=== PATIENT | male | born 1960 | race Two or more races ===

== ENCOUNTER 2018-07-07 15:47 | Inpatient (IN) | payer MEDICARE, MEDICAID ==
[2018-07-07] MEDS ORDERED: Midazolam 1mg/ml 2 ml vial IV ONE ×2 (15:57→20:23)
--- NOTE | 2018-07-07 16:37 | ED Physician Chart ---
ED Chief Complaint/HPI - Patient Information Date Seen:: 07/07/18 Time Seen:: 16:00 Chief Complaint:: resp distress History of Present Illness:: 57 yr old male with sob resp distress here via paramedics from [facility] pt with downs syndrome and mental disability pt bib paramedics withcpap mask no iv and pulse ox 60 to 70 cold mottled extremities ED Review of Systems - Review of Systems General/Constitutional: Fever (unable to give) ED Past Medical History - Past Medical History Past Medical History: Other (downs syndrome) ED Physical Exam - Physical Examination Head: Atraumatic Eyes: Lids, conjuctiva normal Other Skin comments:: mottled legs pale skin ENMT: External ears, nose nl Neck: Nontender Other Respiratory comments:: crackles and pitting edemae legs Cardio Vascular: RRR GI: No tenderness/rebounding/guarding : No CVA tenderness Other Extremities comments:: pitting edema and mottling ED Assessment - Assessment General Assessment: resp distress s/p naso trach intubation Critical Care Time: 2hrs ED Septic Shock - . Is Septic Shock (SBP<90, OR Lactate>4 mmol\L) present?: No
[2018-07-07 16:57] LABS: pH 7.35 (7.35-7.45)
[2018-07-07 16:58] LABS: ALLEN TEST Positive
[2018-07-07] MEDS ORDERED: cefTRIAXone 2 GM in Sodium Chloride 0.9% 100 ML IV ONE (17:10)
[2018-07-07] MEDS ORDERED: Midazolam 1mg/ml 2 ml vial IV STA (17:11)
[2018-07-07 17:18] LABS: EOSINOPHILE ABSOLUTE 0.1 Th/cmm (0.1-0.4); MONOCYTE ABSOLUTE 0.1 Th/cmm (0.3-1.0)
[2018-07-07 17:19] LABS: URINE SOURCE CLEAN C
[2018-07-07 17:21] LABS: % BASOPHILS 2.1 % (0.0-2.0); % EOSINOPHILS 0.5 % (0.0-5.0); % LYMPHOCYTES 1.8 % (20.0-50.0); % MONOCYTES 0.2 % (2.0-10.0); % NEUTROPHILS 95.4 % (40.0-80.0); BASOPHILE ABSOLUTE 0.6 Th/cumm (0-0.2); HEMATOCRIT 36.8 % (41.0-60); HEMOGLOBIN 11.9 gm/dL (12-16); LYMPHOCYTE ABSOLUTE 0.5 Th/cmm (1.5-3.0); MEAN CELL VOLUME 87.8 fl (80-99); MEAN CORPUSCULAR HEMOGLOBIN 28.5 pg (26.0-30.0); MEAN CORPUSCULAR HGB CONC 32.4 pg (28.0-36.0); MEAN PLATELET VOLUME 7.6 fl; NEUTROPHILE ABSOLUTE 25.3 Th/cmm (1.8-8.0); PLATELET COUNT 333 Th/cmm (150-400); RED CELL DISTRIBUTION WIDTH 17.9 % (11.5-20.0)
[2018-07-07 17:23] LABS: WHITE BLOOD COUNT 26.6 Th/cmm (4.8-10.8)
[2018-07-07 17:24] LABS: URINE BILIRUBIN NEGATIVE (NEGATIVE); URINE BLOOD NEGATIVE (NEGATIVE); URINE GLUCOSE (UA) NEGATIVE (NEGATIVE); URINE KETONE NEGATIVE (NEGATIVE); URINE LEUKOCYTE ESTERASE NEGATIVE (NEGATIVE); URINE NITRATE NEGATIVE (NEGATIVE); URINE PROTEIN 30 mg/dL (NEGATIVE); URINE UROBILINOGEN 0.2 E.U./dL (0.2 - 1.0)
[2018-07-07 17:27] LABS: URINE CLARITY CLEAR (CLEAR); URINE COLOR YELLOW; URINE MICROSCOPIC INDICATED? YES
[2018-07-07 17:32] LABS: ALB/GLOB RATIO 0.8 (1.0-1.8); ALKALINE PHOSPHATASE 222 U/L (34-104); ANION GAP 15.4 (7.0-16.0); BILIRUBIN,TOTAL 0.9 mg/dL (0.3-1.0); BUN - UREA NITROGEN 7 mg/dL (7-25); CALCIUM SERUM 8.7 mg/dL (8.6-10.3); CARBON DIOXIDE 19.8 mEq/L (21.0-31.0); CHLORIDE 102 mEq/L (98-107); CREATININE - SERUM 0.5 mg/dL (0.7-1.3); GFR AFRICAN-AMERICAN > 60.0 ml/min (>90); GFR NON AFRICAN-AMERICAN > 60.0 ml/min; POTASSIUM SERUM 4.2 mEq/L (3.5-5.1); SGOT 71 U/L (13-39); SGPT/ALT 21 U/L (7-52); SODIUM SERUM 133 mEq/L (136-145); TOTAL PROTEIN,SERUM 6.9 gm/dL (6.0-8.3)
[2018-07-07 17:38] LABS: GLUCOSE 41 mg/dL (70-105)
[2018-07-07] MEDS ORDERED: [UNRECOGNIZED DRUG - OTHER] IV ONE (17:38)
[2018-07-07 17:43] LABS: BAND NEUTROPHILE 13 % (0-10); EOSINOPHIL 1 % (0-5); LYMPHOCYTE 3 % (20-50); NEUTROPHILS 83 % (40-80)
[2018-07-07 17:45] LABS: URINE BACTERIA FEW /hpf (NONE SEEN); URINE EPITHELIAL CELLS FEW /lpf (FEW); URINE FINE GRANULAR CAST 0-2 /lpf (NONE SEEN); URINE RBC 0-2 /hpf (0-5)
[2018-07-07] MEDS ORDERED: Dextrose 50% 50 mL Abboject IVP ONE ×3 (17:47→23:41)
[2018-07-07] MEDS ORDERED: HYDROCORTISONE SODIUM SUCC IM ONE (17:59)
[2018-07-07] MEDS ORDERED: Dextrose 50% 50 mL Abboject IVP STA ×2 (18:05→19:48)
[2018-07-07] MEDS ORDERED: guaiFENesin 200 MG/10 ML UDC PO PRN (19:06)
[2018-07-07] MEDS ORDERED: D5-0.9%NS 1,000 ML IV SCH (19:15)
[2018-07-07] MEDS ORDERED: Sodium Chloride 0.9% 1,000 ML IV ONE ×2 (19:52→20:15)
[2018-07-07] MEDS ORDERED: Dextrose 10% 1,000 ML IV ONE (20:00)
[2018-07-07] MEDS ORDERED: Dextrose 10% 1,000 ML IV SCH (20:00)
[2018-07-07] MEDS ORDERED: INSULIN ASPART, RECOMBINANT 100 UNITS/ML SUBQ SCH (21:00)
[2018-07-07 21:04] LABS: INR 1.17 (0.5-1.4); PROTHROMBIN TIME (TEST) 12.1 SECONDS (9.5-11.5)
[2018-07-07 22:28] VITALS: BP 117/62
[2018-07-08] MEDS: methylPREDNISolone SS 40 mg Vial IVP SCH ×3 (00:20→12:09)
[2018-07-08] MEDS ORDERED: Dextrose 50% 50 mL Abboject IVP PRN (00:59)
[2018-07-08] MEDS: INSULIN ASPART, RECOMBINANT 100 UNITS/ML SUBQ SCH ×4 (04:23→17:43)
[2018-07-08] MEDS: Morphine Sulfate 2 mg/mL 1mL Syr IVP PRN ×2 (04:58→12:22)
[2018-07-08 05:12] LABS: MEAN CELL VOLUME 91.7 fl (80-99); MEAN CORPUSCULAR HEMOGLOBIN 28.3 pg (26.0-30.0); MEAN CORPUSCULAR HGB CONC 30.9 pg (28.0-36.0); MEAN PLATELET VOLUME 7.9 fl; RED BLOOD COUNT 2.86 Mil/cmm (4.30-5.70); RED CELL DISTRIBUTION WIDTH 18.7 % (11.5-20.0)
[2018-07-08] MEDS: Levothyroxine 0.025 Mg Tab PO SCH (06:36)
[2018-07-08 06:44] LABS: HEMATOCRIT 26.2 % (41.0-60); HEMOGLOBIN 8.1 gm/dL (12-16); WHITE BLOOD COUNT 17.3 Th/cmm (4.8-10.8)
[2018-07-08 06:45] LABS: PLATELET COUNT 156 Th/cmm (150-400)
[2018-07-08 06:46] LABS: BAND NEUTROPHILE 1 % (0-10); BASOPHIL 0 % (0-3); EOSINOPHIL 0 % (0-5); LYMPHOCYTE 2 % (20-50); METAMYELOCYTE 0 % (0-0); MONOCYTE 1 % (2-10); NEUTROPHILS 95 % (40-80)
[2018-07-08] MEDS: Ipratropium Neb 0.5 mg/2.5 mL UD HHN SCH ×3 (07:24→14:21)
[2018-07-08] MEDS: Albuterol Nebulizer 2.5mg/3mL HHN SCH ×3 (07:24→14:21)
[2018-07-08] MEDS: Chlorhexidine Gluconate 0.12% 15mL Mouthwash MM SCH ×2 (08:18→20:25)
--- NOTE | 2018-07-08 08:41 | Diagnostic Imaging Report ---
CHEST X-RAY: AP view INDICATION: Shortness of breath COMPARISON: None FINDINGS: ET tube is in place with tip along the origin of the right mainstem bronchus. Extensive left lung infiltrates are noted with small effusions. Cardiomegaly is noted. Osseous structures are intact. IMPRESSION: ET tube with tip along the origin of the right mainstem bronchus. Recommend pullback. Please refer to follow x-rays for further details. Extensive left lung infiltrates and small effusions.
--- NOTE | 2018-07-08 08:41 | Diagnostic Imaging Report ---
CHEST X-RAY: AP view INDICATION: Shortness of breath COMPARISON: 07/07/2018 FINDINGS: The ET tube is been pulled back with tip now 2.5 cm above the Natalie. Extensive left lung infiltrates are noted. Cardiomegaly is noted. Small bilateral effusions are noted. IMPRESSION: ET tube with tip 2.5 cm above the Natalie. Extensive left lung infiltrates.
--- NOTE | 2018-07-08 08:45 | Diagnostic Imaging Report ---
CHEST X-RAY: AP view INDICATION: PICC line placement COMPARISON: Chest x-ray earlier the same day at 1804 FINDINGS: Right PICC line has been placed with tip in the SVC. ET tube is in place with tip 4 cm above the Jaun. Diffuse infiltrates are seen primarily of the left lung. Small bilateral effusions are noted. Cardiomegaly is noted. IMPRESSION: Interval right PICC line placement with tip in the SVC. ET tube with tip 4 cm above the jaun. Diffuse infiltrates primarily involving the left lung.
--- NOTE | 2018-07-08 08:48 | Diagnostic Imaging Report ---
CHEST X-RAY: AP view INDICATION: Pneumonia COMPARISON: 07/07/2018 FINDINGS: Support devices are stable. Diffuse infiltrates are again noted primarily involving the left lung with small effusions. Cardiomegaly is noted. IMPRESSION: No significant change in pulmonary status.
[2018-07-08] MEDS ORDERED: FLUTICASONE PROPIONATE 110 MCG INH SCH (09:00)
[2018-07-08 09:11] LABS: pH 7.38 (7.35-7.45)
[2018-07-08 09:13] LABS: ALLEN TEST Positive
[2018-07-08 09:42] LABS: ALB/GLOB RATIO 0.7 (1.0-1.8); ALBUMIN 2.3 gm/dL (4.2-5.5); ALKALINE PHOSPHATASE 135 U/L (34-104); BILIRUBIN,TOTAL 0.7 mg/dL (0.3-1.0); BUN - UREA NITROGEN 6 mg/dL (7-25); CALCIUM SERUM 7.5 mg/dL (8.6-10.3); CARBON DIOXIDE 17.4 mEq/L (21.0-31.0); CHLORIDE 104 mEq/L (98-107); CREATININE - SERUM 0.5 mg/dL (0.7-1.3); GFR AFRICAN-AMERICAN > 60.0 ml/min (>90); GFR NON AFRICAN-AMERICAN > 60.0 ml/min; MAGNESIUM 1.6 mg/dL (1.9-2.7); POTASSIUM SERUM 3.4 mEq/L (3.5-5.1); SGOT 73 U/L (13-39); SGPT/ALT 16 U/L (7-52); SODIUM SERUM 133 mEq/L (136-145); TOTAL PROTEIN,SERUM 5.4 gm/dL (6.0-8.3)
[2018-07-08 09:55] LABS: GLUCOSE 343 mg/dL (70-105)
[2018-07-08] MEDS ORDERED: Mag Sulfate 2gm/50mL Premix 2 GM/50 ML BAG IV ONE (12:26)
[2018-07-08] MEDS ORDERED: Magnesium Sulfate 2 GM in Sodium Chloride 0.9% 100 ML IV ONE (13:00)
[2018-07-08] MEDS: D5-0.9%NS 1,000 ML IV SCH (13:00)
--- NOTE | 2018-07-08 13:18 | Internal Medicine Prog Note ---
Internal Medicine Subjective - Subjective Service Date: 07/08/18 ([facility] [id number]) Internal Medicine Objective - Results Result Diagrams: 07/08/18 04:10 07/08/18 09:00 Recent Labs: Laboratory Last Values WBC 17.3 Th/cmm (4.8-10.8) H D 07/08/18 04:10 RBC 2.86 Mil/cmm (4.30-5.70) L 07/08/18 04:10 Hgb 8.1 gm/dL (12-16) L D 07/08/18 04:10 Hct 26.2 % (41.0-60) L D 07/08/18 04:10 MCV 91.7 fl (80-99) 07/08/18 04:10 MCH 28.3 pg (26.0-30.0) 07/08/18 04:10 MCHC Differential 30.9 pg (28.0-36.0) 07/08/18 04:10 RDW 18.7 % (11.5-20.0) 07/08/18 04:10 Plt Count 156 Th/cmm (150-400) D 07/08/18 04:10 MPV 7.9 fl 07/08/18 04:10 Add Manual Diff YES 07/08/18 04:10 Neutrophils % 95.4 % (40.0-80.0) H 07/07/18 17:00 Band Neutrophils % 1 % (0-10) 07/08/18 04:10 Lymphocytes % 1.8 % (20.0-50.0) L 07/07/18 17:00 Monocytes % 0.2 % (2.0-10.0) L 07/07/18 17:00 Eosinophils % 0.5 % (0.0-5.0) 07/07/18 17:00 Basophils % 2.1 % (0.0-2.0) H 07/07/18 17:00 Neutrophils (Manual) 95 % (40-80) H 07/08/18 04:10 Lymphocytes 2 % (20-50) L 07/08/18 04:10 Monocytes 1 % (2-10) L 07/08/18 04:10 Eosinophils 0 % (0-5) 07/08/18 04:10 Basophils 0 % (0-3) 07/08/18 04:10 Metamyelocytes 0 % (0-0) 07/08/18 04:10 PT 12.1 SECONDS (9.5-11.5) H 07/07/18 17:00 INR 1.17 (0.5-1.4) 07/07/18 17:00 Specimen Source Arterial 07/08/18 09:00 Sample Site Right Radial 07/08/18 09:00 pH 7.38 (7.35-7.45) 07/08/18 09:00 pCO2 40.0 mmHg (35.0-45.0) 07/08/18 09:00 pO2 89.0 mmHg (80.0-100.0) 07/08/18 09:00 HCO3 23.9 mEq/L (20.0-26.0) 07/08/18 09:00 Base Excess -1.3 mEq/L (-3.0-3.0) 07/08/18 09:00 O2 Saturation 97.0 % (92.0-100.0) 07/08/18 09:00 Kam Test Positive 07/08/18 09:00 Vent Rate 16 07/08/18 09:00 Inspired O2 30 07/08/18 09:00 Tidal Volume 450 07/08/18 09:00 PEEP 5 07/08/18 09:00 Pressure (ins/psv/peep) N/A 07/08/18 09:00 Critical Value DM 07/08/18 09:00 Sodium 133 mEq/L (136-145) L 07/08/18 09:00 Potassium 3.4 mEq/L (3.5-5.1) L 07/08/18 09:00 Chloride 104 mEq/L (98-107) 07/08/18 09:00 Carbon Dioxide 17.4 mEq/L (21.0-31.0) L 07/08/18 09:00 Anion Gap 15.0 (7.0-16.0) 07/08/18 09:00 BUN 6 mg/dL (7-25) L 07/08/18 09:00 Creatinine 0.5 mg/dL (0.7-1.3) L 07/08/18 09:00 Est GFR ( Amer) > 60.0 ml/min (>90) 07/08/18 09:00 Est GFR (Non-Af Amer) > 60.0 ml/min 07/08/18 09:00 BUN/Creatinine Ratio 12.0 07/08/18 09:00 Glucose 343 mg/dL (70-105) H D 07/08/18 09:00 POC Glucose 293 MG/DL (70 - 105) H 07/08/18 11:30 Whole Bld Lactic Acid 1.96 mmol/L (0.60-1.99) 07/07/18 19:15 Calcium 7.5 mg/dL (8.6-10.3) L 07/08/18 09:00 Magnesium 1.6 mg/dL (1.9-2.7) L 07/08/18 09:00 Total Bilirubin 0.7 mg/dL (0.3-1.0) 07/08/18 09:00 AST 73 U/L (13-39) H 07/08/18 09:00 ALT 16 U/L (7-52) 07/08/18 09:00 Alkaline Phosphatase 135 U/L (34-104) H 07/08/18 09:00 Ammonia 50 umol/L (16-53) 07/08/18 04:10 Troponin I 0.02 ng/mL (0.01-0.05) 07/07/18 17:00 B-Natriuretic Peptide 255.0 pg/mL (5.0-100.0) H 07/08/18 04:10 Total Protein 5.4 gm/dL (6.0-8.3) L 07/08/18 09:00 Albumin 2.3 gm/dL (4.2-5.5) L 07/08/18 09:00 Globulin 3.1 gm/dL 07/08/18 09:00 Albumin/Globulin Ratio 0.7 (1.0-1.8) L 07/08/18 09:00 TSH 4.06 uIU/ml (0.34-5.60) 07/08/18 04:10 Urine Source CLEAN C 07/07/18 17:15 Urine Color YELLOW 07/07/18 17:15 Urine Clarity CLEAR (CLEAR) 07/07/18 17:15 Urine pH 6.0 (4.6 - 8.0) 07/07/18 17:15 Ur Specific [place] 1.015 (1.005-1.030) 07/07/18 17:15 Urine Protein 30 mg/dL (NEGATIVE) H 07/07/18 17:15 Urine Glucose (UA) NEGATIVE mg/dL (NEGATIVE) 07/07/18 17:15 Urine Ketones NEGATIVE mg/dL (NEGATIVE) 07/07/18 17:15 Urine Blood NEGATIVE (NEGATIVE) 07/07/18 17:15 Urine Nitrate NEGATIVE (NEGATIVE) 07/07/18 17:15 Urine Bilirubin NEGATIVE (NEGATIVE) 07/07/18 17:15 Urine Urobilinogen 0.2 E.U./dL (0.2 - 1.0) 07/07/18 17:15 Ur Leukocyte Esterase NEGATIVE (NEGATIVE) 07/07/18 17:15 Urine RBC 0-2 /hpf (0-5) H 07/07/18 17:15 Urine WBC 2-5 /hpf (0-5) 07/07/18 17:15 Ur Epithelial Cells FEW /lpf (FEW) 07/07/18 17:15 Urine Bacteria FEW /hpf (NONE SEEN) 07/07/18 17:15 Fine Granular Casts 0-2 /lpf (NONE SEEN) H 07/07/18 17:15 Urine Mucus FEW /lpf (FEW) 07/07/18 17:15 - Physical Exam Vitals and I&O: Vital Signs Temp 97.1 F 07/08/18 13:00 Pulse 89 07/08/18 13:00 Resp 16 07/08/18 13:00 BP 104/61 07/08/18 13:00 Pulse Ox 99 07/08/18 13:00 Intake & Output 07/07/18 07/08/18 07/08/18 18:59 06:59 18:59 Intake Total 1450 250 Output Total 1700 Balance -250 250 Weight (lbs) 145 lb 160 lb Intake: Intake, IV Amount 1450 250 Piperacillin Sodium/ 200 Tazobact 4.5 gm In Sodium Chloride 0.9% 100 ml @ 100 mls/hr IV Q8HR [facility] Rx #:[id number] Vancomycin HCl 1 gm In 250 Sodium Chloride 0.9% 250 ml @ 165 mls/hr IV Q24H [facility] Rx#:[id number] Output: Urine 1700 Other: Weight Source Estimated Bedscale Active Medications: Current Medications Acetaminophen (Tylenol) 650 mg PO Q4H PRN PRN Reason: Pain Or Fever above 101 Stop: 09/05/18 19:05 Albuterol Sulfate (Albuterol 2.5mg/3ml Neb Ud) 2.5 mg HHN QIDRT [facility] Stop: 09/06/18 06:59 Last Admin: 07/08/18 11:13 Dose: 2.5 mg Aspirin (Ecotrin) 81 mg PO DAILY [facility] Stop: 09/06/18 08:59 Last Admin: 07/08/18 08:34 Dose: Not Given Chlorhexidine Gluconate (Peridex) 15 ml MM 08,1999 [facility] Stop: 09/06/18 07:59 Last Admin: 07/08/18 08:18 Dose: 15 ml Dextrose (D50w) 50 ml IVP Q4HR PRN PRN Reason: Hypersensitivity Stop: 09/06/18 00:58 Guaifenesin (Robitussin) 200 mg PO Q4HR PRN PRN Reason: Cough or Congestion Stop: 09/05/18 19:05 Heparin Sodium (Porcine) (Heparin) 5,000 units SUBQ Q12HR [facility] Stop: 09/05/18 20:59 Last Admin: 07/08/18 08:26 Dose: 5,000 units Piperacillin Sod/Tazobactam (Sod 4.5 gm/ Sodium Chloride) 100 mls @ 100 mls/hr IV Q8HR [facility] Stop: 09/05/18 20:59 Last Admin: 07/08/18 12:08 Dose: 100 mls/hr Norepinephrine Bitartrate 4 mg (/ Dextrose) 254 mls @ 7.62 mls/hr IV TITR PRN; Protocol PRN Reason: To Keep SBP Above 90 Stop: 09/06/18 00:56 Vancomycin HCl 1 gm/ Sodium (Chloride) 250 mls @ 165 mls/hr IV Q24H [facility] Stop: 09/06/18 08:59 Last Infusion: 07/08/18 10:05 Dose: Infused Potassium Chloride 20 meq/ (Sodium Chloride) 260 mls @ 130 mls/hr IV X1 ONE Stop: 07/08/18 14:59 Last Admin: 07/08/18 13:11 Dose: 130 mls/hr Dextrose/Sodium Chloride (D5-0.9%Ns) 1,000 mls @ 80 mls/hr IV .[id number] [facility] Stop: 09/06/18 12:29 Last Admin: 07/08/18 13:00 Dose: 80 mls/hr Magnesium Sulfate 2 gm/ Sodium (Chloride) 104 mls @ 50 mls/hr IV ONCE ONE Stop: 07/08/18 15:04 Last Admin: 07/08/18 13:09 Dose: 50 mls/hr Insulin Aspart (Novolog) 0 units SUBQ Q6HR [facility]; Protocol Stop: 09/06/18 17:59 Ipratropium [place] (Atrovent Neb 0.5mg/2.5ml) 0.5 mg HHN QIDRT [facility] Stop: 09/06/18 06:59 Last Admin: 07/08/18 11:13 Dose: 0.5 mg Levothyroxine Sodium (Synthroid) 0.025 mg PO QDAC [facility] Stop: 09/06/18 07:29 Last Admin: 07/08/18 06:36 Dose: Not Given Lorazepam (Ativan) 0.5 mg IV Q6H PRN; Protocol PRN Reason: Agitation Stop: 09/06/18 00:54 Last Admin: 07/08/18 08:47 Dose: 0.5 mg Methylprednisolone Sodium Succinate (Solu-Medrol) 60 mg IVP Q8HR [facility] Stop: 09/06/18 12:59 Last Admin: 07/08/18 13:09 Dose: 60 mg Miscellaneous (Fluticasone Propionate [Flovent Hfa]) 110 mcg INH BID [facility] Stop: 09/06/18 08:59 Miscellaneous (Vancomycin Iv Per Pharmacy) 1 ea [facility] PRN [facility] Stop: 09/05/18 19:14 Morphine Sulfate (Morphine) 2 mg IVP Q4H PRN PRN Reason: Pain (Severe) Stop: 09/05/18 19:05 Last Admin: 07/08/18 12:22 Dose: 2 mg Ondansetron HCl (Zofran) 4 mg IV Q8H PRN PRN Reason: Nausea / Vomiting Stop: 09/05/18 19:05 Pantoprazole Sodium (Protonix) 40 mg IVP BID [facility] Stop: 09/06/18 08:59 Last Admin: 07/08/18 08:27 Dose: 40 mg
--- NOTE | 2018-07-08 13:50 | Diagnostic Imaging Report ---
CHEST X-RAY: AP view INDICATION: NG tube placement COMPARISON: 07/08/2018 FINDINGS: NG tube is in place with tip in the stomach. Remaining support devices are stable. Bilateral diffuse bony infiltrates are again noted left greater than right. IMPRESSION: Interval NG tube placement with tip in the stomach. Diffuse bilateral pulmonary infiltrates left greater than right.
--- NOTE | 2018-07-08 14:54 | Consultation ---
DATE OF CONSULTATION: 07/08/2018 PULMONARY/CRITICAL CARE CONSULTATION NOTE REASON FOR CONSULTATION: Acute respiratory failure. HISTORY OF PRESENT ILLNESS: This is a 57-year-old gentleman well known to me, who comes to the office regularly, has a significant physically and mentally development issue, has a severe obstructive sleep apnea syndrome, chronic bronchial asthma, diabetic mellitus, hypertension and is fairly compliant. [place] and [place] and ____ the office regularly. Apparently, the patient was found to have significant shortness of breath with severe hypoxemia. Subsequently, the patient was brought to the hospital with CPAP mask. The patient was intubated as the patient with significant respiratory distress, etc. Subsequently, I was asked to see this patient for further evaluation and necessary treatment. Unfortunately, meaningful detailed history from the patient is not available to me though I have known him for a long time as to current sequence of ____. PHYSICAL EXAMINATION: GENERAL: The patient is currently intubated. No respiratory distress. Currently using 30% of oxygen on assist control of 16. HEENT: Examination of the head is essentially unremarkable. Pupils appear to be equal and react to light. Conjunctivae are slightly pallor. There is a nasotracheal tube as well as a nasogastric tube on the right side. Mouth shows small oropharyngeal opening. NECK: Very short large circumference. No palpable node. CHEST: Shows scattered rhonchi with generalized diminished air entry and with scattered wheezing. HEART: Distant. ABDOMEN: Soft, nontender. EXTREMITIES: Show slight trace of peripheral edema. IMAGING: The patient's chest x-ray currently shows ET tube in good position, mid trachea with bilateral fluffy infiltrate. LABORATORY DATA: Other laboratory studies: White count is 26,000, hemoglobin 11.9 and the patient's ABG initially on 100%, pO2 was 61 and initial admission, repeat one shows pO2 of 89 and this is on 30% of oxygen. The patient's white count is trending down to 17.3 with hemoglobin 8.1 and the patient's electrolytes shows a sugar on a higher side and the patient's potassium is 3.4, BUN is 6, creatinine is 0.5, magnesium is 1.6 and albumin is 2.3. IMPRESSION: 1. The patient has acute respiratory failure with bilateral infiltrates, exact etiology is not clear, question is viral versus possibly community acquired. 2. Underlying chronic bronchial asthma. 3. Severe obstructive sleep apnea syndrome. 4. Hypertension, diabetic mellitus and history of sleep apnea syndrome with CPAP compliant. PLANS AND SUGGESTIONS: We will go ahead and continue ventilator care, aggressive respiratory tracheobronchial toileting and we will go ahead and get a CT of the chest, 2D echo and also aggressive inhalation treatment with steroid and broad spectrum antibiotic and we will see how she does in the next 24 to 48 hours and go from there. JOB# [id number]
[2018-07-08] MEDS: methylPREDNISolone SS 40 mg Vial IV SCH ×2 (15:01→17:38)
[2018-07-08] MEDS: Pantoprazole 40 mg/Packet PO SCH (15:04)
--- NOTE | 2018-07-08 15:12 | History & Physical ---
ADMIT DATE: 07/08/2018 CHIEF COMPLAINT: Respiratory distress. HISTORY OF PRESENT ILLNESS: This is a 57-year-old male who is a resident of [facility] who has a 1-day history of respiratory distress. The patient was noted to have a pulse oximetry and oxygen saturation in the low 60-70% and the patient was noted to have a cold, mottled extremities. The patient was found to be in severe respiratory distress in the ER. The patient was intubated by ER physician and placed on a ventilator. The patient was also noted with abdominal distention. The patient was kept on NG tube to intermittent suction as well. In the ER, last night patient had an episode of hypoglycemia and D50 was given. For further management, patient is admitted here to the ICU unit. PAST MEDICAL HISTORY: Down syndrome, hypertension, asthma and COPD, liver CA. PAST SURGICAL HISTORY: Unknown. ALLERGIES: No drug allergies. SOCIAL HISTORY: The patient is a resident of [facility]. FAMILY HISTORY: Noncontributory. REVIEW OF SYSTEMS: Unable to obtain due to patient's mental status. PHYSICAL EXAMINATION: GENERAL: Elderly male, appears chronically ill, on ventilator. VITAL SIGNS: Temperature 97.1, heart rate 78, blood pressure 120/70, respiration 18, O2 100%. HEENT: Normocephalic, atraumatic. NECK: Supple. No mass. LUNGS: Scattered rhonchi bilaterally. CARDIOVASCULAR: No murmurs, no gallops. ENT, PERRLA. No nasal deviation. ABDOMEN: Noted with distention. EXTREMITIES: No edema noted at this time. SKIN: Positive for excoriations. LABORATORY DATA: WBC 17.3, H and H 8.1/26.2, platelet of 156. Sodium 132, potassium 3.4, chloride 104, BUN 6, creatinine 0.5. BNP is 255, albumin 2.3. The patient had a chest x-ray done. Impression is extensive left lung infiltrate and small effusions. ASSESSMENT: Acute respiratory failure, sepsis, VDRF, left lung pneumonia, anemia, hyponatremia, hypokalemia, mild protein-calorie malnutrition, episode of hypoglycemia, Down syndrome, hypertension, asthma, history of liver cancer. PLAN: The patient will be admitted to the ICU unit. We will keep the patient on IV antibiotics of vancomycin per pharmacy to dose and Zosyn. Also add Solu-Medrol 60 mg IV q.8 hours. We will get medical genetics director on the case. IV fluids for hydration. We will get followup labs for tomorrow morning. Monitor signs and symptoms of any hypo or hyperglycemia. Accu-Chek a.c. and at bedtime, continue ventilator support. We will continue to follow this patient. JOB# [id number]
[2018-07-08] MEDS: Albuterol/Ipratropium Neb 3 ML AERS HHN SCH ×3 (15:53→23:07)
[2018-07-08] MEDS: Budesonide 0.5 Mg/2 mL Ud HHN SCH (19:01)
[2018-07-09] MEDS: INSULIN ASPART, RECOMBINANT 100 UNITS/ML SUBQ SCH ×5 (00:26→23:53)
[2018-07-09] MEDS: methylPREDNISolone SS 40 mg Vial IV SCH ×5 (00:30→23:53)
[2018-07-09] MEDS: Albuterol/Ipratropium Neb 3 ML AERS HHN SCH ×6 (03:08→23:14)
[2018-07-09] MEDS: D5-0.9%NS 1,000 ML IV SCH (05:06)
[2018-07-09] MEDS: Levothyroxine 0.025 Mg Tab PO SCH (06:54)
[2018-07-09] MEDS: Budesonide 0.5 Mg/2 mL Ud HHN SCH (06:54)
--- NOTE | 2018-07-09 07:49 | Diagnostic Imaging Report ---
CT Chest without IV contrast HISTORY: Respiratory failure COMPARISON: Chest x-ray the same day. Technique: Axial images were obtained from the base of the neck to the upper abdomen without IV contrast. Reconstructions were made. Total DLP 3:30, CTD I 9.2 Findings: Tracheostomy tube is seen with tip 2.8 cm above the jaun. NG tube is within the stomach. Right sided PICC line is seen with tip in SVC. Assessment of the mediastinum is limited due to lack of IV contrast. Mildly prominent mediastinal lymph nodes are noted. Cardiomegaly is noted. No evidence of pericardial effusion. No evidence of an aneurysm. Evaluation of the lungs demonstrates extensive bilateral infiltrates left greater than right. No significant pleural effusion identified. Left basal consolidative changes are noted. The upper abdomen demonstrates enlarged liver with multiple hypodense mass lesions. Small amount of free fluid is also seen adjacent to the liver. Anasarca is noted. Degenerative changes of the spine are noted. Gynecomastia is incidentally noted. IMPRESSION: Extensive multifocal infiltrates, left greater than right, concerning for multifocal pneumonia.. ARDS may be considered in the appropriate clinical setting. Enlarged liver with multiple low density lesions most concerning for metastatic disease. Please correlate with clinical history and old exams. Cardiomegaly. Mildly prominent mediastinal lymph nodes. Small amount of free fluid adjacent to the liver. Support devices as above Anasarca. Gynecomastia.
--- NOTE | 2018-07-09 07:55 | Diagnostic Imaging Report ---
Portable chest x-ray HISTORY: Shortness of breath Compared with the prior exam of July 08, 2018, the heart remains enlarged. Persistent bilateral infiltrates (left greater than right). Pulmonary vascular redistribution is seen consistent with cardiac decompensation. Endotracheal tube tip is approximately 2.5 cm above the jaun. IMPRESSION: 1. No significant change in the cardiopulmonary status. Persistent cardiomegaly and bilateral infiltrates. Findings suggest changes of congestive heart failure with pulmonary edema. Underlying pneumonia cannot be excluded. Clinical correlation is needed.
[2018-07-09 07:58] LABS: HEMATOCRIT 26.1 % (41.0-60); HEMOGLOBIN 8.5 gm/dL (12-16); MEAN CELL VOLUME 87.9 fl (80-99); MEAN CORPUSCULAR HEMOGLOBIN 28.5 pg (26.0-30.0); MEAN CORPUSCULAR HGB CONC 32.4 pg (28.0-36.0); PLATELET COUNT 143 Th/cmm (150-400); RED BLOOD COUNT 2.97 Mil/cmm (4.30-5.70); RED CELL DISTRIBUTION WIDTH 17.8 % (11.5-20.0); WHITE BLOOD COUNT 12.7 Th/cmm (4.8-10.8)
[2018-07-09 08:16] LABS: ALB/GLOB RATIO 0.8 (1.0-1.8); ALBUMIN 2.5 gm/dL (4.2-5.5); ALKALINE PHOSPHATASE 120 U/L (34-104); ANION GAP 14.4 (7.0-16.0); BILIRUBIN,TOTAL 0.6 mg/dL (0.3-1.0); BUN - UREA NITROGEN 9 mg/dL (7-25); CALCIUM SERUM 7.6 mg/dL (8.6-10.3); CARBON DIOXIDE 19.2 mEq/L (21.0-31.0); CHLORIDE 106 mEq/L (98-107); CREATININE - SERUM 0.6 mg/dL (0.7-1.3); GFR AFRICAN-AMERICAN > 60.0 ml/min (>90); GFR NON AFRICAN-AMERICAN > 60.0 ml/min; MAGNESIUM 2.3 mg/dL (1.9-2.7); POTASSIUM SERUM 3.6 mEq/L (3.5-5.1); SGOT 97 U/L (13-39); SGPT/ALT 19 U/L (7-52); SODIUM SERUM 136 mEq/L (136-145); TOTAL PROTEIN,SERUM 5.6 gm/dL (6.0-8.3)
[2018-07-09 08:20] LABS: GLUCOSE 215 mg/dL (70-105)
[2018-07-09] MEDS: Pantoprazole 40 mg/Packet PO SCH (08:48)
[2018-07-09] MEDS: Chlorhexidine Gluconate 0.12% 15mL Mouthwash MM SCH ×2 (08:55→19:37)
[2018-07-09] MEDS: Potassium Chloride Elixir 20 mEq /15 mL UDC GT SCH (09:27)
[2018-07-09] MEDS: Lactulose 10 Gm/15 mL 30mL UDC PO SCH (09:28)
[2018-07-09] MEDS: D5-0.45NS 1,000 ML IV SCH (09:29)
[2018-07-09 10:01] LABS: BAND NEUTROPHILE 0 % (0-10); BASOPHIL 0 % (0-3); EOSINOPHIL 0 % (0-5); LYMPHOCYTE 2 % (20-50); MONOCYTE 2 % (2-10); NEUTROPHILS 96 % (40-80)
[2018-07-09 10:04] LABS: ALLEN TEST YES
[2018-07-09 11:11] LABS: FOLIC ACID 8.6 ng/mL (>3.0)
--- NOTE | 2018-07-09 15:06 | Internal Medicine Prog Note ---
Internal Medicine Subjective - Subjective Service Date: 07/09/18 Patient seen and examined:: with staff Patient is:: asleep, non-verbal Patient Complaints of:: congestion Per staff patient has:: tolerating meds Internal Medicine Objective - Results Result Diagrams: 07/09/18 07:30 07/09/18 07:30 Recent Labs: Laboratory Last Values WBC 12.7 Th/cmm (4.8-10.8) H 07/09/18 07:30 RBC 2.97 Mil/cmm (4.30-5.70) L 07/09/18 07:30 Hgb 8.5 gm/dL (12-16) L 07/09/18 07:30 Hct 26.1 % (41.0-60) L 07/09/18 07:30 MCV 87.9 fl (80-99) 07/09/18 07:30 MCH 28.5 pg (26.0-30.0) 07/09/18 07:30 MCHC Differential 32.4 pg (28.0-36.0) 07/09/18 07:30 RDW 17.8 % (11.5-20.0) 07/09/18 07:30 Plt Count 143 Th/cmm (150-400) L 07/09/18 07:30 MPV 8.0 fl 07/09/18 07:30 Add Manual Diff YES 07/09/18 07:30 Neutrophils % [employer] 07/09/18 07:30 Band Neutrophils % 0 % (0-10) 07/09/18 07:30 Lymphocytes % [employer] 07/09/18 07:30 Monocytes % [employer] 07/09/18 07:30 Eosinophils % [employer] 07/09/18 07:30 Basophils % [employer] 07/09/18 07:30 Neutrophils (Manual) 96 % (40-80) H 07/09/18 07:30 Lymphocytes 2 % (20-50) L 07/09/18 07:30 Monocytes 2 % (2-10) 07/09/18 07:30 Eosinophils 0 % (0-5) 07/09/18 07:30 Basophils 0 % (0-3) 07/09/18 07:30 Metamyelocytes 0 % (0-0) 07/08/18 04:10 PT 12.1 SECONDS (9.5-11.5) H 07/07/18 17:00 INR 1.17 (0.5-1.4) 07/07/18 17:00 Specimen Source Arterial 07/09/18 09:55 Sample Site Right Radial 07/09/18 09:55 pH 7.40 (7.35-7.45) 07/09/18 09:55 pCO2 38.0 mmHg (35.0-45.0) 07/09/18 09:55 pO2 111.0 mmHg (80.0-100.0) H 07/09/18 09:55 HCO3 24.1 mEq/L (20.0-26.0) 07/09/18 09:55 Base Excess -1.1 mEq/L (-3.0-3.0) 07/09/18 09:55 O2 Saturation 98.0 % (92.0-100.0) 07/09/18 09:55 Kam Test YES 07/09/18 09:55 Vent Rate 16 07/09/18 09:55 Inspired O2 30 07/09/18 09:55 Tidal Volume 450 07/09/18 09:55 PEEP 5 07/09/18 09:55 Pressure (ins/psv/peep) NA 07/09/18 09:55 Critical Value E.CURRAN 07/09/18 09:55 Sodium 136 mEq/L (136-145) 07/09/18 07:30 Potassium 3.6 mEq/L (3.5-5.1) 07/09/18 07:30 Chloride 106 mEq/L (98-107) 07/09/18 07:30 Carbon Dioxide 19.2 mEq/L (21.0-31.0) L 07/09/18 07:30 Anion Gap 14.4 (7.0-16.0) 07/09/18 07:30 BUN 9 mg/dL (7-25) 07/09/18 07:30 Creatinine 0.6 mg/dL (0.7-1.3) L 07/09/18 07:30 Est GFR ( Amer) > 60.0 ml/min (>90) 07/09/18 07:30 Est GFR (Non-Af Amer) > 60.0 ml/min 07/09/18 07:30 BUN/Creatinine Ratio 15.0 07/09/18 07:30 Glucose 215 mg/dL (70-105) H D 07/09/18 07:30 POC Glucose 200 MG/DL (70 - 105) H 07/09/18 11:47 Whole Bld Lactic Acid 1.96 mmol/L (0.60-1.99) 07/07/18 19:15 Calcium 7.6 mg/dL (8.6-10.3) L 07/09/18 07:30 Magnesium 2.3 mg/dL (1.9-2.7) 07/09/18 07:30 Total Bilirubin 0.6 mg/dL (0.3-1.0) 07/09/18 07:30 AST 97 U/L (13-39) H 07/09/18 07:30 ALT 19 U/L (7-52) 07/09/18 07:30 Alkaline Phosphatase 120 U/L (34-104) H 07/09/18 07:30 Ammonia 62 umol/L (16-53) H 07/09/18 07:30 Troponin I 0.01 ng/mL (0.01-0.05) 07/09/18 07:30 B-Natriuretic Peptide 196.0 pg/mL (5.0-100.0) H 07/09/18 07:30 Total Protein 5.6 gm/dL (6.0-8.3) L 07/09/18 07:30 Albumin 2.5 gm/dL (4.2-5.5) L 07/09/18 07:30 Globulin 3.1 gm/dL 07/09/18 07:30 Albumin/Globulin Ratio 0.8 (1.0-1.8) L 07/09/18 07:30 Vitamin B12 1241 pg/mL (232-1245) 07/08/18 04:10 Folic Acid 8.6 ng/mL (>3.0) 07/08/18 04:10 TSH 4.06 uIU/ml (0.34-5.60) 07/08/18 04:10 Urine Source CLEAN C 07/07/18 17:15 Urine Color YELLOW 07/07/18 17:15 Urine Clarity CLEAR (CLEAR) 07/07/18 17:15 Urine pH 6.0 (4.6 - 8.0) 07/07/18 17:15 Ur Specific [place] 1.015 (1.005-1.030) 07/07/18 17:15 Urine Protein 30 mg/dL (NEGATIVE) H 07/07/18 17:15 Urine Glucose (UA) NEGATIVE mg/dL (NEGATIVE) 07/07/18 17:15 Urine Ketones NEGATIVE mg/dL (NEGATIVE) 07/07/18 17:15 Urine Blood NEGATIVE (NEGATIVE) 07/07/18 17:15 Urine Nitrate NEGATIVE (NEGATIVE) 07/07/18 17:15 Urine Bilirubin NEGATIVE (NEGATIVE) 07/07/18 17:15 Urine Urobilinogen 0.2 E.U./dL (0.2 - 1.0) 07/07/18 17:15 Ur Leukocyte Esterase NEGATIVE (NEGATIVE) 07/07/18 17:15 Urine RBC 0-2 /hpf (0-5) H 07/07/18 17:15 Urine WBC 2-5 /hpf (0-5) 07/07/18 17:15 Ur Epithelial Cells FEW /lpf (FEW) 07/07/18 17:15 Urine Bacteria FEW /hpf (NONE SEEN) 07/07/18 17:15 Fine Granular Casts 0-2 /lpf (NONE SEEN) H 07/07/18 17:15 Urine Mucus FEW /lpf (FEW) 07/07/18 17:15 Vancomycin Trough 11.1 ug/mL (5-10) H 07/09/18 07:30 - Physical Exam Vitals and I&O: Vital Signs Temp 97.1 F 07/09/18 13:00 Pulse 95 07/09/18 14:00 Resp 13 07/09/18 14:00 BP 113/66 07/09/18 14:00 Pulse Ox 99 07/09/18 14:00 Intake & Output 07/08/18 07/09/18 07/09/18 18:59 06:59 18:59 Intake Total 894 1250 100 Output Total 650 280 Balance 244 970 100 Weight (lbs) 173 lb 9 oz 176 lb Intake: Intake, IV Amount 714 950 100 D5-0.9%Ns 1,000 ml @ 80 750 mls/hr IV .[id number] [facility] Rx #:[id number] Piperacillin Sodium/ 100 200 100 Tazobact 4.5 gm In Sodium Chloride 0.9% 100 ml @ 100 mls/hr IV Q8HR [facility] Rx #:[id number] Vancomycin HCl 1 gm In 250 Sodium Chloride 0.9% 250 ml @ 165 mls/hr IV Q24H [facility] Rx#:[id number] Tube Feeding 80 300 Other 100 Output: Urine 650 280 Other: # Bowel Movements 0 Weight Source Bedscale Bedscale Active Medications: Current Medications Acetaminophen (Tylenol) 650 mg PO Q4H PRN PRN Reason: Pain Or Fever above 101 Stop: 09/05/18 19:05 Albuterol/Ipratropium (Duoneb Neb) 3 ml HHN Q4HRT [facility] Stop: 09/06/18 14:59 Last Admin: 07/09/18 11:33 Dose: 3 ml Aspirin (Ecotrin) 81 mg PO DAILY [facility] Stop: 09/06/18 08:59 Last Admin: 07/09/18 08:48 Dose: 81 mg Budesonide (Pulmicort) 0.5 mg HHN BIDRT [facility] Stop: 09/06/18 18:59 Last Admin: 07/09/18 06:54 Dose: 0.5 mg Chlorhexidine Gluconate (Peridex) 15 ml MM 08,1999 [facility] Stop: 09/06/18 07:59 Last Admin: 07/09/18 08:55 Dose: 15 ml Dextrose (D50w) 50 ml IVP Q4HR PRN PRN Reason: Hypersensitivity Stop: 09/06/18 00:58 Furosemide (Lasix) 20 mg IVP BID [facility] Stop: 09/07/18 08:59 Last Admin: 07/09/18 09:28 Dose: 20 mg Guaifenesin (Robitussin) 200 mg PO Q4HR PRN PRN Reason: Cough or Congestion Stop: 09/05/18 19:05 Piperacillin Sod/Tazobactam (Sod 4.5 gm/ Sodium Chloride) 100 mls @ 100 mls/hr IV Q8HR [facility] Stop: 09/05/18 20:59 Last Infusion: 07/09/18 13:10 Dose: Infused Norepinephrine Bitartrate 4 mg (/ Dextrose) 254 mls @ 7.62 mls/hr IV TITR PRN; Protocol PRN Reason: To Keep SBP Above 90 Stop: 09/06/18 00:56 Dextrose/Sodium Chloride (D5-0.45ns) 1,000 mls @ 50 mls/hr IV .Q20H [facility] Stop: 09/07/18 08:59 Last Admin: 07/09/18 09:29 Dose: 50 mls/hr Vancomycin HCl 1 gm/ Sodium (Chloride) 250 mls @ 165 mls/hr IV Q18H [facility] Stop: 09/07/18 21:59 Insulin Aspart (Novolog) 0 units SUBQ Q6HR [facility]; Protocol Stop: 09/06/18 17:59 Last Admin: 07/09/18 12:08 Dose: Not Given Lactulose (Cephulac) 30 gm PO DAILY [facility] Stop: 09/07/18 08:59 Last Admin: 07/09/18 09:28 Dose: 30 gm Levothyroxine Sodium (Synthroid) 0.025 mg PO QDAC [facility] Stop: 09/06/18 07:29 Last Admin: 07/09/18 06:54 Dose: 0.025 mg Lorazepam (Ativan) 0.5 mg IV Q6H PRN; Protocol PRN Reason: Agitation Stop: 09/06/18 00:54 Last Admin: 07/09/18 10:52 Dose: 0.5 mg Methylprednisolone Sodium Succinate (Solu-Medrol) 40 mg IV Q6HR [facility] Stop: 07/11/18 06:01 Last Admin: 07/09/18 12:07 Dose: 40 mg Miscellaneous (Vancomycin Iv Per Pharmacy) 1 ea MC PRN [facility] Stop: 09/05/18 19:14 Morphine Sulfate (Morphine) 2 mg IVP Q4H PRN PRN Reason: Pain (Severe) Stop: 09/05/18 19:05 Last Admin: 07/08/18 12:22 Dose: 2 mg Ondansetron HCl (Zofran) 4 mg IV Q8H PRN PRN Reason: Nausea / Vomiting Stop: 09/05/18 19:05 Pantoprazole Sodium (Protonix) 40 mg PO DAILY [facility] Stop: 09/06/18 14:44 Last Admin: 07/09/18 08:48 Dose: 40 mg Potassium Chloride (Potassium Chloride Elixir) 20 meq GT DAILY [facility] Stop: 09/07/18 08:59 Last Admin: 07/09/18 09:27 Dose: 20 meq General: weak, obtunded HEENT: NC/AT, PERRLA Neck: Supple Lungs: ronchi Cardiovascular: RRR, Normal S1, Normal S2, without murmur Abdomen: distended Extremities: excoriation Neurological: unable to follow command - Procedures Procedures: Procedures Procedure Code Date RESPIRATORY VENTILATION, 24-96 CONSECUTIVE HOURS [id number] 07/07/18 Internal Medicine Assmt/Plan - Assessment Assessment: acute respiratory failure vdrf sepsis left lung pna anemia hyponatremia hypokalemia mild protein meg malnutrition episode of hypoglycemia down syndrome htn asthma hx liver ca - Plan Plan: continue vent support continue ivabx lasix iv in-line respiratory treatments to continue continue current plan of care Nutritional Asmnt/Malnutr-PDOC - Dietary Evaluation Malnutrition Findings (Please click <Entered> for more info): Nutritional Asmnt/Malnutrition Start: 07/08/18 16: 06 Text: Status: Complete Freq: Protocol: Document 07/08/18 16:06 LCLESLIE (Rec: 07/08/18 16:30 MANUEL[facility] [id number]) Nutritional Asmnt/Malnutrition Patient General Information Nutritional Screening High Risk Diagnosis acute resp failure, spesis Pertinent Medical Hx/Surgical Hx HTN, asthma/COPD, downs, asthma, liver CA Subjective Information Pt seen intubated on vent. RN inserted NGtube and TF stated at lunch time as ordered. Current Diet Order/ Nutrition Support glucerna 1.2 at 20ml/hr continuous Pertinent Medications D50w, D5-0.9%ns, novolog, synthroid, protonix, piperacillin, vancomycin Pertinent Labs 07/08 Na 133, K 3.4, BUN 6, Cr 0.5, glucose 343, POC 101-293 07/07 Na 133, Cr 0.5, glucose 41, POC 17-135 Nutritional Hx/Data Height 4 ft 11 in Height (Calculated Centimeters) 149.9 Current Weight (lbs) 160 lb Weight (Calculated Kilograms) 72.6 Weight (Calculated Grams) [address].8 [place] Body Weight 104 Body Mass Index (BMI) 32.3 Weight Status Overweight GI Symptoms GI Symptoms None Last BM not indicated Difficult in: None Usual diet at home regular high fiber at care facility per chart Skin Integrity/Comment: rash to sacrum Estimated Nutritional Goals BEE in Kcals: Adj wt of IBW Calories/Kcals/Kg 27-32 adj 54kg Kcals Calculated 1360-6399 Protein: Adj wt of IBW Protein g/k.2-1.5 Protein Calculated 62-81 Fluid: ml 1458-1728ml (1ml/kcal) Nutritional Problem 1. Problem Problem increased nutrition needs Etiology increased metabolic demand Signs/Symptoms: dx of sepsis Malnutrition Alert Is there a minimum of two criteria No selected? Query Text:Check all the applicable criteria. A minimum of two criteria are recommended for diagnosis of either severe or non-severe malnutrition. Intervention/Recommendation Comments 1. Start with Glucerna 1.2 at 20ml/hr continuous as ordered. It provides 576kcal, 29g protein, 386ml free water. 2. Recommend increase to goal rate of 55ml/hr continuous as tolerated, which providing 1584kcal and 79g protein to meet 100% of nutritioanl needs . 3. Monitor TF rate, tolerance, wt, skin integrity and labs 4. F/U as high risk in 2-3 days, 07/10-07/11 Expected Outcomes/Goals Expected Outcomes/Goals 1. Pt to meet at least 75% of nutritional needs via nutrition support with tolerance 2. Wt stability, skin to remain intact, labs to approach WNL.
[2018-07-09] MEDS: Morphine Sulfate 2 mg/mL 1mL Syr IVP PRN (16:23)
--- NOTE | 2018-07-09 18:36 | Consultation ---
DATE OF CONSULTATION: 07/09/[address] Mazariegos. HISTORY OF PRESENT ILLNESS: This is a 57-year-old female patient with Down syndrome, known history of asthma, had been having difficulty breathing. Following this, the patient came to the Emergency Room with respiratory failure. The patient is intubated at the present time, the patient has elevated BNP level consistent with congestive heart failure and hence, Cardiology consult is requested. PAST MEDICAL HISTORY: Acute respiratory failure, on ventilator; bilateral pneumonia; iron deficiency anemia; hyponatremia; hypokalemia; protein-calorie malnutrition; hypertension; Down syndrome; history of metastatic liver disease; diabetes mellitus type 2; obstructive sleep apnea; and asthma. FAMILY HISTORY: Unremarkable. SOCIAL HISTORY: No history of smoking, alcohol abuse. ALLERGIES: No known allergies. PHYSICAL EXAMINATION: VITAL SIGNS: Blood pressure 122/80, pulse 90, respiration on ventilator. HEAD: Normocephalic. No lumps or bumps. EYES: Pupils equal, reactive to light. Fundi show AV nicking, sclerae white, conjunctivae pink. NECK: Carotid 2+. Normal upstroke. JVD 10 cm above the sternal angle. Thyroid not palpable. Lymph nodes not palpable. CHEST: Shows increased AP diameter. No kyphosis, scoliosis. LUNGS: Bilateral rales. Decreased breath sounds at both bases. HEART: PMI sixth intercostal space with lateral to midclavicular line. S1, S2, S3, S4, soft systolic murmur. ABDOMEN: Soft. Liver, spleen not palpable. No organomegaly. Bowel sounds active. NEUROLOGIC: No focal neurological deficit. EXTREMITIES: Peripheral pulses 2+. No pedal edema. CLINICAL IMPRESSION: Acute respiratory failure, on ventilator; congestive heart failure; diastolic dysfunction; bilateral pneumonia; acute exacerbation of asthma; iron deficiency anemia; hyponatremia; hypokalemia; protein-calorie malnutrition; hypertension; Down syndrome; metastatic liver disease; diabetes mellitus type 2; and obstructive sleep apnea. PLAN: The patient to continue present care. We will get echocardiogram and monitor the patient for any arrhythmias. JOB# [id number]
--- NOTE | 2018-07-09 19:43 | Progress Notes ---
DATE: 07/09/2018 PULMONARY AND CRITICAL CARE PROGRESS NOTE PROBLEM LIST: 1. Acute respiratory failure. 2. Bilateral pneumonia. 3. Chronic bronchial asthma. 4. Severe obstructive sleep apnea syndrome. 5. Physically and mentally development issues. 6. History of diabetes mellitus as well as hypertension. SYMPTOMS: The patient is sleepy, hard of hearing though from past experience no respiratory distress on AC of 60 with 30% of oxygen. PHYSICAL EXAMINATION: VITAL SIGNS: Temperature is 98, heart rate is in 90s, blood pressure 112/55, saturation is 98% on the vent. NECK: Veins not visualized. CHEST: Shows diminished air entry without much of adventitious breath sounds. HEART: Regular. ABDOMEN: Soft, nontender. EXTREMITIES: Shows slight trace of peripheral edema. LABORATORY DATA: White count is 12.7, hemoglobin 8.5. ABG, pO2 is 111. Electrolytes are okay. IMPRESSION: The patient clinically appears to be stable, slightly better. PLANS AND SUGGESTIONS: We will go ahead and attempt to cut down on SIMV and follow through other studies as well as a CAT scan and go from there. JOB# [id number]
[2018-07-10] MEDS: Albuterol/Ipratropium Neb 3 ML AERS HHN SCH ×6 (03:50→22:45)
[2018-07-10 04:45] LABS: HEMOGLOBIN 8.1 gm/dL (12-16); LYMPHOCYTE ABSOLUTE 0.3 Th/cmm (1.5-3.0); MEAN CELL VOLUME 88.7 fl (80-99); MONOCYTE ABSOLUTE 0.2 Th/cmm (0.3-1.0)
[2018-07-10 04:48] LABS: % LYMPHOCYTES 2.4 % (20.0-50.0); % MONOCYTES 1.9 % (2.0-10.0); % NEUTROPHILS 95.4 % (40.0-80.0); HEMATOCRIT 25.6 % (41.0-60); MEAN CORPUSCULAR HEMOGLOBIN 28.2 pg (26.0-30.0); MEAN CORPUSCULAR HGB CONC 31.7 pg (28.0-36.0); MEAN PLATELET VOLUME 8.1 fl; NEUTROPHILE ABSOLUTE 10.1 Th/cmm (1.8-8.0); PLATELET COUNT 128 Th/cmm (150-400); RED BLOOD COUNT 2.88 Mil/cmm (4.30-5.70); RED CELL DISTRIBUTION WIDTH 18.7 % (11.5-20.0); WHITE BLOOD COUNT 10.6 Th/cmm (4.8-10.8)
[2018-07-10 05:06] LABS: % EOSINOPHILS 0.3 % (0.0-5.0)
[2018-07-10 05:09] LABS: LYMPHOCYTE 0 % (20-50)
[2018-07-10 05:18] LABS: ANION GAP 10.6 (7.0-16.0); BUN - UREA NITROGEN 9 mg/dL (7-25); CALCIUM SERUM 7.8 mg/dL (8.6-10.3); CARBON DIOXIDE 22.8 mEq/L (21.0-31.0); CHLORIDE 108 mEq/L (98-107); CREATININE - SERUM 0.7 mg/dL (0.7-1.3); GFR AFRICAN-AMERICAN > 60.0 ml/min (>90); GFR NON AFRICAN-AMERICAN > 60.0 ml/min; GLUCOSE 200 mg/dL (70-105); MAGNESIUM 2.1 mg/dL (1.9-2.7); POTASSIUM SERUM 3.4 mEq/L (3.5-5.1); SODIUM SERUM 138 mEq/L (136-145)
[2018-07-10] MEDS: methylPREDNISolone SS 40 mg Vial IV SCH ×4 (05:40→20:22)
[2018-07-10] MEDS: Levothyroxine 0.025 Mg Tab PO SCH (06:43)
[2018-07-10] MEDS: INSULIN ASPART, RECOMBINANT 100 UNITS/ML SUBQ SCH ×3 (06:46→17:08)
[2018-07-10] MEDS: Budesonide 0.5 Mg/2 mL Ud HHN SCH ×2 (07:05→19:00)
[2018-07-10 08:13] LABS: T3 FREE 1.1 pg/mL (2.0-4.4); T4 FREE 1.04 ng/dL (0.82-1.77)
[2018-07-10] MEDS: Lactulose 10 Gm/15 mL 30mL UDC PO SCH (08:22)
[2018-07-10] MEDS: Chlorhexidine Gluconate 0.12% 15mL Mouthwash MM SCH ×2 (08:22→20:40)
[2018-07-10] MEDS: Pantoprazole 40 mg/Packet PO SCH (08:22)
[2018-07-10] MEDS: Potassium Chloride Elixir 20 mEq /15 mL UDC GT SCH ×2 (08:23→20:48)
[2018-07-10] MEDS: Aspirin 81mg Chewable Tab PO SCH (08:30)
[2018-07-10] MEDS: D5-0.45NS 1,000 ML IV SCH (08:34)
[2018-07-10 09:20] LABS: ALLEN TEST YES; pH 7.36 (7.35-7.45)
--- NOTE | 2018-07-10 09:20 | Diagnostic Imaging Report ---
Exam: Chest x-ray HISTORY: Pneumonia. Prior studies: 07/09/2018 I needs: Frontal examination the chest was reviewed and compared to prior study day earlier demonstrates cardiomegaly. The endotracheal tube is well above the jaun. The right-sided PICC line terminates in superior vena cava. The NG tube is in stomach. There is evidence for mild congestion. Mild peribronchial left basilar infiltrate is noted. The left costophrenic angle blunted small effusion. IMPRESSION: Cardiomegaly mild congestion Of basilar infiltrate question small effusion. Follow-up examination is recommended.
--- NOTE | 2018-07-10 10:32 | Internal Medicine Prog Note ---
Internal Medicine Subjective - Subjective Service Date: 07/10/18 (patient is not tolerating gtf ) Patient is:: asleep, non-verbal Patient Complaints of:: congestion Per staff patient has:: tolerating meds Internal Medicine Objective - Results Result Diagrams: 07/10/18 04:35 07/10/18 04:35 Recent Labs: Laboratory Last Values WBC 10.6 Th/cmm (4.8-10.8) 07/10/18 04:35 Corrected WBC (auto) Th/cmm 07/10/18 04:35 RBC 2.88 Mil/cmm (4.30-5.70) L 07/10/18 04:35 Hgb 8.1 gm/dL (12-16) L 07/10/18 04:35 Hct 25.6 % (41.0-60) L 07/10/18 04:35 MCV 88.7 fl (80-99) 07/10/18 04:35 MCH 28.2 pg (26.0-30.0) 07/10/18 04:35 MCHC Differential 31.7 pg (28.0-36.0) 07/10/18 04:35 RDW 18.7 % (11.5-20.0) 07/10/18 04:35 Plt Count 128 Th/cmm (150-400) L 07/10/18 04:35 MPV 8.1 fl 07/10/18 04:35 Add Manual Diff YES 07/09/18 07:30 Neutrophils % 95.4 % (40.0-80.0) H 07/10/18 04:35 Band Neutrophils % 0 % (0-10) 07/09/18 07:30 Lymphocytes % 2.4 % (20.0-50.0) L 07/10/18 04:35 Monocytes % 1.9 % (2.0-10.0) L 07/10/18 04:35 Eosinophils % 0.3 % (0.0-5.0) 07/10/18 04:35 Basophils % 0.0 % (0.0-2.0) 07/10/18 04:35 Neutrophils (Manual) Not Reportable 07/10/18 04:35 Lymphocytes 0 % (20-50) L 07/10/18 04:35 Monocytes 2 % (2-10) 07/09/18 07:30 Eosinophils 0 % (0-5) 07/09/18 07:30 Basophils 0 % (0-3) 07/09/18 07:30 Metamyelocytes 0 % (0-0) 07/08/18 04:10 PT 12.1 SECONDS (9.5-11.5) H 07/07/18 17:00 INR 1.17 (0.5-1.4) 07/07/18 17:00 Specimen Source Arterial 07/10/18 09:10 Sample Site Right Radial 07/10/18 09:10 pH 7.36 (7.35-7.45) 07/10/18 09:10 pCO2 48.0 mmHg (35.0-45.0) H 07/10/18 09:10 pO2 66.0 mmHg (80.0-100.0) L 07/10/18 09:10 HCO3 25.7 mEq/L (20.0-26.0) 07/10/18 09:10 Base Excess 1.1 mEq/L (-3.0-3.0) 07/10/18 09:10 O2 Saturation 92.0 % (92.0-100.0) 07/10/18 09:10 Kam Test YES 07/10/18 09:10 Vent Rate 8 07/10/18 09:10 Inspired O2 30 07/10/18 09:10 Tidal Volume 450 07/10/18 09:10 PEEP 3 07/10/18 09:10 Pressure (ins/psv/peep) 15 07/10/18 09:10 Critical Value E.CURRAN 07/10/18 09:10 Sodium 138 mEq/L (136-145) 07/10/18 04:35 Potassium 3.4 mEq/L (3.5-5.1) L 07/10/18 04:35 Chloride 108 mEq/L (98-107) H 07/10/18 04:35 Carbon Dioxide 22.8 mEq/L (21.0-31.0) 07/10/18 04:35 Anion Gap 10.6 (7.0-16.0) 07/10/18 04:35 BUN 9 mg/dL (7-25) 07/10/18 04:35 Creatinine 0.7 mg/dL (0.7-1.3) 07/10/18 04:35 Est GFR ( Amer) > 60.0 ml/min (>90) 07/10/18 04:35 Est GFR (Non-Af Amer) > 60.0 ml/min 07/10/18 04:35 BUN/Creatinine Ratio 12.9 07/10/18 04:35 Glucose 200 mg/dL (70-105) H 07/10/18 04:35 POC Glucose 180 MG/DL (70 - 105) H 07/10/18 05:41 Whole Bld Lactic Acid 1.96 mmol/L (0.60-1.99) 07/07/18 19:15 Calcium 7.8 mg/dL (8.6-10.3) L 07/10/18 04:35 Magnesium 2.1 mg/dL (1.9-2.7) 07/10/18 04:35 Total Bilirubin 0.6 mg/dL (0.3-1.0) 07/09/18 07:30 AST 97 U/L (13-39) H 07/09/18 07:30 ALT 19 U/L (7-52) 07/09/18 07:30 Alkaline Phosphatase 120 U/L (34-104) H 07/09/18 07:30 Ammonia 62 umol/L (16-53) H 07/09/18 07:30 Troponin I 0.01 ng/mL (0.01-0.05) 07/09/18 07:30 B-Natriuretic Peptide 196.0 pg/mL (5.0-100.0) H 07/09/18 07:30 Total Protein 5.6 gm/dL (6.0-8.3) L 07/09/18 07:30 Albumin 2.5 gm/dL (4.2-5.5) L 07/09/18 07:30 Globulin 3.1 gm/dL 07/09/18 07:30 Albumin/Globulin Ratio 0.8 (1.0-1.8) L 07/09/18 07:30 Vitamin B12 1241 pg/mL (232-1245) 07/08/18 04:10 Folic Acid 8.6 ng/mL (>3.0) 07/08/18 04:10 Free T4 1.04 ng/dL (0.82-1.77) 07/09/18 07:30 Free T3 1.1 pg/mL (2.0-4.4) L 07/09/18 07:30 TSH 4.06 uIU/ml (0.34-5.60) 07/08/18 04:10 Urine Source CLEAN C 07/07/18 17:15 Urine Color YELLOW 07/07/18 17:15 Urine Clarity CLEAR (CLEAR) 07/07/18 17:15 Urine pH 6.0 (4.6 - 8.0) 07/07/18 17:15 Ur Specific Posey 1.015 (1.005-1.030) 07/07/18 17:15 Urine Protein 30 mg/dL (NEGATIVE) H 07/07/18 17:15 Urine Glucose (UA) NEGATIVE mg/dL (NEGATIVE) 07/07/18 17:15 Urine Ketones NEGATIVE mg/dL (NEGATIVE) 07/07/18 17:15 Urine Blood NEGATIVE (NEGATIVE) 07/07/18 17:15 Urine Nitrate NEGATIVE (NEGATIVE) 07/07/18 17:15 Urine Bilirubin NEGATIVE (NEGATIVE) 07/07/18 17:15 Urine Urobilinogen 0.2 E.U./dL (0.2 - 1.0) 07/07/18 17:15 Ur Leukocyte Esterase NEGATIVE (NEGATIVE) 07/07/18 17:15 Urine RBC 0-2 /hpf (0-5) H 07/07/18 17:15 Urine WBC 2-5 /hpf (0-5) 07/07/18 17:15 Ur Epithelial Cells FEW /lpf (FEW) 07/07/18 17:15 Urine Bacteria FEW /hpf (NONE SEEN) 07/07/18 17:15 Fine Granular Casts 0-2 /lpf (NONE SEEN) H 07/07/18 17:15 Urine Mucus FEW /lpf (FEW) 07/07/18 17:15 Vancomycin Trough 11.1 ug/mL (5-10) H 07/09/18 07:30 - Physical Exam Vitals and I&O: Vital Signs Temp 97.0 F 07/10/18 08:00 Pulse 101 07/10/18 10:00 Resp 23 07/10/18 10:00 BP 119/85 07/10/18 10:00 Pulse Ox 96 07/10/18 10:00 Intake & Output 07/09/18 07/10/18 07/10/18 18:59 06:59 18:59 Intake Total 100 1730 Output Total 851 Balance 100 879 Weight (lbs) 176 lb Intake: Intake, IV Amount 100 1450 D5-0.45NS 1,000 ml @ 50 1000 mls/hr IV .Q20H [facility] Rx#: [id number] Piperacillin Sodium/ 100 200 Tazobact 4.5 gm In Sodium Chloride 0.9% 100 ml @ 100 mls/hr IV Q8HR [facility] Rx #:[id number] Vancomycin HCl 1 gm In 250 Sodium Chloride 0.9% 250 ml @ 165 mls/hr IV Q18H [facility] Rx#:[id number] Tube Feeding 180 Other 100 Output: Urine 850 Stool 1 Other: Stool Characteristics Soft Weight Source Bedscale Active Medications: Current Medications Acetaminophen (Tylenol) 650 mg PO Q4H PRN PRN Reason: Pain Or Fever above 101 Stop: 09/05/18 19:05 Last Admin: 07/09/18 19:47 Dose: 650 mg Albuterol/Ipratropium (Duoneb Neb) 3 ml HHN Q4HRT [facility] Stop: 09/06/18 14:59 Last Admin: 07/10/18 07:05 Dose: 3 ml Aspirin (Aspirin Chewable) 81 mg PO DAILY [facility] Stop: 09/08/18 08:59 Last Admin: 07/10/18 08:30 Dose: 81 mg Budesonide (Pulmicort) 0.5 mg HHN BIDRT [facility] Stop: 09/06/18 18:59 Last Admin: 07/10/18 07:05 Dose: 0.5 mg Chlorhexidine Gluconate (Peridex) 15 ml MM 0800,1999 [facility] Stop: 09/06/18 07:59 Last Admin: 07/10/18 08:22 Dose: 15 ml Dextrose (D50w) 50 ml IVP Q4HR PRN PRN Reason: Hypersensitivity Stop: 09/06/18 00:58 Furosemide (Lasix) 20 mg IVP BID [facility] Stop: 09/07/18 08:59 Last Admin: 07/10/18 08:23 Dose: 20 mg Guaifenesin (Robitussin) 200 mg PO Q4HR PRN PRN Reason: Cough or Congestion Stop: 09/05/18 19:05 Last Admin: 07/10/18 10:00 Dose: 200 mg Piperacillin Sod/Tazobactam (Sod 4.5 gm/ Sodium Chloride) 100 mls @ 100 mls/hr IV Q8HR [facility] Stop: 09/05/18 20:59 Last Infusion: 07/10/18 06:36 Dose: Infused Norepinephrine Bitartrate 4 mg (/ Dextrose) 254 mls @ 7.62 mls/hr IV TITR PRN; Protocol PRN Reason: To Keep SBP Above 90 Stop: 09/06/18 00:56 Dextrose/Sodium Chloride (D5-0.45ns) 1,000 mls @ 50 mls/hr IV .Q20H [facility] Stop: 09/07/18 08:59 Last Admin: 07/10/18 08:34 Dose: 50 mls/hr Vancomycin HCl 1 gm/ Sodium (Chloride) 250 mls @ 165 mls/hr IV Q18H [facility] Stop: 09/07/18 21:59 Last Infusion: 07/09/18 23:21 Dose: Infused Insulin Aspart (Novolog) 0 units SUBQ Q6HR [facility]; Protocol Stop: 09/06/18 17:59 Last Admin: 07/10/18 06:46 Dose: Not Given Lactulose (Cephulac) 30 gm PO DAILY [facility] Stop: 09/07/18 08:59 Last Admin: 07/10/18 08:22 Dose: 30 gm Levothyroxine Sodium (Synthroid) 0.025 mg PO QDAC [facility] Stop: 09/06/18 07:29 Last Admin: 07/10/18 06:43 Dose: 0.025 mg Lorazepam (Ativan) 0.5 mg IV Q6H PRN; Protocol PRN Reason: Agitation Stop: 09/06/18 00:54 Last Admin: 07/09/18 20:54 Dose: 0.5 mg Methylprednisolone Sodium Succinate (Solu-Medrol) 40 mg IV Q6HR [facility] Stop: 07/11/18 06:01 Last Admin: 07/10/18 05:40 Dose: 40 mg Miscellaneous (Vancomycin Iv Per Pharmacy) 1 ea MC PRN [facility] Stop: 09/05/18 19:14 Morphine Sulfate (Morphine) 2 mg IVP Q4H PRN PRN Reason: Pain (Severe) Stop: 09/05/18 19:05 Last Admin: 07/09/18 16:23 Dose: 2 mg Ondansetron HCl (Zofran) 4 mg IV Q8H PRN PRN Reason: Nausea / Vomiting Stop: 09/05/18 19:05 Pantoprazole Sodium (Protonix) 40 mg PO DAILY [facility] Stop: 09/06/18 14:44 Last Admin: 07/10/18 08:22 Dose: 40 mg Potassium Chloride (Potassium Chloride Elixir) 20 meq GT DAILY [facility] Stop: 09/07/18 08:59 Last Admin: 07/10/18 08:23 Dose: 20 meq General: weak, obtunded HEENT: NC/AT, PERRLA Neck: Supple Lungs: ronchi Cardiovascular: RRR, Normal S1, Normal S2, without murmur Abdomen: distended Extremities: excoriation Neurological: unable to follow command - Procedures Procedures: Procedures Procedure Code Date RESPIRATORY VENTILATION, 24-96 CONSECUTIVE HOURS [id number] 07/07/18 Internal Medicine Assmt/Plan - Assessment Assessment: acute respiratory failure vdrf sepsis left lung pna anemia hyponatremia hypokalemia mild protein meg malnutrition episode of hypoglycemia down syndrome htn asthma hx liver ca - Plan Plan: continue vent support continue ivabx lasix iv to continue in-line respiratory treatments to continue continue current plan of care Nutritional Asmnt/Malnutr-PDOC - Dietary Evaluation Malnutrition Findings (Please click <Entered> for more info): Nutritional Asmnt/Malnutrition Start: 07/08/18 16: 06 Text: Status: Complete Freq: Protocol: Document 07/08/18 16:06 LCHENG (Rec: 07/08/18 16:30 LCHENG [id number]) Nutritional Asmnt/Malnutrition Patient General Information Nutritional Screening High Risk Diagnosis acute resp failure, spesis Pertinent Medical Hx/Surgical Hx HTN, asthma/COPD, downs, asthma, liver CA Subjective Information Pt seen intubated on vent. RN inserted NGtube and TF stated at lunch time as ordered. Current Diet Order/ Nutrition Support glucerna 1.2 at 20ml/hr continuous Pertinent Medications D50w, D5-0.9%ns, novolog, synthroid, protonix, piperacillin, vancomycin Pertinent Labs 07/08 Na 133, K 3.4, BUN 6, Cr 0.5, glucose 343, POC 101-293 07/07 Na 133, Cr 0.5, glucose 41, POC 17-135 Nutritional Hx/Data Height 4 ft 11 in Height (Calculated Centimeters) 149.9 Current Weight (lbs) 160 lb Weight (Calculated Kilograms) 72.6 Weight (Calculated Grams) 01864.8 [place] Body Weight 104 Body Mass Index (BMI) 32.3 Weight Status Overweight GI Symptoms GI Symptoms None Last BM not indicated Difficult in: None Usual diet at home regular high fiber at care facility per chart Skin Integrity/Comment: rash to sacrum Estimated Nutritional Goals BEE in Kcals: Adj wt of IBW Calories/Kcals/Kg 27-32 adj 54kg Kcals Calculated 0731-8367 Protein: Adj wt of IBW Protein g/k.2-1.5 Protein Calculated 62-81 Fluid: ml 1458-1728ml (1ml/kcal) Nutritional Problem 1. Problem Problem increased nutrition needs Etiology increased metabolic demand Signs/Symptoms: dx of sepsis Malnutrition Alert Is there a minimum of two criteria No selected? Query Text:Check all the applicable criteria. A minimum of two criteria are recommended for diagnosis of either severe or non-severe malnutrition. Intervention/Recommendation Comments 1. Start with Glucerna 1.2 at 20ml/hr continuous as ordered. It provides 576kcal, 29g protein, 386ml free water. 2. Recommend increase to goal rate of 55ml/hr continuous as tolerated, which providing 1584kcal and 79g protein to meet 100% of nutritioanl needs . 3. Monitor TF rate, tolerance, wt, skin integrity and labs 4. F/U as high risk in 2-3 days, 07/10-07/11 Expected Outcomes/Goals Expected Outcomes/Goals 1. Pt to meet at least 75% of nutritional needs via nutrition support with tolerance 2. Wt stability, skin to remain intact, labs to approach WNL.
--- NOTE | 2018-07-10 10:55 | Diagnostic Imaging Report ---
KUB abdominal film (portable) HISTORY: Abdominal distention The exam demonstrates several loops of mildly dilated small bowel along with nondilated colon. Early small bowel obstruction cannot be definitely excluded. Clinical correlation and follow-up recommended. Nasogastric tube projects over the gastric area. No free intraperitoneal air. IMPRESSION: 1. Several mildly dilated small bowel loops. Early obstruction cannot be excluded. Clinical correlation and follow-up radiograph may be helpful.
--- NOTE | 2018-07-10 13:48 | Cardiology ---
07/10/[address] Nghia Mazariegos. M-Mode echocardiogram, technically poor. 2D ECHO: Only structure visualized in apical 4 chamber view, which showed normal sized left ventricle, left atrium, right ventricle, right atrium, tricuspid and mitral valve. Ejection fraction 60% with trace mitral regurgitation, trace tricuspid regurgitation. Technically poor echo. JOB# [id number]
[2018-07-10] MEDS ORDERED: Fleet Enema 135 mL RC ONE (19:28)
[2018-07-10] MEDS: Metoclopramide 5 mg/mL 2mL Vial IVP SCH (20:21)
[2018-07-10] MEDS: Morphine Sulfate 2 mg/mL 1mL Syr IVP PRN (20:36)
--- NOTE | 2018-07-10 21:19 | Progress Notes ---
DATE: 07/10/2018 PULMONARY/CRITICAL CARE PROGRESS NOTE PROBLEM LIST: 1. Acute respiratory failure. 2. Bilateral pneumonia, improving. History of chronic bronchial asthma. 3. Severe obstructive sleep apnea syndrome. 4. Possibly constipation. SUBJECTIVE: The patient is sedated, was given Ativan around 2 o'clock. OBJECTIVE: VITAL SIGNS: The patient's vitals otherwise is reasonably stable on SMV 8. On exam, the patient is afebrile. Heart rate is somewhat low 100s, BP is 123/68 and saturation is 90s on 30% of oxygen. GENERAL: The patient is quite sleepy, but does not follow simple command, no respiratory distress, etc. NECK: Veins not visualized. CHEST: Shows occasional rhonchi with diminished air entry. HEART: Regular. ABDOMEN: Soft, nontender. Slightly distended. EXTREMITIES: Shows slight trace of peripheral edema. ____ lot of gas with possibly a stool at the lower end of the colon. LABORATORY DATA: White count is 10.6, hemoglobin 8.1. ABG this morning, pCO2 of 48, pO2 is 66 on SMV 8 with a pressure support of 15. Potassium is 3.4, sugar is about 200. The patient's chest x-ray shows significant improvement. IMPRESSION: The patient is clinically doing better. PLAN: Respiratory sneed, pneumonia is improving, quite altered, probably from sedation and morphine. PLANS AND SUGGESTIONS: We will discontinue sedation for now. Decrease the dose of morphine. We will give the patient Fleet's enema and we will try SMV of 4 with pressure support and see how he does. If he is more awake, alert, may be in the next 24-48 hours a consideration for extubation and go from there. JOB# [id number]
[2018-07-11] MEDS: INSULIN ASPART, RECOMBINANT 100 UNITS/ML SUBQ SCH ×5 (00:08→23:16)
[2018-07-11] MEDS: Morphine Sulfate 2 mg/mL 1mL Syr IVP PRN ×2 (00:11→04:22)
[2018-07-11] MEDS: Albuterol/Ipratropium Neb 3 ML AERS HHN SCH ×5 (03:19→22:24)
[2018-07-11] MEDS: Metoclopramide 5 mg/mL 2mL Vial IVP SCH ×3 (04:30→21:11)
[2018-07-11] MEDS: D5-0.45NS 1,000 ML IV SCH (04:33)
[2018-07-11 04:46] LABS: HEMATOCRIT 25.5 % (41.0-60); HEMOGLOBIN 8.1 gm/dL (12-16); LYMPHOCYTE ABSOLUTE 0.4 Th/cmm (1.5-3.0); MEAN CELL VOLUME 88.6 fl (80-99); MEAN CORPUSCULAR HGB CONC 31.6 pg (28.0-36.0); MEAN PLATELET VOLUME 8.4 fl; MONOCYTE ABSOLUTE 0.2 Th/cmm (0.3-1.0); PLATELET COUNT 162 Th/cmm (150-400); RED BLOOD COUNT 2.88 Mil/cmm (4.30-5.70); RED CELL DISTRIBUTION WIDTH 18.3 % (11.5-20.0)
[2018-07-11 04:52] LABS: % EOSINOPHILS 0.1 % (0.0-5.0); % LYMPHOCYTES 2.2 % (20.0-50.0); % MONOCYTES 1.1 % (2.0-10.0); % NEUTROPHILS 96.6 % (40.0-80.0); WHITE BLOOD COUNT 17.6 Th/cmm (4.8-10.8)
[2018-07-11 04:54] LABS: LYMPHOCYTE 0 % (20-50)
[2018-07-11 05:17] LABS: ANION GAP 20.6 (7.0-16.0); BUN - UREA NITROGEN 9 mg/dL (7-25); CALCIUM SERUM 7.3 mg/dL (8.6-10.3); CARBON DIOXIDE 23.1 mEq/L (21.0-31.0); CHLORIDE 98 mEq/L (98-107); CREATININE - SERUM 0.7 mg/dL (0.7-1.3); GFR AFRICAN-AMERICAN > 60.0 ml/min (>90); GFR NON AFRICAN-AMERICAN > 60.0 ml/min; GLUCOSE 374 mg/dL (70-105); SODIUM SERUM 139 mEq/L (136-145)
[2018-07-11 05:49] LABS: POTASSIUM SERUM 2.7 mEq/L (3.5-5.1)
[2018-07-11] MEDS: Levothyroxine 0.025 Mg Tab PO SCH (06:31)
[2018-07-11] MEDS: Chlorhexidine Gluconate 0.12% 15mL Mouthwash MM SCH ×2 (08:00→21:12)
--- NOTE | 2018-07-11 08:37 | Diagnostic Imaging Report ---
CHEST X-RAY: AP view INDICATION: Pneumonia COMPARISON: 07/10/2018 FINDINGS: Support devices are stable. Diffuse bilateral pulmonary infiltrates are again noted with small effusions. Cardiomegaly is noted. IMPRESSION: Persistent diffuse bilateral infiltrates and small pleural effusions. Cardiomegaly.
[2018-07-11] MEDS: Pantoprazole 40 mg/Packet PO SCH (08:49)
[2018-07-11] MEDS: Aspirin 81mg Chewable Tab PO SCH (08:50)
[2018-07-11] MEDS: Lactulose 10 Gm/15 mL 30mL UDC PO SCH (08:50)
[2018-07-11] MEDS: KCL 20mEq/100mL Premix 20 MEQ/100 ML PIGGYBACK IV SCH ×2 (08:51→10:50)
--- NOTE | 2018-07-11 09:08 | Diagnostic Imaging Report ---
KUB single view HISTORY: Worsening ileus COMPARISON: KUB on 07/10/2018 FINDINGS: An NG tube is visualized with tip along the proximal stomach. Persistent diffuse distended loops of bowel are noted. IMPRESSION: Persistent diffuse distended loops of bowel which may be uterine severe ileus or possibly obstructive process. Clinical correlation is recommended.
[2018-07-11 09:24] LABS: pH 7.36 (7.35-7.45)
[2018-07-11 09:25] LABS: ALLEN TEST YES
[2018-07-11] MEDS ORDERED: Menthol/Zinc Oxide Oint 113gm Tube TP PRN (11:34)
--- NOTE | 2018-07-11 12:11 | Internal Medicine Prog Note ---
Internal Medicine Subjective - Subjective Service Date: 07/11/18 Patient is:: asleep, non-verbal Patient Complaints of:: congestion Per staff patient has:: tolerating meds Internal Medicine Objective - Results Result Diagrams: 07/11/18 04:40 07/11/18 04:40 Recent Labs: Laboratory Last Values WBC 17.6 Th/cmm (4.8-10.8) H 07/11/18 04:40 Corrected WBC (auto) Th/cmm 07/10/18 04:35 RBC 2.88 Mil/cmm (4.30-5.70) L 07/11/18 04:40 Hgb 8.1 gm/dL (12-16) L 07/11/18 04:40 Hct 25.5 % (41.0-60) L 07/11/18 04:40 MCV 88.6 fl (80-99) 07/11/18 04:40 MCH 28.0 pg (26.0-30.0) 07/11/18 04:40 MCHC Differential 31.6 pg (28.0-36.0) 07/11/18 04:40 RDW 18.3 % (11.5-20.0) 07/11/18 04:40 Plt Count 162 Th/cmm (150-400) 07/11/18 04:40 MPV 8.4 fl 07/11/18 04:40 Add Manual Diff YES 07/09/18 07:30 Neutrophils % 96.6 % (40.0-80.0) H 07/11/18 04:40 Band Neutrophils % 0 % (0-10) 07/09/18 07:30 Lymphocytes % 2.2 % (20.0-50.0) L 07/11/18 04:40 Monocytes % 1.1 % (2.0-10.0) L 07/11/18 04:40 Eosinophils % 0.1 % (0.0-5.0) 07/11/18 04:40 Basophils % 0.0 % (0.0-2.0) 07/11/18 04:40 Neutrophils (Manual) Not Reportable 07/10/18 04:35 Lymphocytes 0 % (20-50) L 07/11/18 04:40 Monocytes 2 % (2-10) 07/09/18 07:30 Eosinophils 0 % (0-5) 07/09/18 07:30 Basophils 0 % (0-3) 07/09/18 07:30 Metamyelocytes 0 % (0-0) 07/08/18 04:10 PT 12.1 SECONDS (9.5-11.5) H 07/07/18 17:00 INR 1.17 (0.5-1.4) 07/07/18 17:00 Specimen Source Arterial 07/11/18 09:15 Sample Site Right Radial 07/11/18 09:15 pH 7.36 (7.35-7.45) 07/11/18 09:15 pCO2 53.0 mmHg (35.0-45.0) H 07/11/18 09:15 pO2 75.0 mmHg (80.0-100.0) L 07/11/18 09:15 HCO3 27.5 mEq/L (20.0-26.0) H 07/11/18 09:15 Base Excess 3.4 mEq/L (-3.0-3.0) H 07/11/18 09:15 O2 Saturation 94.0 % (92.0-100.0) 07/11/18 09:15 Kam Test YES 07/11/18 09:15 Vent Rate 4 07/11/18 09:15 Inspired O2 40 07/11/18 09:15 Tidal Volume 450 07/11/18 09:15 PEEP 0 07/11/18 09:15 Pressure (ins/psv/peep) 15 07/11/18 09:15 Critical Value E.CURRAN 07/11/18 09:15 Sodium 139 mEq/L (136-145) 07/11/18 04:40 Potassium 2.7 mEq/L (3.5-5.1) L* 07/11/18 04:40 Chloride 98 mEq/L (98-107) 07/11/18 04:40 Carbon Dioxide 23.1 mEq/L (21.0-31.0) 07/11/18 04:40 Anion Gap 20.6 (7.0-16.0) H 07/11/18 04:40 BUN 9 mg/dL (7-25) 07/11/18 04:40 Creatinine 0.7 mg/dL (0.7-1.3) 07/11/18 04:40 Est GFR ( Amer) > 60.0 ml/min (>90) 07/11/18 04:40 Est GFR (Non-Af Amer) > 60.0 ml/min 07/11/18 04:40 BUN/Creatinine Ratio 12.9 07/11/18 04:40 Glucose 374 mg/dL (70-105) H 07/11/18 04:40 POC Glucose 201 MG/DL (70 - 105) H 07/11/18 06:11 Whole Bld Lactic Acid 1.96 mmol/L (0.60-1.99) 07/07/18 19:15 Calcium 7.3 mg/dL (8.6-10.3) L 07/11/18 04:40 Magnesium 2.1 mg/dL (1.9-2.7) 07/10/18 04:35 Total Bilirubin 0.6 mg/dL (0.3-1.0) 07/09/18 07:30 AST 97 U/L (13-39) H 07/09/18 07:30 ALT 19 U/L (7-52) 07/09/18 07:30 Alkaline Phosphatase 120 U/L (34-104) H 07/09/18 07:30 Ammonia 102 umol/L (16-53) H 07/11/18 04:40 Troponin I 0.01 ng/mL (0.01-0.05) 07/09/18 07:30 B-Natriuretic Peptide 196.0 pg/mL (5.0-100.0) H 07/09/18 07:30 Total Protein 5.6 gm/dL (6.0-8.3) L 07/09/18 07:30 Albumin 2.5 gm/dL (4.2-5.5) L 07/09/18 07:30 Globulin 3.1 gm/dL 07/09/18 07:30 Albumin/Globulin Ratio 0.8 (1.0-1.8) L 07/09/18 07:30 Vitamin B12 1241 pg/mL (232-1245) 07/08/18 04:10 Folic Acid 8.6 ng/mL (>3.0) 07/08/18 04:10 Free T4 1.04 ng/dL (0.82-1.77) 07/09/18 07:30 Free T3 1.1 pg/mL (2.0-4.4) L 07/09/18 07:30 TSH 4.06 uIU/ml (0.34-5.60) 07/08/18 04:10 Urine Source CLEAN C 07/07/18 17:15 Urine Color YELLOW 07/07/18 17:15 Urine Clarity CLEAR (CLEAR) 07/07/18 17:15 Urine pH 6.0 (4.6 - 8.0) 07/07/18 17:15 Ur Specific [place] 1.015 (1.005-1.030) 07/07/18 17:15 Urine Protein 30 mg/dL (NEGATIVE) H 07/07/18 17:15 Urine Glucose (UA) NEGATIVE mg/dL (NEGATIVE) 07/07/18 17:15 Urine Ketones NEGATIVE mg/dL (NEGATIVE) 07/07/18 17:15 Urine Blood NEGATIVE (NEGATIVE) 07/07/18 17:15 Urine Nitrate NEGATIVE (NEGATIVE) 07/07/18 17:15 Urine Bilirubin NEGATIVE (NEGATIVE) 07/07/18 17:15 Urine Urobilinogen 0.2 E.U./dL (0.2 - 1.0) 07/07/18 17:15 Ur Leukocyte Esterase NEGATIVE (NEGATIVE) 07/07/18 17:15 Urine RBC 0-2 /hpf (0-5) H 07/07/18 17:15 Urine WBC 2-5 /hpf (0-5) 07/07/18 17:15 Ur Epithelial Cells FEW /lpf (FEW) 07/07/18 17:15 Urine Bacteria FEW /hpf (NONE SEEN) 07/07/18 17:15 Fine Granular Casts 0-2 /lpf (NONE SEEN) H 07/07/18 17:15 Urine Mucus FEW /lpf (FEW) 07/07/18 17:15 Vancomycin Trough 17.0 ug/mL (5-10) H 07/11/18 09:30 - Physical Exam Vitals and I&O: Vital Signs Temp 98.0 F 07/11/18 03:00 Pulse 99 07/11/18 10:23 Resp 28 07/11/18 09:00 BP 120/82 07/11/18 09:00 Pulse Ox 98 07/11/18 10:23 Intake & Output 07/10/18 07/11/18 07/11/18 18:59 06:59 18:59 Intake Total 260 1299.167 99.167 Output Total 1350 700 Balance -1090 599.167 99.167 Weight (lbs) 176 lb 180 lb Intake: Intake, IV Amount 100 1199.167 99.167 D5-0.45NS 1,000 ml @ 50 999.167 mls/hr IV .Q20H [facility] Rx#: [id number] KCL 20mEq/100mL Premix 20 99.167 meq In 100 ml @ 50 mls/ hr IV Q2H [facility] Rx#: [id number] Piperacillin Sodium/ 100 200 Tazobact 4.5 gm In Sodium Chloride 0.9% 100 ml @ 100 mls/hr IV Q8HR [facility] Rx #:[id number] Tube Feeding 60 100 Other 100 Output: Urine 1350 700 Other: # Bowel Movements 0 Weight Source Bedscale Bedscale Active Medications: Current Medications Acetaminophen (Tylenol) 650 mg PO Q4H PRN PRN Reason: Pain Or Fever above 101 Stop: 09/05/18 19:05 Last Admin: 07/09/18 19:47 Dose: 650 mg Albuterol/Ipratropium (Duoneb Neb) 3 ml HHN Q4HRT [facility] Stop: 09/06/18 14:59 Last Admin: 07/11/18 10:22 Dose: 3 ml Aspirin (Aspirin Chewable) 81 mg PO DAILY [facility] Stop: 09/08/18 08:59 Last Admin: 07/11/18 08:50 Dose: 81 mg Budesonide (Pulmicort) 0.5 mg HHN BIDRT [facility] Stop: 09/06/18 18:59 Last Admin: 07/10/18 19:00 Dose: 0.5 mg Calamine/Phenol (Calmoseptine) 1 appl TP QID PRN PRN Reason: Skin Irritation Stop: 09/09/18 11:33 Chlorhexidine Gluconate (Peridex) 15 ml MM 08,1999 [facility] Stop: 09/06/18 07:59 Last Admin: 07/11/18 08:00 Dose: 15 ml Dextrose (D50w) 50 ml IVP Q4HR PRN PRN Reason: Hypersensitivity Stop: 09/06/18 00:58 Furosemide (Lasix) 20 mg IVP BID [facility] Stop: 09/07/18 08:59 Last Admin: 07/11/18 08:49 Dose: 20 mg Piperacillin Sod/Tazobactam (Sod 4.5 gm/ Sodium Chloride) 100 mls @ 100 mls/hr IV Q8HR [facility] Stop: 09/05/18 20:59 Last Infusion: 07/11/18 05:55 Dose: Infused Norepinephrine Bitartrate 4 mg (/ Dextrose) 254 mls @ 7.62 mls/hr IV TITR PRN; Protocol PRN Reason: To Keep SBP Above 90 Stop: 09/06/18 00:56 Dextrose/Sodium Chloride (D5-0.45ns) 1,000 mls @ 50 mls/hr IV .Q20H [facility] Stop: 09/07/18 08:59 Last Admin: 07/11/18 04:33 Dose: 50 mls/hr Vancomycin HCl 1 gm/ Sodium (Chloride) 250 mls @ 165 mls/hr IV Q18H [facility] Stop: 09/07/18 21:59 Last Admin: 07/10/18 16:03 Dose: 165 mls/hr Insulin Aspart (Novolog) 0 units SUBQ Q6HR [facility]; Protocol Stop: 09/06/18 17:59 Last Admin: 07/11/18 06:51 Dose: Not Given Lactulose (Cephulac) 30 gm PO DAILY [facility] Stop: 09/07/18 08:59 Last Admin: 07/11/18 08:50 Dose: 30 gm Levothyroxine Sodium (Synthroid) 0.025 mg PO QDAC [facility] Stop: 09/06/18 07:29 Last Admin: 07/11/18 06:31 Dose: 0.025 mg Methylprednisolone Sodium Succinate (Solu-Medrol) 40 mg IV Q12HR [facility] Stop: 09/08/18 20:59 Last Admin: 07/10/18 20:22 Dose: 40 mg Metoclopramide HCl (Reglan) 5 mg IVP Q8HR [facility] Stop: 09/08/18 20:59 Last Admin: 07/11/18 04:30 Dose: 5 mg Mineral Oil (Mineral Oil 30 Ml) 30 ml PO DAILY PRN PRN Reason: Constipation Stop: 09/09/18 08:44 Miscellaneous (Vancomycin Iv Per Pharmacy) 1 ea MC PRN [facility] Stop: 09/05/18 19:14 Morphine Sulfate (Morphine) 1 mg IVP Q4H PRN PRN Reason: Pain (Severe) Stop: 09/05/18 19:05 Last Admin: 07/11/18 04:22 Dose: 1 mg Ondansetron HCl (Zofran) 4 mg IV Q8H PRN PRN Reason: Nausea / Vomiting Stop: 09/05/18 19:05 Pantoprazole Sodium (Protonix) 40 mg PO DAILY [facility] Stop: 07/11/18 14:44 Last Admin: 07/11/18 08:49 Dose: 40 mg Pantoprazole Sodium (Protonix) 40 mg IVP DAILY [facility] Stop: 09/10/18 08:59 Potassium Chloride (Potassium Chloride Elixir) 20 meq GT BID [facility] Stop: 09/08/18 19:44 Last Admin: 07/10/18 20:48 Dose: 20 meq General: weak, obtunded HEENT: NC/AT, PERRLA Neck: Supple Lungs: ronchi Cardiovascular: RRR, Normal S1, Normal S2, without murmur Abdomen: distended Extremities: excoriation Neurological: unable to follow command - Procedures Procedures: Procedures Procedure Code Date RESPIRATORY VENTILATION, 24-96 CONSECUTIVE HOURS [id number] 07/07/18 Internal Medicine Assmt/Plan - Assessment Assessment: acute respiratory failure vdrf sepsis left lung pna anemia abdominal distention hyponatremia hypokalemia mild protein meg malnutrition episode of hypoglycemia down syndrome htn asthma hx liver ca - Plan Plan: switch protonix to ivp continue vent support continue ivabx in-line respiratory treatments to continue continue current plan of care Nutritional Asmnt/Malnutr-PDOC - Dietary Evaluation Malnutrition Findings (Please click <Entered> for more info): Nutritional Asmnt/Malnutrition Start: 07/08/18 16: 06 Text: Status: Complete Freq: Protocol: Document 07/08/18 16:06 LCHENG (Rec: 07/08/18 16:30 LCHENG [id number]) Nutritional Asmnt/Malnutrition Patient General Information Nutritional Screening High Risk Diagnosis acute resp failure, spesis Pertinent Medical Hx/Surgical Hx HTN, asthma/COPD, downs, asthma, liver CA Subjective Information Pt seen intubated on vent. RN inserted NGtube and TF stated at lunch time as ordered. Current Diet Order/ Nutrition Support glucerna 1.2 at 20ml/hr continuous Pertinent Medications D50w, D5-0.9%ns, novolog, synthroid, protonix, piperacillin, vancomycin Pertinent Labs 9/25 Na 133, K 3.4, BUN 6, Cr 0.5, glucose 343, POC 101-293 07/07 Na 133, Cr 0.5, glucose 41, POC 17-135 Nutritional Hx/Data Height 4 ft 11 in Height (Calculated Centimeters) 149.9 Current Weight (lbs) 160 lb Weight (Calculated Kilograms) 72.6 Weight (Calculated Grams) 85300.8 [place] Body Weight 104 Body Mass Index (BMI) 32.3 Weight Status Overweight GI Symptoms GI Symptoms None Last BM not indicated Difficult in: None Usual diet at home regular high fiber at care facility per chart Skin Integrity/Comment: rash to sacrum Estimated Nutritional Goals BEE in Kcals: Adj wt of IBW Calories/Kcals/Kg 27-32 adj 54kg Kcals Calculated 9049-5870 Protein: Adj wt of IBW Protein g/k.2-1.5 Protein Calculated 62-81 Fluid: ml 1458-1728ml (1ml/kcal) Nutritional Problem 1. Problem Problem increased nutrition needs Etiology increased metabolic demand Signs/Symptoms: dx of sepsis Malnutrition Alert Is there a minimum of two criteria No selected? Query Text:Check all the applicable criteria. A minimum of two criteria are recommended for diagnosis of either severe or non-severe malnutrition. Intervention/Recommendation Comments 1. Start with Glucerna 1.2 at 20ml/hr continuous as ordered. It provides 576kcal, 29g protein, 386ml free water. 2. Recommend increase to goal rate of 55ml/hr continuous as tolerated, which providing 1584kcal and 79g protein to meet 100% of nutritioanl needs . 3. Monitor TF rate, tolerance, wt, skin integrity and labs 4. F/U as high risk in 2-3 days, 07/10-07/11 Expected Outcomes/Goals Expected Outcomes/Goals 1. Pt to meet at least 75% of nutritional needs via nutrition support with tolerance 2. Wt stability, skin to remain intact, labs to approach WNL.
[2018-07-11] MEDS: Potassium Chloride Elixir 20 mEq /15 mL UDC GT SCH ×2 (12:14→18:04)
[2018-07-11] MEDS: methylPREDNISolone SS 40 mg Vial IV SCH ×2 (12:16→21:11)
--- NOTE | 2018-07-11 13:14 | Consultation ---
DATE OF CONSULTATION: 07/11/2018 INPATIENT GASTROINTESTINAL CONSULTATION CONSULTING PHYSICIAN: Dr. Mazariegos. REASON FOR CONSULTATION: Ileus, abdominal distention. HISTORY OF PRESENT ILLNESS: The patient is a 57-year-old male with past medical history significant for Down syndrome and asthma, who has been admitted to the hospital for several days since 07/07/2018 with pneumonia and asthma exacerbation. The patient was noted to have significant respiratory issues on admission and eventually did require intubation and is now in the ICU still intubated. He is receiving broad-spectrum antibiotics and had an NG tube for feeding. However, it was noted yesterday that his abdomen was becoming increasingly distended and thus he had a KUB performed that showed possible ileus, dilated bowel loops. Since that time, the feeding has been on hold. He was given an enema and lactulose, but has not had a bowel movement. PAST MEDICAL HISTORY: Down syndrome, asthma, history of pneumonia, anemia, hyponatremia, type 2 diabetes and obstructive sleep apnea. PAST SURGICAL HISTORY: No documented history of abdominal surgery. FAMILY HISTORY: Noncontributory. SOCIAL HISTORY: The patient does not smoke, drink or use illicit drugs. He is a permanent resident of a nursing facility. ALLERGIES: No known drug allergies. REVIEW OF SYSTEMS: Not possible given the patient is intubated and sedated. CURRENT MEDICATIONS: Include Tylenol, albuterol, aspirin, budesonide, IV fluids, Lasix, insulin, lactulose, Synthroid, Solu-Medrol, Reglan, vancomycin, morphine, Zofran, Protonix and Zosyn. PHYSICAL EXAMINATION: VITAL SIGNS: Blood pressure is 113/86, pulse 112 beats per minute, respiratory rate of 31, oxygenation 96% on full ventilator support. HEAD, EARS, EYES, NOSE AND THROAT: Normocephalic and atraumatic appearing head. Pupils are equal and reactive. He has classic Down facies. There is an endotracheal tube secured in place in his mouth. NECK: There is no obvious JVD. Supple. CHEST: Mechanical breath sounds are heard bilaterally. CARDIOVASCULAR: S1 and S2 are present, tachycardic. ABDOMEN: Soft. There is distention. There is tympanic percussion. No guarding or rebound. No fluid distention. EXTREMITIES: 1+ pitting edema bilaterally. Pulses are not present. SKIN: There is no obvious jaundice. LABORATORY DATA: White blood cell count 17.6, hemoglobin is 8.1, platelet count 162. Sodium 139, BUN is 9 and creatinine is 0.7. IMAGING STUDIES: KUB was performed yesterday and this shows several mildly dilated small bowel loops, early obstruction cannot be excluded. IMPRESSION: This is a 57-year-old male with Down syndrome and asthma, admitted to the hospital with respiratory failure requiring intubation and ICU admission, now on antibiotics. 1. Ileus versus obstruction. 2. Pneumonia. 3. Respiratory failure requiring intubation. 4. Down syndrome. 5. Type 2 diabetes. DISCUSSION: It does appear clinically that this patient likely has an ileus causing abdominal distention. I do not suspect that he has full bowel obstruction at this point, but that this is likely more of an ICU related ileus. We can try to manage this conservatively with enemas and mineral oil as well as NG tube to suction. If he has further distention, we will need to get a CT scan to look for any evidence of developing obstruction and in that case, a surgical consult would also be necessary. RECOMMENDATIONS: 1. We will write for 500 mL tap water enema every 8 hours. 2. We will add on mineral oil to help with ileus. 3. NG tube to intermittent suction. 4. Hold feeding for now. 5. Daily KUB to track progress. 6. If this patient develops worsening distention, recommend CT scan with oral contrast and surgical consult. We will continue to follow. Thank you for allowing us to participate in his care. Please call with any further questions. JOB# [id number]
[2018-07-11] MEDS ORDERED: Diatrizoate Meglumine/Diatri 30 mL Sol PO ONE (16:21)
[2018-07-11 18:33] LABS: pH 7.37 (7.35-7.45)
[2018-07-11 18:34] LABS: ALLEN TEST Positive
[2018-07-11] MEDS: Budesonide 0.5 Mg/2 mL Ud HHN SCH (18:49)
[2018-07-11] MEDS ORDERED: Magnesium Hydroxide (MOM) 30 mL UDC PO PRN (20:16)
[2018-07-11] MEDS ORDERED: Lactulose 10 Gm/15 mL 30mL UDC NG ONE (20:30)
--- NOTE | 2018-07-11 20:38 | Progress Notes ---
DATE: 07/11/2018 PULMONARY/CRITICAL CARE PROGRESS NOTE PROBLEM LIST: 1. Acute respiratory failure, improving. 2. Bilateral pneumonia, improving. 3. Underlying chronic bronchial asthma. 4. Severe sleep apnea syndrome. 5. Underlying mentally and physically challenged issue. 6. Constipation. SYMPTOMS: Nil. The patient just come from the CAT scan, is sleepy, no respiratory distress. Currently on a CPAP with pressure support. PHYSICAL EXAMINATION: VITAL SIGNS: The patient's recorded vitals: Temperature is 99 earlier and blood pressure is 140/84, pulse is 100, and saturation is 100% on 50% of oxygen. ASSESSMENT: The patient is clinically stable, improving. PLANS AND SUGGESTIONS: We will go ahead and get some lactulose, milk of magnesia, together. We will repeat chest x-ray, some laboratory studies tomorrow and if that is reasonably well, we will go ahead and consideration for extubation provided he is mentally awake and alert and go from there. JOB# [id number]
[2018-07-12] MEDS: Albuterol/Ipratropium Neb 3 ML AERS HHN SCH ×6 (03:07→22:51)
[2018-07-12] MEDS: Metoclopramide 5 mg/mL 2mL Vial IVP SCH ×3 (04:35→20:20)
[2018-07-12 04:50] LABS: HEMOGLOBIN 10.1 gm/dL (12-16); MEAN CELL VOLUME 90.1 fl (80-99); MEAN CORPUSCULAR HEMOGLOBIN 28.9 pg (26.0-30.0); MEAN CORPUSCULAR HGB CONC 32.1 pg (28.0-36.0); MEAN PLATELET VOLUME 8.1 fl; RED BLOOD COUNT 3.48 Mil/cmm (4.30-5.70); RED CELL DISTRIBUTION WIDTH 17.7 % (11.5-20.0)
[2018-07-12 04:54] LABS: HEMATOCRIT 31.3 % (41.0-60); PLATELET COUNT 236 Th/cmm (150-400); WHITE BLOOD COUNT 27.2 Th/cmm (4.8-10.8)
[2018-07-12 05:28] LABS: BUN - UREA NITROGEN 13 mg/dL (7-25); CALCIUM SERUM 8.1 mg/dL (8.6-10.3); CARBON DIOXIDE 24.7 mEq/L (21.0-31.0); CHLORIDE 103 mEq/L (98-107); CREATININE - SERUM 0.9 mg/dL (0.7-1.3); GFR AFRICAN-AMERICAN > 60.0 ml/min (>90); GFR NON AFRICAN-AMERICAN > 60.0 ml/min; POTASSIUM SERUM 3.7 mEq/L (3.5-5.1); SODIUM SERUM 140 mEq/L (136-145)
[2018-07-12 05:29] LABS: GLUCOSE 176 mg/dL (70-105)
[2018-07-12 05:49] LABS: BAND NEUTROPHILE 1 % (0-10); LYMPHOCYTE 2 % (20-50); NEUTROPHILS 97 % (40-80); PLATELET ESTIMATE ADEQUATE (NORMAL)
[2018-07-12] MEDS: INSULIN ASPART, RECOMBINANT 100 UNITS/ML SUBQ SCH ×4 (06:05→23:09)
[2018-07-12] MEDS: Levothyroxine 0.025 Mg Tab PO SCH (06:42)
[2018-07-12] MEDS: Budesonide 0.5 Mg/2 mL Ud HHN SCH ×2 (07:19→18:58)
[2018-07-12] MEDS: methylPREDNISolone SS 40 mg Vial IV SCH ×2 (08:08→20:19)
--- NOTE | 2018-07-12 08:08 | Diagnostic Imaging Report ---
CHEST X-RAY: AP view INDICATION: Pneumonia COMPARISON: 07/11/2018 FINDINGS: ET tube is seen with tip 3 cm above the jaun. Remaining support devices are stable. Persistent extensive infiltrates are seen increased since previous exam. Small bilateral effusions are noted. Cardiomegaly is noted. IMPRESSION: Persistent extensive infiltrates, increased since prior exam. Small bilateral effusions Cardiomegaly.
[2018-07-12] MEDS ORDERED: Diltiazem 5 mg/mL 5mL Vial IVP STA (08:28)
--- NOTE | 2018-07-12 08:56 | Diagnostic Imaging Report ---
CT abdomen and pelvis without intravenous contrast Indication: Abdominal pain, rule out obstruction Comparison: KUB on 07/11/2018, and CT chest on 07/08/2018 Technique: Axial images were obtained from the lung bases to the bilateral proximal femurs without IV contrast. Coronal reconstructions were made. total DLP: 628, CTDI15.5 FINDINGS: Extensive infiltrates of the left lung base is noted. Exam is limited due to motion and lack of IV contrast. Hypoventilatory changes of the lung bases are also noted. NG tube is within the stomach. There is marked enlargement of the liver with multiple low density lesions. There are no focal splenic lesions. Limited assessment of the pancreas demonstrate no discrete focal lesions. No focal adrenal lesions lesions. There is a right renal lesion measuring 6.0 x 4 cm with peripheral calcification. Punctate nonobstructive right renal stones are noted. No hydronephrosis. Yeh catheter is seen within underdistended urinary bladder. Oral contrast is seen within multiple gas fluid-filled loops of bowel. Diffuse gaseous distended loops of bowel are noted. The appendix is not visualized. Trace free fluid and inflammatory changes are seen within the mesentery and pelvis. There is severe anasarca. Degenerative changes of the spine and pelvis are noted. IMPRESSION: Gas and fluid-filled loops of bowel. Findings may be due to a diffuse ileus. A distal obstructive process cannot be completely excluded. Clinical correlation and follow-up is needed. Enlarged liver with multiple low density lesions probably due to metastatic disease origin uncertain. Please correlate clinically. Note exam is limited due to lack of IV contrast Severe anasarca. Trace free fluid inflammatory changes within the mesenteric fat planes and pelvis. 6.0 x 4 cm right renal lesion with peripheral calcification. Findings may represent a cyst, however, further characterization with ultrasound is recommended. Nonobstructive punctate right renal stone Left basal infiltrate/pneumonia.
[2018-07-12] MEDS: Magnesium Hydroxide (MOM) 30 mL UDC NG SCH ×2 (09:00→17:34)
[2018-07-12] MEDS: Lactulose 10 Gm/15 mL 30mL UDC PO SCH (09:04)
[2018-07-12] MEDS: Potassium Chloride Elixir 20 mEq /15 mL UDC GT SCH ×2 (09:04→17:34)
[2018-07-12] MEDS: Aspirin 81mg Chewable Tab PO SCH (09:05)
[2018-07-12] MEDS: Chlorhexidine Gluconate 0.12% 15mL Mouthwash MM SCH ×2 (09:09→20:20)
--- NOTE | 2018-07-12 09:12 | GI Progress Note ---
Subjective - Review of Systems Service Date: 07/12/18 Subjective: EVENTS NOTED. Objective - Results Result Diagrams: 07/12/18 04:34 07/12/18 04:34 Recent Labs: Laboratory Last Values WBC 27.2 Th/cmm (4.8-10.8) H* 07/12/18 04:34 Corrected WBC (auto) Th/cmm 07/10/18 04:35 RBC 3.48 Mil/cmm (4.30-5.70) L 07/12/18 04:34 Hgb 10.1 gm/dL (12-16) L 07/12/18 04:34 Hct 31.3 % (41.0-60) L D 07/12/18 04:34 MCV 90.1 fl (80-99) 07/12/18 04:34 MCH 28.9 pg (26.0-30.0) 07/12/18 04:34 MCHC Differential 32.1 pg (28.0-36.0) 07/12/18 04:34 RDW 17.7 % (11.5-20.0) 07/12/18 04:34 Plt Count 236 Th/cmm (150-400) D 07/12/18 04:34 MPV 8.1 fl 07/12/18 04:34 Add Manual Diff YES 07/12/18 04:34 Neutrophils % 96.6 % (40.0-80.0) H 07/11/18 04:40 Band Neutrophils % 1 % (0-10) 07/12/18 04:34 Lymphocytes % 2.2 % (20.0-50.0) L 07/11/18 04:40 Monocytes % 1.1 % (2.0-10.0) L 07/11/18 04:40 Eosinophils % 0.1 % (0.0-5.0) 07/11/18 04:40 Basophils % 0.0 % (0.0-2.0) 07/11/18 04:40 Neutrophils (Manual) 97 % (40-80) H 07/12/18 04:34 Lymphocytes 2 % (20-50) L 07/12/18 04:34 Monocytes 2 % (2-10) 07/09/18 07:30 Eosinophils 0 % (0-5) 07/09/18 07:30 Basophils 0 % (0-3) 07/09/18 07:30 Metamyelocytes 0 % (0-0) 07/08/18 04:10 Platelet Estimate ADEQUATE (NORMAL) 07/12/18 04:34 PT 12.1 SECONDS (9.5-11.5) H 07/07/18 17:00 INR 1.17 (0.5-1.4) 07/07/18 17:00 Specimen Source Arterial 07/11/18 18:00 Sample Site Right Radial 07/11/18 18:00 pH 7.37 (7.35-7.45) 07/11/18 18:00 pCO2 55.0 mmHg (35.0-45.0) H 07/11/18 18:00 pO2 118.0 mmHg (80.0-100.0) H 07/11/18 18:00 HCO3 29.0 mEq/L (20.0-26.0) H 07/11/18 18:00 Base Excess 5.2 mEq/L (-3.0-3.0) H 07/11/18 18:00 O2 Saturation 99.0 % (92.0-100.0) 07/11/18 18:00 Kam Test Positive 07/11/18 18:00 Vent Rate NA 07/11/18 18:00 Inspired O2 50 07/11/18 18:00 Tidal Volume NA 07/11/18 18:00 PEEP NA 07/11/18 18:00 Pressure (ins/psv/peep) 20 07/11/18 18:00 Critical Value SC 07/11/18 18:00 Sodium 140 mEq/L (136-145) 07/12/18 04:34 Potassium 3.7 mEq/L (3.5-5.1) 07/12/18 04:34 Chloride 103 mEq/L (98-107) 07/12/18 04:34 Carbon Dioxide 24.7 mEq/L (21.0-31.0) 07/12/18 04:34 Anion Gap 16.0 (7.0-16.0) 07/12/18 04:34 BUN 13 mg/dL (7-25) 07/12/18 04:34 Creatinine 0.9 mg/dL (0.7-1.3) 07/12/18 04:34 Est GFR ( Amer) > 60.0 ml/min (>90) 07/12/18 04:34 Est GFR (Non-Af Amer) > 60.0 ml/min 07/12/18 04:34 BUN/Creatinine Ratio 14.4 07/12/18 04:34 Glucose 176 mg/dL (70-105) H D 07/12/18 04:34 POC Glucose 183 MG/DL (70 - 105) H 07/12/18 05:13 Whole Bld Lactic Acid 1.96 mmol/L (0.60-1.99) 07/07/18 19:15 Calcium 8.1 mg/dL (8.6-10.3) L 07/12/18 04:34 Magnesium 2.1 mg/dL (1.9-2.7) 07/10/18 04:35 Total Bilirubin 0.6 mg/dL (0.3-1.0) 07/09/18 07:30 AST 97 U/L (13-39) H 07/09/18 07:30 ALT 19 U/L (7-52) 07/09/18 07:30 Alkaline Phosphatase 120 U/L (34-104) H 07/09/18 07:30 Ammonia 102 umol/L (16-53) H 07/11/18 04:40 Troponin I 0.01 ng/mL (0.01-0.05) 07/09/18 07:30 B-Natriuretic Peptide 196.0 pg/mL (5.0-100.0) H 07/09/18 07:30 Total Protein 5.6 gm/dL (6.0-8.3) L 07/09/18 07:30 Albumin 2.5 gm/dL (4.2-5.5) L 07/09/18 07:30 Globulin 3.1 gm/dL 07/09/18 07:30 Albumin/Globulin Ratio 0.8 (1.0-1.8) L 07/09/18 07:30 Vitamin B12 1241 pg/mL (232-1245) 07/08/18 04:10 Folic Acid 8.6 ng/mL (>3.0) 07/08/18 04:10 Free T4 1.04 ng/dL (0.82-1.77) 07/09/18 07:30 Free T3 1.1 pg/mL (2.0-4.4) L 07/09/18 07:30 TSH 4.06 uIU/ml (0.34-5.60) 07/08/18 04:10 Urine Source CLEAN C 07/07/18 17:15 Urine Color YELLOW 07/07/18 17:15 Urine Clarity CLEAR (CLEAR) 07/07/18 17:15 Urine pH 6.0 (4.6 - 8.0) 07/07/18 17:15 Ur Specific [place] 1.015 (1.005-1.030) 07/07/18 17:15 Urine Protein 30 mg/dL (NEGATIVE) H 07/07/18 17:15 Urine Glucose (UA) NEGATIVE mg/dL (NEGATIVE) 07/07/18 17:15 Urine Ketones NEGATIVE mg/dL (NEGATIVE) 07/07/18 17:15 Urine Blood NEGATIVE (NEGATIVE) 07/07/18 17:15 Urine Nitrate NEGATIVE (NEGATIVE) 07/07/18 17:15 Urine Bilirubin NEGATIVE (NEGATIVE) 07/07/18 17:15 Urine Urobilinogen 0.2 E.U./dL (0.2 - 1.0) 07/07/18 17:15 Ur Leukocyte Esterase NEGATIVE (NEGATIVE) 07/07/18 17:15 Urine RBC 0-2 /hpf (0-5) H 07/07/18 17:15 Urine WBC 2-5 /hpf (0-5) 07/07/18 17:15 Ur Epithelial Cells FEW /lpf (FEW) 07/07/18 17:15 Urine Bacteria FEW /hpf (NONE SEEN) 07/07/18 17:15 Fine Granular Casts 0-2 /lpf (NONE SEEN) H 07/07/18 17:15 Urine Mucus FEW /lpf (FEW) 07/07/18 17:15 Vancomycin Trough 17.0 ug/mL (5-10) H 07/11/18 09:30 - Physical Exam Vitals and I&O: Vital Signs Temp 97.4 F 07/12/18 05:00 Pulse 140 07/12/18 08:30 Resp 30 07/12/18 06:00 BP 130/52 07/12/18 08:08 Pulse Ox 99 07/12/18 07:19 Intake & Output 07/11/18 07/12/18 07/12/18 18:59 06:59 18:59 Intake Total 1049.167 100 Output Total 1200 650 Balance -150.833 -550 Weight (lbs) 81.647 kg 81.647 kg Intake: Intake, IV Amount 449.167 100 KCL 20mEq/100mL Premix 20 99.167 meq In 100 ml @ 50 mls/ hr IV Q2H [facility] Rx#: [id number] Piperacillin Sodium/ 100 100 Tazobact 4.5 gm In Sodium Chloride 0.9% 100 ml @ 100 mls/hr IV Q8HR [facility] Rx #:[id number] Vancomycin HCl 1 gm In 250 Sodium Chloride 0.9% 250 ml @ 165 mls/hr IV Q18H [facility] Rx#:[id number] Other 600 Output: Gastric Drainage 400 50 Urine 800 600 Other: # Bowel Movements 0 0 Weight Source Bedscale Bedscale Active Medications: Current Medications Acetaminophen (Tylenol) 650 mg PO Q4H PRN PRN Reason: Pain Or Fever above 101 Stop: 09/05/18 19:05 Last Admin: 07/12/18 00:15 Dose: 650 mg Albuterol/Ipratropium (Duoneb Neb) 3 ml HHN Q4HRT [facility] Stop: 09/06/18 14:59 Last Admin: 07/12/18 07:09 Dose: 3 ml Aspirin (Aspirin Chewable) 81 mg PO DAILY [facility] Stop: 09/08/18 08:59 Last Admin: 07/12/18 09:05 Dose: Not Given Budesonide (Pulmicort) 0.5 mg HHN BIDRT [facility] Stop: 09/06/18 18:59 Last Admin: 07/12/18 07:19 Dose: 0.5 mg Calamine/Phenol (Calmoseptine) 1 appl TP QID PRN PRN Reason: Skin Irritation Stop: 09/09/18 11:33 Chlorhexidine Gluconate (Peridex) 15 ml MM 0800,2000 [facility] Stop: 09/06/18 07:59 Last Admin: 07/12/18 09:09 Dose: 15 ml Dextrose (D50w) 50 ml IVP Q4HR PRN PRN Reason: Hypersensitivity Stop: 09/06/18 00:58 Furosemide (Lasix) 20 mg IVP BID [facility] Stop: 09/07/18 08:59 Last Admin: 07/12/18 08:08 Dose: 20 mg Piperacillin Sod/Tazobactam (Sod 4.5 gm/ Sodium Chloride) 100 mls @ 100 mls/hr IV Q8HR [facility] Stop: 09/05/18 20:59 Last Admin: 07/12/18 04:35 Dose: 100 mls/hr Norepinephrine Bitartrate 4 mg (/ Dextrose) 254 mls @ 7.62 mls/hr IV TITR PRN; Protocol PRN Reason: To Keep SBP Above 90 Stop: 09/06/18 00:56 Dextrose/Sodium Chloride (D5-0.45ns) 1,000 mls @ 50 mls/hr IV .Q20H [facility] Stop: 09/07/18 08:59 Last Admin: 07/11/18 04:33 Dose: 50 mls/hr Vancomycin HCl 1 gm/ Sodium (Chloride) 250 mls @ 165 mls/hr IV Q18H [facility] Stop: 09/09/18 13:59 Last Admin: 07/12/18 08:07 Dose: 165 mls/hr Insulin Aspart (Novolog) 0 units SUBQ Q6HR [facility]; Protocol Stop: 09/06/18 17:59 Last Admin: 07/12/18 06:05 Dose: Not Given Lactulose (Cephulac) 30 gm PO DAILY [facility] Stop: 09/07/18 08:59 Last Admin: 07/12/18 09:04 Dose: Not Given Levothyroxine Sodium (Synthroid) 0.025 mg PO QDAC [facility] Stop: 09/06/18 07:29 Last Admin: 07/12/18 06:42 Dose: 0.025 mg Magnesium Hydroxide (Milk Of Magnesia) 30 ml PO HS PRN PRN Reason: Constipation Stop: 09/09/18 20:15 Methylprednisolone Sodium Succinate (Solu-Medrol) 40 mg IV Q12HR [facility] Stop: 09/08/18 20:59 Last Admin: 07/12/18 08:08 Dose: 40 mg Metoclopramide HCl (Reglan) 5 mg IVP Q8HR [facility] Stop: 09/08/18 20:59 Last Admin: 07/12/18 04:35 Dose: 5 mg Miscellaneous (Vancomycin Iv Per Pharmacy) 1 ea MC PRN [facility] Stop: 09/05/18 19:14 Ondansetron HCl (Zofran) 4 mg IV Q8H PRN PRN Reason: Nausea / Vomiting Stop: 09/05/18 19:05 Pantoprazole Sodium (Protonix) 40 mg IVP QDAC [facility] Stop: 09/10/18 07:29 Last Admin: 07/12/18 06:42 Dose: 40 mg Potassium Chloride (Potassium Chloride Elixir) 20 meq GT BID [facility] Stop: 09/08/18 19:44 Last Admin: 07/12/18 09:04 Dose: Not Given General: Mild distress (RESP) HEENT: Other (ETT/VENT/NGT) Lungs: Other (OCC RHONCHI) Abdomen: Bowel sounds (HYPOACTIVE), Distended (MODERATE TO SEVERE) - Procedures Procedures: Procedures Procedure Code Date RESPIRATORY VENTILATION, 24-96 CONSECUTIVE HOURS [id number] 07/07/18 Assessment/Plan - Assessment Assessment: IMPRESSION: 1. MARKED ABD DISTENSION - PRELIM CT SHOWS ILEUS ONLY WITHOUT OBVIOUS OBSTRUCTION. 2. LIVER LESIONS ?METS. 3. RESP FAILURE. 4. DOWN'S/MR. RECS: 1. NG DECOMPRESSION. 2. ABX. 3. MINERAL OIL/MOM. 4. ENEMAS. 5. SURGICAL EVALUATION. 6. START TPN.
[2018-07-12 09:27] LABS: pH 7.14 (7.35-7.45)
[2018-07-12 09:31] LABS: ALLEN TEST Positive
[2018-07-12 10:21] LABS: MAGNESIUM 2.1 mg/dL (1.9-2.7); PHOSPHOROUS 2.8 mg/dL (2.5-5.0)
--- NOTE | 2018-07-12 13:48 | Internal Medicine Prog Note ---
Internal Medicine Subjective - Subjective Patient seen and examined:: with staff, chart reviewed Patient is:: asleep, non-verbal, non-interactive, confused Patient Complaints of:: congestion, weight gain Per staff patient has:: tolerating meds Internal Medicine Objective - Results Result Diagrams: 07/12/18 04:34 07/12/18 04:34 Recent Labs: Laboratory Last Values WBC 27.2 Th/cmm (4.8-10.8) H* 07/12/18 04:34 Corrected WBC (auto) Th/cmm 07/10/18 04:35 RBC 3.48 Mil/cmm (4.30-5.70) L 07/12/18 04:34 Hgb 10.1 gm/dL (12-16) L 07/12/18 04:34 Hct 31.3 % (41.0-60) L D 07/12/18 04:34 MCV 90.1 fl (80-99) 07/12/18 04:34 MCH 28.9 pg (26.0-30.0) 07/12/18 04:34 MCHC Differential 32.1 pg (28.0-36.0) 07/12/18 04:34 RDW 17.7 % (11.5-20.0) 07/12/18 04:34 Plt Count 236 Th/cmm (150-400) D 07/12/18 04:34 MPV 8.1 fl 07/12/18 04:34 Add Manual Diff YES 07/12/18 04:34 Neutrophils % 96.6 % (40.0-80.0) H 07/11/18 04:40 Band Neutrophils % 1 % (0-10) 07/12/18 04:34 Lymphocytes % 2.2 % (20.0-50.0) L 07/11/18 04:40 Monocytes % 1.1 % (2.0-10.0) L 07/11/18 04:40 Eosinophils % 0.1 % (0.0-5.0) 07/11/18 04:40 Basophils % 0.0 % (0.0-2.0) 07/11/18 04:40 Neutrophils (Manual) 97 % (40-80) H 07/12/18 04:34 Lymphocytes 2 % (20-50) L 07/12/18 04:34 Monocytes 2 % (2-10) 07/09/18 07:30 Eosinophils 0 % (0-5) 07/09/18 07:30 Basophils 0 % (0-3) 07/09/18 07:30 Metamyelocytes 0 % (0-0) 07/08/18 04:10 Platelet Estimate ADEQUATE (NORMAL) 07/12/18 04:34 PT 12.1 SECONDS (9.5-11.5) H 07/07/18 17:00 INR 1.17 (0.5-1.4) 07/07/18 17:00 Specimen Source Arterial 07/12/18 08:50 Sample Site Right Radial 07/12/18 08:50 pH 7.14 (7.35-7.45) L* 07/12/18 08:50 pCO2 74.0 mmHg (35.0-45.0) H* 07/12/18 08:50 pO2 51.0 mmHg (80.0-100.0) L 07/12/18 08:50 HCO3 20.4 mEq/L (20.0-26.0) 07/12/18 08:50 Base Excess -5.1 mEq/L (-3.0-3.0) L 07/12/18 08:50 O2 Saturation 73.0 % (92.0-100.0) L 07/12/18 08:50 Kam Test Positive 07/12/18 08:50 Vent Rate N/A 07/12/18 08:50 Inspired O2 50 07/12/18 08:50 Tidal Volume N/A 07/12/18 08:50 PEEP 0 07/12/18 08:50 Pressure (ins/psv/peep) 20 07/12/18 08:50 Critical Value DM 07/12/18 08:50 Sodium 140 mEq/L (136-145) 07/12/18 04:34 Potassium 3.7 mEq/L (3.5-5.1) 07/12/18 04:34 Chloride 103 mEq/L (98-107) 07/12/18 04:34 Carbon Dioxide 24.7 mEq/L (21.0-31.0) 07/12/18 04:34 Anion Gap 16.0 (7.0-16.0) 07/12/18 04:34 BUN 13 mg/dL (7-25) 07/12/18 04:34 Creatinine 0.9 mg/dL (0.7-1.3) 07/12/18 04:34 Est GFR ( Amer) > 60.0 ml/min (>90) 07/12/18 04:34 Est GFR (Non-Af Amer) > 60.0 ml/min 07/12/18 04:34 BUN/Creatinine Ratio 14.4 07/12/18 04:34 Glucose 176 mg/dL (70-105) H D 07/12/18 04:34 POC Glucose 108 MG/DL (70 - 105) H 07/12/18 11:53 Whole Bld Lactic Acid 1.96 mmol/L (0.60-1.99) 07/07/18 19:15 Calcium 8.1 mg/dL (8.6-10.3) L 07/12/18 04:34 Phosphorus 2.8 mg/dL (2.5-5.0) 07/12/18 09:33 Magnesium 2.1 mg/dL (1.9-2.7) 07/12/18 09:33 Total Bilirubin 0.6 mg/dL (0.3-1.0) 07/09/18 07:30 AST 97 U/L (13-39) H 07/09/18 07:30 ALT 19 U/L (7-52) 07/09/18 07:30 Alkaline Phosphatase 120 U/L (34-104) H 07/09/18 07:30 Ammonia 102 umol/L (16-53) H 07/11/18 04:40 Troponin I 0.01 ng/mL (0.01-0.05) 07/09/18 07:30 B-Natriuretic Peptide 196.0 pg/mL (5.0-100.0) H 07/09/18 07:30 Total Protein 5.6 gm/dL (6.0-8.3) L 07/09/18 07:30 Albumin 2.5 gm/dL (4.2-5.5) L 07/09/18 07:30 Globulin 3.1 gm/dL 07/09/18 07:30 Albumin/Globulin Ratio 0.8 (1.0-1.8) L 07/09/18 07:30 Vitamin B12 1241 pg/mL (232-1245) 07/08/18 04:10 Folic Acid 8.6 ng/mL (>3.0) 07/08/18 04:10 Free T4 1.04 ng/dL (0.82-1.77) 07/09/18 07:30 Free T3 1.1 pg/mL (2.0-4.4) L 07/09/18 07:30 TSH 4.06 uIU/ml (0.34-5.60) 07/08/18 04:10 Urine Source CLEAN C 07/07/18 17:15 Urine Color YELLOW 07/07/18 17:15 Urine Clarity CLEAR (CLEAR) 07/07/18 17:15 Urine pH 6.0 (4.6 - 8.0) 07/07/18 17:15 Ur Specific [place] 1.015 (1.005-1.030) 07/07/18 17:15 Urine Protein 30 mg/dL (NEGATIVE) H 07/07/18 17:15 Urine Glucose (UA) NEGATIVE mg/dL (NEGATIVE) 07/07/18 17:15 Urine Ketones NEGATIVE mg/dL (NEGATIVE) 07/07/18 17:15 Urine Blood NEGATIVE (NEGATIVE) 07/07/18 17:15 Urine Nitrate NEGATIVE (NEGATIVE) 07/07/18 17:15 Urine Bilirubin NEGATIVE (NEGATIVE) 07/07/18 17:15 Urine Urobilinogen 0.2 E.U./dL (0.2 - 1.0) 07/07/18 17:15 Ur Leukocyte Esterase NEGATIVE (NEGATIVE) 07/07/18 17:15 Urine RBC 0-2 /hpf (0-5) H 07/07/18 17:15 Urine WBC 2-5 /hpf (0-5) 07/07/18 17:15 Ur Epithelial Cells FEW /lpf (FEW) 07/07/18 17:15 Urine Bacteria FEW /hpf (NONE SEEN) 07/07/18 17:15 Fine Granular Casts 0-2 /lpf (NONE SEEN) H 07/07/18 17:15 Urine Mucus FEW /lpf (FEW) 07/07/18 17:15 Vancomycin Trough 17.0 ug/mL (5-10) H 07/11/18 09:30 - Physical Exam Vitals and I&O: Vital Signs Temp 97.6 F 07/12/18 12:00 Pulse 108 07/12/18 13:38 Resp 15 07/12/18 12:00 BP 112/62 07/12/18 12:00 Pulse Ox 96 07/12/18 13:38 Intake & Output 07/11/18 07/12/18 07/12/18 18:59 06:59 18:59 Intake Total 1049.167 100 Output Total 1200 650 Balance -150.833 -550 Weight (lbs) 81.647 kg 81.647 kg Intake: Intake, IV Amount 449.167 100 KCL 20mEq/100mL Premix 20 99.167 meq In 100 ml @ 50 mls/ hr IV Q2H [facility] Rx#: [id number] Piperacillin Sodium/ 100 100 Tazobact 4.5 gm In Sodium Chloride 0.9% 100 ml @ 100 mls/hr IV Q8HR [facility] Rx #:[id number] Vancomycin HCl 1 gm In 250 Sodium Chloride 0.9% 250 ml @ 165 mls/hr IV Q18H [facility] Rx#:[id number] Other 600 Output: Gastric Drainage 400 50 Urine 800 600 Other: # Bowel Movements 0 0 Stool Characteristics Formed Weight Source Bedscale Bedscale Active Medications: Current Medications Acetaminophen (Tylenol) 650 mg PO Q4H PRN PRN Reason: Pain Or Fever above 101 Stop: 09/05/18 19:05 Last Admin: 07/12/18 00:15 Dose: 650 mg Albuterol/Ipratropium (Duoneb Neb) 3 ml HHN Q4HRT [facility] Stop: 09/06/18 14:59 Last Admin: 07/12/18 10:59 Dose: 3 ml Budesonide (Pulmicort) 0.5 mg HHN BIDRT [facility] Stop: 09/06/18 18:59 Last Admin: 07/12/18 07:19 Dose: 0.5 mg Calamine/Phenol (Calmoseptine) 1 appl TP QID PRN PRN Reason: Skin Irritation Stop: 09/09/18 11:33 Chlorhexidine Gluconate (Peridex) 15 ml MM 0800,1999 [facility] Stop: 09/06/18 07:59 Last Admin: 07/12/18 09:09 Dose: 15 ml Dextrose (D50w) 50 ml IVP Q4HR PRN PRN Reason: Hypersensitivity Stop: 09/06/18 00:58 Furosemide (Lasix) 20 mg IVP BID [facility] Stop: 09/07/18 08:59 Last Admin: 07/12/18 08:08 Dose: 20 mg Norepinephrine Bitartrate 4 mg (/ Dextrose) 254 mls @ 7.62 mls/hr IV TITR PRN; Protocol PRN Reason: To Keep SBP Above 90 Stop: 09/06/18 00:56 Dextrose/Sodium Chloride (D5-0.45ns) 1,000 mls @ 50 mls/hr IV .Q20H [facility] Stop: 07/12/18 14:00 Last Admin: 07/11/18 04:33 Dose: 50 mls/hr Vancomycin HCl 1 gm/ Sodium (Chloride) 250 mls @ 165 mls/hr IV Q18H [facility] Stop: 09/09/18 13:59 Last Admin: 07/12/18 08:07 Dose: 165 mls/hr Multivitamins/Minerals 10 ml/Dextrose/ Amino Acids/Electrolytes/ Fat Emulsion Intravenous/ Sterile Water 1,680 mls @ 70 mls/hr IV .Q24H [facility] Stop: 09/10/18 15:59 Meropenem 1 gm/ Sodium (Chloride) 100 mls @ 100 mls/hr IV Q12H [facility] Stop: 09/10/18 13:44 Metronidazole (Flagyl) 500 mg in 100 mls @ 100 mls/hr IV Q8HR [facility] Stop: 09/10/18 20:59 Insulin Aspart (Novolog) 0 units SUBQ Q6HR [facility]; Protocol Stop: 09/06/18 17:59 Last Admin: 07/12/18 06:05 Dose: Not Given Levothyroxine Sodium (Synthroid) 0.025 mg PO QDAC [facility] Stop: 09/06/18 07:29 Last Admin: 07/12/18 06:42 Dose: 0.025 mg Magnesium Hydroxide (Milk Of Magnesia) 30 ml PO HS PRN PRN Reason: Constipation Stop: 09/09/18 20:15 Magnesium Hydroxide (Milk Of Magnesia) 30 ml NG BID [facility] Stop: 09/10/18 09:59 Last Admin: 07/12/18 09:00 Dose: Not Given Methylprednisolone Sodium Succinate (Solu-Medrol) 40 mg IV Q12HR [facility] Stop: 09/08/18 20:59 Last Admin: 07/12/18 08:08 Dose: 40 mg Metoclopramide HCl (Reglan) 5 mg IVP Q8HR [facility] Stop: 09/08/18 20:59 Last Admin: 07/12/18 04:35 Dose: 5 mg Mineral Oil (Mineral Oil 30 Ml) 30 ml NG BID [facility] Stop: 09/10/18 09:14 Last Admin: 07/12/18 09:00 Dose: Not Given Miscellaneous (Vancomycin Iv Per Pharmacy) 1 ea MC PRN [facility] Stop: 09/05/18 19:14 Miscellaneous (Tpn Per Pharmacy) 1 ea PRN PRN PRN Reason: PROTOCOL Stop: 09/10/18 09:13 Ondansetron HCl (Zofran) 4 mg IV Q8H PRN PRN Reason: Nausea / Vomiting Stop: 09/05/18 19:05 Pantoprazole Sodium (Protonix) 40 mg IVP QDAC [facility] Stop: 09/10/18 07:29 Last Admin: 07/12/18 06:42 Dose: 40 mg Potassium Chloride (Potassium Chloride Elixir) 20 meq GT BID [facility] Stop: 09/08/18 19:44 Last Admin: 07/12/18 09:04 Dose: Not Given General: weak, congested, obtunded HEENT: NC/AT, PERRLA Neck: Supple Lungs: rales, ronchi Cardiovascular: RRR, Normal S1, Normal S2, without murmur Abdomen: distended Extremities: excoriation Neurological: unable to follow command - Procedures Procedures: Procedures Procedure Code Date RESPIRATORY VENTILATION, 24-96 CONSECUTIVE HOURS [id number] 07/07/18 Internal Medicine Assmt/Plan - Assessment Assessment: Assessment: acute respiratory failure vdrf sepsis left lung pna anemia abdominal distention hyponatremia hypokalemia mild protein meg malnutrition episode of hypoglycemia down syndrome htn asthma hx liver ca - Plan Plan: switch protonix to ivp continue vent support continue ivabx in-line respiratory treatments to continue continue current plan of care - Plan Plan: labs noted see orders Nutritional Asmnt/Malnutr-PDOC - Dietary Evaluation Malnutrition Findings (Please click <Entered> for more info): Nutritional Asmnt/Malnutrition Start: 07/08/18 16: 06 Text: Status: Complete Freq: Protocol: Document 07/08/18 16:06 MANUELITO (Rec: 07/08/18 16:30 LCLESLIE [id number]) Nutritional Asmnt/Malnutrition Patient General Information Nutritional Screening High Risk Diagnosis acute resp failure, spesis Pertinent Medical Hx/Surgical Hx HTN, asthma/COPD, downs, asthma, liver CA Subjective Information Pt seen intubated on vent. RN inserted NGtube and TF stated at lunch time as ordered. Current Diet Order/ Nutrition Support glucerna 1.2 at 20ml/hr continuous Pertinent Medications D50w, D5-0.9%ns, novolog, synthroid, protonix, piperacillin, vancomycin Pertinent Labs 07/08 Na 133, K 3.4, BUN 6, Cr 0.5, glucose 343, POC 101-293 07/07 Na 133, Cr 0.5, glucose 41, POC 17-135 Nutritional Hx/Data Height 1.5 m Height (Calculated Centimeters) 149.9 Current Weight (lbs) 72.575 kg Weight (Calculated Kilograms) 72.6 Weight (Calculated Grams) 32839.8 [place] Body Weight 104 Body Mass Index (BMI) 32.3 Weight Status Overweight GI Symptoms GI Symptoms None Last BM not indicated Difficult in: None Usual diet at home regular high fiber at care facility per chart Skin Integrity/Comment: rash to sacrum Estimated Nutritional Goals BEE in Kcals: Adj wt of IBW Calories/Kcals/Kg 27-32 adj 54kg Kcals Calculated 9875-3663 Protein: Adj wt of IBW Protein g/k.2-1.5 Protein Calculated 62-81 Fluid: ml 1458-1728ml (1ml/kcal) Nutritional Problem 1. Problem Problem increased nutrition needs Etiology increased metabolic demand Signs/Symptoms: dx of sepsis Malnutrition Alert Is there a minimum of two criteria No selected? Query Text:Check all the applicable criteria. A minimum of two criteria are recommended for diagnosis of either severe or non-severe malnutrition. Intervention/Recommendation Comments 1. Start with Glucerna 1.2 at 20ml/hr continuous as ordered. It provides 576kcal, 29g protein, 386ml free water. 2. Recommend increase to goal rate of 55ml/hr continuous as tolerated, which providing 1584kcal and 79g protein to meet 100% of nutritioanl needs . 3. Monitor TF rate, tolerance, wt, skin integrity and labs 4. F/U as high risk in 2-3 days, 07/10-07/11 Expected Outcomes/Goals Expected Outcomes/Goals 1. Pt to meet at least 75% of nutritional needs via nutrition support with tolerance 2. Wt stability, skin to remain intact, labs to approach WNL.
[2018-07-12] MEDS: metroNIDAZOLE 500mg/NS 100mL 500 MG/100 ML BAG IV SCH ×2 (13:59→20:19)
[2018-07-12] MEDS: Meropenem 1 GM in Sodium Chloride 0.9% 100 ML IV SCH (15:02)
[2018-07-12] MEDS: MULTIVITAMIN IV SCH (16:25)
[2018-07-12] MEDS: [UNRECOGNIZED DRUG - OTHER] IV SCH (16:25)
[2018-07-12] MEDS: AMINO ACIDS IV SCH (16:25)
[2018-07-12] MEDS: DEXTROSE IV SCH (16:25)
--- NOTE | 2018-07-12 19:21 | History & Physical ---
ADMIT DATE: 07/12/2018 PULMONARY AND CRITICAL CARE PROGRESS NOTE PROBLEM LIST: 1. Respiratory failure. 2. Recurrent fleeting infiltrate, question recurrent congestive heart failure. 3. Chronic bronchial asthma. 4. Obstipation with GI distention. 5. Underlying severe obstructive sleep apnea syndrome and also history of mentally and physically developmental issues. SYMPTOMS: The patient is awake, moves side to side, could not tolerate a CPAP pressure support, this morning was tachycardic, tachypneic. Subsequently, vent was changed to the SMV mode. OBJECTIVE: GENERAL: Currently, not in acute distress, irregular heart beating. CHEST: Shows diminished air entry with scattered rales and rhonchi. HEART: Regular. ABDOMEN: Soft, nontender. VITAL SIGNS: Saturations currently on 50% is a 95%. IMAGING: Chest x-ray shows more fluffy infiltrate bilaterally with cardiomegaly. ASSESSMENT: The patient with recurrent infiltrate, most likely this is cardiac. Pneumonia seems to be resolved, very unlikely in current setting, getting worse. PLANS AND SUGGESTIONS: We will go ahead and continue TPN. Agree with Demetrio. Discussed with the nursing staff. We will follow up repeat chest x-ray, blood gases tomorrow and go from there. JOB# [id number]
[2018-07-12] MEDS: Morphine Sulfate 2 mg/mL 1mL Syr IVP PRN (22:37)
[2018-07-13] MEDS: Albuterol/Ipratropium Neb 3 ML AERS HHN SCH ×5 (02:37→19:17)
[2018-07-13] MEDS: Meropenem 1 GM in Sodium Chloride 0.9% 100 ML IV SCH ×2 (03:02→15:53)
[2018-07-13] MEDS: Metoclopramide 5 mg/mL 2mL Vial IVP SCH ×3 (04:35→20:10)
[2018-07-13] MEDS: metroNIDAZOLE 500mg/NS 100mL 500 MG/100 ML BAG IV SCH ×3 (04:35→21:46)
[2018-07-13 04:59] LABS: HEMATOCRIT 26.5 % (41.0-60); HEMOGLOBIN 8.5 gm/dL (12-16); MEAN CELL VOLUME 89.8 fl (80-99); MEAN CORPUSCULAR HEMOGLOBIN 28.9 pg (26.0-30.0); MEAN CORPUSCULAR HGB CONC 32.2 pg (28.0-36.0); MEAN PLATELET VOLUME 8.9 fl; PLATELET COUNT 106 Th/cmm (150-400); RED BLOOD COUNT 2.95 Mil/cmm (4.30-5.70); RED CELL DISTRIBUTION WIDTH 17.9 % (11.5-20.0); WHITE BLOOD COUNT 10.7 Th/cmm (4.8-10.8)
[2018-07-13] MEDS: INSULIN ASPART, RECOMBINANT 100 UNITS/ML SUBQ SCH ×3 (05:31→17:43)
[2018-07-13 05:42] LABS: BAND NEUTROPHILE 4 % (0-10); CORRECTED WBC 10.3 Th/cmm; NEUTROPHILS 96 % (40-80); PLATELET ESTIMATE SLIGHT DECREASED (NORMAL)
[2018-07-13 05:43] LABS: ALB/GLOB RATIO 0.9 (1.0-1.8); ALBUMIN 2.5 gm/dL (4.2-5.5); ALKALINE PHOSPHATASE 107 U/L (34-104); ANION GAP 19.7 (7.0-16.0); BILIRUBIN,TOTAL 1.6 mg/dL (0.3-1.0); BUN - UREA NITROGEN 26 mg/dL (7-25); CALCIUM SERUM 7.9 mg/dL (8.6-10.3); CARBON DIOXIDE 19.9 mEq/L (21.0-31.0); CHLORIDE 104 mEq/L (98-107); CREATININE - SERUM 1.4 mg/dL (0.7-1.3); GFR AFRICAN-AMERICAN > 60.0 ml/min (>90); GFR NON AFRICAN-AMERICAN 55.3 ml/min; GLUCOSE 265 mg/dL (70-105); MAGNESIUM 2.1 mg/dL (1.9-2.7); OVALOCYTES 1+; PHOSPHOROUS 3.2 mg/dL (2.5-5.0); POTASSIUM SERUM 3.6 mEq/L (3.5-5.1); SCHISTOCYTES 1+; SGOT 301 U/L (13-39); SGPT/ALT 70 U/L (7-52); SODIUM SERUM 140 mEq/L (136-145); TEAR DROP CELLS 1+; TOTAL PROTEIN,SERUM 5.2 gm/dL (6.0-8.3); TRIGLYCERIDES 143 mg/dL (<150)
[2018-07-13] MEDS: Morphine Sulfate 2 mg/mL 1mL Syr IVP PRN (06:05)
[2018-07-13] MEDS: Levothyroxine 0.025 Mg Tab PO SCH (06:55)
[2018-07-13] MEDS: Budesonide 0.5 Mg/2 mL Ud HHN SCH ×2 (07:21→19:17)
[2018-07-13] MEDS: Chlorhexidine Gluconate 0.12% 15mL Mouthwash MM SCH ×2 (08:00→20:11)
[2018-07-13 08:52] LABS: ALLEN TEST Positive
[2018-07-13] MEDS: methylPREDNISolone SS 40 mg Vial IV SCH ×2 (09:10→20:10)
[2018-07-13] MEDS: Magnesium Hydroxide (MOM) 30 mL UDC NG SCH ×2 (09:10→17:15)
[2018-07-13] MEDS: Potassium Chloride Elixir 20 mEq /15 mL UDC GT SCH ×2 (09:11→17:16)
--- NOTE | 2018-07-13 09:24 | GI Progress Note ---
Subjective - Review of Systems Service Date: 07/13/18 Subjective: EVENTS NOTED. BETTER. Objective - Results Result Diagrams: 07/13/18 04:38 07/13/18 04:38 Recent Labs: Laboratory Last Values WBC 10.7 Th/cmm (4.8-10.8) 07/13/18 04:38 Corrected WBC (auto) 10.3 Th/cmm 07/13/18 04:38 RBC 2.95 Mil/cmm (4.30-5.70) L 07/13/18 04:38 Hgb 8.5 gm/dL (12-16) L 07/13/18 04:38 Hct 26.5 % (41.0-60) L 07/13/18 04:38 MCV 89.8 fl (80-99) 07/13/18 04:38 MCH 28.9 pg (26.0-30.0) 07/13/18 04:38 MCHC Differential 32.2 pg (28.0-36.0) 07/13/18 04:38 RDW 17.9 % (11.5-20.0) 07/13/18 04:38 Plt Count 106 Th/cmm (150-400) L 07/13/18 04:38 MPV 8.9 fl 07/13/18 04:38 Add Manual Diff YES 07/13/18 04:38 Neutrophils % 96.6 % (40.0-80.0) H 07/11/18 04:40 Band Neutrophils % 4 % (0-10) 07/13/18 04:38 Lymphocytes % 2.2 % (20.0-50.0) L 07/11/18 04:40 Monocytes % 1.1 % (2.0-10.0) L 07/11/18 04:40 Eosinophils % 0.1 % (0.0-5.0) 07/11/18 04:40 Basophils % 0.0 % (0.0-2.0) 07/11/18 04:40 Neutrophils (Manual) 96 % (40-80) H 07/13/18 04:38 Lymphocytes 2 % (20-50) L 07/12/18 04:34 Monocytes 2 % (2-10) 07/09/18 07:30 Eosinophils 0 % (0-5) 07/09/18 07:30 Basophils 0 % (0-3) 07/09/18 07:30 Metamyelocytes 0 % (0-0) 07/08/18 04:10 Nucleated RBCs 4.0 % (0-0) H 07/13/18 04:38 Platelet Estimate SLIGHT DECREASED (NORMAL) 07/13/18 04:38 Tear Drop Cells 1+ 07/13/18 04:38 Ovalocytes 1+ 07/13/18 04:38 Schistocytes 1+ 07/13/18 04:38 PT 12.1 SECONDS (9.5-11.5) H 07/07/18 17:00 INR 1.17 (0.5-1.4) 07/07/18 17:00 Specimen Source Arterial 07/13/18 08:32 Sample Site Right Radial 07/13/18 08:32 pH 7.40 (7.35-7.45) 07/13/18 08:32 pCO2 42.0 mmHg (35.0-45.0) 07/13/18 08:32 pO2 86.0 mmHg (80.0-100.0) 07/13/18 08:32 HCO3 25.7 mEq/L (20.0-26.0) 07/13/18 08:32 Base Excess 1.0 mEq/L (-3.0-3.0) 07/13/18 08:32 O2 Saturation 97.0 % (92.0-100.0) 07/13/18 08:32 Kam Test Positive 07/13/18 08:32 Vent Rate 10 07/13/18 08:32 Inspired O2 35 07/13/18 08:32 Tidal Volume 450 07/13/18 08:32 PEEP 0 07/13/18 08:32 Pressure (ins/psv/peep) 22 07/13/18 08:32 Critical Value DM 07/13/18 08:32 Sodium 140 mEq/L (136-145) 07/13/18 04:38 Potassium 3.6 mEq/L (3.5-5.1) 07/13/18 04:38 Chloride 104 mEq/L (98-107) 07/13/18 04:38 Carbon Dioxide 19.9 mEq/L (21.0-31.0) L 07/13/18 04:38 Anion Gap 19.7 (7.0-16.0) H 07/13/18 04:38 BUN 26 mg/dL (7-25) H 07/13/18 04:38 Creatinine 1.4 mg/dL (0.7-1.3) H 07/13/18 04:38 Est GFR ( Amer) > 60.0 ml/min (>90) 07/13/18 04:38 Est GFR (Non-Af Amer) 55.3 ml/min 07/13/18 04:38 BUN/Creatinine Ratio 18.6 07/13/18 04:38 Glucose 265 mg/dL (70-105) H 07/13/18 04:38 POC Glucose 281 MG/DL (70 - 105) H 07/13/18 05:27 Whole Bld Lactic Acid 1.96 mmol/L (0.60-1.99) 07/07/18 19:15 Calcium 7.9 mg/dL (8.6-10.3) L 07/13/18 04:38 Phosphorus 3.2 mg/dL (2.5-5.0) 07/13/18 04:38 Magnesium 2.1 mg/dL (1.9-2.7) 07/13/18 04:38 Total Bilirubin 1.6 mg/dL (0.3-1.0) H 07/13/18 04:38 AST 301 U/L (13-39) H 07/13/18 04:38 ALT 70 U/L (7-52) H 07/13/18 04:38 Alkaline Phosphatase 107 U/L (34-104) H 07/13/18 04:38 Ammonia 102 umol/L (16-53) H 07/11/18 04:40 Troponin I 0.01 ng/mL (0.01-0.05) 07/09/18 07:30 B-Natriuretic Peptide 196.0 pg/mL (5.0-100.0) H 07/09/18 07:30 Total Protein 5.2 gm/dL (6.0-8.3) L 07/13/18 04:38 Albumin 2.5 gm/dL (4.2-5.5) L 07/13/18 04:38 Globulin 2.7 gm/dL 07/13/18 04:38 Albumin/Globulin Ratio 0.9 (1.0-1.8) L 07/13/18 04:38 Triglycerides 143 mg/dL (<150) 07/13/18 04:38 Vitamin B12 1241 pg/mL (232-1245) 07/08/18 04:10 Folic Acid 8.6 ng/mL (>3.0) 07/08/18 04:10 Free T4 1.04 ng/dL (0.82-1.77) 07/09/18 07:30 Free T3 1.1 pg/mL (2.0-4.4) L 07/09/18 07:30 TSH 4.06 uIU/ml (0.34-5.60) 07/08/18 04:10 Urine Source CLEAN C 07/07/18 17:15 Urine Color YELLOW 07/07/18 17:15 Urine Clarity CLEAR (CLEAR) 07/07/18 17:15 Urine pH 6.0 (4.6 - 8.0) 07/07/18 17:15 Ur Specific [place] 1.015 (1.005-1.030) 07/07/18 17:15 Urine Protein 30 mg/dL (NEGATIVE) H 07/07/18 17:15 Urine Glucose (UA) NEGATIVE mg/dL (NEGATIVE) 07/07/18 17:15 Urine Ketones NEGATIVE mg/dL (NEGATIVE) 07/07/18 17:15 Urine Blood NEGATIVE (NEGATIVE) 07/07/18 17:15 Urine Nitrate NEGATIVE (NEGATIVE) 07/07/18 17:15 Urine Bilirubin NEGATIVE (NEGATIVE) 07/07/18 17:15 Urine Urobilinogen 0.2 E.U./dL (0.2 - 1.0) 07/07/18 17:15 Ur Leukocyte Esterase NEGATIVE (NEGATIVE) 07/07/18 17:15 Urine RBC 0-2 /hpf (0-5) H 07/07/18 17:15 Urine WBC 2-5 /hpf (0-5) 07/07/18 17:15 Ur Epithelial Cells FEW /lpf (FEW) 07/07/18 17:15 Urine Bacteria FEW /hpf (NONE SEEN) 07/07/18 17:15 Fine Granular Casts 0-2 /lpf (NONE SEEN) H 07/07/18 17:15 Urine Mucus FEW /lpf (FEW) 07/07/18 17:15 Vancomycin Trough 17.0 ug/mL (5-10) H 07/11/18 09:30 - Physical Exam Vitals and I&O: Vital Signs Temp 97.8 F 07/13/18 08:00 Pulse 104 07/13/18 08:00 Resp 11 07/13/18 08:00 BP 122/80 07/13/18 09:10 Pulse Ox 96 07/13/18 08:00 Intake & Output 07/12/18 07/13/18 07/13/18 18:59 06:59 18:59 Intake Total 450 240 840 Output Total 550 230 Balance 450 -310 610 Weight (lbs) 81.647 kg 78.925 kg Intake: Intake, IV Amount 450 100 Meropenem 1 gm In Sodium 100 Chloride 0.9% 100 ml @ 100 mls/hr IV Q12H [facility] Rx #:[id number] Vancomycin HCl 1 gm In 250 Sodium Chloride 0.9% 250 ml @ 165 mls/hr IV Q18H [facility] Rx#:[id number] metroNIDAZOLE 500mg/NS 100 100 100mL 500 mg In 100 ml @ 100 mls/hr IV Q8HR [facility] Rx #:[id number] TPN/PPN 140 840 Output: Gastric Drainage 200 30 Urine 350 200 Other: # Bowel Movements 1 Stool Characteristics Formed Liquid Brown Weight Source Bedscale Bedscale Active Medications: Current Medications Acetaminophen (Tylenol) 650 mg PO Q4H PRN PRN Reason: Pain Or Fever above 101 Stop: 09/05/18 19:05 Last Admin: 07/12/18 00:15 Dose: 650 mg Albuterol/Ipratropium (Duoneb Neb) 3 ml HHN Q4HRT [facility] Stop: 09/06/18 14:59 Last Admin: 07/13/18 07:10 Dose: 3 ml Budesonide (Pulmicort) 0.5 mg HHN BIDRT [facility] Stop: 09/06/18 18:59 Last Admin: 07/13/18 07:21 Dose: 0.5 mg Calamine/Phenol (Calmoseptine) 1 appl TP QID PRN PRN Reason: Skin Irritation Stop: 09/09/18 11:33 Chlorhexidine Gluconate (Peridex) 15 ml MM 08,1999 [facility] Stop: 09/06/18 07:59 Last Admin: 07/12/18 20:20 Dose: 15 ml Dextrose (D50w) 50 ml IVP Q4HR PRN PRN Reason: Hypersensitivity Stop: 09/06/18 00:58 Furosemide (Lasix) 20 mg IVP BID [facility] Stop: 09/07/18 08:59 Last Admin: 07/13/18 09:10 Dose: 20 mg Norepinephrine Bitartrate 4 mg (/ Dextrose) 254 mls @ 7.62 mls/hr IV TITR PRN; Protocol PRN Reason: To Keep SBP Above 90 Stop: 09/06/18 00:56 Vancomycin HCl 1 gm/ Sodium (Chloride) 250 mls @ 165 mls/hr IV Q18H [facility] Stop: 09/09/18 13:59 Last Admin: 07/13/18 01:32 Dose: 165 mls/hr Multivitamins/Minerals 10 ml/Dextrose/ Amino Acids/Electrolytes/ Fat Emulsion Intravenous/ Sterile Water 1,680 mls @ 70 mls/hr IV .Q24H [facility] Stop: 09/10/18 15:59 Last Admin: 07/12/18 16:25 Dose: 70 mls/hr Meropenem 1 gm/ Sodium (Chloride) 100 mls @ 100 mls/hr IV Q12H [facility] Stop: 09/10/18 14:59 Last Admin: 07/13/18 03:02 Dose: 100 mls/hr Metronidazole (Flagyl) 500 mg in 100 mls @ 100 mls/hr IV Q8HR [facility] Stop: 09/10/18 13:59 Last Admin: 07/13/18 04:35 Dose: 100 mls/hr Insulin Aspart (Novolog) 0 units SUBQ Q6HR [facility]; Protocol Stop: 09/06/18 17:59 Last Admin: 07/13/18 05:31 Dose: 4 units Levothyroxine Sodium (Synthroid) 0.025 mg PO QDAC [facility] Stop: 09/06/18 07:29 Last Admin: 07/13/18 06:55 Dose: Not Given Magnesium Hydroxide (Milk Of Magnesia) 30 ml PO HS PRN PRN Reason: Constipation Stop: 09/09/18 20:15 Magnesium Hydroxide (Milk Of Magnesia) 30 ml NG BID [facility] Stop: 09/10/18 09:59 Last Admin: 07/13/18 09:10 Dose: 30 ml Methylprednisolone Sodium Succinate (Solu-Medrol) 40 mg IV Q12HR [facility] Stop: 09/08/18 20:59 Last Admin: 07/13/18 09:10 Dose: 40 mg Metoclopramide HCl (Reglan) 5 mg IVP Q8HR [facility] Stop: 09/08/18 20:59 Last Admin: 07/13/18 04:35 Dose: 5 mg Mineral Oil (Mineral Oil 30 Ml) 30 ml NG BID [facility] Stop: 09/10/18 09:14 Last Admin: 07/13/18 09:11 Dose: 30 ml Miscellaneous (Vancomycin Iv Per Pharmacy) 1 ea PRN [facility] Stop: 09/05/18 19:14 Miscellaneous (Tpn Per Pharmacy) 1 [facility] PRN PRN PRN Reason: PROTOCOL Stop: 09/10/18 09:13 Morphine Sulfate (Morphine) 1 mg IVP Q4HR PRN PRN Reason: Severe Pain Stop: 09/10/18 22:24 Last Admin: 07/13/18 06:05 Dose: 1 mg Ondansetron HCl (Zofran) 4 mg IV Q8H PRN PRN Reason: Nausea / Vomiting Stop: 09/05/18 19:05 Pantoprazole Sodium (Protonix) 40 mg IVP QDAC [facility] Stop: 09/10/18 07:29 Last Admin: 07/13/18 06:56 Dose: 40 mg Potassium Chloride (Potassium Chloride Elixir) 20 meq GT BID [facility] Stop: 09/08/18 19:44 Last Admin: 07/13/18 09:11 Dose: 20 meq General: Mild distress (RESP) HEENT: Other (ETT/VENT/NGT) Lungs: Other (OCC RHONCHI) Abdomen: Bowel sounds (HYPOACTIVE), Distended (MODERATE TO SEVERE), Other (NGT TO LIWS) - Procedures Procedures: Procedures Procedure Code Date RESPIRATORY VENTILATION, 24-96 CONSECUTIVE HOURS [id number] 07/07/18 Assessment/Plan - Assessment Assessment: IMPRESSION: 1. MARKED ABD DISTENSION - PRELIM CT SHOWS ILEUS ONLY WITHOUT OBVIOUS OBSTRUCTION, ALSO RENAL LESION. 2. LIVER LESIONS ?METS. 3. RESP FAILURE. 4. DOWN'S/MR. RECS: 1. NG DECOMPRESSION. 2. ABX. 3. MINERAL OIL/MOM. 4. TPN FOR NOW. MAY RESTART NGT FEEDS ONCE ILEUS IMPROVES. 5. SURGICAL EVALUATION. 6. CHECK ABD US.
--- NOTE | 2018-07-13 09:30 | Diagnostic Imaging Report ---
CHEST X-RAY: AP view INDICATION: Shortness of breath COMPARISON: 07/12/2018 FINDINGS: ET tube is seen with tip 4.5 cm above the jaun. Remaining support devices are stable. Diffuse bony infiltrates are again noted right greater than left. Cardiomegaly is noted. Trace effusions are noted. IMPRESSION: Persistent diffuse pulmonary infiltrates, right greater than left. Cardiomegaly.
--- NOTE | 2018-07-13 12:38 | Internal Medicine Prog Note ---
Internal Medicine Subjective - Subjective Patient seen and examined:: with staff, chart reviewed Patient is:: asleep, non-verbal, non-interactive, confused Patient Complaints of:: congestion, weight gain Per staff patient has:: tolerating meds Internal Medicine Objective - Results Result Diagrams: 07/13/18 04:38 07/13/18 04:38 Recent Labs: Laboratory Last Values WBC 10.7 Th/cmm (4.8-10.8) 07/13/18 04:38 Corrected WBC (auto) 10.3 Th/cmm 07/13/18 04:38 RBC 2.95 Mil/cmm (4.30-5.70) L 07/13/18 04:38 Hgb 8.5 gm/dL (12-16) L 07/13/18 04:38 Hct 26.5 % (41.0-60) L 07/13/18 04:38 MCV 89.8 fl (80-99) 07/13/18 04:38 MCH 28.9 pg (26.0-30.0) 07/13/18 04:38 MCHC Differential 32.2 pg (28.0-36.0) 07/13/18 04:38 RDW 17.9 % (11.5-20.0) 07/13/18 04:38 Plt Count 106 Th/cmm (150-400) L 07/13/18 04:38 MPV 8.9 fl 07/13/18 04:38 Add Manual Diff YES 07/13/18 04:38 Neutrophils % 96.6 % (40.0-80.0) H 07/11/18 04:40 Band Neutrophils % 4 % (0-10) 07/13/18 04:38 Lymphocytes % 2.2 % (20.0-50.0) L 07/11/18 04:40 Monocytes % 1.1 % (2.0-10.0) L 07/11/18 04:40 Eosinophils % 0.1 % (0.0-5.0) 07/11/18 04:40 Basophils % 0.0 % (0.0-2.0) 07/11/18 04:40 Neutrophils (Manual) 96 % (40-80) H 07/13/18 04:38 Lymphocytes 2 % (20-50) L 07/12/18 04:34 Monocytes 2 % (2-10) 07/09/18 07:30 Eosinophils 0 % (0-5) 07/09/18 07:30 Basophils 0 % (0-3) 07/09/18 07:30 Metamyelocytes 0 % (0-0) 07/08/18 04:10 Nucleated RBCs 4.0 % (0-0) H 07/13/18 04:38 Platelet Estimate SLIGHT DECREASED (NORMAL) 07/13/18 04:38 Tear Drop Cells 1+ 07/13/18 04:38 Ovalocytes 1+ 07/13/18 04:38 Schistocytes 1+ 07/13/18 04:38 PT 12.1 SECONDS (9.5-11.5) H 07/07/18 17:00 INR 1.17 (0.5-1.4) 07/07/18 17:00 Specimen Source Arterial 07/13/18 08:32 Sample Site Right Radial 07/13/18 08:32 pH 7.40 (7.35-7.45) 07/13/18 08:32 pCO2 42.0 mmHg (35.0-45.0) 07/13/18 08:32 pO2 86.0 mmHg (80.0-100.0) 07/13/18 08:32 HCO3 25.7 mEq/L (20.0-26.0) 07/13/18 08:32 Base Excess 1.0 mEq/L (-3.0-3.0) 07/13/18 08:32 O2 Saturation 97.0 % (92.0-100.0) 07/13/18 08:32 Kam Test Positive 07/13/18 08:32 Vent Rate 10 07/13/18 08:32 Inspired O2 35 07/13/18 08:32 Tidal Volume 450 07/13/18 08:32 PEEP 0 07/13/18 08:32 Pressure (ins/psv/peep) 22 07/13/18 08:32 Critical Value DM 07/13/18 08:32 Sodium 140 mEq/L (136-145) 07/13/18 04:38 Potassium 3.6 mEq/L (3.5-5.1) 07/13/18 04:38 Chloride 104 mEq/L (98-107) 07/13/18 04:38 Carbon Dioxide 19.9 mEq/L (21.0-31.0) L 07/13/18 04:38 Anion Gap 19.7 (7.0-16.0) H 07/13/18 04:38 BUN 26 mg/dL (7-25) H 07/13/18 04:38 Creatinine 1.4 mg/dL (0.7-1.3) H 07/13/18 04:38 Est GFR ( Amer) > 60.0 ml/min (>90) 07/13/18 04:38 Est GFR (Non-Af Amer) 55.3 ml/min 07/13/18 04:38 BUN/Creatinine Ratio 18.6 07/13/18 04:38 Glucose 265 mg/dL (70-105) H 07/13/18 04:38 POC Glucose 367 MG/DL (70 - 105) H 07/13/18 12:26 Whole Bld Lactic Acid 1.96 mmol/L (0.60-1.99) 07/07/18 19:15 Calcium 7.9 mg/dL (8.6-10.3) L 07/13/18 04:38 Phosphorus 3.2 mg/dL (2.5-5.0) 07/13/18 04:38 Magnesium 2.1 mg/dL (1.9-2.7) 07/13/18 04:38 Total Bilirubin 1.6 mg/dL (0.3-1.0) H 07/13/18 04:38 AST 301 U/L (13-39) H 07/13/18 04:38 ALT 70 U/L (7-52) H 07/13/18 04:38 Alkaline Phosphatase 107 U/L (34-104) H 07/13/18 04:38 Ammonia 102 umol/L (16-53) H 07/11/18 04:40 Troponin I 0.01 ng/mL (0.01-0.05) 07/09/18 07:30 B-Natriuretic Peptide 196.0 pg/mL (5.0-100.0) H 07/09/18 07:30 Total Protein 5.2 gm/dL (6.0-8.3) L 07/13/18 04:38 Albumin 2.5 gm/dL (4.2-5.5) L 07/13/18 04:38 Globulin 2.7 gm/dL 07/13/18 04:38 Albumin/Globulin Ratio 0.9 (1.0-1.8) L 07/13/18 04:38 Triglycerides 143 mg/dL (<150) 07/13/18 04:38 Vitamin B12 1241 pg/mL (232-1245) 07/08/18 04:10 Folic Acid 8.6 ng/mL (>3.0) 07/08/18 04:10 Free T4 1.04 ng/dL (0.82-1.77) 07/09/18 07:30 Free T3 1.1 pg/mL (2.0-4.4) L 07/09/18 07:30 TSH 4.06 uIU/ml (0.34-5.60) 07/08/18 04:10 Urine Source CLEAN C 07/07/18 17:15 Urine Color YELLOW 07/07/18 17:15 Urine Clarity CLEAR (CLEAR) 07/07/18 17:15 Urine pH 6.0 (4.6 - 8.0) 07/07/18 17:15 Ur Specific [place] 1.015 (1.005-1.030) 07/07/18 17:15 Urine Protein 30 mg/dL (NEGATIVE) H 07/07/18 17:15 Urine Glucose (UA) NEGATIVE mg/dL (NEGATIVE) 07/07/18 17:15 Urine Ketones NEGATIVE mg/dL (NEGATIVE) 07/07/18 17:15 Urine Blood NEGATIVE (NEGATIVE) 07/07/18 17:15 Urine Nitrate NEGATIVE (NEGATIVE) 07/07/18 17:15 Urine Bilirubin NEGATIVE (NEGATIVE) 07/07/18 17:15 Urine Urobilinogen 0.2 E.U./dL (0.2 - 1.0) 07/07/18 17:15 Ur Leukocyte Esterase NEGATIVE (NEGATIVE) 07/07/18 17:15 Urine RBC 0-2 /hpf (0-5) H 07/07/18 17:15 Urine WBC 2-5 /hpf (0-5) 07/07/18 17:15 Ur Epithelial Cells FEW /lpf (FEW) 07/07/18 17:15 Urine Bacteria FEW /hpf (NONE SEEN) 07/07/18 17:15 Fine Granular Casts 0-2 /lpf (NONE SEEN) H 07/07/18 17:15 Urine Mucus FEW /lpf (FEW) 07/07/18 17:15 Vancomycin Trough 17.0 ug/mL (5-10) H 07/11/18 09:30 - Physical Exam Vitals and I&O: Vital Signs Temp 97.8 F 07/13/18 10:07 Pulse 110 07/13/18 11:06 Resp 11 07/13/18 10:07 BP 132/75 07/13/18 10:07 Pulse Ox 94 07/13/18 11:06 Intake & Output 07/12/18 07/13/18 07/13/18 18:59 06:59 18:59 Intake Total 450 340 840 Output Total 550 230 Balance 450 -210 610 Weight (lbs) 81.647 kg 78.925 kg Intake: Intake, IV Amount 450 200 Meropenem 1 gm In Sodium 100 Chloride 0.9% 100 ml @ 100 mls/hr IV Q12H [facility] Rx #:[id number] Vancomycin HCl 1 gm In 250 Sodium Chloride 0.9% 250 ml @ 165 mls/hr IV Q18H [facility] Rx#:[id number] metroNIDAZOLE 500mg/NS 100 200 100mL 500 mg In 100 ml @ 100 mls/hr IV Q8HR [facility] Rx #:[id number] TPN/PPN 140 840 Output: Gastric Drainage 200 30 Urine 350 200 Other: # Bowel Movements 1 Stool Characteristics Formed Liquid Brown Weight Source Bedscale Bedscale Active Medications: Current Medications Acetaminophen (Tylenol) 650 mg PO Q4H PRN PRN Reason: Pain Or Fever above 101 Stop: 09/05/18 19:05 Last Admin: 07/12/18 00:15 Dose: 650 mg Albuterol/Ipratropium (Duoneb Neb) 3 ml HHN Q4HRT [facility] Stop: 09/06/18 14:59 Last Admin: 07/13/18 11:06 Dose: 3 ml Budesonide (Pulmicort) 0.5 mg HHN BIDRT [facility] Stop: 09/06/18 18:59 Last Admin: 07/13/18 07:21 Dose: 0.5 mg Calamine/Phenol (Calmoseptine) 1 appl TP QID PRN PRN Reason: Skin Irritation Stop: 09/09/18 11:33 Chlorhexidine Gluconate (Peridex) 15 ml MM 0800,1999 [facility] Stop: 09/06/18 07:59 Last Admin: 07/12/18 20:20 Dose: 15 ml Dextrose (D50w) 50 ml IVP Q4HR PRN PRN Reason: Hypersensitivity Stop: 09/06/18 00:58 Furosemide (Lasix) 20 mg IVP BID [facility] Stop: 09/07/18 08:59 Last Admin: 07/13/18 09:10 Dose: 20 mg Norepinephrine Bitartrate 4 mg (/ Dextrose) 254 mls @ 7.62 mls/hr IV TITR PRN; Protocol PRN Reason: To Keep SBP Above 90 Stop: 09/06/18 00:56 Vancomycin HCl 1 gm/ Sodium (Chloride) 250 mls @ 165 mls/hr IV Q18H [facility] Stop: 09/09/18 13:59 Last Admin: 07/13/18 01:32 Dose: 165 mls/hr Multivitamins/Minerals 10 ml/Dextrose/ Amino Acids/Electrolytes/ Fat Emulsion Intravenous/ Sterile Water 1,680 mls @ 70 mls/hr IV .Q24H [facility] Stop: 09/10/18 15:59 Last Admin: 07/12/18 16:25 Dose: 70 mls/hr Meropenem 1 gm/ Sodium (Chloride) 100 mls @ 100 mls/hr IV Q12H [facility] Stop: 09/10/18 14:59 Last Admin: 07/13/18 03:02 Dose: 100 mls/hr Metronidazole (Flagyl) 500 mg in 100 mls @ 100 mls/hr IV Q8HR [facility] Stop: 09/10/18 13:59 Last Admin: 07/13/18 12:33 Dose: 100 mls/hr Insulin Aspart (Novolog) 0 units SUBQ Q6HR [facility]; Protocol Stop: 09/06/18 17:59 Last Admin: 07/13/18 05:31 Dose: 4 units Levothyroxine Sodium (Synthroid) 0.025 mg PO QDAC [facility] Stop: 09/06/18 07:29 Last Admin: 07/13/18 06:55 Dose: Not Given Magnesium Hydroxide (Milk Of Magnesia) 30 ml PO HS PRN PRN Reason: Constipation Stop: 09/09/18 20:15 Magnesium Hydroxide (Milk Of Magnesia) 30 ml NG BID [facility] Stop: 09/10/18 09:59 Last Admin: 07/13/18 09:10 Dose: 30 ml Methylprednisolone Sodium Succinate (Solu-Medrol) 40 mg IV Q12HR [facility] Stop: 09/08/18 20:59 Last Admin: 07/13/18 09:10 Dose: 40 mg Metoclopramide HCl (Reglan) 5 mg IVP Q8HR [facility] Stop: 09/08/18 20:59 Last Admin: 07/13/18 12:32 Dose: 5 mg Mineral Oil (Mineral Oil 30 Ml) 30 ml NG BID [facility] Stop: 09/10/18 09:14 Last Admin: 07/13/18 09:11 Dose: 30 ml Miscellaneous (Vancomycin Iv Per Pharmacy) 1 ea PRN [facility] Stop: 09/05/18 19:14 Miscellaneous (Tpn Per Pharmacy) 1 [facility] PRN PRN PRN Reason: PROTOCOL Stop: 09/10/18 09:13 Morphine Sulfate (Morphine) 1 mg IVP Q4HR PRN PRN Reason: Severe Pain Stop: 09/10/18 22:24 Last Admin: 07/13/18 06:05 Dose: 1 mg Ondansetron HCl (Zofran) 4 mg IV Q8H PRN PRN Reason: Nausea / Vomiting Stop: 09/05/18 19:05 Pantoprazole Sodium (Protonix) 40 mg IVP QDAC [facility] Stop: 09/10/18 07:29 Last Admin: 07/13/18 06:56 Dose: 40 mg Potassium Chloride (Potassium Chloride Elixir) 20 meq GT BID [facility] Stop: 09/08/18 19:44 Last Admin: 07/13/18 09:11 Dose: 20 meq General: weak, congested, obtunded HEENT: NC/AT, PERRLA Neck: Supple Lungs: rales, ronchi Cardiovascular: RRR, Normal S1, Normal S2, without murmur Abdomen: distended Extremities: excoriation Neurological: unable to follow command - Procedures Procedures: Procedures Procedure Code Date RESPIRATORY VENTILATION, 24-96 [facility]SEC[facility] HOURS [id number] 07/07/18 Internal Medicine Assmt/Plan - Assessment Assessment: Assessment: acute respiratory failure vdrf sepsis left lung pna anemia abdominal distention hyponatremia hypokalemia mild protein meg malnutrition episode of hypoglycemia down syndrome htn asthma hx liver ca - Plan Plan: switch protonix to ivp continue vent support continue ivabx in-line respiratory treatments to continue continue current plan of care - Plan Plan: labs noted see orders wbc better Nutritional Asmnt/Malnutr-PDOC - Dietary Evaluation Malnutrition Findings (Please click <Entered> for more info): Nutritional Asmnt/Malnutrition Start: 07/08/18 16: 06 Text: Status: Complete Freq: Protocol: Document 07/08/18 16:06 MANUELITO (Rec: 07/08/18 16:30 LCLESLIE [id number]) Nutritional Asmnt/Malnutrition Patient General Information Nutritional Screening High Risk Diagnosis acute resp failure, spesis Pertinent Medical Hx/Surgical Hx HTN, asthma/COPD, downs, asthma, liver CA Subjective Information Pt seen intubated on vent. RN inserted NGtube and TF stated at lunch time as ordered. Current Diet Order/ Nutrition Support glucerna 1.2 at 20ml/hr continuous Pertinent Medications D50w, D5-0.9%ns, novolog, synthroid, protonix, piperacillin, vancomycin Pertinent Labs 07/08 Na 133, K 3.4, BUN 6, Cr 0.5, glucose 343, POC 101-293 07/07 Na 133, Cr 0.5, glucose 41, POC 17-135 Nutritional Hx/Data Height 1.5 m Height (Calculated Centimeters) 149.9 Current Weight (lbs) 72.575 kg Weight (Calculated Kilograms) 72.6 Weight (Calculated Grams) 75104.8 [place] Body Weight 104 Body Mass Index (BMI) 32.3 Weight Status Overweight GI Symptoms GI Symptoms None Last BM not indicated Difficult in: None Usual diet at home regular high fiber at care facility per chart Skin Integrity/Comment: rash to sacrum Estimated Nutritional Goals BEE in Kcals: Adj wt of IBW Calories/Kcals/Kg 27-32 adj 54kg Kcals Calculated 9623-6385 Protein: Adj wt of IBW Protein g/k.2-1.5 Protein Calculated 62-81 Fluid: ml 1458-1728ml (1ml/kcal) Nutritional Problem 1. Problem Problem increased nutrition needs Etiology increased metabolic demand Signs/Symptoms: dx of sepsis Malnutrition Alert Is there a minimum of two criteria No selected? Query Text:Check all the applicable criteria. A minimum of two criteria are recommended for diagnosis of either severe or non-severe malnutrition. Intervention/Recommendation Comments 1. Start with Glucerna 1.2 at 20ml/hr continuous as ordered. It provides 576kcal, 29g protein, 386ml free water. 2. Recommend increase to goal rate of 55ml/hr continuous as tolerated, which providing 1584kcal and 79g protein to meet 100% of nutritioanl needs . 3. Monitor TF rate, tolerance, wt, skin integrity and labs 4. F/U as high risk in 2-3 days, 07/10-07/11 Expected Outcomes/Goals Expected Outcomes/Goals 1. Pt to meet at least 75% of nutritional needs via nutrition support with tolerance 2. Wt stability, skin to remain intact, labs to approach WNL.
[2018-07-13] MEDS: MULTIVITAMIN IV SCH (17:17)
[2018-07-13] MEDS: AMINO ACIDS IV SCH (17:17)
[2018-07-13] MEDS: DEXTROSE IV SCH (17:17)
[2018-07-13] MEDS: [UNRECOGNIZED DRUG - OTHER] IV SCH (17:17)
[2018-07-14] MEDS: INSULIN ASPART, RECOMBINANT 100 UNITS/ML SUBQ SCH ×4 (00:20→17:08)
[2018-07-14] MEDS: Albuterol/Ipratropium Neb 3 ML AERS HHN SCH ×7 (00:26→22:53)
[2018-07-14] MEDS: Meropenem 1 GM in Sodium Chloride 0.9% 100 ML IV SCH ×2 (02:04→15:00)
--- NOTE | 2018-07-14 03:07 | Progress Notes ---
DATE: 07/13/2018 PULMONARY/CRITICAL CARE PROGRESS NOTE PROBLEM LIST: 1. Persistent respiratory failure. 2. Recurrent fleeting infiltrates. 3. Constipation. Bowel obstruction. 4. Underlying history of chronic bronchial asthma, also history of obstructive sleep apnea syndrome and also history of mentally and physically challenge issue. The patient barely opens eyes on phonation. No respiratory distress, etc. Currently on SIMV mode. PHYSICAL EXAMINATION: VITAL SIGNS: The patient's recorded vitals: Temperature is 97.6, heart rate 110-120, BP is 136/80, saturation is 90-100% on 35%. NECK: Veins not visualized. CHEST: Shows diminished air entry with occasional coarse rhonchi. HEART: Regular. ABDOMEN: Soft, nontender. Slightly distended, slightly hypoactive bowel sounds. EXTREMITIES: Shows slight trace of peripheral edema. LABORATORY DATA: The patient's white count is 10,700, hemoglobin 8.5. The patient's platelet is slightly decreased. ABG on 35% of oxygen is normal acid-base balance with pO2 of 86. Chest x-ray shows some better infiltrate on the left side still persist on the right side and the patient has borderline elevation of ____. ASSESSMENT: The patient clinically slightly better. Infiltrate slightly better on the left side. Oxygenation okay, still paroxysmal atrial tachycardia with possibly atrial fibrillation, bowel obstruction seems to be improving. PLANS AND SUGGESTIONS: We will go ahead and continue current treatment. Follow up lab and x-ray again tomorrow pending. We will further see if we can do able to wean him down or cut him down on a backup rate and go from there. JOB# [id number]
[2018-07-14] MEDS: metroNIDAZOLE 500mg/NS 100mL 500 MG/100 ML BAG IV SCH ×3 (04:14→20:37)
[2018-07-14] MEDS: Morphine Sulfate 2 mg/mL 1mL Syr IVP PRN (04:14)
[2018-07-14] MEDS: Metoclopramide 5 mg/mL 2mL Vial IVP SCH ×3 (04:14→20:37)
[2018-07-14 04:57] LABS: HEMOGLOBIN 8.7 gm/dL (12-16); MEAN CELL VOLUME 89.6 fl (80-99); MEAN CORPUSCULAR HEMOGLOBIN 28.9 pg (26.0-30.0); MEAN CORPUSCULAR HGB CONC 32.3 pg (28.0-36.0); MEAN PLATELET VOLUME 8.9 fl; PLATELET COUNT 95 Th/cmm (150-400); RED BLOOD COUNT 3.02 Mil/cmm (4.30-5.70); RED CELL DISTRIBUTION WIDTH 18.5 % (11.5-20.0); WHITE BLOOD COUNT 12.9 Th/cmm (4.8-10.8)
[2018-07-14 05:37] LABS: INR 1.88 (0.5-1.4); PROTHROMBIN TIME (TEST) 18.9 SECONDS (9.5-11.5)
[2018-07-14 05:47] LABS: ALB/GLOB RATIO 0.9 (1.0-1.8); ALBUMIN 2.5 gm/dL (4.2-5.5); ALKALINE PHOSPHATASE 122 U/L (34-104); ANION GAP 13.6 (7.0-16.0); BILIRUBIN,TOTAL 1.1 mg/dL (0.3-1.0); BUN - UREA NITROGEN 44 mg/dL (7-25); CALCIUM SERUM 7.7 mg/dL (8.6-10.3); CARBON DIOXIDE 24.8 mEq/L (21.0-31.0); CHLORIDE 105 mEq/L (98-107); CREATININE - SERUM 1.5 mg/dL (0.7-1.3); GFR AFRICAN-AMERICAN > 60.0 ml/min (>90); GFR NON AFRICAN-AMERICAN 51.1 ml/min; GLUCOSE 343 mg/dL (70-105); LIPASE 25 U/L (11-82); PHOSPHOROUS 2.3 mg/dL (2.5-5.0); POTASSIUM SERUM 3.4 mEq/L (3.5-5.1); SGOT 797 U/L (13-39); SGPT/ALT 198 U/L (7-52); SODIUM SERUM 140 mEq/L (136-145); TOTAL PROTEIN,SERUM 5.3 gm/dL (6.0-8.3)
[2018-07-14] MEDS: Levothyroxine 0.025 Mg Tab PO SCH (06:33)
[2018-07-14 06:53] LABS: MAGNESIUM 2.2 mg/dL (1.9-2.7)
[2018-07-14] MEDS: Budesonide 0.5 Mg/2 mL Ud HHN SCH ×2 (07:05→18:57)
[2018-07-14 07:29] LABS: pH 7.41 (7.35-7.45)
[2018-07-14 07:29] LABS: NEUTROPHILS 94 % (40-80)
[2018-07-14 07:30] LABS: ALLEN TEST Positive
[2018-07-14 07:30] LABS: BAND NEUTROPHILE 0 % (0-10); LYMPHOCYTE 4 % (20-50); MONOCYTE 2 % (2-10); PLATELET ESTIMATE DECREASED PLATELETS (NORMAL)
--- NOTE | 2018-07-14 08:01 | Diagnostic Imaging Report ---
CHEST X-RAY: AP view INDICATION: Pneumonia COMPARISON: 07/13/2018 FINDINGS: ET tube is seen with tip 5 cm above the jaun. Remaining support devices are stable. Diffuse bilateral infiltrates are noted with mild improvement in right lung infiltrates. Trace effusions are noted. Cardiomegaly is noted. IMPRESSION: Persistent diffuse infiltrates with overall mild improvement in right lung infiltrates since previous exam. Cardiomegaly.
[2018-07-14] MEDS: Chlorhexidine Gluconate 0.12% 15mL Mouthwash MM SCH ×2 (08:29→20:38)
[2018-07-14] MEDS: Magnesium Hydroxide (MOM) 30 mL UDC NG SCH ×2 (08:42→17:03)
[2018-07-14] MEDS: methylPREDNISolone SS 40 mg Vial IV SCH ×2 (08:42→20:36)
[2018-07-14] MEDS ORDERED: Potassium Phosphate 15 MMOLE in Sodium Chloride 0.9% 250 ML IV ONE (09:00)
--- NOTE | 2018-07-14 12:29 | Diagnostic Imaging Report ---
Ultrasound abdomen HISTORY: Elevated liver function tests COMPARISON: CT abdomen and pelvis on 07/11/2018 Technique: Sonography of the abdomen was performed in multiple planes. FINDINGS: Exam is severely limited due to patient's medical condition of bowel gas and body habitus. Markedly heterogeneous liver is noted with probable mass lesions seen within the left lobe. The liver measures 18.6 cm. Distended gallbladder is noted no discrete gallstones identified. The common bile duct measures 2 mm. There is poor visualization of the right kidney. A right renal cyst is noted measuring 5.1 x 4.6 cm corresponds cystic lesion seen on CT examination. The left kidney measures 9.8 x 5.2 cm. The left renal margin is not well-defined however, no evidence of focal lesions or hydronephrosis. The spleen measures 9.3 cm. The abdominal aorta is not well-visualized. IMPRESSION: Limited exam due to patient's medical condition and body habitus and bowel gas. Mild hepatomegaly is noted with heterogeneous echogenicity and possible mass along the left lobe. Note that there appears to be mass lesions within the liver on recent noncontrast CT examination. CT with IV contrast would further clarified. Distended gallbladder. No evidence of gallstones. The right kidney was not well visualized. A right renal cyst is noted measuring 5.1 x 4.4 cm
--- NOTE | 2018-07-14 12:44 | Internal Medicine Prog Note ---
Internal Medicine Subjective - Subjective Service Date: 07/14/18 Patient is:: non-verbal, non-interactive, other (obtunded) Patient Complaints of:: congestion, weight gain Per staff patient has:: tolerating meds Internal Medicine Objective - Results Result Diagrams: 07/14/18 04:30 07/14/18 04:30 Recent Labs: Laboratory Last Values WBC 12.9 Th/cmm (4.8-10.8) H 07/14/18 04:30 Corrected WBC (auto) 10.3 Th/cmm 07/13/18 04:38 RBC 3.02 Mil/cmm (4.30-5.70) L 07/14/18 04:30 Hgb 8.7 gm/dL (12-16) L 07/14/18 04:30 Hct 27.0 % (41.0-60) L 07/14/18 04:30 MCV 89.6 fl (80-99) 07/14/18 04:30 MCH 28.9 pg (26.0-30.0) 07/14/18 04:30 MCHC Differential 32.3 pg (28.0-36.0) 07/14/18 04:30 RDW 18.5 % (11.5-20.0) 07/14/18 04:30 Plt Count 95 Th/cmm (150-400) L 07/14/18 04:30 MPV 8.9 fl 07/14/18 04:30 Add Manual Diff YES 07/14/18 04:30 Neutrophils % 96.6 % (40.0-80.0) H 07/11/18 04:40 Band Neutrophils % 0 % (0-10) 07/14/18 04:30 Lymphocytes % 2.2 % (20.0-50.0) L 07/11/18 04:40 Monocytes % 1.1 % (2.0-10.0) L 07/11/18 04:40 Eosinophils % 0.1 % (0.0-5.0) 07/11/18 04:40 Basophils % 0.0 % (0.0-2.0) 07/11/18 04:40 Neutrophils (Manual) 94 % (40-80) H 07/14/18 04:30 Lymphocytes 4 % (20-50) L 07/14/18 04:30 Monocytes 2 % (2-10) 07/14/18 04:30 Eosinophils 0 % (0-5) 07/09/18 07:30 Basophils 0 % (0-3) 07/09/18 07:30 Metamyelocytes 0 % (0-0) 07/08/18 04:10 Nucleated RBCs 4.0 % (0-0) H 07/13/18 04:38 Platelet Estimate DECREASED PLATELETS (NORMAL) 07/14/18 04:30 Tear Drop Cells 1+ 07/13/18 04:38 Ovalocytes 1+ 07/13/18 04:38 Schistocytes 1+ 07/13/18 04:38 PT 18.9 SECONDS (9.5-11.5) H 07/14/18 04:30 INR 1.88 (0.5-1.4) H 07/14/18 04:30 Specimen Source Arterial 07/14/18 07:15 Sample Site Right Radial 07/14/18 07:15 pH 7.41 (7.35-7.45) 07/14/18 07:15 pCO2 45.0 mmHg (35.0-45.0) 07/14/18 07:15 pO2 118.0 mmHg (80.0-100.0) H 07/14/18 07:15 HCO3 27.5 mEq/L (20.0-26.0) H 07/14/18 07:15 Base Excess 3.3 mEq/L (-3.0-3.0) H 07/14/18 07:15 O2 Saturation 99.0 % (92.0-100.0) 07/14/18 07:15 Kam Test Positive 07/14/18 07:15 Vent Rate 10 07/14/18 07:15 Inspired O2 35 07/14/18 07:15 Tidal Volume 450 07/14/18 07:15 PEEP 0 07/14/18 07:15 Pressure (ins/psv/peep) 22 07/14/18 07:15 Critical Value DM 07/14/18 07:15 Sodium 140 mEq/L (136-145) 07/14/18 04:30 Potassium 3.4 mEq/L (3.5-5.1) L 07/14/18 04:30 Chloride 105 mEq/L (98-107) 07/14/18 04:30 Carbon Dioxide 24.8 mEq/L (21.0-31.0) 07/14/18 04:30 Anion Gap 13.6 (7.0-16.0) 07/14/18 04:30 BUN 44 mg/dL (7-25) H 07/14/18 04:30 Creatinine 1.5 mg/dL (0.7-1.3) H 07/14/18 04:30 Est GFR ( Amer) > 60.0 ml/min (>90) 07/14/18 04:30 Est GFR (Non-Af Amer) 51.1 ml/min 07/14/18 04:30 BUN/Creatinine Ratio 29.3 07/14/18 04:30 Glucose 343 mg/dL (70-105) H 07/14/18 04:30 POC Glucose 330 MG/DL (70 - 105) H 07/14/18 11:01 Whole Bld Lactic Acid 1.96 mmol/L (0.60-1.99) 07/07/18 19:15 Calcium 7.7 mg/dL (8.6-10.3) L 07/14/18 04:30 Phosphorus 2.3 mg/dL (2.5-5.0) L 07/14/18 04:30 Magnesium 2.2 mg/dL (1.9-2.7) 07/14/18 04:30 Total Bilirubin 1.1 mg/dL (0.3-1.0) H 07/14/18 04:30 AST 797 U/L (13-39) H 07/14/18 04:30 ALT 198 U/L (7-52) H 07/14/18 04:30 Alkaline Phosphatase 122 U/L (34-104) H 07/14/18 04:30 Ammonia 133 umol/L (16-53) H 07/14/18 04:30 Troponin I 0.01 ng/mL (0.01-0.05) 07/09/18 07:30 B-Natriuretic Peptide 196.0 pg/mL (5.0-100.0) H 07/09/18 07:30 Total Protein 5.3 gm/dL (6.0-8.3) L 07/14/18 04:30 Albumin 2.5 gm/dL (4.2-5.5) L 07/14/18 04:30 Globulin 2.8 gm/dL 07/14/18 04:30 Albumin/Globulin Ratio 0.9 (1.0-1.8) L 07/14/18 04:30 Triglycerides 143 mg/dL (<150) 07/13/18 04:38 Cholesterol 117 mg/dL (<200) 07/14/18 04:30 Lipase 25 U/L (11-82) 07/14/18 04:30 Vitamin B12 1241 pg/mL (232-1245) 07/08/18 04:10 Folic Acid 8.6 ng/mL (>3.0) 07/08/18 04:10 Free T4 1.04 ng/dL (0.82-1.77) 07/09/18 07:30 Free T3 1.1 pg/mL (2.0-4.4) L 07/09/18 07:30 TSH 4.06 uIU/ml (0.34-5.60) 07/08/18 04:10 Urine Source CLEAN C 07/07/18 17:15 Urine Color YELLOW 07/07/18 17:15 Urine Clarity CLEAR (CLEAR) 07/07/18 17:15 Urine pH 6.0 (4.6 - 8.0) 07/07/18 17:15 Ur Specific [place] 1.015 (1.005-1.030) 07/07/18 17:15 Urine Protein 30 mg/dL (NEGATIVE) H 07/07/18 17:15 Urine Glucose (UA) NEGATIVE mg/dL (NEGATIVE) 07/07/18 17:15 Urine Ketones NEGATIVE mg/dL (NEGATIVE) 07/07/18 17:15 Urine Blood NEGATIVE (NEGATIVE) 07/07/18 17:15 Urine Nitrate NEGATIVE (NEGATIVE) 07/07/18 17:15 Urine Bilirubin NEGATIVE (NEGATIVE) 07/07/18 17:15 Urine Urobilinogen 0.2 E.U./dL (0.2 - 1.0) 07/07/18 17:15 Ur Leukocyte Esterase NEGATIVE (NEGATIVE) 07/07/18 17:15 Urine RBC 0-2 /hpf (0-5) H 07/07/18 17:15 Urine WBC 2-5 /hpf (0-5) 07/07/18 17:15 Ur Epithelial Cells FEW /lpf (FEW) 07/07/18 17:15 Urine Bacteria FEW /hpf (NONE SEEN) 07/07/18 17:15 Fine Granular Casts 0-2 /lpf (NONE SEEN) H 07/07/18 17:15 Urine Mucus FEW /lpf (FEW) 07/07/18 17:15 Vancomycin Trough 17.0 ug/mL (5-10) H 07/11/18 09:30 - Physical Exam Vitals and I&O: Vital Signs Temp 97.2 F 07/14/18 11:00 Pulse 104 07/14/18 11:00 Resp 25 07/14/18 11:00 BP 125/87 07/14/18 11:00 Pulse Ox 98 07/14/18 11:00 Intake & Output 07/13/18 07/14/18 07/14/18 18:59 06:59 18:59 Intake Total 3660 1390 Output Total 680 1050 Balance 2980 340 Weight (lbs) 195 lb 175 lb Intake: Intake, IV Amount 1880 550 Meropenem 1 gm In Sodium 100 100 Chloride 0.9% 100 ml @ 100 mls/hr IV Q12H [facility] Rx #:[id number] Multivitamin Inj 10 ml In 1680 Dextrose 70% 240 ml In Amino Acids 10% 714 ml In Intralipids 20% 150 ml In Water, Sterile 566 ml @ 70 mls/hr IV .Q24H [facility] Rx#:[id number] Vancomycin HCl 1 gm In 250 Sodium Chloride 0.9% 250 ml @ 165 mls/hr IV Q18H [facility] Rx#:[id number] metroNIDAZOLE 500mg/NS 100 200 100mL 500 mg In 100 ml @ 100 mls/hr IV Q8HR [facility] Rx #:[id number] TPN/PPN 1680 840 Other 100 Output: Gastric Drainage 30 500 Urine 650 550 Other: # Bowel Movements 1 1 Stool Characteristics Liquid Brown Weight Source Bedscale Bedscale Active Medications: Current Medications Acetaminophen (Tylenol) 650 mg PO Q4H PRN PRN Reason: Pain Or Fever above 101 Stop: 09/05/18 19:05 Last Admin: 07/12/18 00:15 Dose: 650 mg Albuterol/Ipratropium (Duoneb Neb) 3 ml HHN Q4HRT [facility] Stop: 09/06/18 14:59 Last Admin: 07/14/18 10:49 Dose: 3 ml Budesonide (Pulmicort) 0.5 mg HHN BIDRT [facility] Stop: 09/06/18 18:59 Last Admin: 07/14/18 07:05 Dose: 0.5 mg Calamine/Phenol (Calmoseptine) 1 appl TP QID PRN PRN Reason: Skin Irritation Stop: 09/09/18 11:33 Chlorhexidine Gluconate (Peridex) 15 ml MM 0800,2000 [facility] Stop: 09/06/18 07:59 Last Admin: 07/14/18 08:29 Dose: 15 ml Dextrose (D50w) 50 ml IVP Q4HR PRN PRN Reason: Hypersensitivity Stop: 09/06/18 00:58 Furosemide (Lasix) 20 mg IVP BID [facility] Stop: 09/07/18 08:59 Last Admin: 07/14/18 08:42 Dose: 20 mg Norepinephrine Bitartrate 4 mg (/ Dextrose) 254 mls @ 7.62 mls/hr IV TITR PRN; Protocol PRN Reason: To Keep SBP Above 90 Stop: 09/06/18 00:56 Vancomycin HCl 1 gm/ Sodium (Chloride) 250 mls @ 165 mls/hr IV Q18H [facility] Stop: 09/09/18 13:59 Last Infusion: 07/13/18 21:45 Dose: Infused Multivitamins/Minerals 10 ml/Dextrose/ Amino Acids/Electrolytes/ Fat Emulsion Intravenous/ Sterile Water 1,680 mls @ 70 mls/hr IV .Q24H [facility] Stop: 09/10/18 15:59 Last Admin: 07/13/18 17:17 Dose: 70 mls/hr Meropenem 1 gm/ Sodium (Chloride) 100 mls @ 100 mls/hr IV Q12H [facility] Stop: 09/10/18 14:59 Last Infusion: 07/14/18 03:05 Dose: Infused Metronidazole (Flagyl) 500 mg in 100 mls @ 100 mls/hr IV Q8HR [facility] Stop: 09/10/18 13:59 Last Admin: 07/14/18 12:00 Dose: 100 mls/hr Potassium Phosphate 15 mmole/ (Sodium Chloride) 255 mls @ 42 mls/hr IV ONCE ONE Stop: 07/14/18 15:04 Last Admin: 07/14/18 08:29 Dose: 42 mls/hr Insulin Aspart (Novolog) 0 units SUBQ Q6HR [facility]; Protocol Stop: 09/06/18 17:59 Last Admin: 07/14/18 11:58 Dose: 6 units Levothyroxine Sodium (Synthroid) 0.025 mg PO QDAC [facility] Stop: 09/06/18 07:29 Last Admin: 07/14/18 06:33 Dose: Not Given Magnesium Hydroxide (Milk Of Magnesia) 30 ml PO HS PRN PRN Reason: Constipation Stop: 09/09/18 20:15 Magnesium Hydroxide (Milk Of Magnesia) 30 ml NG BID [facility] Stop: 09/10/18 09:59 Last Admin: 07/14/18 08:42 Dose: Not Given Methylprednisolone Sodium Succinate (Solu-Medrol) 40 mg IV Q12HR [facility] Stop: 09/08/18 20:59 Last Admin: 07/14/18 08:42 Dose: 40 mg Metoclopramide HCl (Reglan) 5 mg IVP Q8HR [facility] Stop: 09/08/18 20:59 Last Admin: 07/14/18 12:00 Dose: 5 mg Mineral Oil (Mineral Oil 30 Ml) 30 ml NG BID [facility] Stop: 09/10/18 09:14 Last Admin: 07/14/18 08:42 Dose: Not Given Miscellaneous (Vancomycin Iv Per Pharmacy) 1 ea PRN [facility] Stop: 09/05/18 19:14 Miscellaneous (Tpn Per Pharmacy) 1 [facility] PRN PRN PRN Reason: PROTOCOL Stop: 09/10/18 09:13 Morphine Sulfate (Morphine) 1 mg IVP Q4HR PRN PRN Reason: Severe Pain Stop: 09/10/18 22:24 Last Admin: 07/14/18 04:14 Dose: 1 mg Ondansetron HCl (Zofran) 4 mg IV Q8H PRN PRN Reason: Nausea / Vomiting Stop: 09/05/18 19:05 Pantoprazole Sodium (Protonix) 40 mg IVP QDAC [facility] Stop: 09/10/18 07:29 Last Admin: 07/14/18 06:33 Dose: 40 mg General: weak, congested, obtunded HEENT: NC/AT, PERRLA Neck: Supple Lungs: rales, ronchi Cardiovascular: RRR, Normal S1, Normal S2, without murmur Abdomen: distended Extremities: excoriation Neurological: unable to follow command - Procedures Procedures: Procedures Procedure Code Date RESPIRATORY VENTILATION, GREATER THAN 96 CONSECUTIVE HOURS [id number] 07/07/18 Internal Medicine Assmt/Plan - Assessment Assessment: acute respiratory failure vdrf sepsis left lung pna anemia abdominal distention hyponatremia hypokalemia mild protein meg malnutrition episode of hypoglycemia down syndrome htn asthma hx liver ca - Plan Plan: continue vent support continue ivabx in-line respiratory treatments to continue continue current plan of care Nutritional Asmnt/Malnutr-PDOC - Dietary Evaluation Malnutrition Findings (Please click <Entered> for more info): Nutritional Asmnt/Malnutrition Start: 07/08/18 16: 06 Text: Status: Complete Freq: Protocol: Document 07/08/18 16:06 LCHENG (Rec: 07/08/18 16:30 HENG [id number]) Nutritional Asmnt/Malnutrition Patient General Information Nutritional Screening High Risk Diagnosis acute resp failure, spesis Pertinent Medical Hx/Surgical Hx HTN, asthma/COPD, downs, asthma, liver CA Subjective Information Pt seen intubated on vent. RN inserted NGtube and TF stated at lunch time as ordered. Current Diet Order/ Nutrition Support glucerna 1.2 at 20ml/hr continuous Pertinent Medications D50w, D5-0.9%ns, novolog, synthroid, protonix, piperacillin, vancomycin Pertinent Labs 07/08 Na 133, K 3.4, BUN 6, Cr 0.5, glucose 343, POC 101-293 07/07 Na 133, Cr 0.5, glucose 41, POC 17-135 Nutritional Hx/Data Height 4 ft 11 in Height (Calculated Centimeters) 149.9 Current Weight (lbs) 160 lb Weight (Calculated Kilograms) 72.6 Weight (Calculated Grams) [address]00.8 [place] Body Weight 104 Body Mass Index (BMI) 32.3 Weight Status Overweight GI Symptoms GI Symptoms None Last BM not indicated Difficult in: None Usual diet at home regular high fiber at care facility per chart Skin Integrity/Comment: rash to sacrum Estimated Nutritional Goals BEE in Kcals: Adj wt of IBW Calories/Kcals/Kg 27-32 adj 54kg Kcals Calculated 7148-8516 Protein: Adj wt of IBW Protein g/k.2-1.5 Protein Calculated 62-81 Fluid: ml 1458-1728ml (1ml/kcal) Nutritional Problem 1. Problem Problem increased nutrition needs Etiology increased metabolic demand Signs/Symptoms: dx of sepsis Malnutrition Alert Is there a minimum of two criteria No selected? Query Text:Check all the applicable criteria. A minimum of two criteria are recommended for diagnosis of either severe or non-severe malnutrition. Intervention/Recommendation Comments 1. Start with Glucerna 1.2 at 20ml/hr continuous as ordered. It provides 576kcal, 29g protein, 386ml free water. 2. Recommend increase to goal rate of 55ml/hr continuous as tolerated, which providing 1584kcal and 79g protein to meet 100% of nutritioanl needs . 3. Monitor TF rate, tolerance, wt, skin integrity and labs 4. F/U as high risk in 2-3 days, 07/10-07/11 Expected Outcomes/Goals Expected Outcomes/Goals 1. Pt to meet at least 75% of nutritional needs via nutrition support with tolerance 2. Wt stability, skin to remain intact, labs to approach WNL.
[2018-07-14] MEDS: Albumin 25% 12.5gm/50mL 12.5 GM/50 ML BTL IV SCH ×2 (13:29→22:02)
--- NOTE | 2018-07-14 14:00 | GI Progress Note ---
Subjective - Review of Systems Service Date: 07/14/18 Events since last encounter: No events Intubated Lethargic Subjective: Intubated, Lethargic Objective - Results Result Diagrams: 07/14/18 04:30 07/14/18 04:30 Recent Labs: Laboratory Last Values WBC 12.9 Th/cmm (4.8-10.8) H 07/14/18 04:30 Corrected WBC (auto) 10.3 Th/cmm 07/13/18 04:38 RBC 3.02 Mil/cmm (4.30-5.70) L 07/14/18 04:30 Hgb 8.7 gm/dL (12-16) L 07/14/18 04:30 Hct 27.0 % (41.0-60) L 07/14/18 04:30 MCV 89.6 fl (80-99) 07/14/18 04:30 MCH 28.9 pg (26.0-30.0) 07/14/18 04:30 MCHC Differential 32.3 pg (28.0-36.0) 07/14/18 04:30 RDW 18.5 % (11.5-20.0) 07/14/18 04:30 Plt Count 95 Th/cmm (150-400) L 07/14/18 04:30 MPV 8.9 fl 07/14/18 04:30 Add Manual Diff YES 07/14/18 04:30 Neutrophils % 96.6 % (40.0-80.0) H 07/11/18 04:40 Band Neutrophils % 0 % (0-10) 07/14/18 04:30 Lymphocytes % 2.2 % (20.0-50.0) L 07/11/18 04:40 Monocytes % 1.1 % (2.0-10.0) L 07/11/18 04:40 Eosinophils % 0.1 % (0.0-5.0) 07/11/18 04:40 Basophils % 0.0 % (0.0-2.0) 07/11/18 04:40 Neutrophils (Manual) 94 % (40-80) H 07/14/18 04:30 Lymphocytes 4 % (20-50) L 07/14/18 04:30 Monocytes 2 % (2-10) 07/14/18 04:30 Eosinophils 0 % (0-5) 07/09/18 07:30 Basophils 0 % (0-3) 07/09/18 07:30 Metamyelocytes 0 % (0-0) 07/08/18 04:10 Nucleated RBCs 4.0 % (0-0) H 07/13/18 04:38 Platelet Estimate DECREASED PLATELETS (NORMAL) 07/14/18 04:30 Tear Drop Cells 1+ 07/13/18 04:38 Ovalocytes 1+ 07/13/18 04:38 Schistocytes 1+ 07/13/18 04:38 PT 18.9 SECONDS (9.5-11.5) H 07/14/18 04:30 INR 1.88 (0.5-1.4) H 07/14/18 04:30 Specimen Source Arterial 07/14/18 07:15 Sample Site Right Radial 07/14/18 07:15 pH 7.41 (7.35-7.45) 07/14/18 07:15 pCO2 45.0 mmHg (35.0-45.0) 07/14/18 07:15 pO2 118.0 mmHg (80.0-100.0) H 07/14/18 07:15 HCO3 27.5 mEq/L (20.0-26.0) H 07/14/18 07:15 Base Excess 3.3 mEq/L (-3.0-3.0) H 07/14/18 07:15 O2 Saturation 99.0 % (92.0-100.0) 07/14/18 07:15 Kam Test Positive 07/14/18 07:15 Vent Rate 10 07/14/18 07:15 Inspired O2 35 07/14/18 07:15 Tidal Volume 450 07/14/18 07:15 PEEP 0 07/14/18 07:15 Pressure (ins/psv/peep) 22 07/14/18 07:15 Critical Value DM 07/14/18 07:15 Sodium 140 mEq/L (136-145) 07/14/18 04:30 Potassium 3.4 mEq/L (3.5-5.1) L 07/14/18 04:30 Chloride 105 mEq/L (98-107) 07/14/18 04:30 Carbon Dioxide 24.8 mEq/L (21.0-31.0) 07/14/18 04:30 Anion Gap 13.6 (7.0-16.0) 07/14/18 04:30 BUN 44 mg/dL (7-25) H 07/14/18 04:30 Creatinine 1.5 mg/dL (0.7-1.3) H 07/14/18 04:30 Est GFR ( Amer) > 60.0 ml/min (>90) 07/14/18 04:30 Est GFR (Non-Af Amer) 51.1 ml/min 07/14/18 04:30 BUN/Creatinine Ratio 29.3 07/14/18 04:30 Glucose 343 mg/dL (70-105) H 07/14/18 04:30 POC Glucose 330 MG/DL (70 - 105) H 07/14/18 11:01 Whole Bld Lactic Acid 1.96 mmol/L (0.60-1.99) 07/07/18 19:15 Calcium 7.7 mg/dL (8.6-10.3) L 07/14/18 04:30 Phosphorus 2.3 mg/dL (2.5-5.0) L 07/14/18 04:30 Magnesium 2.2 mg/dL (1.9-2.7) 07/14/18 04:30 Total Bilirubin 1.1 mg/dL (0.3-1.0) H 07/14/18 04:30 AST 797 U/L (13-39) H 07/14/18 04:30 ALT 198 U/L (7-52) H 07/14/18 04:30 Alkaline Phosphatase 122 U/L (34-104) H 07/14/18 04:30 Ammonia 133 umol/L (16-53) H 07/14/18 04:30 Troponin I 0.01 ng/mL (0.01-0.05) 07/09/18 07:30 B-Natriuretic Peptide 196.0 pg/mL (5.0-100.0) H 07/09/18 07:30 Total Protein 5.3 gm/dL (6.0-8.3) L 07/14/18 04:30 Albumin 2.5 gm/dL (4.2-5.5) L 07/14/18 04:30 Globulin 2.8 gm/dL 07/14/18 04:30 Albumin/Globulin Ratio 0.9 (1.0-1.8) L 07/14/18 04:30 Triglycerides 143 mg/dL (<150) 07/13/18 04:38 Cholesterol 117 mg/dL (<200) 07/14/18 04:30 Lipase 25 U/L (11-82) 07/14/18 04:30 Vitamin B12 1241 pg/mL (232-1245) 07/08/18 04:10 Folic Acid 8.6 ng/mL (>3.0) 07/08/18 04:10 Free T4 1.04 ng/dL (0.82-1.77) 07/09/18 07:30 Free T3 1.1 pg/mL (2.0-4.4) L 07/09/18 07:30 TSH 4.06 uIU/ml (0.34-5.60) 07/08/18 04:10 Urine Source CLEAN C 07/07/18 17:15 Urine Color YELLOW 07/07/18 17:15 Urine Clarity CLEAR (CLEAR) 07/07/18 17:15 Urine pH 6.0 (4.6 - 8.0) 07/07/18 17:15 Ur Specific [place] 1.015 (1.005-1.030) 07/07/18 17:15 Urine Protein 30 mg/dL (NEGATIVE) H 07/07/18 17:15 Urine Glucose (UA) NEGATIVE mg/dL (NEGATIVE) 07/07/18 17:15 Urine Ketones NEGATIVE mg/dL (NEGATIVE) 07/07/18 17:15 Urine Blood NEGATIVE (NEGATIVE) 07/07/18 17:15 Urine Nitrate NEGATIVE (NEGATIVE) 07/07/18 17:15 Urine Bilirubin NEGATIVE (NEGATIVE) 07/07/18 17:15 Urine Urobilinogen 0.2 E.U./dL (0.2 - 1.0) 07/07/18 17:15 Ur Leukocyte Esterase NEGATIVE (NEGATIVE) 07/07/18 17:15 Urine RBC 0-2 /hpf (0-5) H 07/07/18 17:15 Urine WBC 2-5 /hpf (0-5) 07/07/18 17:15 Ur Epithelial Cells FEW /lpf (FEW) 07/07/18 17:15 Urine Bacteria FEW /hpf (NONE SEEN) 07/07/18 17:15 Fine Granular Casts 0-2 /lpf (NONE SEEN) H 07/07/18 17:15 Urine Mucus FEW /lpf (FEW) 07/07/18 17:15 Vancomycin Trough 34.9 ug/mL (5-10) H 07/14/18 13:13 - Physical Exam Vitals and I&O: Vital Signs Temp 97.2 F 07/14/18 12:00 Pulse 95 07/14/18 13:38 Resp 14 07/14/18 12:00 BP 114/84 07/14/18 12:00 Pulse Ox 99 07/14/18 13:38 Intake & Output 07/13/18 07/14/18 07/14/18 18:59 06:59 18:59 Intake Total 3660 1390 Output Total 680 1050 Balance 2980 340 Weight (lbs) 88.451 kg 79.379 kg Intake: Intake, IV Amount 1880 550 Meropenem 1 gm In Sodium 100 100 Chloride 0.9% 100 ml @ 100 mls/hr IV Q12H [facility] Rx #:[id number] Multivitamin Inj 10 ml In 1680 Dextrose 70% 240 ml In Amino Acids 10% 714 ml In Intralipids 20% 150 ml In Water, Sterile 566 ml @ 70 mls/hr IV .Q24H [facility] Rx#:[id number] Vancomycin HCl 1 gm In 250 Sodium Chloride 0.9% 250 ml @ 165 mls/hr IV Q18H [facility] Rx#:[id number] metroNIDAZOLE 500mg/NS 100 200 100mL 500 mg In 100 ml @ 100 mls/hr IV Q8HR [facility] Rx #:[id number] TPN/PPN 1680 840 Other 100 Output: Gastric Drainage 30 500 Urine 650 550 Other: # Bowel Movements 1 1 Stool Characteristics Liquid Brown Weight Source Bedscale Bedscale Active Medications: Current Medications Acetaminophen (Tylenol) 650 mg PO Q4H PRN PRN Reason: Pain Or Fever above 101 Stop: 09/05/18 19:05 Last Admin: 07/12/18 00:15 Dose: 650 mg Albuterol/Ipratropium (Duoneb Neb) 3 ml HHN Q4HRT [facility] Stop: 09/06/18 14:59 Last Admin: 07/14/18 10:49 Dose: 3 ml Budesonide (Pulmicort) 0.5 mg HHN BIDRT [facility] Stop: 09/06/18 18:59 Last Admin: 07/14/18 07:05 Dose: 0.5 mg Calamine/Phenol (Calmoseptine) 1 appl TP QID PRN PRN Reason: Skin Irritation Stop: 09/09/18 11:33 Chlorhexidine Gluconate (Peridex) 15 ml MM 0800,1999 [facility] Stop: 09/06/18 07:59 Last Admin: 07/14/18 08:29 Dose: 15 ml Dextrose (D50w) 50 ml IVP Q4HR PRN PRN Reason: Hypersensitivity Stop: 09/06/18 00:58 Furosemide (Lasix) 40 mg IVP BID [facility] Stop: 09/12/18 16:59 Norepinephrine Bitartrate 4 mg (/ Dextrose) 254 mls @ 7.62 mls/hr IV TITR PRN; Protocol PRN Reason: To Keep SBP Above 90 Stop: 09/06/18 00:56 Multivitamins/Minerals 10 ml/Dextrose/ Amino Acids/Electrolytes/ Fat Emulsion Intravenous/ Sterile Water 1,680 mls @ 70 mls/hr IV .Q24H [facility] Stop: 09/10/18 15:59 Last Admin: 07/13/18 17:17 Dose: 70 mls/hr Meropenem 1 gm/ Sodium (Chloride) 100 mls @ 100 mls/hr IV Q12H [facility] Stop: 09/10/18 14:59 Last Infusion: 07/14/18 03:05 Dose: Infused Metronidazole (Flagyl) 500 mg in 100 mls @ 100 mls/hr IV Q8HR [facility] Stop: 09/10/18 13:59 Last Admin: 07/14/18 12:00 Dose: 100 mls/hr Potassium Phosphate 15 mmole/ (Sodium Chloride) 255 mls @ 42 mls/hr IV ONCE ONE Stop: 07/14/18 15:04 Last Admin: 07/14/18 08:29 Dose: 42 mls/hr Albumin Human (Albutein 25%) 12.5 gm in 50 mls @ 50 mls/hr IV Q8HR [facility] Stop: 07/15/18 13:59 Last Admin: 07/14/18 13:29 Dose: 50 mls/hr Insulin Aspart (Novolog) 0 units SUBQ Q6HR [facility]; Protocol Stop: 09/06/18 17:59 Last Admin: 07/14/18 11:58 Dose: 6 units Insulin Human NPH (Novolin N) 10 units SUBQ BIDAC [facility]; Protocol Stop: 09/12/18 16:29 Levothyroxine Sodium (Synthroid) 0.025 mg PO QDAC [facility] Stop: 09/06/18 07:29 Last Admin: 07/14/18 06:33 Dose: Not Given Magnesium Hydroxide (Milk Of Magnesia) 30 ml PO HS PRN PRN Reason: Constipation Stop: 09/09/18 20:15 Magnesium Hydroxide (Milk Of Magnesia) 30 ml NG BID [facility] Stop: 09/10/18 09:59 Last Admin: 07/14/18 08:42 Dose: Not Given Methylprednisolone Sodium Succinate (Solu-Medrol) 40 mg IV Q12HR [facility] Stop: 09/08/18 20:59 Last Admin: 07/14/18 08:42 Dose: 40 mg Metoclopramide HCl (Reglan) 5 mg IVP Q8HR [facility] Stop: 09/08/18 20:59 Last Admin: 07/14/18 12:00 Dose: 5 mg Mineral Oil (Mineral Oil 30 Ml) 30 ml NG BID [facility] Stop: 09/10/18 09:14 Last Admin: 07/14/18 08:42 Dose: Not Given Miscellaneous (Vancomycin Iv Per Pharmacy) 1 ea PRN [facility] Stop: 09/05/18 19:14 Miscellaneous (Tpn Per Pharmacy) [address] [facility] PRN PRN PRN Reason: PROTOCOL Stop: 09/10/18 09:13 Morphine Sulfate (Morphine) 1 mg IVP Q4HR PRN PRN Reason: Severe Pain Stop: 09/10/18 22:24 Last Admin: 07/14/18 04:14 Dose: 1 mg Ondansetron HCl (Zofran) 4 mg IV Q8H PRN PRN Reason: Nausea / Vomiting Stop: 09/05/18 19:05 Pantoprazole Sodium (Protonix) 40 mg IVP QDAC [facility] Stop: 09/10/18 07:29 Last Admin: 07/14/18 06:33 Dose: 40 mg General: Mild distress (RESP) HEENT: Other (ETT/VENT/NGT) Cardiovascular: Regular rate, Normal S1, Normal S2 Lungs: Other (OCC RHONCHI) Abdomen: Bowel sounds (HYPOACTIVE), Distended (MODERATE TO SEVERE), Other (NGT TO LIWS) - Procedures Procedures: Procedures Procedure Code Date RESPIRATORY VENTILATION, GREATER THAN 96 CONSECUTIVE HOURS [id number] 07/07/18 Assessment/Plan - Assessment Assessment: Abdominal distension Ileus Possible H/O colon cancer Anemia abnormal LFTs - Plan Plan: 1. Abdominal distension possibly ileus NG DECOMPRESSION MINERAL OIL/MOM. TPN FOR NOW. MAY RESTART NGT FEEDS ONCE ILEUS IMPROVES 2. Possible H/O colon cancer May need Colonoscopy if he improves possible mets 3. Anemia Stable Cont to monitor 4.abnormal LFTs R/O mets
[2018-07-14] MEDS: [UNRECOGNIZED DRUG - OTHER] IV SCH (16:10)
[2018-07-14] MEDS: AMINO ACIDS IV SCH (16:10)
[2018-07-14] MEDS: DEXTROSE IV SCH (16:10)
[2018-07-14] MEDS: MULTIVITAMIN IV SCH (16:10)
[2018-07-14] MEDS: INSULIN HUMAN ISOPHANE (NPH) 100 UNITS/ML SUBQ SCH (17:08)
[2018-07-15] MEDS: INSULIN ASPART, RECOMBINANT 100 UNITS/ML SUBQ SCH ×4 (00:26→17:01)
--- NOTE | 2018-07-15 01:12 | Progress Notes ---
DATE: 07/14/2018 PROBLEM LIST: 1. Acute respiratory failure. 2. Bilateral pneumonia. 3. Chronic bronchial asthma. 4. Underlying mentally, physically challenge issue. SUBJECTIVE: The patient is awake, but not appropriately responding no respiratory distress, etc. PHYSICAL EXAMINATION: VITAL SIGNS: Temperature is 97, blood pressure 114/84, saturation is 99 on 30% of oxygen. NECK: Veins not visualized. CHEST: Shows occasional rhonchi with diminished air entry. HEART: Regular. ABDOMEN: Soft, nontender. Slightly distended. EXTREMITIES: Shows slight trace of peripheral edema. LABORATORY DATA: White count is 12.9 and hemoglobin 8.7. ABG, pO2 is 118. Electrolytes are okay with BUN 44 and chest x-ray shows slight improvement, still bilateral interstitial infiltrate bilaterally, otherwise unremarkable. ASSESSMENT: The patient clinically status quo, not too much change or improved. PLANS AND SUGGESTIONS: Continue current regimen. Await for another day or two before attempt to further wean and go from there. JOB# [id number]
[2018-07-15] MEDS: Meropenem 1 GM in Sodium Chloride 0.9% 100 ML IV SCH ×2 (03:14→14:20)
[2018-07-15] MEDS: Albuterol/Ipratropium Neb 3 ML AERS HHN SCH ×6 (03:23→22:47)
[2018-07-15] MEDS: metroNIDAZOLE 500mg/NS 100mL 500 MG/100 ML BAG IV SCH ×3 (04:24→20:17)
[2018-07-15] MEDS: Metoclopramide 5 mg/mL 2mL Vial IVP SCH ×3 (04:24→20:18)
[2018-07-15 04:46] LABS: MEAN CELL VOLUME 88.4 fl (80-99); MEAN CORPUSCULAR HEMOGLOBIN 29.5 pg (26.0-30.0); MEAN CORPUSCULAR HGB CONC 33.4 pg (28.0-36.0); MEAN PLATELET VOLUME 9.5 fl; PLATELET COUNT 90 Th/cmm (150-400); RED BLOOD COUNT 2.72 Mil/cmm (4.30-5.70); RED CELL DISTRIBUTION WIDTH 18.7 % (11.5-20.0); WHITE BLOOD COUNT 11.7 Th/cmm (4.8-10.8)
[2018-07-15 05:23] LABS: ALB/GLOB RATIO 1.3 (1.0-1.8); ALBUMIN 2.9 gm/dL (4.2-5.5); ALKALINE PHOSPHATASE 100 U/L (34-104); ANION GAP 12.4 (7.0-16.0); BILIRUBIN,DIRECT 0.62 mg/dL (0.0-0.2); BILIRUBIN,TOTAL 0.9 mg/dL (0.3-1.0); BUN - UREA NITROGEN 57 mg/dL (7-25); CALCIUM SERUM 7.9 mg/dL (8.6-10.3); CARBON DIOXIDE 27.3 mEq/L (21.0-31.0); CHLORIDE 105 mEq/L (98-107); CREATININE - SERUM 1.5 mg/dL (0.7-1.3); GFR AFRICAN-AMERICAN > 60.0 ml/min (>90); GFR NON AFRICAN-AMERICAN 51.1 ml/min; GLUCOSE 275 mg/dL (70-105); MAGNESIUM 2.3 mg/dL (1.9-2.7); PHOSPHOROUS 3.2 mg/dL (2.5-5.0); POTASSIUM SERUM 3.7 mEq/L (3.5-5.1); SGOT 559 U/L (13-39); SGPT/ALT 165 U/L (7-52); SODIUM SERUM 141 mEq/L (136-145); TOTAL PROTEIN,SERUM 5.1 gm/dL (6.0-8.3)
[2018-07-15 05:45] LABS: BAND NEUTROPHILE 10 % (0-10); LYMPHOCYTE 1 % (20-50); MYELOCYTE 2 %; NEUTROPHILS 87 % (40-80)
[2018-07-15] MEDS: Albumin 25% 12.5gm/50mL 12.5 GM/50 ML BTL IV SCH ×2 (05:51→12:21)
[2018-07-15] MEDS: Budesonide 0.5 Mg/2 mL Ud HHN SCH ×2 (07:09→19:13)
[2018-07-15] MEDS: INSULIN HUMAN ISOPHANE (NPH) 100 UNITS/ML SUBQ SCH ×2 (07:15→17:01)
[2018-07-15] MEDS: Levothyroxine 0.025 Mg Tab PO SCH (07:23)
[2018-07-15 08:20] LABS: pH 7.47 (7.35-7.45)
[2018-07-15 08:21] LABS: ALLEN TEST pos
[2018-07-15] MEDS: Magnesium Hydroxide (MOM) 30 mL UDC NG SCH ×2 (08:25→16:08)
[2018-07-15] MEDS: methylPREDNISolone SS 40 mg Vial IV SCH ×2 (08:26→20:17)
[2018-07-15] MEDS: Chlorhexidine Gluconate 0.12% 15mL Mouthwash MM SCH ×2 (08:27→20:18)
[2018-07-15] MEDS: Morphine Sulfate 2 mg/mL 1mL Syr IVP PRN ×2 (08:30→21:21)
--- NOTE | 2018-07-15 08:34 | Diagnostic Imaging Report ---
CHEST X-RAY: AP view INDICATION: Shortness of breath COMPARISON: 07/14/2018 FINDINGS: ET tube is seen with tip 4.5 cm above the jaun. Remaining support devices are stable. Persistent interstitial infiltrates are noted. Trace effusions are noted. Cardiomegaly is noted. IMPRESSION: Persistent interstitial infiltrates. Cardiomegaly.
[2018-07-15] MEDS ORDERED: Diltiazem 5 mg/mL 5mL Vial IVP ONE ×2 (09:31→09:32)
[2018-07-15] MEDS ORDERED: Diltiazem 5 mg/mL 5mL Vial IVP STA (09:32)
[2018-07-15 10:18] LABS: HEP A AB IGM Negative (Negative); HEP B CORE IGM Negative (Negative); HEP B SURFACE AG QL Negative (Negative); HEP C ANTIBODY <0.1 s/co ratio (0.0-0.9)
--- NOTE | 2018-07-15 13:04 | Internal Medicine Prog Note ---
Internal Medicine Subjective - Subjective Service Date: 07/15/18 Patient is:: non-verbal, non-interactive, other (obtunded) Patient Complaints of:: congestion, weight gain Per staff patient has:: tolerating meds Internal Medicine Objective - Results Result Diagrams: 07/15/18 04:15 07/15/18 04:15 Recent Labs: Laboratory Last Values WBC 11.7 Th/cmm (4.8-10.8) H 07/15/18 04:15 Corrected WBC (auto) 10.3 Th/cmm 07/13/18 04:38 RBC 2.72 Mil/cmm (4.30-5.70) L 07/15/18 04:15 Hgb 8.0 gm/dL (12-16) L 07/15/18 04:15 Hct 24.0 % (41.0-60) L 07/15/18 04:15 MCV 88.4 fl (80-99) 07/15/18 04:15 MCH 29.5 pg (26.0-30.0) 07/15/18 04:15 MCHC Differential 33.4 pg (28.0-36.0) 07/15/18 04:15 RDW 18.7 % (11.5-20.0) 07/15/18 04:15 Plt Count 90 Th/cmm (150-400) L 07/15/18 04:15 MPV 9.5 fl 07/15/18 04:15 Add Manual Diff YES 07/15/18 04:15 Neutrophils % 96.6 % (40.0-80.0) H 07/11/18 04:40 Band Neutrophils % 10 % (0-10) 07/15/18 04:15 Lymphocytes % 2.2 % (20.0-50.0) L 07/11/18 04:40 Monocytes % 1.1 % (2.0-10.0) L 07/11/18 04:40 Eosinophils % 0.1 % (0.0-5.0) 07/11/18 04:40 Basophils % 0.0 % (0.0-2.0) 07/11/18 04:40 Neutrophils (Manual) 87 % (40-80) H 07/15/18 04:15 Lymphocytes 1 % (20-50) L 07/15/18 04:15 Monocytes 2 % (2-10) 07/14/18 04:30 Eosinophils 0 % (0-5) 07/09/18 07:30 Basophils 0 % (0-3) 07/09/18 07:30 Metamyelocytes 0 % (0-0) 07/08/18 04:10 Myelocytes 2 % 07/15/18 04:15 Nucleated RBCs 2.0 % (0-0) H 07/15/18 04:15 Platelet Estimate DECREASED PLATELETS (NORMAL) 07/14/18 04:30 Tear Drop Cells 1+ 07/13/18 04:38 Ovalocytes 1+ 07/13/18 04:38 Schistocytes 1+ 07/13/18 04:38 PT 18.9 SECONDS (9.5-11.5) H 07/14/18 04:30 INR 1.88 (0.5-1.4) H 07/14/18 04:30 Specimen Source arterial 07/15/18 08:06 Sample Site right radial 07/15/18 08:06 pH 7.47 (7.35-7.45) H 07/15/18 08:06 pCO2 40.0 mmHg (35.0-45.0) 07/15/18 08:06 pO2 62.0 mmHg (80.0-100.0) L 07/15/18 08:06 HCO3 28.7 mEq/L (20.0-26.0) H 07/15/18 08:06 Base Excess 5.0 mEq/L (-3.0-3.0) H 07/15/18 08:06 O2 Saturation 93.0 % (92.0-100.0) 07/15/18 08:06 Kam Test pos 07/15/18 08:06 Vent Rate 10 07/15/18 08:06 Inspired O2 30 07/15/18 08:06 Tidal Volume 450 07/15/18 08:06 PEEP 0 07/15/18 08:06 Pressure (ins/psv/peep) 22 07/15/18 08:06 Critical Value rn 07/15/18 08:06 Sodium 141 mEq/L (136-145) 07/15/18 04:15 Potassium 3.7 mEq/L (3.5-5.1) 07/15/18 04:15 Chloride 105 mEq/L (98-107) 07/15/18 04:15 Carbon Dioxide 27.3 mEq/L (21.0-31.0) 07/15/18 04:15 Anion Gap 12.4 (7.0-16.0) 07/15/18 04:15 BUN 57 mg/dL (7-25) H 07/15/18 04:15 Creatinine 1.5 mg/dL (0.7-1.3) H 07/15/18 04:15 Est GFR ( Amer) > 60.0 ml/min (>90) 07/15/18 04:15 Est GFR (Non-Af Amer) 51.1 ml/min 07/15/18 04:15 BUN/Creatinine Ratio 38.0 07/15/18 04:15 Glucose 275 mg/dL (70-105) H 07/15/18 04:15 POC Glucose 295 MG/DL (70 - 105) H 07/15/18 11:07 Whole Bld Lactic Acid 1.96 mmol/L (0.60-1.99) 07/07/18 19:15 Calcium 7.9 mg/dL (8.6-10.3) L 07/15/18 04:15 Phosphorus 3.2 mg/dL (2.5-5.0) 07/15/18 04:15 Magnesium 2.3 mg/dL (1.9-2.7) 07/15/18 04:15 Total Bilirubin 0.9 mg/dL (0.3-1.0) 07/15/18 04:15 Direct Bilirubin 0.62 mg/dL (0.0-0.2) H 07/15/18 04:15 AST 559 U/L (13-39) H 07/15/18 04:15 ALT 165 U/L (7-52) H 07/15/18 04:15 Alkaline Phosphatase 100 U/L (34-104) 07/15/18 04:15 Ammonia 133 umol/L (16-53) H 07/14/18 04:30 Troponin I 0.01 ng/mL (0.01-0.05) 07/09/18 07:30 B-Natriuretic Peptide 196.0 pg/mL (5.0-100.0) H 07/09/18 07:30 Total Protein 5.1 gm/dL (6.0-8.3) L 07/15/18 04:15 Albumin 2.9 gm/dL (4.2-5.5) L 07/15/18 04:15 Globulin 2.2 gm/dL 07/15/18 04:15 Albumin/Globulin Ratio 1.3 (1.0-1.8) 07/15/18 04:15 Prealbumin 5 mg/dL (10-36) L 07/14/18 13:13 Triglycerides 143 mg/dL (<150) 07/13/18 04:38 Cholesterol 117 mg/dL (<200) 07/14/18 04:30 Lipase 25 U/L (11-82) 07/14/18 04:30 Vitamin B12 1241 pg/mL (232-1245) 07/08/18 04:10 Folic Acid 8.6 ng/mL (>3.0) 07/08/18 04:10 Free T4 1.04 ng/dL (0.82-1.77) 07/09/18 07:30 Free T3 1.1 pg/mL (2.0-4.4) L 07/09/18 07:30 TSH 4.06 uIU/ml (0.34-5.60) 07/08/18 04:10 Urine Source CLEAN C 07/07/18 17:15 Urine Color YELLOW 07/07/18 17:15 Urine Clarity CLEAR (CLEAR) 07/07/18 17:15 Urine pH 6.0 (4.6 - 8.0) 07/07/18 17:15 Ur Specific [place] 1.015 (1.005-1.030) 07/07/18 17:15 Urine Protein 30 mg/dL (NEGATIVE) H 07/07/18 17:15 Urine Glucose (UA) NEGATIVE mg/dL (NEGATIVE) 07/07/18 17:15 Urine Ketones NEGATIVE mg/dL (NEGATIVE) 07/07/18 17:15 Urine Blood NEGATIVE (NEGATIVE) 07/07/18 17:15 Urine Nitrate NEGATIVE (NEGATIVE) 07/07/18 17:15 Urine Bilirubin NEGATIVE (NEGATIVE) 07/07/18 17:15 Urine Urobilinogen 0.2 E.U./dL (0.2 - 1.0) 07/07/18 17:15 Ur Leukocyte Esterase NEGATIVE (NEGATIVE) 07/07/18 17:15 Urine RBC 0-2 /hpf (0-5) H 07/07/18 17:15 Urine WBC 2-5 /hpf (0-5) 07/07/18 17:15 Ur Epithelial Cells FEW /lpf (FEW) 07/07/18 17:15 Urine Bacteria FEW /hpf (NONE SEEN) 07/07/18 17:15 Fine Granular Casts 0-2 /lpf (NONE SEEN) H 07/07/18 17:15 Urine Mucus FEW /lpf (FEW) 07/07/18 17:15 Vancomycin Trough 34.9 ug/mL (5-10) H 07/14/18 13:13 Random Vancomycin 26.7 ug/mL (5.0-40.0) 07/15/18 04:15 Hepatitis A IgM Ab Negative (Negative) 07/14/18 04:30 Hep Bs Antigen Negative (Negative) 07/14/18 04:30 Hep B Core IgM Ab Negative (Negative) 07/14/18 04:30 Hepatitis C Antibody <0.1 s/co ratio (0.0-0.9) 07/14/18 04:30 - Physical Exam Vitals and I&O: Vital Signs Temp 99.2 F 07/15/18 12:00 Pulse 115 07/15/18 12:00 Resp 14 07/15/18 12:00 BP 112/77 07/15/18 12:00 Pulse Ox 96 07/15/18 12:00 Intake & Output 07/14/18 07/15/18 07/15/18 18:59 06:59 18:59 Intake Total 2946.833 1512 Output Total 880 1200 Balance 2066.833 312 Weight (lbs) 175 lb 7 oz 175 lb 9.6 oz Intake: Intake, IV Amount 2106.833 400 Albumin 25% 12.5gm/50mL 50 100 12.5 gm In 50 ml @ 50 mls /hr IV Q8HR [facility] Rx#: [id number] Meropenem 1 gm In Sodium 100 100 Chloride 0.9% 100 ml @ 100 mls/hr IV Q12H [facility] Rx #:[id number] Multivitamin Inj 10 ml In 1601.833 Dextrose 70% 240 ml In Amino Acids 10% 714 ml In Intralipids 20% 150 ml In Water, Sterile 566 ml @ 70 mls/hr IV .Q24H [facility] Rx#:[id number] metroNIDAZOLE 500mg/NS 100 200 100mL 500 mg In 100 ml @ 100 mls/hr IV Q8HR [facility] Rx #:[id number] Oral 0 TPN/PPN 840 1012 Albumin 100 Output: Gastric Drainage 300 50 Urine 580 1150 Other: # Bowel Movements 0 1 Stool Characteristics Liquid Green Weight Source Bedscale Bedscale Active Medications: Current Medications Acetaminophen (Tylenol) 650 mg PO Q4H PRN PRN Reason: Pain Or Fever above 101 Stop: 09/05/18 19:05 Last Admin: 07/12/18 00:15 Dose: 650 mg Albuterol/Ipratropium (Duoneb Neb) 3 ml HHN Q4HRT [facility] Stop: 09/06/18 14:59 Last Admin: 07/15/18 10:56 Dose: 3 ml Budesonide (Pulmicort) 0.5 mg HHN BIDRT [facility] Stop: 09/06/18 18:59 Last Admin: 07/15/18 07:09 Dose: 0.5 mg Calamine/Phenol (Calmoseptine) 1 appl TP QID PRN PRN Reason: Skin Irritation Stop: 09/09/18 11:33 Chlorhexidine Gluconate (Peridex) 15 ml MM 0800,2000 [facility] Stop: 09/06/18 07:59 Last Admin: 07/15/18 08:27 Dose: 15 ml Dextrose (D50w) 50 ml IVP Q4HR PRN PRN Reason: Hypersensitivity Stop: 09/06/18 00:58 Diltiazem HCl (Cardizem) 20 mg IVP Q4H PRN PRN Reason: Tachycardia Stop: 09/13/18 09:31 Furosemide (Lasix) 40 mg IVP BID [facility] Stop: 09/12/18 16:59 Last Admin: 07/15/18 08:26 Dose: 40 mg Norepinephrine Bitartrate 4 mg (/ Dextrose) 254 mls @ 7.62 mls/hr IV TITR PRN; Protocol PRN Reason: To Keep SBP Above 90 Stop: 09/06/18 00:56 Multivitamins/Minerals 10 ml/Dextrose/ Amino Acids/Electrolytes/ Fat Emulsion Intravenous/ Sterile Water 1,680 mls @ 70 mls/hr IV .Q24H [facility] Stop: 09/10/18 15:59 Last Admin: 07/14/18 16:10 Dose: 70 mls/hr Metronidazole (Flagyl) 500 mg in 100 mls @ 100 mls/hr IV Q8HR [facility] Stop: 09/10/18 13:59 Last Admin: 07/15/18 12:05 Dose: 100 mls/hr Albumin Human (Albutein 25%) 12.5 gm in 50 mls @ 50 mls/hr IV Q8HR [facility] Stop: 07/15/18 13:59 Last Admin: 07/15/18 12:21 Dose: 50 mls/hr Diltiazem HCl 125 mg/ Dextrose 125 mls @ 0 mls/hr IV TITR [facility]; Protocol Stop: 09/13/18 09:44 Last Admin: 07/15/18 09:49 Dose: 10 mg/hr, 10 mls/hr Meropenem 500 mg/ Sodium (Chloride) 100 mls @ 100 mls/hr IV Q12H [facility] Stop: 09/13/18 14:59 Insulin Aspart (Novolog) 0 units SUBQ Q6HR [facility]; Protocol Stop: 09/06/18 17:59 Last Admin: 07/15/18 11:09 Dose: 4 units Insulin Human NPH (Novolin N) 10 units SUBQ BIDAC [facility]; Protocol Stop: 09/12/18 16:29 Last Admin: 07/15/18 07:15 Dose: 10 units Levothyroxine Sodium (Synthroid) 0.025 mg PO QDAC [facility] Stop: 09/06/18 07:29 Last Admin: 07/15/18 07:23 Dose: Not Given Magnesium Hydroxide (Milk Of Magnesia) 30 ml PO HS PRN PRN Reason: Constipation Stop: 09/09/18 20:15 Magnesium Hydroxide (Milk Of Magnesia) 30 ml NG BID [facility] Stop: 09/10/18 09:59 Last Admin: 07/15/18 08:25 Dose: 30 ml Methylprednisolone Sodium Succinate (Solu-Medrol) 40 mg IV Q12HR [facility] Stop: 09/08/18 20:59 Last Admin: 07/15/18 08:26 Dose: 40 mg Metoclopramide HCl (Reglan) 5 mg IVP Q8HR [facility] Stop: 09/08/18 20:59 Last Admin: 07/15/18 12:21 Dose: 5 mg Mineral Oil (Mineral Oil 30 Ml) 30 ml NG BID [facility] Stop: 09/10/18 09:14 Last Admin: 07/15/18 08:25 Dose: 30 ml Miscellaneous (Vancomycin Iv Per Pharmacy) 1 ea MC PRN [facility] Stop: 09/05/18 19:14 Miscellaneous (Tpn Per Pharmacy) 1 ea MC PRN PRN PRN Reason: PROTOCOL Stop: 09/10/18 09:13 Morphine Sulfate (Morphine) 1 mg IVP Q4HR PRN PRN Reason: Severe Pain Stop: 09/10/18 22:24 Last Admin: 07/15/18 08:30 Dose: 1 mg Ondansetron HCl (Zofran) 4 mg IV Q8H PRN PRN Reason: Nausea / Vomiting Stop: 09/05/18 19:05 Pantoprazole Sodium (Protonix) 40 mg IVP QDAC [facility] Stop: 09/10/18 07:29 Last Admin: 07/15/18 07:15 Dose: 40 mg General: weak, congested, obtunded HEENT: NC/AT, PERRLA Neck: Supple Lungs: rales, ronchi Cardiovascular: RRR, Normal S1, Normal S2, without murmur Abdomen: distended Extremities: excoriation Neurological: unable to follow command - Procedures Procedures: Procedures Procedure Code Date RESPIRATORY VENTILATION, GREATER THAN 96 CONSECUTIVE HOURS [id number] 07/07/18 Internal Medicine Assmt/Plan - Assessment Assessment: acute respiratory failure vdrf sepsis left lung pna anemia abdominal distention hyponatremia hypokalemia mild protein meg malnutrition episode of hypoglycemia down syndrome htn asthma hx liver ca - Plan Plan: LTAC EVAL continue vent support continue ivabx in-line respiratory treatments to continue continue current plan of care Nutritional Asmnt/Malnutr-PDOC - Dietary Evaluation Malnutrition Findings (Please click <Entered> for more info): Nutritional Asmnt/Malnutrition Start: 07/08/18 16: 06 Text: Status: Complete Freq: Protocol: Document 07/08/18 16:06 [email or web address] (Rec: 07/08/18 16:30 [email or web address] [id number]) Nutritional Asmnt/Malnutrition Patient General Information Nutritional Screening High Risk Diagnosis acute resp failure, spesis Pertinent Medical Hx/Surgical Hx HTN, asthma/COPD, downs, asthma, liver CA Subjective Information Pt seen intubated on vent. RN inserted NGtube and TF stated at lunch time as ordered. Current Diet Order/ Nutrition Support glucerna 1.2 at 20ml/hr continuous Pertinent Medications D50w, D5-0.9%ns, novolog, synthroid, protonix, piperacillin, vancomycin Pertinent Labs 07/08 Na 133, K 3.4, BUN 6, Cr 0.5, glucose 343, POC 101-293 07/07 Na 133, Cr 0.5, glucose 41, POC 17-135 Nutritional Hx/Data Height 4 ft 11 in Height (Calculated Centimeters) 149.9 Current Weight (lbs) 160 lb Weight (Calculated Kilograms) 72.6 Weight (Calculated Grams) 0[address].8 [place] Body Weight 104 Body Mass Index (BMI) 32.3 Weight Status Overweight GI Symptoms GI Symptoms None Last BM not indicated Difficult in: None Usual diet at home regular high fiber at care facility per chart Skin Integrity/Comment: rash to sacrum Estimated Nutritional Goals BEE in Kcals: Adj wt of IBW Calories/Kcals/Kg 27-32 adj 54kg Kcals Calculated 8369-7488 Protein: Adj wt of IBW Protein g/k.2-1.5 Protein Calculated 62-81 Fluid: ml 1458-1728ml (1ml/kcal) Nutritional Problem 1. Problem Problem increased nutrition needs Etiology increased metabolic demand Signs/Symptoms: dx of sepsis Malnutrition Alert Is there a minimum of two criteria No selected? Query Text:Check all the applicable criteria. A minimum of two criteria are recommended for diagnosis of either severe or non-severe malnutrition. Intervention/Recommendation Comments 1. Start with Glucerna 1.2 at 20ml/hr continuous as ordered. It provides 576kcal, 29g protein, 386ml free water. 2. Recommend increase to goal rate of 55ml/hr continuous as tolerated, which providing 1584kcal and 79g protein to meet 100% of nutritioanl needs . 3. Monitor TF rate, tolerance, wt, skin integrity and labs 4. F/U as high risk in 2-3 days, 07/10-07/11 Expected Outcomes/Goals Expected Outcomes/Goals 1. Pt to meet at least 75% of nutritional needs via nutrition support with tolerance 2. Wt stability, skin to remain intact, labs to approach WNL.
[2018-07-15 14:16] LABS: CARCINOEMBRYONIC ANTIGEN 9.9 ng/mL (0.0-4.7)
[2018-07-15] MEDS: Meropenem 500 MG in Sodium Chloride 0.9% 100 ML IV SCH (15:00)
[2018-07-15] MEDS: [UNRECOGNIZED DRUG - OTHER] IV SCH (15:40)
[2018-07-15] MEDS: AMINO ACIDS IV SCH (15:40)
[2018-07-15] MEDS: DEXTROSE IV SCH (15:40)
[2018-07-15] MEDS: MULTIVITAMIN IV SCH (15:40)
--- NOTE | 2018-07-15 16:58 | GI Progress Note ---
Subjective - Review of Systems Service Date: 07/15/18 Events since last encounter: no events Subjective: Intubated, Lethargic Objective - Results Result Diagrams: 07/15/18 04:15 07/15/18 04:15 Recent Labs: Laboratory Last Values WBC 11.7 Th/cmm (4.8-10.8) H 07/15/18 04:15 Corrected WBC (auto) 10.3 Th/cmm 07/13/18 04:38 RBC 2.72 Mil/cmm (4.30-5.70) L 07/15/18 04:15 Hgb 8.0 gm/dL (12-16) L 07/15/18 04:15 Hct 24.0 % (41.0-60) L 07/15/18 04:15 MCV 88.4 fl (80-99) 07/15/18 04:15 MCH 29.5 pg (26.0-30.0) 07/15/18 04:15 MCHC Differential 33.4 pg (28.0-36.0) 07/15/18 04:15 RDW 18.7 % (11.5-20.0) 07/15/18 04:15 Plt Count 90 Th/cmm (150-400) L 07/15/18 04:15 MPV 9.5 fl 07/15/18 04:15 Add Manual Diff YES 07/15/18 04:15 Neutrophils % 96.6 % (40.0-80.0) H 07/11/18 04:40 Band Neutrophils % 10 % (0-10) 07/15/18 04:15 Lymphocytes % 2.2 % (20.0-50.0) L 07/11/18 04:40 Monocytes % 1.1 % (2.0-10.0) L 07/11/18 04:40 Eosinophils % 0.1 % (0.0-5.0) 07/11/18 04:40 Basophils % 0.0 % (0.0-2.0) 07/11/18 04:40 Neutrophils (Manual) 87 % (40-80) H 07/15/18 04:15 Lymphocytes 1 % (20-50) L 07/15/18 04:15 Monocytes 2 % (2-10) 07/14/18 04:30 Eosinophils 0 % (0-5) 07/09/18 07:30 Basophils 0 % (0-3) 07/09/18 07:30 Metamyelocytes 0 % (0-0) 07/08/18 04:10 Myelocytes 2 % 07/15/18 04:15 Nucleated RBCs 2.0 % (0-0) H 07/15/18 04:15 Platelet Estimate DECREASED PLATELETS (NORMAL) 07/14/18 04:30 Tear Drop Cells 1+ 07/13/18 04:38 Ovalocytes 1+ 07/13/18 04:38 Schistocytes 1+ 07/13/18 04:38 PT 18.9 SECONDS (9.5-11.5) H 07/14/18 04:30 INR 1.88 (0.5-1.4) H 07/14/18 04:30 Specimen Source arterial 07/15/18 08:06 Sample Site right radial 07/15/18 08:06 pH 7.47 (7.35-7.45) H 07/15/18 08:06 pCO2 40.0 mmHg (35.0-45.0) 07/15/18 08:06 pO2 62.0 mmHg (80.0-100.0) L 07/15/18 08:06 HCO3 28.7 mEq/L (20.0-26.0) H 07/15/18 08:06 Base Excess 5.0 mEq/L (-3.0-3.0) H 07/15/18 08:06 O2 Saturation 93.0 % (92.0-100.0) 07/15/18 08:06 Kam Test pos 07/15/18 08:06 Vent Rate 10 07/15/18 08:06 Inspired O2 30 07/15/18 08:06 Tidal Volume 450 07/15/18 08:06 PEEP 0 07/15/18 08:06 Pressure (ins/psv/peep) 22 07/15/18 08:06 Critical Value rn 07/15/18 08:06 Sodium 141 mEq/L (136-145) 07/15/18 04:15 Potassium 3.7 mEq/L (3.5-5.1) 07/15/18 04:15 Chloride 105 mEq/L (98-107) 07/15/18 04:15 Carbon Dioxide 27.3 mEq/L (21.0-31.0) 07/15/18 04:15 Anion Gap 12.4 (7.0-16.0) 07/15/18 04:15 BUN 57 mg/dL (7-25) H 07/15/18 04:15 Creatinine 1.5 mg/dL (0.7-1.3) H 07/15/18 04:15 Est GFR ( Amer) > 60.0 ml/min (>90) 07/15/18 04:15 Est GFR (Non-Af Amer) 51.1 ml/min 07/15/18 04:15 BUN/Creatinine Ratio 38.0 07/15/18 04:15 Glucose 275 mg/dL (70-105) H 07/15/18 04:15 POC Glucose 295 MG/DL (70 - 105) H 07/15/18 11:07 Whole Bld Lactic Acid 1.96 mmol/L (0.60-1.99) 07/07/18 19:15 Calcium 7.9 mg/dL (8.6-10.3) L 07/15/18 04:15 Phosphorus 3.2 mg/dL (2.5-5.0) 07/15/18 04:15 Magnesium 2.3 mg/dL (1.9-2.7) 07/15/18 04:15 Total Bilirubin 0.9 mg/dL (0.3-1.0) 07/15/18 04:15 Direct Bilirubin 0.62 mg/dL (0.0-0.2) H 07/15/18 04:15 AST 559 U/L (13-39) H 07/15/18 04:15 ALT 165 U/L (7-52) H 07/15/18 04:15 Alkaline Phosphatase 100 U/L (34-104) 07/15/18 04:15 Ammonia 133 umol/L (16-53) H 07/14/18 04:30 Troponin I 0.01 ng/mL (0.01-0.05) 07/09/18 07:30 B-Natriuretic Peptide 196.0 pg/mL (5.0-100.0) H 07/09/18 07:30 Total Protein 5.1 gm/dL (6.0-8.3) L 07/15/18 04:15 Albumin 2.9 gm/dL (4.2-5.5) L 07/15/18 04:15 Globulin 2.2 gm/dL 07/15/18 04:15 Albumin/Globulin Ratio 1.3 (1.0-1.8) 07/15/18 04:15 Prealbumin 5 mg/dL (10-36) L 07/14/18 13:13 Triglycerides 143 mg/dL (<150) 07/13/18 04:38 Cholesterol 117 mg/dL (<200) 07/14/18 04:30 Lipase 25 U/L (11-82) 07/14/18 04:30 Tumor Marker AFP Diluted result ng/mL (0.0-8.3) H 07/14/18 13:13 Carcinoembryonic Ag 9.9 ng/mL (0.0-4.7) H 07/14/18 13:13 Vitamin B12 1241 pg/mL (232-1245) 07/08/18 04:10 Folic Acid 8.6 ng/mL (>3.0) 07/08/18 04:10 Free T4 1.04 ng/dL (0.82-1.77) 07/09/18 07:30 Free T3 1.1 pg/mL (2.0-4.4) L 07/09/18 07:30 TSH 4.06 uIU/ml (0.34-5.60) 07/08/18 04:10 Urine Source CLEAN C 07/07/18 17:15 Urine Color YELLOW 07/07/18 17:15 Urine Clarity CLEAR (CLEAR) 07/07/18 17:15 Urine pH 6.0 (4.6 - 8.0) 07/07/18 17:15 Ur Specific Nicolaus 1.015 (1.005-1.030) 07/07/18 17:15 Urine Protein 30 mg/dL (NEGATIVE) H 07/07/18 17:15 Urine Glucose (UA) NEGATIVE mg/dL (NEGATIVE) 07/07/18 17:15 Urine Ketones NEGATIVE mg/dL (NEGATIVE) 07/07/18 17:15 Urine Blood NEGATIVE (NEGATIVE) 07/07/18 17:15 Urine Nitrate NEGATIVE (NEGATIVE) 07/07/18 17:15 Urine Bilirubin NEGATIVE (NEGATIVE) 07/07/18 17:15 Urine Urobilinogen 0.2 E.U./dL (0.2 - 1.0) 07/07/18 17:15 Ur Leukocyte Esterase NEGATIVE (NEGATIVE) 07/07/18 17:15 Urine RBC 0-2 /hpf (0-5) H 07/07/18 17:15 Urine WBC 2-5 /hpf (0-5) 07/07/18 17:15 Ur Epithelial Cells FEW /lpf (FEW) 07/07/18 17:15 Urine Bacteria FEW /hpf (NONE SEEN) 07/07/18 17:15 Fine Granular Casts 0-2 /lpf (NONE SEEN) H 07/07/18 17:15 Urine Mucus FEW /lpf (FEW) 07/07/18 17:15 Vancomycin Trough 34.9 ug/mL (5-10) H 07/14/18 13:13 Random Vancomycin 26.7 ug/mL (5.0-40.0) 07/15/18 04:15 Hepatitis A IgM Ab Negative (Negative) 07/14/18 04:30 Hep Bs Antigen Negative (Negative) 07/14/18 04:30 Hep B Core IgM Ab Negative (Negative) 07/14/18 04:30 Hepatitis C Antibody <0.1 s/co ratio (0.0-0.9) 07/14/18 04:30 - Physical Exam Vitals and I&O: Vital Signs Temp 98.6 F 07/15/18 16:00 Pulse 96 07/15/18 16:21 Resp 22 07/15/18 16:00 BP 117/72 07/15/18 16:08 Pulse Ox 99 07/15/18 16:21 Intake & Output 07/14/18 07/15/18 07/15/18 18:59 06:59 18:59 Intake Total 2946.833 1512 1895 Output Total 880 1200 Balance 2066.924 192 5687 Weight (lbs) 79.577 kg 79.651 kg Intake: Intake, IV Amount 2106.538 843 6440 Albumin 25% 12.5gm/50mL 50 100 50 12.5 gm In 50 ml @ 50 mls /hr IV Q8HR [facility] Rx#: [id number] Meropenem 1 gm In Sodium 100 100 Chloride 0.9% 100 ml @ 100 mls/hr IV Q12H [facility] Rx #:[id number] Multivitamin Inj 10 ml In 6627.290 5839 Dextrose 70% 240 ml In Amino Acids 10% 714 ml In Intralipids 20% 150 ml In Water, Sterile 566 ml @ 70 mls/hr IV .Q24H [facility] Rx#:[id number] metroNIDAZOLE 500mg/NS 100 200 100 100mL 500 mg In 100 ml @ 100 mls/hr IV Q8HR [facility] Rx #:[id number] Oral 0 TPN/PPN 840 1012 Albumin 100 Output: Gastric Drainage 300 50 Urine 580 1150 Other: # Bowel Movements 0 1 Stool Characteristics Liquid Liquid Green Green Weight Source Bedscale Bedscale Active Medications: Current Medications Acetaminophen (Tylenol) 650 mg PO Q4H PRN PRN Reason: Pain Or Fever above 101 Stop: 09/05/18 19:05 Last Admin: 07/12/18 00:15 Dose: 650 mg Albuterol/Ipratropium (Duoneb Neb) 3 ml HHN Q4HRT [facility] Stop: 09/06/18 14:59 Last Admin: 07/15/18 14:00 Dose: 3 ml Budesonide (Pulmicort) 0.5 mg HHN BIDRT [facility] Stop: 09/06/18 18:59 Last Admin: 07/15/18 07:09 Dose: 0.5 mg Calamine/Phenol (Calmoseptine) 1 appl TP QID PRN PRN Reason: Skin Irritation Stop: 09/09/18 11:33 Chlorhexidine Gluconate (Peridex) 15 ml MM 0800,2000 [facility] Stop: 09/06/18 07:59 Last Admin: 07/15/18 08:27 Dose: 15 ml Dextrose (D50w) 50 ml IVP Q4HR PRN PRN Reason: Hypersensitivity Stop: 09/06/18 00:58 Diltiazem HCl (Cardizem) 20 mg IVP Q4H PRN PRN Reason: Tachycardia Stop: 09/13/18 09:31 Furosemide (Lasix) 40 mg IVP BID [facility] Stop: 09/12/18 16:59 Last Admin: 07/15/18 16:08 Dose: 40 mg Norepinephrine Bitartrate 4 mg (/ Dextrose) 254 mls @ 7.62 mls/hr IV TITR PRN; Protocol PRN Reason: To Keep SBP Above 90 Stop: 09/06/18 00:56 Multivitamins/Minerals 10 ml/Dextrose/ Amino Acids/Electrolytes/ Fat Emulsion Intravenous/ Sterile Water 1,680 mls @ 70 mls/hr IV .Q24H [facility] Stop: 09/10/18 15:59 Last Admin: 07/15/18 15:40 Dose: 70 mls/hr Metronidazole (Flagyl) 500 mg in 100 mls @ 100 mls/hr IV Q8HR [facility] Stop: 09/10/18 13:59 Last Infusion: 07/15/18 13:05 Dose: Infused Diltiazem HCl 125 mg/ Dextrose 125 mls @ 0 mls/hr IV TITR [facility]; Protocol Stop: 09/13/18 09:44 Last Admin: 07/15/18 09:49 Dose: 10 mg/hr, 10 mls/hr Meropenem 500 mg/ Sodium (Chloride) 100 mls @ 100 mls/hr IV Q12H [facility] Stop: 09/13/18 14:59 Insulin Aspart (Novolog) 0 units SUBQ Q6HR [facility]; Protocol Stop: 09/06/18 17:59 Last Admin: 07/15/18 11:09 Dose: 4 units Insulin Human NPH (Novolin N) 10 units SUBQ BIDAC [facility]; Protocol Stop: 09/12/18 16:29 Last Admin: 07/15/18 07:15 Dose: 10 units Levothyroxine Sodium (Synthroid) 0.025 mg PO QDAC [facility] Stop: 09/06/18 07:29 Last Admin: 07/15/18 07:23 Dose: Not Given Magnesium Hydroxide (Milk Of Magnesia) 30 ml PO HS PRN PRN Reason: Constipation Stop: 09/09/18 20:15 Magnesium Hydroxide (Milk Of Magnesia) 30 ml NG BID [facility] Stop: 09/10/18 09:59 Last Admin: 07/15/18 16:08 Dose: 30 ml Methylprednisolone Sodium Succinate (Solu-Medrol) 40 mg IV Q12HR [facility] Stop: 09/08/18 20:59 Last Admin: 07/15/18 08:26 Dose: 40 mg Metoclopramide HCl (Reglan) 5 mg IVP Q8HR [facility] Stop: 09/08/18 20:59 Last Admin: 07/15/18 12:21 Dose: 5 mg Mineral Oil (Mineral Oil 30 Ml) 30 ml NG BID [facility] Stop: 09/10/18 09:14 Last Admin: 07/15/18 16:08 Dose: 30 ml Miscellaneous (Vancomycin Iv Per Pharmacy) 1 ea MC PRN [facility] Stop: 09/05/18 19:14 Miscellaneous (Tpn Per Pharmacy) 1 ea MC PRN PRN PRN Reason: PROTOCOL Stop: 09/10/18 09:13 Morphine Sulfate (Morphine) 1 mg IVP Q4HR PRN PRN Reason: Severe Pain Stop: 09/10/18 22:24 Last Admin: 07/15/18 08:30 Dose: 1 mg Ondansetron HCl (Zofran) 4 mg IV Q8H PRN PRN Reason: Nausea / Vomiting Stop: 09/05/18 19:05 Pantoprazole Sodium (Protonix) 40 mg IVP QDAC [facility] Stop: 09/10/18 07:29 Last Admin: 07/15/18 07:15 Dose: 40 mg General: Mild distress (RESP) HEENT: Other (ETT/VENT/NGT) Cardiovascular: Regular rate, Normal S1, Normal S2 Lungs: Other (OCC RHONCHI) Abdomen: Bowel sounds (HYPOACTIVE), Distended (MODERATE TO SEVERE), Other (NGT TO LIWS) - Procedures Procedures: Procedures Procedure Code Date RESPIRATORY VENTILATION, GREATER THAN 96 CONSECUTIVE HOURS [id number] 07/07/18 Assessment/Plan - Assessment Assessment: Abdominal distension Ileus Possible H/O colon cancer Anemia abnormal LFTs - Plan Plan: 1. Abdominal distension possibly ileus NG DECOMPRESSION MINERAL OIL/MOM. TPN FOR NOW. MAY RESTART NGT FEEDS ONCE ILEUS IMPROVES 2. Possible H/O colon cancer May need Colonoscopy if he improves possible mets 3. Anemia Stable Cont to monitor 4.abnormal LFTs R/O mets
--- NOTE | 2018-07-15 20:05 | Progress Notes ---
DATE: 07/15/2018 PULMONARY AND CRITICAL CARE PROGRESS NOTE PROBLEM LIST: 1. Persistent respiratory failure. 2. Bilateral pneumonia/question recurrent fleeting edematous changes. 3. Constipation, probably with his underlying chronic bronchial asthma, history of severe obstructive sleep apnea syndrome and also history of mentally and physically developmental delay and abnormality. SYMPTOMS: Nil. The patient is sleepy, arousable, no respiratory distress, etc. PHYSICAL EXAMINATION: VITAL SIGNS: The patient's recorded vitals - temperature is around 99, heart rate 110-120, blood pressure is 113/70, saturation 100% on 30% on SIMV of 10. NECK: Veins not visualized. CHEST: Shows occasional rhonchi with diminished air entry. HEART: Regular. ABDOMEN: Soft, nontender. LABORATORY DATA: White count is 11.7, hemoglobin 8 grams. ABG - pO2 62 on 30% of oxygen. Electrolytes are okay with creatinine 1.5, BUN is 57. Sugar is higher side. ASSESSMENT: Chest x-ray shows some mild interstitial bilateral changes very minimally compared to better than before. PLANS AND SUGGESTIONS: We will try to drop down backup rate, I do not know how long he is unable to handle it cutting down all the way further as the patient is still quite ____ and agreeable for transfer to [place] [facility] and go from there. JOB# [id number]
[2018-07-16] MEDS: INSULIN ASPART, RECOMBINANT 100 UNITS/ML SUBQ SCH ×4 (00:21→17:03)
[2018-07-16] MEDS: Meropenem 500 MG in Sodium Chloride 0.9% 100 ML IV SCH ×2 (02:30→14:10)
[2018-07-16] MEDS: Albuterol/Ipratropium Neb 3 ML AERS HHN SCH ×6 (02:42→23:46)
[2018-07-16] MEDS: Morphine Sulfate 2 mg/mL 1mL Syr IVP PRN ×2 (03:51→13:47)
[2018-07-16 05:10] LABS: HEMATOCRIT 25.5 % (41.0-60); HEMOGLOBIN 8.7 gm/dL (12-16); MEAN CELL VOLUME 87.7 fl (80-99); MEAN CORPUSCULAR HEMOGLOBIN 29.9 pg (26.0-30.0); MEAN CORPUSCULAR HGB CONC 34.1 pg (28.0-36.0); MEAN PLATELET VOLUME 9.7 fl; PLATELET COUNT 107 Th/cmm (150-400); RED BLOOD COUNT 2.91 Mil/cmm (4.30-5.70); RED CELL DISTRIBUTION WIDTH 18.6 % (11.5-20.0)
[2018-07-16] MEDS: metroNIDAZOLE 500mg/NS 100mL 500 MG/100 ML BAG IV SCH ×3 (05:14→21:29)
[2018-07-16] MEDS: Metoclopramide 5 mg/mL 2mL Vial IVP SCH ×3 (05:14→21:30)
[2018-07-16 05:29] LABS: ALB/GLOB RATIO 1.7 (1.0-1.8); ALBUMIN 3.5 gm/dL (4.2-5.5); ALKALINE PHOSPHATASE 97 U/L (34-104); ANION GAP 16.9 (7.0-16.0); BILIRUBIN,TOTAL 1.4 mg/dL (0.3-1.0); BUN - UREA NITROGEN 65 mg/dL (7-25); CALCIUM SERUM 8.3 mg/dL (8.6-10.3); CARBON DIOXIDE 25.1 mEq/L (21.0-31.0); CHLORIDE 105 mEq/L (98-107); CREATININE - SERUM 1.5 mg/dL (0.7-1.3); GFR AFRICAN-AMERICAN > 60.0 ml/min (>90); GFR NON AFRICAN-AMERICAN 51.1 ml/min; GLUCOSE 216 mg/dL (70-105); LIPASE 29 U/L (11-82); MAGNESIUM 2.6 mg/dL (1.9-2.7); PHOSPHOROUS 3.4 mg/dL (2.5-5.0); SGOT 441 U/L (13-39); SGPT/ALT 141 U/L (7-52); SODIUM SERUM 143 mEq/L (136-145); TOTAL PROTEIN,SERUM 5.6 gm/dL (6.0-8.3)
[2018-07-16 05:31] LABS: WHITE BLOOD COUNT 17.8 Th/cmm (4.8-10.8)
[2018-07-16 06:18] LABS: BAND NEUTROPHILE 2 % (0-10); LYMPHOCYTE 4 % (20-50); MONOCYTE 4 % (2-10); NEUTROPHILS 90 % (40-80)
[2018-07-16 06:20] LABS: PLATELET ESTIMATE DECREASED PLATELETS (NORMAL)
[2018-07-16] MEDS: Levothyroxine 0.025 Mg Tab PO SCH (06:35)
[2018-07-16] MEDS: INSULIN HUMAN ISOPHANE (NPH) 100 UNITS/ML SUBQ SCH ×2 (06:39→17:02)
[2018-07-16] MEDS: Budesonide 0.5 Mg/2 mL Ud HHN SCH ×2 (06:53→19:24)
[2018-07-16] MEDS: Magnesium Hydroxide (MOM) 30 mL UDC NG SCH ×2 (08:14→16:33)
[2018-07-16] MEDS: Chlorhexidine Gluconate 0.12% 15mL Mouthwash MM SCH ×2 (08:15→21:30)
[2018-07-16] MEDS: methylPREDNISolone SS 40 mg Vial IV SCH ×2 (08:16→21:29)
--- NOTE | 2018-07-16 08:23 | Diagnostic Imaging Report ---
Exam: Chest x-ray HISTORY: Shortness of breath. Prior exam: 07/15/2018 Findings: Frontal examination of the chest was reviewed compared to prior study day earlier demonstrates increased congestive heart failure changes bilaterally. There is evidence of cardiomegaly. Tubes and lines unchanged position. The costophrenic angles are clear. Bony thorax is intact. Again noted old fracture right clavicle. IMPRESSION: Increasing congestive heart failure. Cardiomegaly. Follow-up examination is recommended.
[2018-07-16 10:04] LABS: pH 7.46 (7.35-7.45)
[2018-07-16 10:05] LABS: ALLEN TEST YES
--- NOTE | 2018-07-16 12:54 | Internal Medicine Prog Note ---
Internal Medicine Subjective - Subjective Service Date: 07/16/18 Patient seen and examined:: with staff Patient is:: non-verbal, non-interactive, other (obtunded) Patient Complaints of:: congestion, weight gain Per staff patient has:: tolerating meds Internal Medicine Objective - Results Result Diagrams: 07/16/18 04:40 07/16/18 04:40 Recent Labs: Laboratory Last Values WBC 17.8 Th/cmm (4.8-10.8) H 07/16/18 04:40 Corrected WBC (auto) 10.3 Th/cmm 07/13/18 04:38 RBC 2.91 Mil/cmm (4.30-5.70) L 07/16/18 04:40 Hgb 8.7 gm/dL (12-16) L 07/16/18 04:40 Hct 25.5 % (41.0-60) L 07/16/18 04:40 MCV 87.7 fl (80-99) 07/16/18 04:40 MCH 29.9 pg (26.0-30.0) 07/16/18 04:40 MCHC Differential 34.1 pg (28.0-36.0) 07/16/18 04:40 RDW 18.6 % (11.5-20.0) 07/16/18 04:40 Plt Count 107 Th/cmm (150-400) L 07/16/18 04:40 MPV 9.7 fl 07/16/18 04:40 Add Manual Diff YES 07/16/18 04:40 Neutrophils % 96.6 % (40.0-80.0) H 07/11/18 04:40 Band Neutrophils % 2 % (0-10) 07/16/18 04:40 Lymphocytes % 2.2 % (20.0-50.0) L 07/11/18 04:40 Monocytes % 1.1 % (2.0-10.0) L 07/11/18 04:40 Eosinophils % 0.1 % (0.0-5.0) 07/11/18 04:40 Basophils % 0.0 % (0.0-2.0) 07/11/18 04:40 Neutrophils (Manual) 90 % (40-80) H 07/16/18 04:40 Lymphocytes 4 % (20-50) L 07/16/18 04:40 Monocytes 4 % (2-10) 07/16/18 04:40 Eosinophils 0 % (0-5) 07/09/18 07:30 Basophils 0 % (0-3) 07/09/18 07:30 Metamyelocytes 0 % (0-0) 07/08/18 04:10 Myelocytes 2 % 07/15/18 04:15 Nucleated RBCs 3.0 % (0-0) H 07/16/18 04:40 Platelet Estimate DECREASED PLATELETS (NORMAL) 07/16/18 04:40 Tear Drop Cells 1+ 07/13/18 04:38 Ovalocytes 1+ 07/13/18 04:38 Schistocytes 1+ 07/13/18 04:38 PT 18.9 SECONDS (9.5-11.5) H 07/14/18 04:30 INR 1.88 (0.5-1.4) H 07/14/18 04:30 Specimen Source Arterial 07/16/18 09:55 Sample Site Right Radial 07/16/18 09:55 pH 7.46 (7.35-7.45) H 07/16/18 09:55 pCO2 43.0 mmHg (35.0-45.0) 07/16/18 09:55 pO2 92.0 mmHg (80.0-100.0) 07/16/18 09:55 HCO3 29.7 mEq/L (20.0-26.0) H 07/16/18 09:55 Base Excess 6.1 mEq/L (-3.0-3.0) H 07/16/18 09:55 O2 Saturation 98.0 % (92.0-100.0) 07/16/18 09:55 Kam Test YES 07/16/18 09:55 Vent Rate 7 07/16/18 09:55 Inspired O2 30 07/16/18 09:55 Tidal Volume 450 07/16/18 09:55 PEEP 0 07/16/18 09:55 Pressure (ins/psv/peep) 18 07/16/18 09:55 Critical Value E.CURRAN 07/16/18 09:55 Sodium 143 mEq/L (136-145) 07/16/18 04:40 Potassium 4.0 mEq/L (3.5-5.1) 07/16/18 04:40 Chloride 105 mEq/L (98-107) 07/16/18 04:40 Carbon Dioxide 25.1 mEq/L (21.0-31.0) 07/16/18 04:40 Anion Gap 16.9 (7.0-16.0) H 07/16/18 04:40 BUN 65 mg/dL (7-25) H 07/16/18 04:40 Creatinine 1.5 mg/dL (0.7-1.3) H 07/16/18 04:40 Est GFR ( Amer) > 60.0 ml/min (>90) 07/16/18 04:40 Est GFR (Non-Af Amer) 51.1 ml/min 07/16/18 04:40 BUN/Creatinine Ratio 43.3 07/16/18 04:40 Glucose 216 mg/dL (70-105) H 07/16/18 04:40 POC Glucose 191 MG/DL (70 - 105) H 07/16/18 11:25 Whole Bld Lactic Acid 1.96 mmol/L (0.60-1.99) 07/07/18 19:15 Calcium 8.3 mg/dL (8.6-10.3) L 07/16/18 04:40 Phosphorus 3.4 mg/dL (2.5-5.0) 07/16/18 04:40 Magnesium 2.6 mg/dL (1.9-2.7) 07/16/18 04:40 Total Bilirubin 1.4 mg/dL (0.3-1.0) H 07/16/18 04:40 Direct Bilirubin 0.62 mg/dL (0.0-0.2) H 07/15/18 04:15 AST 441 U/L (13-39) H 07/16/18 04:40 ALT 141 U/L (7-52) H 07/16/18 04:40 Alkaline Phosphatase 97 U/L (34-104) 07/16/18 04:40 Ammonia 133 umol/L (16-53) H 07/14/18 04:30 Troponin I 0.01 ng/mL (0.01-0.05) 07/09/18 07:30 B-Natriuretic Peptide 196.0 pg/mL (5.0-100.0) H 07/09/18 07:30 Total Protein 5.6 gm/dL (6.0-8.3) L 07/16/18 04:40 Albumin 3.5 gm/dL (4.2-5.5) L 07/16/18 04:40 Globulin 2.1 gm/dL 07/16/18 04:40 Albumin/Globulin Ratio 1.7 (1.0-1.8) 07/16/18 04:40 Prealbumin 5 mg/dL (10-36) L 07/14/18 13:13 Triglycerides 143 mg/dL (<150) 07/13/18 04:38 Cholesterol 117 mg/dL (<200) 07/14/18 04:30 Lipase 29 U/L (11-82) 07/16/18 04:40 Tumor Marker AFP Diluted result ng/mL (0.0-8.3) H 07/14/18 13:13 Carcinoembryonic Ag 9.9 ng/mL (0.0-4.7) H 07/14/18 13:13 Vitamin B12 1241 pg/mL (232-1245) 07/08/18 04:10 Folic Acid 8.6 ng/mL (>3.0) 07/08/18 04:10 Free T4 1.04 ng/dL (0.82-1.77) 07/09/18 07:30 Free T3 1.1 pg/mL (2.0-4.4) L 07/09/18 07:30 TSH 4.06 uIU/ml (0.34-5.60) 07/08/18 04:10 Urine Source CLEAN C 07/07/18 17:15 Urine Color YELLOW 07/07/18 17:15 Urine Clarity CLEAR (CLEAR) 07/07/18 17:15 Urine pH 6.0 (4.6 - 8.0) 07/07/18 17:15 Ur Specific [place] 1.015 (1.005-1.030) 07/07/18 17:15 Urine Protein 30 mg/dL (NEGATIVE) H 07/07/18 17:15 Urine Glucose (UA) NEGATIVE mg/dL (NEGATIVE) 07/07/18 17:15 Urine Ketones NEGATIVE mg/dL (NEGATIVE) 07/07/18 17:15 Urine Blood NEGATIVE (NEGATIVE) 07/07/18 17:15 Urine Nitrate NEGATIVE (NEGATIVE) 07/07/18 17:15 Urine Bilirubin NEGATIVE (NEGATIVE) 07/07/18 17:15 Urine Urobilinogen 0.2 E.U./dL (0.2 - 1.0) 07/07/18 17:15 Ur Leukocyte Esterase NEGATIVE (NEGATIVE) 07/07/18 17:15 Urine RBC 0-2 /hpf (0-5) H 07/07/18 17:15 Urine WBC 2-5 /hpf (0-5) 07/07/18 17:15 Ur Epithelial Cells FEW /lpf (FEW) 07/07/18 17:15 Urine Bacteria FEW /hpf (NONE SEEN) 07/07/18 17:15 Fine Granular Casts 0-2 /lpf (NONE SEEN) H 07/07/18 17:15 Urine Mucus FEW /lpf (FEW) 07/07/18 17:15 Vancomycin Trough 34.9 ug/mL (5-10) H 07/14/18 13:13 Random Vancomycin 20.1 ug/mL (5.0-40.0) 07/16/18 04:40 Hepatitis A IgM Ab Negative (Negative) 07/14/18 04:30 Hep Bs Antigen Negative (Negative) 07/14/18 04:30 Hep B Core IgM Ab Negative (Negative) 07/14/18 04:30 Hepatitis C Antibody <0.1 s/co ratio (0.0-0.9) 07/14/18 04:30 - Physical Exam Vitals and I&O: Vital Signs Temp 97.7 F 07/16/18 11:00 Pulse 112 07/16/18 11:29 Resp 18 07/16/18 11:00 BP 135/75 07/16/18 11:29 Pulse Ox 97 07/16/18 11:00 Intake & Output 07/15/18 07/16/18 07/16/18 18:59 06:59 18:59 Intake Total 2295 482.791 45.542 Output Total 1300 1100 Balance 995 482.791 -1054.458 Weight (lbs) 176 lb 1 oz 176 lb Intake: Intake, IV Amount 1994 482.791 45.542 Albumin 25% 12.5gm/50mL 50 12.5 gm In 50 ml @ 50 mls /hr IV Q8HR [facility] [place] Rx#: [id number] Diltiazem 125 mg In 182.791 45.542 Dextrose 5% 100 ml @ 0 MG /HR IV TITR [facility] [place] Rx#: [id number] Meropenem 500 mg In 100 100 Sodium Chloride 0.9% 100 ml @ 100 mls/hr IV Q12H [facility] [place] Rx#:[id number] Multivitamin Inj 10 ml In 1645 Dextrose 70% 240 ml In Amino Acids 10% 714 ml In Intralipids 20% 150 ml In Water, Sterile 566 ml @ 70 mls/hr IV .Q24H [facility] [place] Rx#:[id number] metroNIDAZOLE 500mg/NS 100 200 100mL 500 mg In 100 ml @ 100 mls/hr IV Q8HR [facility] [place] Rx #:[id number] Other 300 Output: Gastric Drainage 450 350 Urine 850 750 Other: # Bowel Movements 1 1 Stool Characteristics Liquid Liquid Liquid Green Green Green Weight Source Bedscale Bedscale Active Medications: Current Medications Acetaminophen (Tylenol) 650 mg PO Q4H PRN PRN Reason: Pain Or Fever above 101 Stop: 09/05/18 19:05 Last Admin: 07/12/18 00:15 Dose: 650 mg Albuterol/Ipratropium (Duoneb Neb) 3 ml HHN Q4HRT [facility] [place] Stop: 09/06/18 14:59 Last Admin: 07/16/18 10:57 Dose: 3 ml Budesonide (Pulmicort) 0.5 mg HHN BIDRT [facility] [place] Stop: 09/06/18 18:59 Last Admin: 07/16/18 06:53 Dose: 0.5 mg Calamine/Phenol (Calmoseptine) 1 appl TP QID PRN PRN Reason: Skin Irritation Stop: 09/09/18 11:33 Chlorhexidine Gluconate (Peridex) 15 ml MM 0800,1999 [facility] [place] Stop: 09/06/18 07:59 Last Admin: 07/16/18 08:15 Dose: 15 ml Dextrose (D50w) 50 ml IVP Q4HR PRN PRN Reason: Hypersensitivity Stop: 09/06/18 00:58 Diltiazem HCl (Cardizem) 20 mg IVP Q4H PRN PRN Reason: Tachycardia Stop: 09/13/18 09:31 Furosemide (Lasix) 40 mg IVP BID [facility] [place] Stop: 09/12/18 16:59 Last Admin: 07/16/18 08:17 Dose: 40 mg Norepinephrine Bitartrate 4 mg (/ Dextrose) 254 mls @ 7.62 mls/hr IV TITR PRN; Protocol PRN Reason: To Keep SBP Above 90 Stop: 09/06/18 00:56 Multivitamins/Minerals 10 ml/Dextrose/ Amino Acids/Electrolytes/ Fat Emulsion Intravenous/ Sterile Water 1,680 mls @ 70 mls/hr IV .Q24H [facility] Stop: 09/10/18 15:59 Last Admin: 07/15/18 15:40 Dose: 70 mls/hr Metronidazole (Flagyl) 500 mg in 100 mls @ 100 mls/hr IV Q8HR [facility] Stop: 09/10/18 13:59 Last Infusion: 07/16/18 06:14 Dose: Infused Diltiazem HCl 125 mg/ Dextrose 125 mls @ 0 mls/hr IV TITR [facility]; Protocol Stop: 09/13/18 09:44 Last Admin: 07/16/18 10:47 Dose: 5 mg/hr, 5 mls/hr Meropenem 500 mg/ Sodium (Chloride) 100 mls @ 100 mls/hr IV Q12H [facility] Stop: 09/13/18 14:59 Last Infusion: 07/16/18 03:30 Dose: Infused Insulin Aspart (Novolog) 0 units SUBQ Q6HR [facility]; Protocol Stop: 09/06/18 17:59 Last Admin: 07/16/18 11:27 Dose: 2 units Insulin Human NPH (Novolin N) 10 units SUBQ BIDAC [facility]; Protocol Stop: 09/12/18 16:29 Last Admin: 07/16/18 06:39 Dose: 10 units Levothyroxine Sodium (Synthroid) 0.025 mg PO QDAC [facility] Stop: 09/06/18 07:29 Last Admin: 07/16/18 06:35 Dose: 0.025 mg Magnesium Hydroxide (Milk Of Magnesia) 30 ml PO HS PRN PRN Reason: Constipation Stop: 09/09/18 20:15 Magnesium Hydroxide (Milk Of Magnesia) 30 ml NG BID [facility] Stop: 09/10/18 09:59 Last Admin: 07/16/18 08:14 Dose: 30 ml Methylprednisolone Sodium Succinate (Solu-Medrol) 40 mg IV Q12HR [facility] Stop: 09/08/18 20:59 Last Admin: 07/16/18 08:16 Dose: 40 mg Metoclopramide HCl (Reglan) 5 mg IVP Q8HR [facility] Stop: 09/08/18 20:59 Last Admin: 07/16/18 05:14 Dose: 5 mg Mineral Oil (Mineral Oil 30 Ml) 30 ml NG BID [facility] Stop: 09/10/18 09:14 Last Admin: 07/16/18 08:14 Dose: 30 ml Miscellaneous (Vancomycin Iv Per Pharmacy) 1 ea MC PRN [facility] Stop: 09/05/18 19:14 Miscellaneous (Tpn Per Pharmacy) 1 ea PRN PRN PRN Reason: PROTOCOL Stop: 09/10/18 09:13 Morphine Sulfate (Morphine) 1 mg IVP Q4HR PRN PRN Reason: Severe Pain Stop: 09/10/18 22:24 Last Admin: 07/16/18 03:51 Dose: 1 mg Ondansetron HCl (Zofran) 4 mg IV Q8H PRN PRN Reason: Nausea / Vomiting Stop: 09/05/18 19:05 Pantoprazole Sodium (Protonix) 40 mg IVP QDAC [facility] [place] Stop: 09/10/18 07:29 Last Admin: 07/16/18 06:37 Dose: 40 mg General: weak, congested, obtunded HEENT: NC/AT, PERRLA Neck: Supple Lungs: rales, ronchi Cardiovascular: RRR, Normal S1, Normal S2, without murmur Abdomen: distended Extremities: excoriation Neurological: unable to follow command - Procedures Procedures: Procedures Procedure Code Date RESPIRATORY VENTILATION, GREATER THAN 96 CONSECUTIVE HOURS [id number] 07/07/18 Internal Medicine Assmt/Plan - Assessment Assessment: acute respiratory failure vdrf sepsis left lung pna anemia abdominal distention hyponatremia hypokalemia mild protein meg malnutrition episode of hypoglycemia down syndrome htn asthma hx liver ca - Plan Plan: continue vent support continue ivabx in-line respiratory treatments to continue continue current plan of care Nutritional Asmnt/Malnutr-PDOC - Dietary Evaluation Malnutrition Findings (Please click <Entered> for more info): Nutritional Asmnt/Malnutrition Start: 07/08/18 16: 06 Text: Status: Complete Freq: Protocol: Document 07/08/18 16:06 MANUELITO (Rec: 07/08/18 16:30 MANUELITO [id number]) Nutritional Asmnt/Malnutrition Patient General Information Nutritional Screening High Risk Diagnosis acute resp failure, spesis Pertinent Medical Hx/Surgical Hx HTN, asthma/COPD, downs, asthma, liver CA Subjective Information Pt seen intubated on vent. RN inserted NGtube and TF stated at lunch time as ordered. Current Diet Order/ Nutrition Support glucerna 1.2 at 20ml/hr continuous Pertinent Medications D50w, D5-0.9%ns, novolog, synthroid, protonix, piperacillin, vancomycin Pertinent Labs 07/08 Na 133, K 3.4, BUN 6, Cr 0.5, glucose 343, POC 101-293 07/07 Na 133, Cr 0.5, glucose 41, POC 17-135 Nutritional Hx/Data Height 4 ft 11 in Height (Calculated Centimeters) 149.9 Current Weight (lbs) 160 lb Weight (Calculated Kilograms) 72.6 Weight (Calculated Grams) 09951.8 [place] Body Weight 104 Body Mass Index (BMI) 32.3 Weight Status Overweight GI Symptoms GI Symptoms None Last BM not indicated Difficult in: None Usual diet at home regular high fiber at care facility per chart Skin Integrity/Comment: rash to sacrum Estimated Nutritional Goals BEE in Kcals: Adj wt of IBW Calories/Kcals/Kg 27-32 adj 54kg Kcals Calculated 0402-6351 Protein: Adj wt of IBW Protein g/k.2-1.5 Protein Calculated 62-81 Fluid: ml 1458-1728ml (1ml/kcal) Nutritional Problem 1. Problem Problem increased nutrition needs Etiology increased metabolic demand Signs/Symptoms: dx of sepsis Malnutrition Alert Is there a minimum of two criteria No selected? Query Text:Check all the applicable criteria. A minimum of two criteria are recommended for diagnosis of either severe or non-severe malnutrition. Intervention/Recommendation Comments 1. Start with Glucerna 1.2 at 20ml/hr continuous as ordered. It provides 576kcal, 29g protein, 386ml free water. 2. Recommend increase to goal rate of 55ml/hr continuous as tolerated, which providing 1584kcal and 79g protein to meet 100% of nutritioanl needs . 3. Monitor TF rate, tolerance, wt, skin integrity and labs 4. F/U as high risk in 2-3 days, 07/10-07/11 Expected Outcomes/Goals Expected Outcomes/Goals 1. Pt to meet at least 75% of nutritional needs via nutrition support with tolerance 2. Wt stability, skin to remain intact, labs to approach WNL.
--- NOTE | 2018-07-16 16:17 | GI Progress Note ---
Subjective - Review of Systems Service Date: 07/16/18 Events since last encounter: No events Subjective: Intubated, Lethargic Objective - Results Result Diagrams: 07/16/18 04:40 07/16/18 04:40 Recent Labs: Laboratory Last Values WBC 17.8 Th/cmm (4.8-10.8) H 07/16/18 04:40 Corrected WBC (auto) 10.3 Th/cmm 07/13/18 04:38 RBC 2.91 Mil/cmm (4.30-5.70) L 07/16/18 04:40 Hgb 8.7 gm/dL (12-16) L 07/16/18 04:40 Hct 25.5 % (41.0-60) L 07/16/18 04:40 MCV 87.7 fl (80-99) 07/16/18 04:40 MCH 29.9 pg (26.0-30.0) 07/16/18 04:40 MCHC Differential 34.1 pg (28.0-36.0) 07/16/18 04:40 RDW 18.6 % (11.5-20.0) 07/16/18 04:40 Plt Count 107 Th/cmm (150-400) L 07/16/18 04:40 MPV 9.7 fl 07/16/18 04:40 Add Manual Diff YES 07/16/18 04:40 Neutrophils % 96.6 % (40.0-80.0) H 07/11/18 04:40 Band Neutrophils % 2 % (0-10) 07/16/18 04:40 Lymphocytes % 2.2 % (20.0-50.0) L 07/11/18 04:40 Monocytes % 1.1 % (2.0-10.0) L 07/11/18 04:40 Eosinophils % 0.1 % (0.0-5.0) 07/11/18 04:40 Basophils % 0.0 % (0.0-2.0) 07/11/18 04:40 Neutrophils (Manual) 90 % (40-80) H 07/16/18 04:40 Lymphocytes 4 % (20-50) L 07/16/18 04:40 Monocytes 4 % (2-10) 07/16/18 04:40 Eosinophils 0 % (0-5) 07/09/18 07:30 Basophils 0 % (0-3) 07/09/18 07:30 Metamyelocytes 0 % (0-0) 07/08/18 04:10 Myelocytes 2 % 07/15/18 04:15 Nucleated RBCs 3.0 % (0-0) H 07/16/18 04:40 Platelet Estimate DECREASED PLATELETS (NORMAL) 07/16/18 04:40 Tear Drop Cells 1+ 07/13/18 04:38 Ovalocytes 1+ 07/13/18 04:38 Schistocytes 1+ 07/13/18 04:38 PT 18.9 SECONDS (9.5-11.5) H 07/14/18 04:30 INR 1.88 (0.5-1.4) H 07/14/18 04:30 Specimen Source Arterial 07/16/18 09:55 Sample Site Right Radial 07/16/18 09:55 pH 7.46 (7.35-7.45) H 07/16/18 09:55 pCO2 43.0 mmHg (35.0-45.0) 07/16/18 09:55 pO2 92.0 mmHg (80.0-100.0) 07/16/18 09:55 HCO3 29.7 mEq/L (20.0-26.0) H 07/16/18 09:55 Base Excess 6.1 mEq/L (-3.0-3.0) H 07/16/18 09:55 O2 Saturation 98.0 % (92.0-100.0) 07/16/18 09:55 Kam Test YES 07/16/18 09:55 Vent Rate 7 07/16/18 09:55 Inspired O2 30 07/16/18 09:55 Tidal Volume 450 07/16/18 09:55 PEEP 0 07/16/18 09:55 Pressure (ins/psv/peep) 18 07/16/18 09:55 Critical Value E.CURRAN 07/16/18 09:55 Sodium 143 mEq/L (136-145) 07/16/18 04:40 Potassium 4.0 mEq/L (3.5-5.1) 07/16/18 04:40 Chloride 105 mEq/L (98-107) 07/16/18 04:40 Carbon Dioxide 25.1 mEq/L (21.0-31.0) 07/16/18 04:40 Anion Gap 16.9 (7.0-16.0) H 07/16/18 04:40 BUN 65 mg/dL (7-25) H 07/16/18 04:40 Creatinine 1.5 mg/dL (0.7-1.3) H 07/16/18 04:40 Est GFR ( Amer) > 60.0 ml/min (>90) 07/16/18 04:40 Est GFR (Non-Af Amer) 51.1 ml/min 07/16/18 04:40 BUN/Creatinine Ratio 43.3 07/16/18 04:40 Glucose 216 mg/dL (70-105) H 07/16/18 04:40 POC Glucose 191 MG/DL (70 - 105) H 07/16/18 11:25 Whole Bld Lactic Acid 1.96 mmol/L (0.60-1.99) 07/07/18 19:15 Calcium 8.3 mg/dL (8.6-10.3) L 07/16/18 04:40 Phosphorus 3.4 mg/dL (2.5-5.0) 07/16/18 04:40 Magnesium 2.6 mg/dL (1.9-2.7) 07/16/18 04:40 Total Bilirubin 1.4 mg/dL (0.3-1.0) H 07/16/18 04:40 Direct Bilirubin 0.62 mg/dL (0.0-0.2) H 07/15/18 04:15 AST 441 U/L (13-39) H 07/16/18 04:40 ALT 141 U/L (7-52) H 07/16/18 04:40 Alkaline Phosphatase 97 U/L (34-104) 07/16/18 04:40 Ammonia 133 umol/L (16-53) H 07/14/18 04:30 Troponin I 0.01 ng/mL (0.01-0.05) 07/09/18 07:30 B-Natriuretic Peptide 196.0 pg/mL (5.0-100.0) H 07/09/18 07:30 Total Protein 5.6 gm/dL (6.0-8.3) L 07/16/18 04:40 Albumin 3.5 gm/dL (4.2-5.5) L 07/16/18 04:40 Globulin 2.1 gm/dL 07/16/18 04:40 Albumin/Globulin Ratio 1.7 (1.0-1.8) 07/16/18 04:40 Prealbumin 5 mg/dL (10-36) L 07/14/18 13:13 Triglycerides 143 mg/dL (<150) 07/13/18 04:38 Cholesterol 117 mg/dL (<200) 07/14/18 04:30 Lipase 29 U/L (11-82) 07/16/18 04:40 Tumor Marker AFP Diluted result ng/mL (0.0-8.3) H 07/14/18 13:13 Carcinoembryonic Ag 9.9 ng/mL (0.0-4.7) H 07/14/18 13:13 Vitamin B12 1241 pg/mL (232-1245) 07/08/18 04:10 Folic Acid 8.6 ng/mL (>3.0) 07/08/18 04:10 Free T4 1.04 ng/dL (0.82-1.77) 07/09/18 07:30 Free T3 1.1 pg/mL (2.0-4.4) L 07/09/18 07:30 TSH 4.06 uIU/ml (0.34-5.60) 07/08/18 04:10 Urine Source CLEAN C 07/07/18 17:15 Urine Color YELLOW 07/07/18 17:15 Urine Clarity CLEAR (CLEAR) 07/07/18 17:15 Urine pH 6.0 (4.6 - 8.0) 07/07/18 17:15 Ur Specific [place] 1.015 (1.005-1.030) 07/07/18 17:15 Urine Protein 30 mg/dL (NEGATIVE) H 07/07/18 17:15 Urine Glucose (UA) NEGATIVE mg/dL (NEGATIVE) 07/07/18 17:15 Urine Ketones NEGATIVE mg/dL (NEGATIVE) 07/07/18 17:15 Urine Blood NEGATIVE (NEGATIVE) 07/07/18 17:15 Urine Nitrate NEGATIVE (NEGATIVE) 07/07/18 17:15 Urine Bilirubin NEGATIVE (NEGATIVE) 07/07/18 17:15 Urine Urobilinogen 0.2 E.U./dL (0.2 - 1.0) 07/07/18 17:15 Ur Leukocyte Esterase NEGATIVE (NEGATIVE) 07/07/18 17:15 Urine RBC 0-2 /hpf (0-5) H 07/07/18 17:15 Urine WBC 2-5 /hpf (0-5) 07/07/18 17:15 Ur Epithelial Cells FEW /lpf (FEW) 07/07/18 17:15 Urine Bacteria FEW /hpf (NONE SEEN) 07/07/18 17:15 Fine Granular Casts 0-2 /lpf (NONE SEEN) H 07/07/18 17:15 Urine Mucus FEW /lpf (FEW) 07/07/18 17:15 Vancomycin Trough 34.9 ug/mL (5-10) H 07/14/18 13:13 Random Vancomycin 20.1 ug/mL (5.0-40.0) 07/16/18 04:40 Hepatitis A IgM Ab Negative (Negative) 07/14/18 04:30 Hep Bs Antigen Negative (Negative) 07/14/18 04:30 Hep B Core IgM Ab Negative (Negative) 07/14/18 04:30 Hepatitis C Antibody <0.1 s/co ratio (0.0-0.9) 07/14/18 04:30 - Physical Exam Vitals and I&O: Vital Signs Temp 98.5 F 07/16/18 16:00 Pulse 97 07/16/18 16:00 Resp 13 07/16/18 16:00 BP 107/65 07/16/18 16:00 Pulse Ox 99 07/16/18 16:00 Intake & Output 07/15/18 07/16/18 07/16/18 18:59 06:59 18:59 Intake Total 2295 482.791 60.709 Output Total 1300 1100 Balance 995 482.791 -1039.291 Weight (lbs) 79.861 kg 79.832 kg Intake: Intake, IV Amount 1994 482.791 60.709 Albumin 25% 12.5gm/50mL 50 12.5 gm In 50 ml @ 50 mls /hr IV Q8HR [facility] Rx#: [id number] Diltiazem 125 mg In 182.791 60.709 Dextrose 5% 100 ml @ 0 MG /HR IV TITR [facility] Rx#: [id number] Meropenem 500 mg In 100 100 Sodium Chloride 0.9% 100 ml @ 100 mls/hr IV Q12H [facility] Rx#:[id number] Multivitamin Inj 10 ml In 1645 Dextrose 70% 240 ml In Amino Acids 10% 714 ml In Intralipids 20% 150 ml In Water, Sterile 566 ml @ 70 mls/hr IV .Q24H [facility] Rx#:[id number] metroNIDAZOLE 500mg/NS 100 200 100mL 500 mg In 100 ml @ 100 mls/hr IV Q8HR [facility] Rx #:[id number] Other 300 Output: Gastric Drainage 450 350 Urine 850 750 Other: # Bowel Movements 1 1 Stool Characteristics Liquid Liquid Green Green Weight Source Bedscale Bedscale Active Medications: Current Medications Acetaminophen (Tylenol) 650 mg PO Q4H PRN PRN Reason: Pain Or Fever above 101 Stop: 09/05/18 19:05 Last Admin: 07/12/18 00:15 Dose: 650 mg Albuterol/Ipratropium (Duoneb Neb) 3 ml HHN Q4HRT [facility] Stop: 09/06/18 14:59 Last Admin: 07/16/18 14:47 Dose: 3 ml Budesonide (Pulmicort) 0.5 mg HHN BIDRT [facility] Stop: 09/06/18 18:59 Last Admin: 07/16/18 06:53 Dose: 0.5 mg Calamine/Phenol (Calmoseptine) 1 appl TP QID PRN PRN Reason: Skin Irritation Stop: 09/09/18 11:33 Chlorhexidine Gluconate (Peridex) 15 ml MM 0800,2000 [facility] Stop: 09/06/18 07:59 Last Admin: 07/16/18 08:15 Dose: 15 ml Dextrose (D50w) 50 ml IVP Q4HR PRN PRN Reason: Hypersensitivity Stop: 09/06/18 00:58 Diltiazem HCl (Cardizem) 20 mg IVP Q4H PRN PRN Reason: Tachycardia Stop: 09/13/18 09:31 Furosemide (Lasix) 40 mg IVP BID [facility] Stop: 09/12/18 16:59 Last Admin: 07/16/18 08:17 Dose: 40 mg Norepinephrine Bitartrate 4 mg (/ Dextrose) 254 mls @ 7.62 mls/hr IV TITR PRN; Protocol PRN Reason: To Keep SBP Above 90 Stop: 09/06/18 00:56 Multivitamins/Minerals 10 ml/Dextrose/ Amino Acids/Electrolytes/ Fat Emulsion Intravenous/ Sterile Water 1,680 mls @ 70 mls/hr IV .Q24H [facility] Stop: 09/10/18 15:59 Last Admin: 07/15/18 15:40 Dose: 70 mls/hr Metronidazole (Flagyl) 500 mg in 100 mls @ 100 mls/hr IV Q8HR [facility] Stop: 09/10/18 13:59 Last Admin: 07/16/18 12:20 Dose: 100 mls/hr Diltiazem HCl 125 mg/ Dextrose 125 mls @ 0 mls/hr IV TITR [facility]; Protocol Stop: 09/13/18 09:44 Last Admin: 07/16/18 13:49 Dose: 10 mg/hr, 10 mls/hr Meropenem 500 mg/ Sodium (Chloride) 100 mls @ 100 mls/hr IV Q12H [facility] Stop: 09/13/18 14:59 Last Admin: 07/16/18 14:10 Dose: 100 mls/hr Insulin Aspart (Novolog) 0 units SUBQ Q6HR [facility]; Protocol Stop: 09/06/18 17:59 Last Admin: 07/16/18 11:27 Dose: 2 units Insulin Human NPH (Novolin N) 10 units SUBQ BIDAC [facility]; Protocol Stop: 09/12/18 16:29 Last Admin: 07/16/18 06:39 Dose: 10 units Levothyroxine Sodium (Synthroid) 0.025 mg PO QDAC [facility] Stop: 09/06/18 07:29 Last Admin: 07/16/18 06:35 Dose: 0.025 mg Magnesium Hydroxide (Milk Of Magnesia) 30 ml PO HS PRN PRN Reason: Constipation Stop: 09/09/18 20:15 Magnesium Hydroxide (Milk Of Magnesia) 30 ml NG BID [facility] Stop: 09/10/18 09:59 Last Admin: 07/16/18 08:14 Dose: 30 ml Methylprednisolone Sodium Succinate (Solu-Medrol) 40 mg IV Q12HR [facility] Stop: 09/08/18 20:59 Last Admin: 07/16/18 08:16 Dose: 40 mg Metoclopramide HCl (Reglan) 5 mg IVP Q8HR [facility] Stop: 09/08/18 20:59 Last Admin: 07/16/18 13:40 Dose: 5 mg Mineral Oil (Mineral Oil 30 Ml) 30 ml NG BID [facility] Stop: 09/10/18 09:14 Last Admin: 07/16/18 08:14 Dose: 30 ml Miscellaneous (Vancomycin Iv Per Pharmacy) 1 ea MC PRN [facility] Stop: 09/05/18 19:14 Miscellaneous (Tpn Per Pharmacy) 1 ea MC PRN PRN PRN Reason: PROTOCOL Stop: 09/10/18 09:13 Morphine Sulfate (Morphine) 1 mg IVP Q4HR PRN PRN Reason: Severe Pain Stop: 09/10/18 22:24 Last Admin: 07/16/18 13:47 Dose: 1 mg Ondansetron HCl (Zofran) 4 mg IV Q8H PRN PRN Reason: Nausea / Vomiting Stop: 09/05/18 19:05 Pantoprazole Sodium (Protonix) 40 mg IVP QDAC [facility] Stop: 09/10/18 07:29 Last Admin: 07/16/18 06:37 Dose: 40 mg General: Mild distress (RESP) HEENT: Other (ETT/VENT/NGT) Cardiovascular: Regular rate, Normal S1, Normal S2 Lungs: Other (OCC RHONCHI) Abdomen: Bowel sounds (HYPOACTIVE), Distended (MODERATE TO SEVERE), Other (NGT TO LIWS) - Procedures Procedures: Procedures Procedure Code Date RESPIRATORY VENTILATION, GREATER THAN 96 CONSECUTIVE HOURS [id number] 07/07/18 Assessment/Plan - Assessment Assessment: Abdominal distension Ileus Possible H/O colon cancer Anemia abnormal LFTs - Plan Plan: 1. Abdominal distension possibly ileus NG DECOMPRESSION MINERAL OIL/MOM. TPN FOR NOW. MAY RESTART NGT FEEDS ONCE ILEUS IMPROVES 2. Possible H/O colon cancer May need Colonoscopy if he improves possible mets 3. Anemia Stable Cont to monitor 4.abnormal LFTs R/O mets or combination of mets and sepsis
[2018-07-16] MEDS ORDERED: Probiotic Screen MC PRN (16:19)
[2018-07-16] MEDS: [UNRECOGNIZED DRUG - OTHER] IV SCH (16:33)
[2018-07-16] MEDS: AMINO ACIDS IV SCH (16:33)
[2018-07-16] MEDS: DEXTROSE IV SCH (16:33)
[2018-07-16] MEDS: MULTIVITAMIN IV SCH (16:33)
--- NOTE | 2018-07-16 17:13 | Progress Notes ---
DATE: 07/16/2018 PULMONARY/CRITICAL PROGRESS NOTE PROBLEM LIST: 1. Persistent respiratory failure. 2. Bilateral fleeting infiltrates. 3. Underlying physically, mentally development delay with history of bronchial asthma and sleep apnea syndrome. SYMPTOMS: The patient is very hard of hearing and moves [id number]. ____ appears to have somnolence, but otherwise unremarkable. PHYSICAL EXAMINATION: VITAL SIGNS: Afebrile, heart rate 110-115, blood pressure is 134/72, saturation is 97 on 30%. NECK: Veins could not be visualized. CHEST: Shows diminished air entry with occasional secretory noise. ABDOMEN: Soft, nontender. LABORATORY DATA: White count is 17.8, hemoglobin 8.7. ABG, pO2 is 92 on 30% with SMV of 7 with a pressure support of 18, pH of 7.46. The patient's other studies, electrolytes are okay, creatinine 1.5, BUN is 65. The patient's chest x-ray done this morning on 07/16/2018 shows some haziness on the right side, otherwise no significant change. ET tube is a little bit high in the trachea. PLANS AND SUGGESTIONS: We will push in the trach. Continue rest of other treatment and go from there. JOB# [id number]
[2018-07-17] MEDS: INSULIN ASPART, RECOMBINANT 100 UNITS/ML SUBQ SCH ×4 (00:24→17:40)
[2018-07-17] MEDS: Morphine Sulfate 2 mg/mL 1mL Syr IVP PRN ×3 (00:31→20:49)
[2018-07-17] MEDS: Albuterol/Ipratropium Neb 3 ML AERS HHN SCH ×6 (02:02→22:52)
[2018-07-17] MEDS: Meropenem 500 MG in Sodium Chloride 0.9% 100 ML IV SCH ×2 (02:30→14:26)
[2018-07-17] MEDS: metroNIDAZOLE 500mg/NS 100mL 500 MG/100 ML BAG IV SCH (05:16)
[2018-07-17] MEDS: Metoclopramide 5 mg/mL 2mL Vial IVP SCH ×3 (05:16→20:50)
[2018-07-17 05:21] LABS: HEMATOCRIT 27.1 % (41.0-60); HEMOGLOBIN 9.5 gm/dL (12-16); MEAN CELL VOLUME 88.4 fl (80-99); MEAN PLATELET VOLUME 10.1 fl; PLATELET COUNT 113 Th/cmm (150-400); RED BLOOD COUNT 3.06 Mil/cmm (4.30-5.70); RED CELL DISTRIBUTION WIDTH 18.8 % (11.5-20.0)
[2018-07-17 05:38] LABS: ANION GAP 16.7 (7.0-16.0); BUN - UREA NITROGEN 74 mg/dL (7-25); CALCIUM SERUM 8.3 mg/dL (8.6-10.3); CARBON DIOXIDE 27.6 mEq/L (21.0-31.0); CHLORIDE 105 mEq/L (98-107); CREATININE - SERUM 1.5 mg/dL (0.7-1.3); GFR AFRICAN-AMERICAN > 60.0 ml/min (>90); GFR NON AFRICAN-AMERICAN 51.1 ml/min; GLUCOSE 112 mg/dL (70-105); MAGNESIUM 2.8 mg/dL (1.9-2.7); POTASSIUM SERUM 4.3 mEq/L (3.5-5.1); SODIUM SERUM 145 mEq/L (136-145)
[2018-07-17 05:54] LABS: WHITE BLOOD COUNT 27.5 Th/cmm (4.8-10.8)
[2018-07-17 06:05] LABS: BAND NEUTROPHILE 11 % (0-10); LYMPHOCYTE 3 % (20-50); NEUTROPHILS 86 % (40-80)
[2018-07-17 06:06] LABS: CORRECTED WBC 25.9 Th/cmm; PLATELET ESTIMATE SLIGHT DECREASED (NORMAL)
[2018-07-17] MEDS: Budesonide 0.5 Mg/2 mL Ud HHN SCH ×2 (06:47→19:26)
[2018-07-17] MEDS: INSULIN HUMAN ISOPHANE (NPH) 100 UNITS/ML SUBQ SCH ×2 (07:03→17:39)
[2018-07-17] MEDS: Levothyroxine 0.025 Mg Tab PO SCH (07:03)
--- NOTE | 2018-07-17 08:36 | Diagnostic Imaging Report ---
CHEST X-RAY: AP view INDICATION: ET tube adjustment COMPARISON: Chest x-ray earlier the same day FINDINGS: ET tube is seen with tip now 2.5 cm above the jaun. NG tube is in the stomach. Right PICC line is stable. Bilateral interstitial infiltrates and congestive changes are seen with small effusions. Cardiomegaly is noted. IMPRESSION: ET tube with tip 2.5 cm above the Jaun Congestive changes and bilateral interstitial infiltrates Cardiomegaly.
[2018-07-17] MEDS: Magnesium Hydroxide (MOM) 30 mL UDC NG SCH ×2 (08:39→17:29)
[2018-07-17] MEDS: methylPREDNISolone SS 40 mg Vial IV SCH ×2 (08:39→20:48)
[2018-07-17] MEDS: Chlorhexidine Gluconate 0.12% 15mL Mouthwash MM SCH ×2 (08:56→20:50)
[2018-07-17 09:32] LABS: ALLEN TEST YES; pH 7.47 (7.35-7.45)
--- NOTE | 2018-07-17 13:17 | Internal Medicine Prog Note ---
Internal Medicine Subjective - Subjective Service Date: 07/17/18 Patient is:: non-verbal, non-interactive, other (obtunded) Patient Complaints of:: congestion, weight gain Per staff patient has:: tolerating meds Internal Medicine Objective - Results Result Diagrams: 07/17/18 04:55 07/17/18 04:55 Recent Labs: Laboratory Last Values WBC 27.5 Th/cmm (4.8-10.8) H* 07/17/18 04:55 Corrected WBC (auto) 25.9 Th/cmm 07/17/18 04:55 RBC 3.06 Mil/cmm (4.30-5.70) L 07/17/18 04:55 Hgb 9.5 gm/dL (12-16) L 07/17/18 04:55 Hct 27.1 % (41.0-60) L 07/17/18 04:55 MCV 88.4 fl (80-99) 07/17/18 04:55 MCH 31.0 pg (26.0-30.0) H 07/17/18 04:55 MCHC Differential 35.0 pg (28.0-36.0) 07/17/18 04:55 RDW 18.8 % (11.5-20.0) 07/17/18 04:55 Plt Count 113 Th/cmm (150-400) L 07/17/18 04:55 MPV 10.1 fl 07/17/18 04:55 Add Manual Diff YES 07/17/18 04:55 Neutrophils % 96.6 % (40.0-80.0) H 07/11/18 04:40 Band Neutrophils % 11 % (0-10) H 07/17/18 04:55 Lymphocytes % 2.2 % (20.0-50.0) L 07/11/18 04:40 Monocytes % 1.1 % (2.0-10.0) L 07/11/18 04:40 Eosinophils % 0.1 % (0.0-5.0) 07/11/18 04:40 Basophils % 0.0 % (0.0-2.0) 07/11/18 04:40 Neutrophils (Manual) 86 % (40-80) H 07/17/18 04:55 Lymphocytes 3 % (20-50) L 07/17/18 04:55 Monocytes 4 % (2-10) 07/16/18 04:40 Eosinophils 0 % (0-5) 07/09/18 07:30 Basophils 0 % (0-3) 07/09/18 07:30 Metamyelocytes 0 % (0-0) 07/08/18 04:10 Myelocytes 2 % 07/15/18 04:15 Nucleated RBCs 6.0 % (0-0) H 07/17/18 04:55 Platelet Estimate SLIGHT DECREASED (NORMAL) 07/17/18 04:55 Tear Drop Cells 1+ 07/13/18 04:38 Ovalocytes 1+ 07/13/18 04:38 Schistocytes 1+ 07/13/18 04:38 PT 18.9 SECONDS (9.5-11.5) H 07/14/18 04:30 INR 1.88 (0.5-1.4) H 07/14/18 04:30 Specimen Source Arterial 07/17/18 09:24 Sample Site Right Radial 07/17/18 09:24 pH 7.47 (7.35-7.45) H 07/17/18 09:24 pCO2 46.0 mmHg (35.0-45.0) H 07/17/18 09:24 pO2 89.0 mmHg (80.0-100.0) 07/17/18 09:24 HCO3 31.7 mEq/L (20.0-26.0) H 07/17/18 09:24 Base Excess 8.7 mEq/L (-3.0-3.0) H 07/17/18 09:24 O2 Saturation 97.0 % (92.0-100.0) 07/17/18 09:24 Kam Test YES 07/17/18 09:24 Vent Rate 7 07/17/18 09:24 Inspired O2 30 07/17/18 09:24 Tidal Volume 450 07/17/18 09:24 PEEP 0 07/17/18 09:24 Pressure (ins/psv/peep) 18 07/17/18 09:24 Critical Value E.CURRAN 07/17/18 09:24 Sodium 145 mEq/L (136-145) 07/17/18 04:55 Potassium 4.3 mEq/L (3.5-5.1) 07/17/18 04:55 Chloride 105 mEq/L (98-107) 07/17/18 04:55 Carbon Dioxide 27.6 mEq/L (21.0-31.0) 07/17/18 04:55 Anion Gap 16.7 (7.0-16.0) H 07/17/18 04:55 BUN 74 mg/dL (7-25) H 07/17/18 04:55 Creatinine 1.5 mg/dL (0.7-1.3) H 07/17/18 04:55 Est GFR ( Amer) > 60.0 ml/min (>90) 07/17/18 04:55 Est GFR (Non-Af Amer) 51.1 ml/min 07/17/18 04:55 BUN/Creatinine Ratio 49.3 07/17/18 04:55 Glucose 112 mg/dL (70-105) H 07/17/18 04:55 POC Glucose 120 MG/DL (70 - 105) H 07/17/18 06:59 Whole Bld Lactic Acid 1.96 mmol/L (0.60-1.99) 07/07/18 19:15 Calcium 8.3 mg/dL (8.6-10.3) L 07/17/18 04:55 Phosphorus 4.0 mg/dL (2.5-5.0) 07/17/18 04:55 Magnesium 2.8 mg/dL (1.9-2.7) H 07/17/18 04:55 Total Bilirubin 1.4 mg/dL (0.3-1.0) H 07/16/18 04:40 Direct Bilirubin 0.62 mg/dL (0.0-0.2) H 07/15/18 04:15 AST 441 U/L (13-39) H 07/16/18 04:40 ALT 141 U/L (7-52) H 07/16/18 04:40 Alkaline Phosphatase 97 U/L (34-104) 07/16/18 04:40 Ammonia 133 umol/L (16-53) H 07/14/18 04:30 Troponin I 0.01 ng/mL (0.01-0.05) 07/09/18 07:30 B-Natriuretic Peptide 196.0 pg/mL (5.0-100.0) H 07/09/18 07:30 Total Protein 5.6 gm/dL (6.0-8.3) L 07/16/18 04:40 Albumin 3.5 gm/dL (4.2-5.5) L 07/16/18 04:40 Globulin 2.1 gm/dL 07/16/18 04:40 Albumin/Globulin Ratio 1.7 (1.0-1.8) 07/16/18 04:40 Prealbumin 5 mg/dL (10-36) L 07/14/18 13:13 Triglycerides 143 mg/dL (<150) 07/13/18 04:38 Cholesterol 117 mg/dL (<200) 07/14/18 04:30 Lipase 29 U/L (11-82) 07/16/18 04:40 Tumor Marker AFP Diluted result ng/mL (0.0-8.3) H 07/14/18 13:13 Carcinoembryonic Ag 9.9 ng/mL (0.0-4.7) H 07/14/18 13:13 Vitamin B12 1241 pg/mL (232-1245) 07/08/18 04:10 Folic Acid 8.6 ng/mL (>3.0) 07/08/18 04:10 Free T4 1.04 ng/dL (0.82-1.77) 07/09/18 07:30 Free T3 1.1 pg/mL (2.0-4.4) L 07/09/18 07:30 TSH 4.06 uIU/ml (0.34-5.60) 07/08/18 04:10 Urine Source CLEAN C 07/07/18 17:15 Urine Color YELLOW 07/07/18 17:15 Urine Clarity CLEAR (CLEAR) 07/07/18 17:15 Urine pH 6.0 (4.6 - 8.0) 07/07/18 17:15 Ur Specific [place] 1.015 (1.005-1.030) 07/07/18 17:15 Urine Protein 30 mg/dL (NEGATIVE) H 07/07/18 17:15 Urine Glucose (UA) NEGATIVE mg/dL (NEGATIVE) 07/07/18 17:15 Urine Ketones NEGATIVE mg/dL (NEGATIVE) 07/07/18 17:15 Urine Blood NEGATIVE (NEGATIVE) 07/07/18 17:15 Urine Nitrate NEGATIVE (NEGATIVE) 07/07/18 17:15 Urine Bilirubin NEGATIVE (NEGATIVE) 07/07/18 17:15 Urine Urobilinogen 0.2 E.U./dL (0.2 - 1.0) 07/07/18 17:15 Ur Leukocyte Esterase NEGATIVE (NEGATIVE) 07/07/18 17:15 Urine RBC 0-2 /hpf (0-5) H 07/07/18 17:15 Urine WBC 2-5 /hpf (0-5) 07/07/18 17:15 Ur Epithelial Cells FEW /lpf (FEW) 07/07/18 17:15 Urine Bacteria FEW /hpf (NONE SEEN) 07/07/18 17:15 Fine Granular Casts 0-2 /lpf (NONE SEEN) H 07/07/18 17:15 Urine Mucus FEW /lpf (FEW) 07/07/18 17:15 Vancomycin Trough 34.9 ug/mL (5-10) H 07/14/18 13:13 Random Vancomycin 26.7 ug/mL (5.0-40.0) 07/17/18 04:55 Hepatitis A IgM Ab Negative (Negative) 07/14/18 04:30 Hep Bs Antigen Negative (Negative) 07/14/18 04:30 Hep B Core IgM Ab Negative (Negative) 07/14/18 04:30 Hepatitis C Antibody <0.1 s/co ratio (0.0-0.9) 07/14/18 04:30 - Physical Exam Vitals and I&O: Vital Signs Temp 97.9 F 07/17/18 12:00 Pulse 101 07/17/18 12:56 Resp 12 07/17/18 12:00 BP 138/96 07/17/18 12:00 Pulse Ox 97 07/17/18 12:56 Intake & Output 07/16/18 07/17/18 07/17/18 18:59 06:59 18:59 Intake Total 3366.209 330.125 Output Total 2330 Balance 1036.209 330.125 Weight (lbs) 177 lb 6 oz Intake: Intake, IV Amount 2226.209 330.125 Diltiazem 125 mg In 96.209 130.125 Dextrose 5% 100 ml @ 0 MG /HR IV TITR [facility] Rx#: [id number] Meropenem 500 mg In 100 100 Sodium Chloride 0.9% 100 ml @ 100 mls/hr IV Q12H [facility] Rx#:[id number] Multivitamin Inj 10 ml In 1680 Dextrose 70% 240 ml In Amino Acids 10% 714 ml In Intralipids 20% 150 ml In Water, Sterile 566 ml @ 70 mls/hr IV .Q24H [facility] Rx#:[id number] metroNIDAZOLE 500mg/NS 100 100 100mL 500 mg In 100 ml @ 100 mls/hr IV Q8HR [facility] Rx #:[id number] TPN/PPN 840 Other 300 Output: Gastric Drainage 700 Urine 1630 Other: # Bowel Movements 0 Weight Source Bedscale Active Medications: Current Medications Acetaminophen (Tylenol) 650 mg PO Q4H PRN PRN Reason: Pain Or Fever above 101 Stop: 09/05/18 19:05 Last Admin: 07/12/18 00:15 Dose: 650 mg Albuterol/Ipratropium (Duoneb Neb) 3 ml HHN Q4HRT [facility] Stop: 09/06/18 14:59 Last Admin: 07/17/18 10:29 Dose: 3 ml Budesonide (Pulmicort) 0.5 mg HHN BIDRT [facility] Stop: 09/06/18 18:59 Last Admin: 07/17/18 06:47 Dose: 0.5 mg Calamine/Phenol (Calmoseptine) 1 appl TP QID PRN PRN Reason: Skin Irritation Stop: 09/09/18 11:33 Chlorhexidine Gluconate (Peridex) 15 ml MM 0800,2000 [facility] Stop: 09/06/18 07:59 Last Admin: 07/17/18 08:56 Dose: 15 ml Dextrose (D50w) 50 ml IVP Q4HR PRN PRN Reason: Hypersensitivity Stop: 09/06/18 00:58 Diltiazem HCl (Cardizem) 20 mg IVP Q4H PRN PRN Reason: Tachycardia Stop: 09/13/18 09:31 Furosemide (Lasix) 40 mg IVP BID [facility] Stop: 09/12/18 16:59 Last Admin: 07/17/18 08:40 Dose: 40 mg Norepinephrine Bitartrate 4 mg (/ Dextrose) 254 mls @ 7.62 mls/hr IV TITR PRN; Protocol PRN Reason: To Keep SBP Above 90 Stop: 09/06/18 00:56 Multivitamins/Minerals 10 ml/Dextrose/ Amino Acids/Electrolytes/ Fat Emulsion Intravenous/ Sterile Water 1,680 mls @ 70 mls/hr IV .Q24H [facility] Stop: 09/10/18 15:59 Last Admin: 07/16/18 16:33 Dose: 70 mls/hr Diltiazem HCl 125 mg/ Dextrose 125 mls @ 0 mls/hr IV TITR [facility]; Protocol Stop: 09/13/18 09:44 Last Titration: 07/17/18 06:52 Dose: 5 mg/hr, 5 mls/hr Meropenem 500 mg/ Sodium (Chloride) 100 mls @ 100 mls/hr IV Q12H [facility] Stop: 09/13/18 14:59 Last Infusion: 07/17/18 03:30 Dose: Infused Fluconazole (Diflucan) 200 mg in 100 mls @ 100 mls/hr IV Q24HR [facility] Stop: 09/15/18 12:59 Insulin Aspart (Novolog) 0 units SUBQ Q6HR [facility]; Protocol Stop: 09/06/18 17:59 Last Admin: 07/17/18 11:53 Dose: Not Given Insulin Human NPH (Novolin N) 10 units SUBQ BIDAC [facility]; Protocol Stop: 09/12/18 16:29 Last Admin: 07/17/18 07:03 Dose: 10 units Levothyroxine Sodium (Synthroid) 0.025 mg PO QDAC [facility] Stop: 09/06/18 07:29 Last Admin: 07/17/18 07:03 Dose: 0.025 mg Magnesium Hydroxide (Milk Of Magnesia) 30 ml PO HS PRN PRN Reason: Constipation Stop: 09/09/18 20:15 Magnesium Hydroxide (Milk Of Magnesia) 30 ml NG BID [facility] Stop: 09/10/18 09:59 Last Admin: 07/17/18 08:39 Dose: 30 ml Methylprednisolone Sodium Succinate (Solu-Medrol) 40 mg IV Q12HR [facility] Stop: 09/08/18 20:59 Last Admin: 07/17/18 08:39 Dose: 40 mg Metoclopramide HCl (Reglan) 5 mg IVP Q8HR [facility] Stop: 09/08/18 20:59 Last Admin: 07/17/18 13:12 Dose: 5 mg Mineral Oil (Mineral Oil 30 Ml) 30 ml NG BID [facility] Stop: 09/10/18 09:14 Last Admin: 07/17/18 08:39 Dose: 30 ml Miscellaneous (Vancomycin Iv Per Pharmacy) 1 ea MC PRN [facility] Stop: 09/05/18 19:14 Miscellaneous (Tpn Per Pharmacy) 1 ea PRN PRN PRN Reason: PROTOCOL Stop: 09/10/18 09:13 Miscellaneous (Probiotic Screen) 1 ea PRN PRN PRN Reason: PROTOCOL Stop: 09/14/18 16:18 Morphine Sulfate (Morphine) 1 mg IVP Q4HR PRN PRN Reason: Severe Pain Stop: 09/10/18 22:24 Last Admin: 07/17/18 00:31 Dose: 1 mg Ondansetron HCl (Zofran) 4 mg IV Q8H PRN PRN Reason: Nausea / Vomiting Stop: 09/05/18 19:05 Pantoprazole Sodium (Protonix) 40 mg IVP QDAC [facility] Stop: 09/10/18 07:29 Last Admin: 07/17/18 07:03 Dose: 40 mg General: weak, congested, obtunded HEENT: NC/AT, PERRLA Neck: Supple Lungs: rales, ronchi Cardiovascular: RRR, Normal S1, Normal S2, without murmur Abdomen: distended Extremities: excoriation Neurological: unable to follow command - Procedures Procedures: Procedures Procedure Code Date RESPIRATORY VENTILATION, GREATER THAN 96 CONSECUTIVE HOURS [id number] 07/07/18 Internal Medicine Assmt/Plan - Assessment Assessment: acute respiratory failure vdrf sepsis left lung pna anemia abdominal distention hyponatremia hypokalemia mild protein meg malnutrition episode of hypoglycemia down syndrome htn asthma hx liver ca - Plan Plan: continue vent support continue ivabx in-line respiratory treatments to continue continue current plan of care Nutritional Asmnt/Malnutr-PDOC - Dietary Evaluation Malnutrition Findings (Please click <Entered> for more info): Nutritional Asmnt/Malnutrition Start: 07/08/18 16: 06 Text: Status: Complete Freq: Protocol: Document 07/08/18 16:06 MANUELITO (Rec: 07/08/18 16:30 MANUELITO [id number]) Nutritional Asmnt/Malnutrition Patient General Information Nutritional Screening High Risk Diagnosis acute resp failure, spesis Pertinent Medical Hx/Surgical Hx HTN, asthma/COPD, downs, asthma, liver CA Subjective Information Pt seen intubated on vent. RN inserted NGtube and TF stated at lunch time as ordered. Current Diet Order/ Nutrition Support glucerna 1.2 at 20ml/hr continuous Pertinent Medications D50w, D5-0.9%ns, novolog, synthroid, protonix, piperacillin, vancomycin Pertinent Labs 07/08 Na 133, K 3.4, BUN 6, Cr 0.5, glucose 343, POC 101-293 07/07 Na 133, Cr 0.5, glucose 41, POC 17-135 Nutritional Hx/Data Height 4 ft 11 in Height (Calculated Centimeters) 149.9 Current Weight (lbs) 160 lb Weight (Calculated Kilograms) 72.6 Weight (Calculated Grams) 45050.8 [place] Body Weight 104 Body Mass Index (BMI) 32.3 Weight Status Overweight GI Symptoms GI Symptoms None Last BM not indicated Difficult in: None Usual diet at home regular high fiber at care facility per chart Skin Integrity/Comment: rash to sacrum Estimated Nutritional Goals BEE in Kcals: Adj wt of IBW Calories/Kcals/Kg 27-32 adj 54kg Kcals Calculated 1890-3929 Protein: Adj wt of IBW Protein g/k.2-1.5 Protein Calculated 62-81 Fluid: ml 1458-1728ml (1ml/kcal) Nutritional Problem 1. Problem Problem increased nutrition needs Etiology increased metabolic demand Signs/Symptoms: dx of sepsis Malnutrition Alert Is there a minimum of two criteria No selected? Query Text:Check all the applicable criteria. A minimum of two criteria are recommended for diagnosis of either severe or non-severe malnutrition. Intervention/Recommendation Comments 1. Start with Glucerna 1.2 at 20ml/hr continuous as ordered. It provides 576kcal, 29g protein, 386ml free water. 2. Recommend increase to goal rate of 55ml/hr continuous as tolerated, which providing 1584kcal and 79g protein to meet 100% of nutritioanl needs . 3. Monitor TF rate, tolerance, wt, skin integrity and labs 4. F/U as high risk in 2-3 days, 07/10-07/11 Expected Outcomes/Goals Expected Outcomes/Goals 1. Pt to meet at least 75% of nutritional needs via nutrition support with tolerance 2. Wt stability, skin to remain intact, labs to approach WNL.
--- NOTE | 2018-07-17 14:48 | Progress Notes ---
DATE: 07/17/2018 PULMONARY/CRITICAL CARE PROGRESS NOTE PROBLEM LIST: 1. [place] respiratory failure. 2. Significant fleeting infiltrates. SYMPTOMS: The patient is more awake and alert, not in any acute distress. Currently on SMV of 7 and on 30% of oxygen. PHYSICAL EXAMINATION: VITAL SIGNS: T-max 98.2, blood pressure 128/88, saturation is mid 90s on 30% SMV of 7. NECK: Veins not visualized. CHEST: Shows diminished air entry with occasional rhonchi. HEART: Regular. ABDOMEN: Soft, nontender. Slightly less distended. LABORATORY DATA: The patient's lab shows white count of 27,000, hemoglobin 9.5, ABG looks okay on 30% of oxygen with 7 SMV with a pressure support of ____ electrolytes are okay with BUN of 74. ASSESSMENT: The patient is clinically stable, improving. PLANS AND SUGGESTIONS: We will go ahead and continue current treatment and I will discuss with the nursing staff, etc and go from there. JOB# [id number]
[2018-07-17] MEDS: Fluconazole 200mg/100mL 200 MG/100 ML BAG IV SCH (15:53)
[2018-07-17] MEDS: DEXTROSE IV SCH (16:02)
[2018-07-17] MEDS: AMINO ACIDS IV SCH (16:02)
[2018-07-17] MEDS: [UNRECOGNIZED DRUG - OTHER] IV SCH (16:02)
[2018-07-17] MEDS: MULTIVITAMIN IV SCH (16:02)
[2018-07-18] MEDS: INSULIN ASPART, RECOMBINANT 100 UNITS/ML SUBQ SCH ×5 (00:35→20:57)
[2018-07-18] MEDS: Morphine Sulfate 2 mg/mL 1mL Syr IVP PRN ×2 (02:39→08:18)
[2018-07-18] MEDS: Meropenem 500 MG in Sodium Chloride 0.9% 100 ML IV SCH ×2 (02:40→14:05)
[2018-07-18] MEDS: Albuterol/Ipratropium Neb 3 ML AERS HHN SCH ×6 (04:21→23:01)
[2018-07-18 05:46] LABS: HEMATOCRIT 28.6 % (41.0-60); MEAN CELL VOLUME 90.2 fl (80-99); MEAN CORPUSCULAR HEMOGLOBIN 31.6 pg (26.0-30.0); MEAN PLATELET VOLUME 9.5 fl; PLATELET COUNT 96 Th/cmm (150-400); RED BLOOD COUNT 3.17 Mil/cmm (4.30-5.70); RED CELL DISTRIBUTION WIDTH 19.6 % (11.5-20.0)
[2018-07-18 05:51] LABS: WHITE BLOOD COUNT 34.4 Th/cmm (4.8-10.8)
[2018-07-18] MEDS: Metoclopramide 5 mg/mL 2mL Vial IVP SCH ×3 (05:52→21:17)
[2018-07-18 05:58] LABS: ALB/GLOB RATIO 1.4 (1.0-1.8); ALBUMIN 3.5 gm/dL (4.2-5.5); ANION GAP 13.6 (7.0-16.0); BILIRUBIN,TOTAL 2.4 mg/dL (0.3-1.0); CALCIUM SERUM 8.4 mg/dL (8.6-10.3); CARBON DIOXIDE 29.9 mEq/L (21.0-31.0); CREATININE - SERUM 1.6 mg/dL (0.7-1.3); GFR AFRICAN-AMERICAN 57.4 ml/min (>90); GFR NON AFRICAN-AMERICAN 47.4 ml/min; MAGNESIUM 2.9 mg/dL (1.9-2.7); POTASSIUM SERUM 4.5 mEq/L (3.5-5.1); TOTAL PROTEIN,SERUM 6.1 gm/dL (6.0-8.3)
[2018-07-18 06:27] LABS: BAND NEUTROPHILE 5 % (0-10); CORRECTED WBC 31.9 Th/cmm; LYMPHOCYTE 4 % (20-50); NEUTROPHILS 91 % (40-80)
[2018-07-18 06:28] LABS: OVALOCYTES 1+; PLATELET ESTIMATE DECREASED PLATELETS (NORMAL); TEAR DROP CELLS 1+
[2018-07-18] MEDS: Levothyroxine 0.025 Mg Tab PO SCH (06:33)
[2018-07-18] MEDS: INSULIN HUMAN ISOPHANE (NPH) 100 UNITS/ML SUBQ SCH (06:33)
[2018-07-18] MEDS: Budesonide 0.5 Mg/2 mL Ud HHN SCH ×2 (06:55→18:58)
[2018-07-18] MEDS: Magnesium Hydroxide (MOM) 30 mL UDC NG SCH ×2 (08:24→16:16)
[2018-07-18] MEDS: Chlorhexidine Gluconate 0.12% 15mL Mouthwash MM SCH ×2 (08:24→20:59)
[2018-07-18] MEDS: methylPREDNISolone SS 40 mg Vial IV SCH ×2 (08:25→21:16)
--- NOTE | 2018-07-18 08:36 | Diagnostic Imaging Report ---
CHEST X-RAY: AP view INDICATION: Shortness of breath COMPARISON: Chest x-ray 07/16/2018 FINDINGS: ET tube is seen with tip 3.8 cm above the jaun. NG tube and right PICC line are stable. Mild improving congestive changes and bilateral initial infiltrates are noted. Small bilateral effusions are noted. Cardiomegaly is noted. IMPRESSION: Mild improvement in congestive changes and bilateral interstitial infiltrates. Cardiomegaly.
[2018-07-18 09:08] LABS: pH 7.41 (7.35-7.45)
[2018-07-18 09:09] LABS: ALLEN TEST YES
[2018-07-18] MEDS: Sodium Chloride 0.9% 1,000 ML IV SCH (10:22)
[2018-07-18] MEDS ORDERED: Dextrose 10% 1,000 ML IV SCH (12:15)
[2018-07-18] MEDS: Fluconazole 200mg/100mL 200 MG/100 ML BAG IV SCH (12:17)
--- NOTE | 2018-07-18 12:49 | Internal Medicine Prog Note ---
Internal Medicine Subjective - Subjective Service Date: 07/18/18 Patient is:: non-verbal, non-interactive, other (obtunded) Patient Complaints of:: congestion, weight gain Per staff patient has:: tolerating meds Internal Medicine Objective - Results Result Diagrams: 07/18/18 05:30 07/18/18 05:30 Recent Labs: Laboratory Last Values WBC 34.4 Th/cmm (4.8-10.8) H* 07/18/18 05:30 Corrected WBC (auto) 31.9 Th/cmm 07/18/18 05:30 RBC 3.17 Mil/cmm (4.30-5.70) L 07/18/18 05:30 Hgb 10.0 gm/dL (12-16) L 07/18/18 05:30 Hct 28.6 % (41.0-60) L 07/18/18 05:30 MCV 90.2 fl (80-99) 07/18/18 05:30 MCH 31.6 pg (26.0-30.0) H 07/18/18 05:30 MCHC Differential 35.0 pg (28.0-36.0) 07/18/18 05:30 RDW 19.6 % (11.5-20.0) 07/18/18 05:30 Plt Count 96 Th/cmm (150-400) L 07/18/18 05:30 MPV 9.5 fl 07/18/18 05:30 Add Manual Diff YES 07/18/18 05:30 Neutrophils % 96.6 % (40.0-80.0) H 07/11/18 04:40 Band Neutrophils % 5 % (0-10) 07/18/18 05:30 Lymphocytes % 2.2 % (20.0-50.0) L 07/11/18 04:40 Monocytes % 1.1 % (2.0-10.0) L 07/11/18 04:40 Eosinophils % 0.1 % (0.0-5.0) 07/11/18 04:40 Basophils % 0.0 % (0.0-2.0) 07/11/18 04:40 Neutrophils (Manual) 91 % (40-80) H 07/18/18 05:30 Lymphocytes 4 % (20-50) L 07/18/18 05:30 Monocytes 4 % (2-10) 07/16/18 04:40 Eosinophils 0 % (0-5) 07/09/18 07:30 Basophils 0 % (0-3) 07/09/18 07:30 Metamyelocytes 0 % (0-0) 07/08/18 04:10 Myelocytes 2 % 07/15/18 04:15 Nucleated RBCs 8.0 % (0-0) H 07/18/18 05:30 Platelet Estimate DECREASED PLATELETS (NORMAL) 07/18/18 05:30 Tear Drop Cells 1+ 07/18/18 05:30 Ovalocytes 1+ 07/18/18 05:30 Schistocytes 1+ 07/13/18 04:38 PT 18.9 SECONDS (9.5-11.5) H 07/14/18 04:30 INR 1.88 (0.5-1.4) H 07/14/18 04:30 PTT (Actin FS) 27.3 SECONDS (26.0-38.0) 07/18/18 05:30 Specimen Source Arterial 07/18/18 09:00 Sample Site Right Radial 07/18/18 09:00 pH 7.41 (7.35-7.45) 07/18/18 09:00 pCO2 52.0 mmHg (35.0-45.0) H 07/18/18 09:00 pO2 63.0 mmHg (80.0-100.0) L 07/18/18 09:00 HCO3 30.3 mEq/L (20.0-26.0) H 07/18/18 09:00 Base Excess 7.0 mEq/L (-3.0-3.0) H 07/18/18 09:00 O2 Saturation 92.0 % (92.0-100.0) 07/18/18 09:00 Kam Test YES 07/18/18 09:00 Vent Rate 5 07/18/18 09:00 Inspired O2 30 07/18/18 09:00 Tidal Volume 450 07/18/18 09:00 PEEP 0 07/18/18 09:00 Pressure (ins/psv/peep) 20 07/18/18 09:00 Critical Value E.CURRAN 07/18/18 09:00 Sodium 145 mEq/L (136-145) 07/18/18 05:30 Potassium 4.5 mEq/L (3.5-5.1) 07/18/18 05:30 Chloride 106 mEq/L (98-107) 07/18/18 05:30 Carbon Dioxide 29.9 mEq/L (21.0-31.0) 07/18/18 05:30 Anion Gap 13.6 (7.0-16.0) 07/18/18 05:30 BUN 83 mg/dL (7-25) H* 07/18/18 05:30 Creatinine 1.6 mg/dL (0.7-1.3) H 07/18/18 05:30 Est GFR ( Amer) 57.4 ml/min (>90) 07/18/18 05:30 Est GFR (Non-Af Amer) 47.4 ml/min 07/18/18 05:30 BUN/Creatinine Ratio 51.9 07/18/18 05:30 Glucose 54 mg/dL (70-105) L 07/18/18 05:30 POC Glucose 72 MG/DL (70 - 105) 07/18/18 11:40 Whole Bld Lactic Acid 1.96 mmol/L (0.60-1.99) 07/07/18 19:15 Calcium 8.4 mg/dL (8.6-10.3) L 07/18/18 05:30 Phosphorus 5.0 mg/dL (2.5-5.0) 07/18/18 05:30 Magnesium 2.9 mg/dL (1.9-2.7) H 07/18/18 05:30 Total Bilirubin 2.4 mg/dL (0.3-1.0) H 07/18/18 05:30 Direct Bilirubin 0.62 mg/dL (0.0-0.2) H 07/15/18 04:15 AST 403 U/L (13-39) H 07/18/18 05:30 ALT 121 U/L (7-52) H 07/18/18 05:30 Alkaline Phosphatase 111 U/L (34-104) H 07/18/18 05:30 Ammonia 133 umol/L (16-53) H 07/14/18 04:30 Troponin I 0.01 ng/mL (0.01-0.05) 07/09/18 07:30 B-Natriuretic Peptide 196.0 pg/mL (5.0-100.0) H 07/09/18 07:30 Total Protein 6.1 gm/dL (6.0-8.3) 07/18/18 05:30 Albumin 3.5 gm/dL (4.2-5.5) L 07/18/18 05:30 Globulin 2.6 gm/dL 07/18/18 05:30 Albumin/Globulin Ratio 1.4 (1.0-1.8) 07/18/18 05:30 Prealbumin 5 mg/dL (10-36) L 07/14/18 13:13 Triglycerides 143 mg/dL (<150) 07/13/18 04:38 Cholesterol 117 mg/dL (<200) 07/14/18 04:30 Lipase 29 U/L (11-82) 07/16/18 04:40 Tumor Marker AFP Diluted result ng/mL (0.0-8.3) H 07/14/18 13:13 Carcinoembryonic Ag 9.9 ng/mL (0.0-4.7) H 07/14/18 13:13 Vitamin B12 1241 pg/mL (232-1245) 07/08/18 04:10 Folic Acid 8.6 ng/mL (>3.0) 07/08/18 04:10 Free T4 1.04 ng/dL (0.82-1.77) 07/09/18 07:30 Free T3 1.1 pg/mL (2.0-4.4) L 07/09/18 07:30 TSH 4.06 uIU/ml (0.34-5.60) 07/08/18 04:10 Urine Source CLEAN C 07/07/18 17:15 Urine Color YELLOW 07/07/18 17:15 Urine Clarity CLEAR (CLEAR) 07/07/18 17:15 Urine pH 6.0 (4.6 - 8.0) 07/07/18 17:15 Ur Specific [place] 1.015 (1.005-1.030) 07/07/18 17:15 Urine Protein 30 mg/dL (NEGATIVE) H 07/07/18 17:15 Urine Glucose (UA) NEGATIVE mg/dL (NEGATIVE) 07/07/18 17:15 Urine Ketones NEGATIVE mg/dL (NEGATIVE) 07/07/18 17:15 Urine Blood NEGATIVE (NEGATIVE) 07/07/18 17:15 Urine Nitrate NEGATIVE (NEGATIVE) 07/07/18 17:15 Urine Bilirubin NEGATIVE (NEGATIVE) 07/07/18 17:15 Urine Urobilinogen 0.2 E.U./dL (0.2 - 1.0) 07/07/18 17:15 Ur Leukocyte Esterase NEGATIVE (NEGATIVE) 07/07/18 17:15 Urine RBC 0-2 /hpf (0-5) H 07/07/18 17:15 Urine WBC 2-5 /hpf (0-5) 07/07/18 17:15 Ur Epithelial Cells FEW /lpf (FEW) 07/07/18 17:15 Urine Bacteria FEW /hpf (NONE SEEN) 07/07/18 17:15 Fine Granular Casts 0-2 /lpf (NONE SEEN) H 07/07/18 17:15 Urine Mucus FEW /lpf (FEW) 07/07/18 17:15 Vancomycin Trough 34.9 ug/mL (5-10) H 07/14/18 13:13 Random Vancomycin 18.5 ug/mL (5.0-40.0) 07/18/18 05:30 Hepatitis A IgM Ab Negative (Negative) 07/14/18 04:30 Hep Bs Antigen Negative (Negative) 07/14/18 04:30 Hep B Core IgM Ab Negative (Negative) 07/14/18 04:30 Hepatitis C Antibody <0.1 s/co ratio (0.0-0.9) 07/14/18 04:30 - Physical Exam Vitals and I&O: Vital Signs Temp 98.2 F 07/18/18 12:00 Pulse 118 07/18/18 12:30 Resp 20 07/18/18 12:00 BP 139/94 07/18/18 12:30 Pulse Ox 92 07/18/18 12:13 Intake & Output 07/17/18 07/18/18 07/18/18 18:59 06:59 18:59 Intake Total 2923.833 1112.833 Output Total 1375 1350 Balance 1548.833 -237.167 Weight (lbs) 186 lb 9.6 oz 181 lb 6.4 oz Intake: Intake, IV Amount 1843.833 192.833 Diltiazem 125 mg In 92.833 Dextrose 5% 100 ml @ 0 MG /HR IV TITR [facility] Rx#: [id number] Fluconazole 200mg/100mL 100 200 mg In 100 ml @ 100 mls/hr IV Q24HR [facility] Rx#: [id number] Meropenem 500 mg In 100 100 Sodium Chloride 0.9% 100 ml @ 100 mls/hr IV Q12H [facility] Rx#:[id number] Multivitamin Inj 10 ml In 1643.833 Dextrose 70% 240 ml In Amino Acids 10% 714 ml In Intralipids 20% 150 ml In Water, Sterile 566 ml @ 70 mls/hr IV .Q24H [facility] Rx#:[id number] Oral 0 Tube Feeding 0 TPN/PPN 840 840 Other 240 80 Output: Gastric Drainage 200 200 Urine 1175 1150 Other: # Bowel Movements 0 Weight Source Bedscale Bedscale Active Medications: Current Medications Acetaminophen (Tylenol) 650 mg PO Q4H PRN PRN Reason: Pain Or Fever above 101 Stop: 09/05/18 19:05 Last Admin: 07/12/18 00:15 Dose: 650 mg Albuterol/Ipratropium (Duoneb Neb) 3 ml HHN Q4HRT [facility] Stop: 09/06/18 14:59 Last Admin: 07/18/18 10:56 Dose: 3 ml Budesonide (Pulmicort) 0.5 mg HHN BIDRT [facility] Stop: 09/06/18 18:59 Last Admin: 07/18/18 06:55 Dose: 0.5 mg Calamine/Phenol (Calmoseptine) 1 appl TP QID PRN PRN Reason: Skin Irritation Stop: 09/09/18 11:33 Chlorhexidine Gluconate (Peridex) 15 ml MM 0800,2000 [facility] Stop: 09/06/18 07:59 Last Admin: 07/18/18 08:24 Dose: 15 ml Dextrose (D50w) 50 ml IVP Q4HR PRN PRN Reason: Hypersensitivity Stop: 09/06/18 00:58 Last Admin: 07/18/18 06:09 Dose: 50 ml Diltiazem HCl (Cardizem) 20 mg IVP Q4H PRN PRN Reason: Tachycardia Stop: 09/13/18 09:31 Norepinephrine Bitartrate 4 mg (/ Dextrose) 254 mls @ 7.62 mls/hr IV TITR PRN; Protocol PRN Reason: To Keep SBP Above 90 Stop: 09/06/18 00:56 Multivitamins/Minerals 10 ml/Dextrose/ Amino Acids/Electrolytes/ Fat Emulsion Intravenous/ Sterile Water 1,680 mls @ 70 mls/hr IV .Q24H [facility] Stop: 09/10/18 15:59 Last Admin: 07/17/18 16:02 Dose: 70 mls/hr Diltiazem HCl 125 mg/ Dextrose 125 mls @ 0 mls/hr IV TITR [facility]; Protocol Stop: 09/13/18 09:44 Last Admin: 07/18/18 01:26 Dose: 5 mg/hr, 5 mls/hr Meropenem 500 mg/ Sodium (Chloride) 100 mls @ 100 mls/hr IV Q12H [facility] Stop: 09/13/18 14:59 Last Infusion: 07/18/18 03:57 Dose: Infused Fluconazole (Diflucan) 200 mg in 100 mls @ 100 mls/hr IV Q24HR [facility] Stop: 09/15/18 12:59 Last Admin: 07/18/18 12:17 Dose: 100 mls/hr Sodium Chloride (Nacl 0.9%) 1,000 mls @ 50 mls/hr IV .Q20H [facility] Stop: 09/16/18 08:59 Last Admin: 07/18/18 10:22 Dose: 50 mls/hr Vancomycin HCl 1 gm/ Sodium (Chloride) 250 mls @ 165 mls/hr IV ONCE ONE Stop: 07/18/18 19:30 Dextrose (Dextrose 10%) 1,000 mls @ 70 mls/hr IV .[id number] [facility] Stop: 08/05/18 08:49 Last Admin: 07/18/18 12:18 Dose: 70 mls/hr Insulin Aspart (Novolog) 0 units SUBQ Q4H [facility]; Protocol Stop: 09/06/18 17:59 Levothyroxine Sodium (Synthroid) 0.025 mg PO QDAC [facility] Stop: 09/06/18 07:29 Last Admin: 07/18/18 06:33 Dose: 0.025 mg Magnesium Hydroxide (Milk Of Magnesia) 30 ml NG BID [facility] Stop: 09/10/18 09:59 Last Admin: 07/18/18 08:24 Dose: 30 ml Methylprednisolone Sodium Succinate (Solu-Medrol) 40 mg IV Q12HR [facility] Stop: 09/08/18 20:59 Last Admin: 07/18/18 08:25 Dose: 40 mg Metoclopramide HCl (Reglan) 5 mg IVP Q8HR [facility] Stop: 09/08/18 20:59 Last Admin: 07/18/18 12:18 Dose: 5 mg Mineral Oil (Mineral Oil 30 Ml) 30 ml NG BID [facility] Stop: 09/10/18 09:14 Last Admin: 07/18/18 08:24 Dose: 30 ml Miscellaneous (Vancomycin Iv Per Pharmacy) 1 ea PRN [facility] Stop: 09/05/18 19:14 Miscellaneous (Tpn Per Pharmacy) 1 [facility] PRN PRN PRN Reason: PROTOCOL Stop: 09/10/18 09:13 Miscellaneous (Probiotic Screen) 1 [facility] PRN PRN PRN Reason: PROTOCOL Stop: 09/14/18 16:18 Morphine Sulfate (Morphine) 1 mg IVP Q4HR PRN PRN Reason: Severe Pain Stop: 09/10/18 22:24 Last Admin: 07/18/18 08:18 Dose: 1 mg Ondansetron HCl (Zofran) 4 mg IV Q8H PRN PRN Reason: Nausea / Vomiting Stop: 09/05/18 19:05 Pantoprazole Sodium (Protonix) 40 mg IVP QDAC [facility] Stop: 09/10/18 07:29 Last Admin: 07/18/18 06:33 Dose: 40 mg General: weak, congested, obtunded HEENT: NC/AT, PERRLA Neck: Supple Lungs: rales, ronchi Cardiovascular: RRR, Normal S1, Normal S2, without murmur Abdomen: distended Extremities: excoriation Neurological: unable to follow command - Procedures Procedures: Procedures Procedure Code Date RESPIRATORY VENTILATION, GREATER THAN 96 CONSECUTIVE HOURS [id number] 07/07/18 Internal Medicine Assmt/Plan - Assessment Assessment: acute respiratory failure vdrf sepsis left lung pna anemia abdominal distention hyponatremia hypokalemia mild protein meg malnutrition episode of hypoglycemia down syndrome htn asthma hx liver ca - Plan Plan: continue vent support continue ivabx in-line respiratory treatments to continue continue current plan of care Nutritional Asmnt/Malnutr-PDOC - Dietary Evaluation Malnutrition Findings (Please click <Entered> for more info): Nutritional Asmnt/Malnutrition Start: 07/08/18 16: 06 Text: Status: Complete Freq: Protocol: Document 07/08/18 16:06 LCSHIRLEYG (Rec: 07/08/18 16:30 [facility] [id number]) Nutritional Asmnt/Malnutrition Patient General Information Nutritional Screening High Risk Diagnosis acute resp failure, spesis Pertinent Medical Hx/Surgical Hx HTN, asthma/COPD, downs, asthma, liver CA Subjective Information Pt seen intubated on vent. RN inserted NGtube and TF stated at lunch time as ordered. Current Diet Order/ Nutrition Support glucerna 1.2 at 20ml/hr continuous Pertinent Medications D50w, D5-0.9%ns, novolog, synthroid, protonix, piperacillin, vancomycin Pertinent Labs 07/08 Na 133, K 3.4, BUN 6, Cr 0.5, glucose 343, POC 101-293 07/07 Na 133, Cr 0.5, glucose 41, POC 17-135 Nutritional Hx/Data Height 4 ft 11 in Height (Calculated Centimeters) 149.9 Current Weight (lbs) 160 lb Weight (Calculated Kilograms) 72.6 Weight (Calculated Grams) 58355.8 [place] Body Weight 104 Body Mass Index (BMI) 32.3 Weight Status Overweight GI Symptoms GI Symptoms None Last BM not indicated Difficult in: None Usual diet at home regular high fiber at care facility per chart Skin Integrity/Comment: rash to sacrum Estimated Nutritional Goals BEE in Kcals: Adj wt of IBW Calories/Kcals/Kg 27-32 adj 54kg Kcals Calculated 3581-2075 Protein: Adj wt of IBW Protein g/k.2-1.5 Protein Calculated 62-81 Fluid: ml 1458-1728ml (1ml/kcal) Nutritional Problem 1. Problem Problem increased nutrition needs Etiology increased metabolic demand Signs/Symptoms: dx of sepsis Malnutrition Alert Is there a minimum of two criteria No selected? Query Text:Check all the applicable criteria. A minimum of two criteria are recommended for diagnosis of either severe or non-severe malnutrition. Intervention/Recommendation Comments 1. Start with Glucerna 1.2 at 20ml/hr continuous as ordered. It provides 576kcal, 29g protein, 386ml free water. 2. Recommend increase to goal rate of 55ml/hr continuous as tolerated, which providing 1584kcal and 79g protein to meet 100% of nutritioanl needs . 3. Monitor TF rate, tolerance, wt, skin integrity and labs 4. F/U as high risk in 2-3 days, 07/10-07/11 Expected Outcomes/Goals Expected Outcomes/Goals 1. Pt to meet at least 75% of nutritional needs via nutrition support with tolerance 2. Wt stability, skin to remain intact, labs to approach WNL.
[2018-07-18 12:57] LABS: pH 7.42 (7.35-7.45)
[2018-07-18 12:58] LABS: ALLEN TEST YES
--- NOTE | 2018-07-18 13:29 | GI Progress Note ---
Subjective - Review of Systems Service Date: 07/18/18 Events since last encounter: On C PAP Subjective: Intubated, Lethargic Objective - Results Result Diagrams: 07/18/18 05:30 07/18/18 05:30 Recent Labs: Laboratory Last Values WBC 34.4 Th/cmm (4.8-10.8) H* 07/18/18 05:30 Corrected WBC (auto) 31.9 Th/cmm 07/18/18 05:30 RBC 3.17 Mil/cmm (4.30-5.70) L 07/18/18 05:30 Hgb 10.0 gm/dL (12-16) L 07/18/18 05:30 Hct 28.6 % (41.0-60) L 07/18/18 05:30 MCV 90.2 fl (80-99) 07/18/18 05:30 MCH 31.6 pg (26.0-30.0) H 07/18/18 05:30 MCHC Differential 35.0 pg (28.0-36.0) 07/18/18 05:30 RDW 19.6 % (11.5-20.0) 07/18/18 05:30 Plt Count 96 Th/cmm (150-400) L 07/18/18 05:30 MPV 9.5 fl 07/18/18 05:30 Add Manual Diff YES 07/18/18 05:30 Neutrophils % 96.6 % (40.0-80.0) H 07/11/18 04:40 Band Neutrophils % 5 % (0-10) 07/18/18 05:30 Lymphocytes % 2.2 % (20.0-50.0) L 07/11/18 04:40 Monocytes % 1.1 % (2.0-10.0) L 07/11/18 04:40 Eosinophils % 0.1 % (0.0-5.0) 07/11/18 04:40 Basophils % 0.0 % (0.0-2.0) 07/11/18 04:40 Neutrophils (Manual) 91 % (40-80) H 07/18/18 05:30 Lymphocytes 4 % (20-50) L 07/18/18 05:30 Monocytes 4 % (2-10) 07/16/18 04:40 Eosinophils 0 % (0-5) 07/09/18 07:30 Basophils 0 % (0-3) 07/09/18 07:30 Metamyelocytes 0 % (0-0) 07/08/18 04:10 Myelocytes 2 % 07/15/18 04:15 Nucleated RBCs 8.0 % (0-0) H 07/18/18 05:30 Platelet Estimate DECREASED PLATELETS (NORMAL) 07/18/18 05:30 Tear Drop Cells 1+ 07/18/18 05:30 Ovalocytes 1+ 07/18/18 05:30 Schistocytes 1+ 07/13/18 04:38 PT 18.9 SECONDS (9.5-11.5) H 07/14/18 04:30 INR 1.88 (0.5-1.4) H 07/14/18 04:30 PTT (Actin FS) 27.3 SECONDS (26.0-38.0) 07/18/18 05:30 Specimen Source Arterial 07/18/18 12:50 Sample Site Right Radial 07/18/18 12:50 pH 7.42 (7.35-7.45) 07/18/18 12:50 pCO2 51.0 mmHg (35.0-45.0) H 07/18/18 12:50 pO2 72.0 mmHg (80.0-100.0) L 07/18/18 12:50 HCO3 30.6 mEq/L (20.0-26.0) H 07/18/18 12:50 Base Excess 7.3 mEq/L (-3.0-3.0) H 07/18/18 12:50 O2 Saturation 95.0 % (92.0-100.0) 07/18/18 12:50 Kam Test YES 07/18/18 12:50 Vent Rate NA 07/18/18 12:50 Inspired O2 30 07/18/18 12:50 Tidal Volume NA 07/18/18 12:50 PEEP NA 07/18/18 12:50 Pressure (ins/psv/peep) 20 07/18/18 12:50 Critical Value E.CURRAN 07/18/18 12:50 Sodium 145 mEq/L (136-145) 07/18/18 05:30 Potassium 4.5 mEq/L (3.5-5.1) 07/18/18 05:30 Chloride 106 mEq/L (98-107) 07/18/18 05:30 Carbon Dioxide 29.9 mEq/L (21.0-31.0) 07/18/18 05:30 Anion Gap 13.6 (7.0-16.0) 07/18/18 05:30 BUN 83 mg/dL (7-25) H* 07/18/18 05:30 Creatinine 1.6 mg/dL (0.7-1.3) H 07/18/18 05:30 Est GFR ( Amer) 57.4 ml/min (>90) 07/18/18 05:30 Est GFR (Non-Af Amer) 47.4 ml/min 07/18/18 05:30 BUN/Creatinine Ratio 51.9 07/18/18 05:30 Glucose 54 mg/dL (70-105) L 07/18/18 05:30 POC Glucose 72 MG/DL (70 - 105) 07/18/18 11:40 Whole Bld Lactic Acid 1.96 mmol/L (0.60-1.99) 07/07/18 19:15 Calcium 8.4 mg/dL (8.6-10.3) L 07/18/18 05:30 Phosphorus 5.0 mg/dL (2.5-5.0) 07/18/18 05:30 Magnesium 2.9 mg/dL (1.9-2.7) H 07/18/18 05:30 Total Bilirubin 2.4 mg/dL (0.3-1.0) H 07/18/18 05:30 Direct Bilirubin 0.62 mg/dL (0.0-0.2) H 07/15/18 04:15 AST 403 U/L (13-39) H 07/18/18 05:30 ALT 121 U/L (7-52) H 07/18/18 05:30 Alkaline Phosphatase 111 U/L (34-104) H 07/18/18 05:30 Ammonia 133 umol/L (16-53) H 07/14/18 04:30 Troponin I 0.01 ng/mL (0.01-0.05) 07/09/18 07:30 B-Natriuretic Peptide 196.0 pg/mL (5.0-100.0) H 07/09/18 07:30 Total Protein 6.1 gm/dL (6.0-8.3) 07/18/18 05:30 Albumin 3.5 gm/dL (4.2-5.5) L 07/18/18 05:30 Globulin 2.6 gm/dL 07/18/18 05:30 Albumin/Globulin Ratio 1.4 (1.0-1.8) 07/18/18 05:30 Prealbumin 5 mg/dL (10-36) L 07/14/18 13:13 Triglycerides 143 mg/dL (<150) 07/13/18 04:38 Cholesterol 117 mg/dL (<200) 07/14/18 04:30 Lipase 29 U/L (11-82) 07/16/18 04:40 Tumor Marker AFP Diluted result ng/mL (0.0-8.3) H 07/14/18 13:13 Carcinoembryonic Ag 9.9 ng/mL (0.0-4.7) H 07/14/18 13:13 Vitamin B12 1241 pg/mL (232-1245) 07/08/18 04:10 Folic Acid 8.6 ng/mL (>3.0) 07/08/18 04:10 Free T4 1.04 ng/dL (0.82-1.77) 07/09/18 07:30 Free T3 1.1 pg/mL (2.0-4.4) L 07/09/18 07:30 TSH 4.06 uIU/ml (0.34-5.60) 07/08/18 04:10 Urine Source CLEAN C 07/07/18 17:15 Urine Color YELLOW 07/07/18 17:15 Urine Clarity CLEAR (CLEAR) 07/07/18 17:15 Urine pH 6.0 (4.6 - 8.0) 07/07/18 17:15 Ur Specific [place] 1.015 (1.005-1.030) 07/07/18 17:15 Urine Protein 30 mg/dL (NEGATIVE) H 07/07/18 17:15 Urine Glucose (UA) NEGATIVE mg/dL (NEGATIVE) 07/07/18 17:15 Urine Ketones NEGATIVE mg/dL (NEGATIVE) 07/07/18 17:15 Urine Blood NEGATIVE (NEGATIVE) 07/07/18 17:15 Urine Nitrate NEGATIVE (NEGATIVE) 07/07/18 17:15 Urine Bilirubin NEGATIVE (NEGATIVE) 07/07/18 17:15 Urine Urobilinogen 0.2 E.U./dL (0.2 - 1.0) 07/07/18 17:15 Ur Leukocyte Esterase NEGATIVE (NEGATIVE) 07/07/18 17:15 Urine RBC 0-2 /hpf (0-5) H 07/07/18 17:15 Urine WBC 2-5 /hpf (0-5) 07/07/18 17:15 Ur Epithelial Cells FEW /lpf (FEW) 07/07/18 17:15 Urine Bacteria FEW /hpf (NONE SEEN) 07/07/18 17:15 Fine Granular Casts 0-2 /lpf (NONE SEEN) H 07/07/18 17:15 Urine Mucus FEW /lpf (FEW) 07/07/18 17:15 Vancomycin Trough 34.9 ug/mL (5-10) H 07/14/18 13:13 Random Vancomycin 18.5 ug/mL (5.0-40.0) 07/18/18 05:30 Hepatitis A IgM Ab Negative (Negative) 07/14/18 04:30 Hep Bs Antigen Negative (Negative) 07/14/18 04:30 Hep B Core IgM Ab Negative (Negative) 07/14/18 04:30 Hepatitis C Antibody <0.1 s/co ratio (0.0-0.9) 07/14/18 04:30 - Physical Exam Vitals and I&O: Vital Signs Temp 98.2 F 07/18/18 12:00 Pulse 118 07/18/18 12:30 Resp 20 07/18/18 12:00 BP 139/94 07/18/18 12:30 Pulse Ox 92 07/18/18 12:13 Intake & Output 07/17/18 07/18/18 07/18/18 18:59 06:59 18:59 Intake Total 2923.833 1112.833 Output Total 1375 1350 Balance 1548.833 -237.167 Weight (lbs) 84.64 kg 82.282 kg Intake: Intake, IV Amount 1843.833 192.833 Diltiazem 125 mg In 92.833 Dextrose 5% 100 ml @ 0 MG /HR IV TITR [facility] Rx#: [id number] Fluconazole 200mg/100mL 100 200 mg In 100 ml @ 100 mls/hr IV Q24HR [facility] Rx#: [id number] Meropenem 500 mg In 100 100 Sodium Chloride 0.9% 100 ml @ 100 mls/hr IV Q12H [facility] Rx#:[id number] Multivitamin Inj 10 ml In 1643.833 Dextrose 70% 240 ml In Amino Acids 10% 714 ml In Intralipids 20% 150 ml In Water, Sterile 566 ml @ 70 mls/hr IV .Q24H [facility] Rx#:[id number] Oral 0 Tube Feeding 0 TPN/PPN 840 840 Other 240 80 Output: Gastric Drainage 200 200 Urine 1175 1150 Other: # Bowel Movements 0 Weight Source Bedscale Bedscale Active Medications: Current Medications Acetaminophen (Tylenol) 650 mg PO Q4H PRN PRN Reason: Pain Or Fever above 101 Stop: 09/05/18 19:05 Last Admin: 07/12/18 00:15 Dose: 650 mg Albuterol/Ipratropium (Duoneb Neb) 3 ml HHN Q4HRT [facility] Stop: 09/06/18 14:59 Last Admin: 07/18/18 10:56 Dose: 3 ml Budesonide (Pulmicort) 0.5 mg HHN BIDRT [facility] Stop: 09/06/18 18:59 Last Admin: 07/18/18 06:55 Dose: 0.5 mg Calamine/Phenol (Calmoseptine) 1 appl TP QID PRN PRN Reason: Skin Irritation Stop: 09/09/18 11:33 Chlorhexidine Gluconate (Peridex) 15 ml MM 0800,2000 [facility] Stop: 09/06/18 07:59 Last Admin: 07/18/18 08:24 Dose: 15 ml Dextrose (D50w) 50 ml IVP Q4HR PRN PRN Reason: Hypersensitivity Stop: 09/06/18 00:58 Last Admin: 07/18/18 06:09 Dose: 50 ml Diltiazem HCl (Cardizem) 20 mg IVP Q4H PRN PRN Reason: Tachycardia Stop: 09/13/18 09:31 Norepinephrine Bitartrate 4 mg (/ Dextrose) 254 mls @ 7.62 mls/hr IV TITR PRN; Protocol PRN Reason: To Keep SBP Above 90 Stop: 09/06/18 00:56 Multivitamins/Minerals 10 ml/Dextrose/ Amino Acids/Electrolytes/ Fat Emulsion Intravenous/ Sterile Water 1,680 mls @ 70 mls/hr IV .Q24H [facility] Stop: 09/10/18 15:59 Last Admin: 07/17/18 16:02 Dose: 70 mls/hr Diltiazem HCl 125 mg/ Dextrose 125 mls @ 0 mls/hr IV TITR [facility]; Protocol Stop: 09/13/18 09:44 Last Admin: 07/18/18 01:26 Dose: 5 mg/hr, 5 mls/hr Meropenem 500 mg/ Sodium (Chloride) 100 mls @ 100 mls/hr IV Q12H [facility] Stop: 09/13/18 14:59 Last Infusion: 07/18/18 03:57 Dose: Infused Fluconazole (Diflucan) 200 mg in 100 mls @ 100 mls/hr IV Q24HR [facility] Stop: 09/15/18 12:59 Last Admin: 07/18/18 12:17 Dose: 100 mls/hr Sodium Chloride (Nacl 0.9%) 1,000 mls @ 50 mls/hr IV .Q20H [facility] Stop: 09/16/18 08:59 Last Admin: 07/18/18 10:22 Dose: 50 mls/hr Vancomycin HCl 1 gm/ Sodium (Chloride) 250 mls @ 165 mls/hr IV ONCE ONE Stop: 07/18/18 19:30 Dextrose (Dextrose 10%) 1,000 mls @ 70 mls/hr IV .[id number] [facility] Stop: 08/05/18 08:49 Last Admin: 07/18/18 12:18 Dose: 70 mls/hr Insulin Aspart (Novolog) 0 units SUBQ Q4H [facility]; Protocol Stop: 09/06/18 17:59 Levothyroxine Sodium (Synthroid) 0.025 mg PO QDAC [facility] Stop: 09/06/18 07:29 Last Admin: 07/18/18 06:33 Dose: 0.025 mg Magnesium Hydroxide (Milk Of Magnesia) 30 ml NG BID [facility] Stop: 09/10/18 09:59 Last Admin: 07/18/18 08:24 Dose: 30 ml Methylprednisolone Sodium Succinate (Solu-Medrol) 40 mg IV Q12HR [facility] Stop: 09/08/18 20:59 Last Admin: 07/18/18 08:25 Dose: 40 mg Metoclopramide HCl (Reglan) 5 mg IVP Q8HR [facility] Stop: 09/08/18 20:59 Last Admin: 07/18/18 12:18 Dose: 5 mg Mineral Oil (Mineral Oil 30 Ml) 30 ml NG BID [facility] Stop: 09/10/18 09:14 Last Admin: 07/18/18 08:24 Dose: 30 ml Miscellaneous (Vancomycin Iv Per Pharmacy) 1 ea MC PRN [facility] Stop: 09/05/18 19:14 Miscellaneous (Tpn Per Pharmacy) 1 ea PRN PRN PRN Reason: PROTOCOL Stop: 09/10/18 09:13 Miscellaneous (Probiotic Screen) 1 ea PRN PRN PRN Reason: PROTOCOL Stop: 09/14/18 16:18 Morphine Sulfate (Morphine) 1 mg IVP Q4HR PRN PRN Reason: Severe Pain Stop: 09/10/18 22:24 Last Admin: 07/18/18 08:18 Dose: 1 mg Ondansetron HCl (Zofran) 4 mg IV Q8H PRN PRN Reason: Nausea / Vomiting Stop: 09/05/18 19:05 Pantoprazole Sodium (Protonix) 40 mg IVP QDAC [facility] Stop: 09/10/18 07:29 Last Admin: 07/18/18 06:33 Dose: 40 mg General: Moderate distress Cardiovascular: Regular rate, Normal S1, Normal S2 Lungs: Other (OCC RHONCHI) Abdomen: Bowel sounds (HYPOACTIVE), Distended (MODERATE TO SEVERE), Other (NGT TO LIWS) - Procedures Procedures: Procedures Procedure Code Date RESPIRATORY VENTILATION, GREATER THAN 96 CONSECUTIVE HOURS [id number] 07/07/18 Assessment/Plan - Assessment Assessment: Abdominal distension Ileus Possible H/O colon cancer Anemia abnormal LFTs - Plan Plan: 1. Abdominal distension possibly ileus NG DECOMPRESSION MINERAL OIL/MOM. TPN FOR NOW. MAY RESTART NGT FEEDS ONCE ILEUS IMPROVES ( does not seem likely in the next few days) 2. Possible H/O colon cancer May need Colonoscopy if he improves possible mets 3. Anemia Stable Cont to monitor 4.abnormal LFTs R/O mets or combination of mets and sepsis Very poor prognosis
[2018-07-18] MEDS: AMINO ACIDS IV SCH (16:41)
[2018-07-18] MEDS: [UNRECOGNIZED DRUG - OTHER] IV SCH (16:41)
[2018-07-18] MEDS: MULTIVITAMIN IV SCH (16:41)
[2018-07-18] MEDS: DEXTROSE IV SCH (16:41)
[2018-07-19] MEDS: INSULIN ASPART, RECOMBINANT 100 UNITS/ML SUBQ SCH ×6 (00:20→20:56)
--- NOTE | 2018-07-19 02:59 | Progress Notes ---
DATE: 07/18/2018 PULMONARY AND CRITICAL CARE PROGRESS NOTE PROBLEM LIST: 1. Acute respiratory failure, improving. 2. Altered level of consciousness, improving. GI issue is still persistent with his underlying chronic bronchial asthma. 3. Severe sleep apnea syndrome, also history of severe obstructive sleep apnea syndrome. CPAP compliant in the past. SYMPTOMS: Nil. The patient is awake, trying to communicate with the verbal sign, very hard of hearing, no respiratory distress, etc. PHYSICAL EXAMINATION: VITAL SIGNS: The patient is afebrile, the heart rate is in 90s, and saturation is 100% on 30% of oxygen. GENERAL: The patient is awake, alert, mildly tachypneic, no respiratory distress. NECK: Veins could not be visualized. CHEST: Shows diminished air entry without much of adventitious breath sounds. HEART: Regular. ABDOMEN: Soft, nontender. Slightly distended. LABORATORY DATA: White count is 34,000 and hemoglobin is 10 grams. ABG on CPAP with pressure support of 20, pCO2 of 51, and pO2 of 72. IMAGING DATA: Chest x-ray shows almost 95% approximately cleared up. ASSESSMENT: The patient clinically appears to be stable, improving. PLANS AND SUGGESTIONS: We will go ahead and extubate him, put him on BiPAP. Care and plan discussed with Dr. Mazariegos earlier. JOB# [id number]
[2018-07-19] MEDS: Albuterol/Ipratropium Neb 3 ML AERS HHN SCH ×6 (03:48→23:22)
[2018-07-19] MEDS: Metoclopramide 5 mg/mL 2mL Vial IVP SCH ×3 (04:35→20:55)
[2018-07-19 05:11] LABS: HEMATOCRIT 28.8 % (41.0-60); HEMOGLOBIN 9.9 gm/dL (12-16); MEAN CELL VOLUME 91.8 fl (80-99); MEAN CORPUSCULAR HEMOGLOBIN 31.6 pg (26.0-30.0); MEAN CORPUSCULAR HGB CONC 34.5 pg (28.0-36.0); PLATELET COUNT 58 Th/cmm (150-400); RED BLOOD COUNT 3.14 Mil/cmm (4.30-5.70); RED CELL DISTRIBUTION WIDTH 19.6 % (11.5-20.0)
[2018-07-19 05:31] LABS: ALB/GLOB RATIO 1.2 (1.0-1.8); ALBUMIN 3.1 gm/dL (4.2-5.5); ANION GAP 12.1 (7.0-16.0); BILIRUBIN,TOTAL 3.2 mg/dL (0.3-1.0); CALCIUM SERUM 8.1 mg/dL (8.6-10.3); CREATININE - SERUM 1.6 mg/dL (0.7-1.3); GFR AFRICAN-AMERICAN 57.4 ml/min (>90); GFR NON AFRICAN-AMERICAN 47.4 ml/min; MAGNESIUM 3.2 mg/dL (1.9-2.7); PHOSPHOROUS 5.1 mg/dL (2.5-5.0); POTASSIUM SERUM 4.1 mEq/L (3.5-5.1); TOTAL PROTEIN,SERUM 5.8 gm/dL (6.0-8.3)
[2018-07-19 05:43] LABS: WHITE BLOOD COUNT 25.3 Th/cmm (4.8-10.8)
[2018-07-19 06:04] LABS: BAND NEUTROPHILE 0 % (0-10); LYMPHOCYTE 4 % (20-50); MONOCYTE 2 % (2-10); NEUTROPHILS 94 % (40-80); PLATELET ESTIMATE DECREASED PLATELETS (NORMAL)
[2018-07-19] MEDS: Levothyroxine 0.025 Mg Tab PO SCH (06:37)
[2018-07-19] MEDS: Budesonide 0.5 Mg/2 mL Ud HHN SCH ×2 (07:19→19:22)
[2018-07-19] MEDS: methylPREDNISolone SS 40 mg Vial IV SCH ×2 (09:24→20:55)
[2018-07-19] MEDS: Magnesium Hydroxide (MOM) 30 mL UDC NG SCH ×2 (09:24→17:17)
--- NOTE | 2018-07-19 09:34 | Diagnostic Imaging Report ---
Exam: Chest x-ray. HISTORY: Shortness of breath. Findings: Frontal examination of chest upright was reviewed compared to prior study 07/18/2018. The study demonstrates cardiomegaly mild congestion. There is evidence of basilar atelectasis with pleural thickening bilaterally. NG tube terminates in the stomach. Right-sided PICC line terminates in right subclavian vein. Endotracheal tube no longer visualized. IMPRESSION: Cardiomegaly mild congestion Basilar atelectasis pleural thickening. Status post extubation.
[2018-07-19 09:41] LABS: pH 7.37 (7.35-7.45)
[2018-07-19 09:43] LABS: ALLEN TEST Y
--- NOTE | 2018-07-19 12:09 | GI Progress Note ---
Subjective - Review of Systems Service Date: 07/19/18 Events since last encounter: Extubated Subjective: Wants to eat Objective - Results Result Diagrams: 07/19/18 04:45 07/19/18 04:45 Recent Labs: Laboratory Last Values WBC 25.3 Th/cmm (4.8-10.8) H* 07/19/18 04:45 Corrected WBC (auto) 31.9 Th/cmm 07/18/18 05:30 RBC 3.14 Mil/cmm (4.30-5.70) L 07/19/18 04:45 Hgb 9.9 gm/dL (12-16) L 07/19/18 04:45 Hct 28.8 % (41.0-60) L 07/19/18 04:45 MCV 91.8 fl (80-99) 07/19/18 04:45 MCH 31.6 pg (26.0-30.0) H 07/19/18 04:45 MCHC Differential 34.5 pg (28.0-36.0) 07/19/18 04:45 RDW 19.6 % (11.5-20.0) 07/19/18 04:45 Plt Count 58 Th/cmm (150-400) L 07/19/18 04:45 MPV 11.0 fl 07/19/18 04:45 Add Manual Diff YES 07/19/18 04:45 Neutrophils % 96.6 % (40.0-80.0) H 07/11/18 04:40 Band Neutrophils % 0 % (0-10) 07/19/18 04:45 Lymphocytes % 2.2 % (20.0-50.0) L 07/11/18 04:40 Monocytes % 1.1 % (2.0-10.0) L 07/11/18 04:40 Eosinophils % 0.1 % (0.0-5.0) 07/11/18 04:40 Basophils % 0.0 % (0.0-2.0) 07/11/18 04:40 Neutrophils (Manual) 94 % (40-80) H 07/19/18 04:45 Lymphocytes 4 % (20-50) L 07/19/18 04:45 Monocytes 2 % (2-10) 07/19/18 04:45 Eosinophils 0 % (0-5) 07/09/18 07:30 Basophils 0 % (0-3) 07/09/18 07:30 Metamyelocytes 0 % (0-0) 07/08/18 04:10 Myelocytes 2 % 07/15/18 04:15 Nucleated RBCs 8.0 % (0-0) H 07/18/18 05:30 Platelet Estimate DECREASED PLATELETS (NORMAL) 07/19/18 04:45 Tear Drop Cells 1+ 07/18/18 05:30 Ovalocytes 1+ 07/18/18 05:30 Schistocytes 1+ 07/13/18 04:38 PT 18.9 SECONDS (9.5-11.5) H 07/14/18 04:30 INR 1.88 (0.5-1.4) H 07/14/18 04:30 PTT (Actin FS) 27.3 SECONDS (26.0-38.0) 07/18/18 05:30 Specimen Source ARTERIAL 07/19/18 09:22 Sample Site Right Radial 07/19/18 09:22 pH 7.37 (7.35-7.45) 07/19/18 09:22 pCO2 53.0 mmHg (35.0-45.0) H 07/19/18 09:22 pO2 68.0 mmHg (80.0-100.0) L 07/19/18 09:22 HCO3 28.1 mEq/L (20.0-26.0) H 07/19/18 09:22 Base Excess 4.2 mEq/L (-3.0-3.0) H 07/19/18 09:22 O2 Saturation 93.0 % (92.0-100.0) 07/19/18 09:22 Kam Test Y 07/19/18 09:22 Vent Rate NA 07/18/18 12:50 Inspired O2 30% 07/19/18 09:22 Tidal Volume NA 07/18/18 12:50 PEEP NA 07/18/18 12:50 Pressure (ins/psv/peep) 20 07/18/18 12:50 Critical Value NICKИВАН 07/19/18 09:22 Sodium 143 mEq/L (136-145) 07/19/18 04:45 Potassium 4.1 mEq/L (3.5-5.1) 07/19/18 04:45 Chloride 105 mEq/L (98-107) 07/19/18 04:45 Carbon Dioxide 30.0 mEq/L (21.0-31.0) 07/19/18 04:45 Anion Gap 12.1 (7.0-16.0) 07/19/18 04:45 BUN 87 mg/dL (7-25) H* 07/19/18 04:45 Creatinine 1.6 mg/dL (0.7-1.3) H 07/19/18 04:45 Est GFR ( Amer) 57.4 ml/min (>90) 07/19/18 04:45 Est GFR (Non-Af Amer) 47.4 ml/min 07/19/18 04:45 BUN/Creatinine Ratio 54.4 07/19/18 04:45 Glucose 151 mg/dL (70-105) H D 07/19/18 04:45 POC Glucose 149 MG/DL (70 - 105) H 07/19/18 12:00 Whole Bld Lactic Acid 1.96 mmol/L (0.60-1.99) 07/07/18 19:15 Calcium 8.1 mg/dL (8.6-10.3) L 07/19/18 04:45 Phosphorus 5.1 mg/dL (2.5-5.0) H 07/19/18 04:45 Magnesium 3.2 mg/dL (1.9-2.7) H 07/19/18 04:45 Total Bilirubin 3.2 mg/dL (0.3-1.0) H 07/19/18 04:45 Direct Bilirubin 0.62 mg/dL (0.0-0.2) H 07/15/18 04:15 AST 346 U/L (13-39) H 07/19/18 04:45 ALT 118 U/L (7-52) H 07/19/18 04:45 Alkaline Phosphatase 109 U/L (34-104) H 07/19/18 04:45 Ammonia 133 umol/L (16-53) H 07/14/18 04:30 Troponin I 0.01 ng/mL (0.01-0.05) 07/09/18 07:30 B-Natriuretic Peptide 822.0 pg/mL (5.0-100.0) H 07/19/18 04:45 Total Protein 5.8 gm/dL (6.0-8.3) L 07/19/18 04:45 Albumin 3.1 gm/dL (4.2-5.5) L 07/19/18 04:45 Globulin 2.7 gm/dL 07/19/18 04:45 Albumin/Globulin Ratio 1.2 (1.0-1.8) 07/19/18 04:45 Prealbumin 5 mg/dL (10-36) L 07/14/18 13:13 Triglycerides 368 mg/dL (<150) H 07/19/18 04:45 Cholesterol 117 mg/dL (<200) 07/14/18 04:30 Lipase 29 U/L (11-82) 07/16/18 04:40 Tumor Marker AFP Diluted result ng/mL (0.0-8.3) H 07/14/18 13:13 Carcinoembryonic Ag 9.9 ng/mL (0.0-4.7) H 07/14/18 13:13 Vitamin B12 1241 pg/mL (232-1245) 07/08/18 04:10 Folic Acid 8.6 ng/mL (>3.0) 07/08/18 04:10 Free T4 1.04 ng/dL (0.82-1.77) 07/09/18 07:30 Free T3 1.1 pg/mL (2.0-4.4) L 07/09/18 07:30 TSH 4.06 uIU/ml (0.34-5.60) 07/08/18 04:10 Urine Source CLEAN C 07/07/18 17:15 Urine Color YELLOW 07/07/18 17:15 Urine Clarity CLEAR (CLEAR) 07/07/18 17:15 Urine pH 6.0 (4.6 - 8.0) 07/07/18 17:15 Ur Specific [place] 1.015 (1.005-1.030) 07/07/18 17:15 Urine Protein 30 mg/dL (NEGATIVE) H 07/07/18 17:15 Urine Glucose (UA) NEGATIVE mg/dL (NEGATIVE) 07/07/18 17:15 Urine Ketones NEGATIVE mg/dL (NEGATIVE) 07/07/18 17:15 Urine Blood NEGATIVE (NEGATIVE) 07/07/18 17:15 Urine Nitrate NEGATIVE (NEGATIVE) 07/07/18 17:15 Urine Bilirubin NEGATIVE (NEGATIVE) 07/07/18 17:15 Urine Urobilinogen 0.2 E.U./dL (0.2 - 1.0) 07/07/18 17:15 Ur Leukocyte Esterase NEGATIVE (NEGATIVE) 07/07/18 17:15 Urine RBC 0-2 /hpf (0-5) H 07/07/18 17:15 Urine WBC 2-5 /hpf (0-5) 07/07/18 17:15 Ur Epithelial Cells FEW /lpf (FEW) 07/07/18 17:15 Urine Bacteria FEW /hpf (NONE SEEN) 07/07/18 17:15 Fine Granular Casts 0-2 /lpf (NONE SEEN) H 07/07/18 17:15 Urine Mucus FEW /lpf (FEW) 07/07/18 17:15 Vancomycin Trough 34.9 ug/mL (5-10) H 07/14/18 13:13 Random Vancomycin 18.5 ug/mL (5.0-40.0) 07/18/18 05:30 Hepatitis A IgM Ab Negative (Negative) 07/14/18 04:30 Hep Bs Antigen Negative (Negative) 07/14/18 04:30 Hep B Core IgM Ab Negative (Negative) 07/14/18 04:30 Hepatitis C Antibody <0.1 s/co ratio (0.0-0.9) 07/14/18 04:30 - Physical Exam Vitals and I&O: Vital Signs Temp 96.7 F 07/19/18 08:00 Pulse 87 07/19/18 10:36 Resp 16 07/19/18 10:36 BP 105/84 07/19/18 09:00 Pulse Ox 97 07/19/18 10:36 Intake & Output 07/18/18 07/19/18 07/19/18 18:59 06:59 18:59 Intake Total 3264 1191.25 Output Total 1175 700 Balance 2089 491.25 Weight (lbs) 82.1 kg 92.079 kg Intake: Intake, IV Amount 2424 301.25 Dextrose 10% 1,000 ml @ 294 70 mls/hr IV .[id number] [facility] Rx#:[id number] Diltiazem 125 mg In 101.25 Dextrose 5% 100 ml @ 0 MG /HR IV TITR [facility] Rx#: [id number] Fluconazole 200mg/100mL 100 200 mg In 100 ml @ 100 mls/hr IV Q24HR [facility] Rx#: [id number] Multivitamin Inj 10 ml In 1680 Dextrose 70% 240 ml In Amino Acids 10% 714 ml In Intralipids 20% 150 ml In Water, Sterile 566 ml @ 70 mls/hr IV .Q24H [facility] Rx#:[id number] Piperacillin Sodium/ 200 Tazobact 4.5 gm In Sodium Chloride 0.9% 100 ml @ 100 mls/hr IV Q8HR [facility] Rx #:[id number] Vancomycin HCl 1 gm In 250 Sodium Chloride 0.9% 250 ml @ 165 mls/hr IV ONCE ONE Rx#:[id number] Oral 0 TPN/PPN 840 840 Other 50 Output: Gastric Drainage 200 100 Urine 975 600 Stool 0 0 Other: Weight Source Bedscale Bedscale Active Medications: Current Medications Acetaminophen (Tylenol) 650 mg PO Q4H PRN PRN Reason: Pain Or Fever above 101 Stop: 09/05/18 19:05 Last Admin: 07/18/18 17:25 Dose: 650 mg Albuterol/Ipratropium (Duoneb Neb) 3 ml HHN Q4HRT [facility] Stop: 09/06/18 14:59 Last Admin: 07/19/18 10:36 Dose: 3 ml Budesonide (Pulmicort) 0.5 mg HHN BIDRT [facility] Stop: 09/06/18 18:59 Last Admin: 07/19/18 07:19 Dose: 0.5 mg Calamine/Phenol (Calmoseptine) 1 appl TP QID PRN PRN Reason: Skin Irritation Stop: 09/09/18 11:33 Chlorhexidine Gluconate (Peridex) 15 ml MM 0800,1999 [facility] Stop: 09/06/18 07:59 Last Admin: 07/18/18 20:59 Dose: Not Given Dextrose (D50w) 50 ml IVP Q4HR PRN PRN Reason: Hypersensitivity Stop: 09/06/18 00:58 Last Admin: 07/18/18 06:09 Dose: 50 ml Diltiazem HCl (Cardizem) 20 mg IVP Q4H PRN PRN Reason: Tachycardia Stop: 09/13/18 09:31 Norepinephrine Bitartrate 4 mg (/ Dextrose) 254 mls @ 7.62 mls/hr IV TITR PRN; Protocol PRN Reason: To Keep SBP Above 90 Stop: 09/06/18 00:56 Multivitamins/Minerals 10 ml/Dextrose/ Amino Acids/Electrolytes/ Fat Emulsion Intravenous/ Sterile Water 1,680 mls @ 70 mls/hr IV .Q24H [facility] Stop: 09/10/18 15:59 Last Admin: 07/18/18 16:41 Dose: 70 mls/hr Diltiazem HCl 125 mg/ Dextrose 125 mls @ 0 mls/hr IV TITR [facility]; Protocol Stop: 09/13/18 09:44 Last Admin: 07/18/18 21:41 Dose: 5 mg/hr, 5 mls/hr Fluconazole (Diflucan) 200 mg in 100 mls @ 100 mls/hr IV Q24HR [facility] Stop: 09/15/18 12:59 Last Infusion: 07/18/18 18:40 Dose: Infused Sodium Chloride (Nacl 0.9%) 1,000 mls @ 50 mls/hr IV .Q20H [facility] Stop: 09/16/18 08:59 Last Admin: 07/18/18 10:22 Dose: 50 mls/hr Dextrose (Dextrose 10%) 1,000 mls @ 70 mls/hr IV .[id number] [facility] Stop: 08/05/18 08:49 Last Infusion: 07/18/18 16:30 Dose: 0 mls/hr Piperacillin Sod/Tazobactam (Sod 4.5 gm/ Sodium Chloride) 100 mls @ 100 mls/hr IV Q8HR [facility] Stop: 09/16/18 20:59 Last Infusion: 07/19/18 05:40 Dose: Infused Insulin Aspart (Novolog) 0 units SUBQ Q4H [facility]; Protocol Stop: 09/06/18 17:59 Last Admin: 07/19/18 09:18 Dose: Not Given Levothyroxine Sodium (Synthroid) 0.025 mg PO QDAC [facility] Stop: 09/06/18 07:29 Last Admin: 07/19/18 06:37 Dose: 0.025 mg Lidocaine HCl (Xylocaine Viscous 2%) 5 ml PO Q4HR PRN PRN Reason: sore throat Stop: 09/16/18 16:06 Magnesium Hydroxide (Milk Of Magnesia) 30 ml NG BID [facility] Stop: 09/10/18 09:59 Last Admin: 07/19/18 09:24 Dose: 30 ml Methylprednisolone Sodium Succinate (Solu-Medrol) 40 mg IV Q12HR [facility] Stop: 09/08/18 20:59 Last Admin: 07/19/18 09:24 Dose: 40 mg Metoclopramide HCl (Reglan) 5 mg IVP Q8HR [facility] Stop: 09/08/18 20:59 Last Admin: 07/19/18 04:35 Dose: 5 mg Mineral Oil (Mineral Oil 30 Ml) 30 ml NG BID [facility] Stop: 09/10/18 09:14 Last Admin: 07/19/18 09:24 Dose: 30 ml Miscellaneous (Vancomycin Iv Per Pharmacy) 1 ea PRN [facility] Stop: 09/05/18 19:14 Miscellaneous (Tpn Per Pharmacy) 1 [facility] PRN PRN PRN Reason: PROTOCOL Stop: 09/10/18 09:13 Miscellaneous (Probiotic Screen) 1 [facility] PRN PRN PRN Reason: PROTOCOL Stop: 09/14/18 16:18 Miscellaneous (Clinical Monitoring) 1 ea PRN PRN PRN Reason: ZOSYN DOSING Stop: 09/16/18 16:37 Morphine Sulfate (Morphine) 1 mg IVP Q4HR PRN PRN Reason: Severe Pain Stop: 09/10/18 22:24 Last Admin: 07/18/18 08:18 Dose: 1 mg Ondansetron HCl (Zofran) 4 mg IV Q8H PRN PRN Reason: Nausea / Vomiting Stop: 09/05/18 19:05 Pantoprazole Sodium (Protonix) 40 mg IVP QDAC [facility] Stop: 09/10/18 07:29 Last Admin: 07/19/18 06:37 Dose: 40 mg General: Alert, Moderate distress HEENT: Other (ETT/VENT/NGT) Cardiovascular: Regular rate, Normal S1, Normal S2 Lungs: Other (OCC RHONCHI) Abdomen: Bowel sounds (HYPOACTIVE), Distended (MODERATE TO SEVERE), Other (NGT TO LIWS) - Procedures Procedures: Procedures Procedure Code Date RESPIRATORY VENTILATION, GREATER THAN 96 CONSECUTIVE HOURS [id number] 07/07/18 Assessment/Plan - Assessment Assessment: Abdominal distension Ileus Possible H/O colon cancer Anemia abnormal LFTs Elevated AFP more than 220 thousands - Plan Plan: 1. Abdominal distension possibly ileus NG DECOMPRESSION MINERAL OIL/MOM. TPN FOR NOW. MAY RESTART FEEDS if OK with [place] [place] 2. Possible H/O colon cancer May need Colonoscopy if he improves possible mets 3. Anemia Stable Cont to monitor 4.abnormal LFTs R/O mets or combination of mets and sepsis 5. Significant elevation of AFP C/W HCC very poor prognosis
[2018-07-19] MEDS: Fluconazole 200mg/100mL 200 MG/100 ML BAG IV SCH (12:24)
--- NOTE | 2018-07-19 14:40 | Internal Medicine Prog Note ---
Internal Medicine Subjective - Subjective Service Date: 07/19/18 (s/p extubation tolerating well) Patient is:: non-verbal, non-interactive, other (obtunded) Patient Complaints of:: congestion, weight gain Per staff patient has:: tolerating meds Internal Medicine Objective - Results Result Diagrams: 07/19/18 04:45 07/19/18 04:45 Recent Labs: Laboratory Last Values WBC 25.3 Th/cmm (4.8-10.8) H* 07/19/18 04:45 Corrected WBC (auto) 31.9 Th/cmm 07/18/18 05:30 RBC 3.14 Mil/cmm (4.30-5.70) L 07/19/18 04:45 Hgb 9.9 gm/dL (12-16) L 07/19/18 04:45 Hct 28.8 % (41.0-60) L 07/19/18 04:45 MCV 91.8 fl (80-99) 07/19/18 04:45 MCH 31.6 pg (26.0-30.0) H 07/19/18 04:45 MCHC Differential 34.5 pg (28.0-36.0) 07/19/18 04:45 RDW 19.6 % (11.5-20.0) 07/19/18 04:45 Plt Count 58 Th/cmm (150-400) L 07/19/18 04:45 MPV 11.0 fl 07/19/18 04:45 Add Manual Diff YES 07/19/18 04:45 Neutrophils % 96.6 % (40.0-80.0) H 07/11/18 04:40 Band Neutrophils % 0 % (0-10) 07/19/18 04:45 Lymphocytes % 2.2 % (20.0-50.0) L 07/11/18 04:40 Monocytes % 1.1 % (2.0-10.0) L 07/11/18 04:40 Eosinophils % 0.1 % (0.0-5.0) 07/11/18 04:40 Basophils % 0.0 % (0.0-2.0) 07/11/18 04:40 Neutrophils (Manual) 94 % (40-80) H 07/19/18 04:45 Lymphocytes 4 % (20-50) L 07/19/18 04:45 Monocytes 2 % (2-10) 07/19/18 04:45 Eosinophils 0 % (0-5) 07/09/18 07:30 Basophils 0 % (0-3) 07/09/18 07:30 Metamyelocytes 0 % (0-0) 07/08/18 04:10 Myelocytes 2 % 07/15/18 04:15 Nucleated RBCs 8.0 % (0-0) H 07/18/18 05:30 Platelet Estimate DECREASED PLATELETS (NORMAL) 07/19/18 04:45 Tear Drop Cells 1+ 07/18/18 05:30 Ovalocytes 1+ 07/18/18 05:30 Schistocytes 1+ 07/13/18 04:38 PT 18.9 SECONDS (9.5-11.5) H 07/14/18 04:30 INR 1.88 (0.5-1.4) H 07/14/18 04:30 PTT (Actin FS) 27.3 SECONDS (26.0-38.0) 07/18/18 05:30 Specimen Source ARTERIAL 07/19/18 09:22 Sample Site Right Radial 07/19/18 09:22 pH 7.37 (7.35-7.45) 07/19/18 09:22 pCO2 53.0 mmHg (35.0-45.0) H 07/19/18 09:22 pO2 68.0 mmHg (80.0-100.0) L 07/19/18 09:22 HCO3 28.1 mEq/L (20.0-26.0) H 07/19/18 09:22 Base Excess 4.2 mEq/L (-3.0-3.0) H 07/19/18 09:22 O2 Saturation 93.0 % (92.0-100.0) 07/19/18 09:22 Kam Test Y 07/19/18 09:22 Vent Rate NA 07/18/18 12:50 Inspired O2 30% 07/19/18 09:22 Tidal Volume NA 07/18/18 12:50 PEEP NA 07/18/18 12:50 Pressure (ins/psv/peep) 20 07/18/18 12:50 Critical Value ANGEL 07/19/18 09:22 Sodium 143 mEq/L (136-145) 07/19/18 04:45 Potassium 4.1 mEq/L (3.5-5.1) 07/19/18 04:45 Chloride 105 mEq/L (98-107) 07/19/18 04:45 Carbon Dioxide 30.0 mEq/L (21.0-31.0) 07/19/18 04:45 Anion Gap 12.1 (7.0-16.0) 07/19/18 04:45 BUN 87 mg/dL (7-25) H* 07/19/18 04:45 Creatinine 1.6 mg/dL (0.7-1.3) H 07/19/18 04:45 Est GFR ( Amer) 57.4 ml/min (>90) 07/19/18 04:45 Est GFR (Non-Af Amer) 47.4 ml/min 07/19/18 04:45 BUN/Creatinine Ratio 54.4 07/19/18 04:45 Glucose 151 mg/dL (70-105) H D 07/19/18 04:45 POC Glucose 149 MG/DL (70 - 105) H 07/19/18 12:00 Whole Bld Lactic Acid 1.96 mmol/L (0.60-1.99) 07/07/18 19:15 Calcium 8.1 mg/dL (8.6-10.3) L 07/19/18 04:45 Phosphorus 5.1 mg/dL (2.5-5.0) H 07/19/18 04:45 Magnesium 3.2 mg/dL (1.9-2.7) H 07/19/18 04:45 Total Bilirubin 3.2 mg/dL (0.3-1.0) H 07/19/18 04:45 Direct Bilirubin 0.62 mg/dL (0.0-0.2) H 07/15/18 04:15 AST 346 U/L (13-39) H 07/19/18 04:45 ALT 118 U/L (7-52) H 07/19/18 04:45 Alkaline Phosphatase 109 U/L (34-104) H 07/19/18 04:45 Ammonia 133 umol/L (16-53) H 07/14/18 04:30 Troponin I 0.01 ng/mL (0.01-0.05) 07/09/18 07:30 B-Natriuretic Peptide 822.0 pg/mL (5.0-100.0) H 07/19/18 04:45 Total Protein 5.8 gm/dL (6.0-8.3) L 07/19/18 04:45 Albumin 3.1 gm/dL (4.2-5.5) L 07/19/18 04:45 Globulin 2.7 gm/dL 07/19/18 04:45 Albumin/Globulin Ratio 1.2 (1.0-1.8) 07/19/18 04:45 Prealbumin 5 mg/dL (10-36) L 07/14/18 13:13 Triglycerides 368 mg/dL (<150) H 07/19/18 04:45 Cholesterol 117 mg/dL (<200) 07/14/18 04:30 Lipase 29 U/L (11-82) 07/16/18 04:40 Tumor Marker AFP Diluted result ng/mL (0.0-8.3) H 07/14/18 13:13 Carcinoembryonic Ag 9.9 ng/mL (0.0-4.7) H 07/14/18 13:13 Vitamin B12 1241 pg/mL (232-1245) 07/08/18 04:10 Folic Acid 8.6 ng/mL (>3.0) 07/08/18 04:10 Free T4 1.04 ng/dL (0.82-1.77) 07/09/18 07:30 Free T3 1.1 pg/mL (2.0-4.4) L 07/09/18 07:30 TSH 4.06 uIU/ml (0.34-5.60) 07/08/18 04:10 Urine Source CLEAN C 07/07/18 17:15 Urine Color YELLOW 07/07/18 17:15 Urine Clarity CLEAR (CLEAR) 07/07/18 17:15 Urine pH 6.0 (4.6 - 8.0) 07/07/18 17:15 Ur Specific [place] 1.015 (1.005-1.030) 07/07/18 17:15 Urine Protein 30 mg/dL (NEGATIVE) H 07/07/18 17:15 Urine Glucose (UA) NEGATIVE mg/dL (NEGATIVE) 07/07/18 17:15 Urine Ketones NEGATIVE mg/dL (NEGATIVE) 07/07/18 17:15 Urine Blood NEGATIVE (NEGATIVE) 07/07/18 17:15 Urine Nitrate NEGATIVE (NEGATIVE) 07/07/18 17:15 Urine Bilirubin NEGATIVE (NEGATIVE) 07/07/18 17:15 Urine Urobilinogen 0.2 E.U./dL (0.2 - 1.0) 07/07/18 17:15 Ur Leukocyte Esterase NEGATIVE (NEGATIVE) 07/07/18 17:15 Urine RBC 0-2 /hpf (0-5) H 07/07/18 17:15 Urine WBC 2-5 /hpf (0-5) 07/07/18 17:15 Ur Epithelial Cells FEW /lpf (FEW) 07/07/18 17:15 Urine Bacteria FEW /hpf (NONE SEEN) 07/07/18 17:15 Fine Granular Casts 0-2 /lpf (NONE SEEN) H 07/07/18 17:15 Urine Mucus FEW /lpf (FEW) 07/07/18 17:15 Vancomycin Trough 34.9 ug/mL (5-10) H 07/14/18 13:13 Random Vancomycin 18.5 ug/mL (5.0-40.0) 07/18/18 05:30 Hepatitis A IgM Ab Negative (Negative) 07/14/18 04:30 Hep Bs Antigen Negative (Negative) 07/14/18 04:30 Hep B Core IgM Ab Negative (Negative) 07/14/18 04:30 Hepatitis C Antibody <0.1 s/co ratio (0.0-0.9) 07/14/18 04:30 - Physical Exam Vitals and I&O: Vital Signs Temp 97.0 F 07/19/18 12:00 Pulse 93 07/19/18 13:00 Resp 13 07/19/18 13:00 BP 113/89 07/19/18 13:00 Pulse Ox 98 07/19/18 13:00 Intake & Output 07/18/18 07/19/18 07/19/18 18:59 06:59 18:59 Intake Total 3264 1191.25 Output Total 1175 700 Balance 2089 491.25 Weight (lbs) 181 lb 203 lb Intake: Intake, IV Amount 2424 301.25 Dextrose 10% 1,000 ml @ 294 70 mls/hr IV .[id number] [facility] Rx#:[id number] Diltiazem 125 mg In 101.25 Dextrose 5% 100 ml @ 0 MG /HR IV TITR [facility] Rx#: [id number] Fluconazole 200mg/100mL 100 200 mg In 100 ml @ 100 mls/hr IV Q24HR [facility] Rx#: [id number] Multivitamin Inj 10 ml In 1680 Dextrose 70% 240 ml In Amino Acids 10% 714 ml In Intralipids 20% 150 ml In Water, Sterile 566 ml @ 70 mls/hr IV .Q24H [facility] Rx#:[id number] Piperacillin Sodium/ 200 Tazobact 4.5 gm In Sodium Chloride 0.9% 100 ml @ 100 mls/hr IV Q8HR [facility] Rx #:[id number] Vancomycin HCl 1 gm In 250 Sodium Chloride 0.9% 250 ml @ 165 mls/hr IV ONCE ONE Rx#:[id number] Oral 0 TPN/PPN 840 840 Other 50 Output: Gastric Drainage 200 100 Urine 975 600 Stool 0 0 Other: Weight Source Bedscale Bedscale Active Medications: Current Medications Acetaminophen (Tylenol) 650 mg PO Q4H PRN PRN Reason: Pain Or Fever above 101 Stop: 09/05/18 19:05 Last Admin: 07/18/18 17:25 Dose: 650 mg Albuterol/Ipratropium (Duoneb Neb) 3 ml HHN Q4HRT [facility] Stop: 09/06/18 14:59 Last Admin: 07/19/18 10:36 Dose: 3 ml Budesonide (Pulmicort) 0.5 mg HHN BIDRT [facility] Stop: 09/06/18 18:59 Last Admin: 07/19/18 07:19 Dose: 0.5 mg Calamine/Phenol (Calmoseptine) 1 appl TP QID PRN PRN Reason: Skin Irritation Stop: 09/09/18 11:33 Dextrose (D50w) 50 ml IVP Q4HR PRN PRN Reason: Hypersensitivity Stop: 09/06/18 00:58 Last Admin: 07/18/18 06:09 Dose: 50 ml Diltiazem HCl (Cardizem) 20 mg IVP Q4H PRN PRN Reason: Tachycardia Stop: 09/13/18 09:31 Norepinephrine Bitartrate 4 mg (/ Dextrose) 254 mls @ 7.62 mls/hr IV TITR PRN; Protocol PRN Reason: To Keep SBP Above 90 Stop: 09/06/18 00:56 Multivitamins/Minerals 10 ml/Dextrose/ Amino Acids/Electrolytes/ Fat Emulsion Intravenous/ Sterile Water 1,680 mls @ 70 mls/hr IV .Q24H [facility] Stop: 09/10/18 15:59 Last Admin: 07/18/18 16:41 Dose: 70 mls/hr Diltiazem HCl 125 mg/ Dextrose 125 mls @ 0 mls/hr IV TITR [facility]; Protocol Stop: 09/13/18 09:44 Last Admin: 07/18/18 21:41 Dose: 5 mg/hr, 5 mls/hr Fluconazole (Diflucan) 200 mg in 100 mls @ 100 mls/hr IV Q24HR [facility] Stop: 09/15/18 12:59 Last Admin: 07/19/18 12:24 Dose: 100 mls/hr Sodium Chloride (Nacl 0.9%) 1,000 mls @ 50 mls/hr IV .Q20H [facility] Stop: 09/16/18 08:59 Last Admin: 07/18/18 10:22 Dose: 50 mls/hr Dextrose (Dextrose 10%) 1,000 mls @ 70 mls/hr IV .[id number] [facility] Stop: 08/05/18 08:49 Last Infusion: 07/18/18 16:30 Dose: 0 mls/hr Piperacillin Sod/Tazobactam (Sod 4.5 gm/ Sodium Chloride) 100 mls @ 100 mls/hr IV Q8HR [facility] Stop: 09/16/18 20:59 Last Infusion: 07/19/18 05:40 Dose: Infused Insulin Aspart (Novolog) 0 units SUBQ Q4H [facility]; Protocol Stop: 09/06/18 17:59 Last Admin: 07/19/18 12:42 Dose: Not Given Levothyroxine Sodium (Synthroid) 0.025 mg PO QDAC [facility] Stop: 09/06/18 07:29 Last Admin: 07/19/18 06:37 Dose: 0.025 mg Lidocaine HCl (Xylocaine Viscous 2%) 5 ml PO Q4HR PRN PRN Reason: sore throat Stop: 09/16/18 16:06 Magnesium Hydroxide (Milk Of Magnesia) 30 ml NG BID [facility] Stop: 09/10/18 09:59 Last Admin: 07/19/18 09:24 Dose: 30 ml Methylprednisolone Sodium Succinate (Solu-Medrol) 40 mg IV Q12HR [facility] Stop: 09/08/18 20:59 Last Admin: 07/19/18 09:24 Dose: 40 mg Metoclopramide HCl (Reglan) 5 mg IVP Q8HR [facility] Stop: 09/08/18 20:59 Last Admin: 07/19/18 04:35 Dose: 5 mg Mineral Oil (Mineral Oil 30 Ml) 30 ml NG BID [facility] Stop: 09/10/18 09:14 Last Admin: 07/19/18 09:24 Dose: 30 ml Miscellaneous (Vancomycin Iv Per Pharmacy) 1 ea PRN [facility] Stop: 09/05/18 19:14 Miscellaneous (Tpn Per Pharmacy) 1 ea PRN PRN PRN Reason: PROTOCOL Stop: 09/10/18 09:13 Miscellaneous (Probiotic Screen) 1 [facility] PRN PRN PRN Reason: PROTOCOL Stop: 09/14/18 16:18 Miscellaneous (Clinical Monitoring) 1 ea PRN PRN PRN Reason: ZOSYN DOSING Stop: 09/16/18 16:37 Morphine Sulfate (Morphine) 1 mg IVP Q4HR PRN PRN Reason: Severe Pain Stop: 09/10/18 22:24 Last Admin: 07/18/18 08:18 Dose: 1 mg Ondansetron HCl (Zofran) 4 mg IV Q8H PRN PRN Reason: Nausea / Vomiting Stop: 09/05/18 19:05 Pantoprazole Sodium (Protonix) 40 mg IVP QDAC [facility] Stop: 09/10/18 07:29 Last Admin: 07/19/18 06:37 Dose: 40 mg General: weak, congested, obtunded HEENT: NC/AT, PERRLA Neck: Supple Lungs: rales, ronchi Cardiovascular: RRR, Normal S1, Normal S2, without murmur Abdomen: distended Extremities: excoriation Neurological: unable to follow command - Procedures Procedures: Procedures Procedure Code Date RESPIRATORY VENTILATION, GREATER THAN 96 CONSECUTIVE HOURS [id number] 07/07/18 Internal Medicine Assmt/Plan - Assessment Assessment: acute respiratory failure s/p extubation sepsis left lung pna anemia abdominal distention hyponatremia hypokalemia mild protein meg malnutrition episode of hypoglycemia down syndrome htn asthma hx liver ca - Plan Plan: aspiration precautions continue tpn for nutritional support continue ivabx in-line respiratory treatments to continue continue current plan of care Nutritional Asmnt/Malnutr-PDOC - Dietary Evaluation Malnutrition Findings (Please click <Entered> for more info): Nutritional Asmnt/Malnutrition Start: 07/08/18 16: 06 Text: Status: Complete Freq: Protocol: Document 07/08/18 16:06 LCHENG (Rec: 07/08/18 16:30 LCHENG [id number]) Nutritional Asmnt/Malnutrition Patient General Information Nutritional Screening High Risk Diagnosis acute resp failure, spesis Pertinent Medical Hx/Surgical Hx HTN, asthma/COPD, downs, asthma, liver CA Subjective Information Pt seen intubated on vent. RN inserted NGtube and TF stated at lunch time as ordered. Current Diet Order/ Nutrition Support glucerna 1.2 at 20ml/hr continuous Pertinent Medications D50w, D5-0.9%ns, novolog, synthroid, protonix, piperacillin, vancomycin Pertinent Labs 07/08 Na 133, K 3.4, BUN 6, Cr 0.5, glucose 343, POC 101-293 07/07 Na 133, Cr 0.5, glucose 41, POC 17-135 Nutritional Hx/Data Height 4 ft 11 in Height (Calculated Centimeters) 149.9 Current Weight (lbs) 160 lb Weight (Calculated Kilograms) 72.6 Weight (Calculated Grams) 60395.8 [place] Body Weight 104 Body Mass Index (BMI) 32.3 Weight Status Overweight GI Symptoms GI Symptoms None Last BM not indicated Difficult in: None Usual diet at home regular high fiber at care facility per chart Skin Integrity/Comment: rash to sacrum Estimated Nutritional Goals BEE in Kcals: Adj wt of IBW Calories/Kcals/Kg 27-32 adj 54kg Kcals Calculated 3013-7279 Protein: Adj wt of IBW Protein g/k.2-1.5 Protein Calculated 62-81 Fluid: ml 1458-1728ml (1ml/kcal) Nutritional Problem 1. Problem Problem increased nutrition needs Etiology increased metabolic demand Signs/Symptoms: dx of sepsis Malnutrition Alert Is there a minimum of two criteria No selected? Query Text:Check all the applicable criteria. A minimum of two criteria are recommended for diagnosis of either severe or non-severe malnutrition. Intervention/Recommendation Comments 1. Start with Glucerna 1.2 at 20ml/hr continuous as ordered. It provides 576kcal, 29g protein, 386ml free water. 2. Recommend increase to goal rate of 55ml/hr continuous as tolerated, which providing 1584kcal and 79g protein to meet 100% of nutritioanl needs . 3. Monitor TF rate, tolerance, wt, skin integrity and labs 4. F/U as high risk in 2-3 days, 07/10-07/11 Expected Outcomes/Goals Expected Outcomes/Goals 1. Pt to meet at least 75% of nutritional needs via nutrition support with tolerance 2. Wt stability, skin to remain intact, labs to approach WNL.
[2018-07-19] MEDS: Sodium Chloride 0.9% 1,000 ML IV SCH (15:15)
[2018-07-19] MEDS: MULTIVITAMIN IV SCH (16:34)
[2018-07-19] MEDS: [UNRECOGNIZED DRUG - OTHER] IV SCH (16:34)
[2018-07-19] MEDS: DEXTROSE IV SCH (16:34)
[2018-07-19] MEDS: AMINO ACIDS IV SCH (16:34)
--- NOTE | 2018-07-19 21:11 | Progress Notes ---
DATE: 07/19/2018 PULMONARY/CRITICAL CARE PROGRESS NOTE PROBLEM LIST: 1. Acute respiratory failure. 2. Bilateral fleeting infiltrates, stable. 3. Chronic bronchial asthma, some wheezing. 4. Severe obstructive sleep apnea CPAP compliant. 5. Physically and mentally development delay and issues. 6. Metabolic syndrome with diabetes mellitus. 7. Possibly ileus with GI issue. 8. Leukocytosis. The patient is tolerating extubating very well. His oxymizer and saturation is mid 90s and no respiratory distress at all, trying to walk and trying to use the bathroom and otherwise unremarkable. PHYSICAL EXAMINATION: VITAL SIGNS: The patient is afebrile, heart rate is in the 90s, BP is 119/68, saturation is 100% on nasal cannula. NECK: Veins not visualized. CHEST: Shows occasional wheezing with diminished air entry. HEART: Regular. ABDOMEN: Soft, slightly hypoactive bowel sounds. LABORATORY DATA: White count is 25,000, hemoglobin 9.9. ABG shows compensated respiratory acidemia and BUN is 87, creatinine is 1.6. ASSESSMENT: The patient is clinically stable, improving. PLANS AND SUGGESTIONS: We will go ahead and give some free water through the NG tube, see how he does before another day or so before oral feeding can be initiated. After speech therapy evaluation, we will continue TPN, hold off Lasix. Follow up lab, etc. tomorrow and go from there. JOB# [id number]
[2018-07-20] MEDS: INSULIN ASPART, RECOMBINANT 100 UNITS/ML SUBQ SCH ×7 (00:34→23:35)
[2018-07-20] MEDS: Albuterol/Ipratropium Neb 3 ML AERS HHN SCH ×6 (03:19→23:24)
[2018-07-20] MEDS: Metoclopramide 5 mg/mL 2mL Vial IVP SCH ×3 (04:19→20:58)
[2018-07-20 05:16] LABS: HEMATOCRIT 27.3 % (41.0-60); HEMOGLOBIN 8.9 gm/dL (12-16); MEAN CELL VOLUME 93.8 fl (80-99); MEAN CORPUSCULAR HEMOGLOBIN 30.7 pg (26.0-30.0); MEAN CORPUSCULAR HGB CONC 32.7 pg (28.0-36.0); MEAN PLATELET VOLUME 9.6 fl; RED BLOOD COUNT 2.91 Mil/cmm (4.30-5.70); RED CELL DISTRIBUTION WIDTH 21.5 % (11.5-20.0); WHITE BLOOD COUNT 14.6 Th/cmm (4.8-10.8)
[2018-07-20 05:19] LABS: PLATELET COUNT 31 Th/cmm (150-400)
[2018-07-20 05:45] LABS: ANION GAP 13.7 (7.0-16.0); CARBON DIOXIDE 26.5 mEq/L (21.0-31.0); CHLORIDE 108 mEq/L (98-107); CREATININE - SERUM 1.5 mg/dL (0.7-1.3); GFR AFRICAN-AMERICAN > 60.0 ml/min (>90); GFR NON AFRICAN-AMERICAN 51.1 ml/min; GLUCOSE 180 mg/dL (70-105); MAGNESIUM 3.3 mg/dL (1.9-2.7); PHOSPHOROUS 3.5 mg/dL (2.5-5.0); POTASSIUM SERUM 4.2 mEq/L (3.5-5.1); SODIUM SERUM 144 mEq/L (136-145)
[2018-07-20 05:55] LABS: BAND NEUTROPHILE 6 % (0-10); BUN - UREA NITROGEN 80 mg/dL (7-25); LYMPHOCYTE 3 % (20-50); MONOCYTE 1 % (2-10); NEUTROPHILS 90 % (40-80)
[2018-07-20 05:56] LABS: ANISOCYTOSIS 1+; PLATELET ESTIMATE DECREASED PLATELETS (NORMAL)
[2018-07-20] MEDS: Budesonide 0.5 Mg/2 mL Ud HHN SCH ×2 (06:40→19:09)
[2018-07-20] MEDS: Levothyroxine 0.025 Mg Tab PO SCH (06:48)
[2018-07-20] MEDS: Magnesium Hydroxide (MOM) 30 mL UDC NG SCH ×2 (08:24→16:39)
[2018-07-20] MEDS: methylPREDNISolone SS 40 mg Vial IV SCH ×2 (08:25→20:51)
[2018-07-20 08:34] LABS: ALLEN TEST Positive; pH 7.38 (7.35-7.45)
[2018-07-20] MEDS: Morphine Sulfate 2 mg/mL 1mL Syr IVP PRN (08:36)
--- NOTE | 2018-07-20 10:48 | Diagnostic Imaging Report ---
Exam: Portable chest x-ray HISTORY: Shortness of breath. Findings: Portable examination of the chest at 0811 hours reviewed and compared to prior study of 07/19/2018. The study demonstrates cardiomegaly congestive heart failure. Residual evidence of for blunting of right costophrenic angle small effusion pleural thickening. Bilateral pneumonia appreciated. NG tube passes stomach. The right-sided PICC line terminates in the right subclavian vein. IMPRESSION: Congestive heart failure cardiomegaly Bilateral infiltrates, superimposed right pleural effusion. Follow-up emanation is recommended
--- NOTE | 2018-07-20 10:54 | Diagnostic Imaging Report ---
Exam: KUB of the abdomen. HISTORY: NG tube placement. Findings: Supine examination of the abdomen reviewed. The study demonstrates NG tube in the stomach. There is evidence for mild ileus. IMPRESSION: NG tube in the stomach.
[2018-07-20] MEDS: Fluconazole 200mg/100mL 200 MG/100 ML BAG IV SCH (12:10)
[2018-07-20] MEDS: MULTIVITAMIN IV SCH (15:11)
[2018-07-20] MEDS: [UNRECOGNIZED DRUG - OTHER] IV SCH (15:11)
[2018-07-20] MEDS: AMINO ACIDS IV SCH (15:11)
[2018-07-20] MEDS: DEXTROSE IV SCH (15:11)
--- NOTE | 2018-07-20 15:21 | Internal Medicine Prog Note ---
Internal Medicine Subjective - Subjective Service Date: 07/20/18 Patient is:: awake, verbal, talking, denies any new complaints Patient Complaints of:: congestion, weight gain Per staff patient has:: tolerating meds Internal Medicine Objective - Results Result Diagrams: 07/20/18 04:50 07/20/18 04:50 Recent Labs: Laboratory Last Values WBC 14.6 Th/cmm (4.8-10.8) H 07/20/18 04:50 Corrected WBC (auto) 31.9 Th/cmm 07/18/18 05:30 RBC 2.91 Mil/cmm (4.30-5.70) L 07/20/18 04:50 Hgb 8.9 gm/dL (12-16) L 07/20/18 04:50 Hct 27.3 % (41.0-60) L 07/20/18 04:50 MCV 93.8 fl (80-99) 07/20/18 04:50 MCH 30.7 pg (26.0-30.0) H 07/20/18 04:50 MCHC Differential 32.7 pg (28.0-36.0) 07/20/18 04:50 RDW 21.5 % (11.5-20.0) H 07/20/18 04:50 Plt Count 31 Th/cmm (150-400) L 07/20/18 04:50 MPV 9.6 fl 07/20/18 04:50 Add Manual Diff YES 07/20/18 04:50 Neutrophils % 96.6 % (40.0-80.0) H 07/11/18 04:40 Band Neutrophils % 6 % (0-10) 07/20/18 04:50 Lymphocytes % 2.2 % (20.0-50.0) L 07/11/18 04:40 Monocytes % 1.1 % (2.0-10.0) L 07/11/18 04:40 Eosinophils % 0.1 % (0.0-5.0) 07/11/18 04:40 Basophils % 0.0 % (0.0-2.0) 07/11/18 04:40 Neutrophils (Manual) 90 % (40-80) H 07/20/18 04:50 Lymphocytes 3 % (20-50) L 07/20/18 04:50 Monocytes 1 % (2-10) L 07/20/18 04:50 Eosinophils 0 % (0-5) 07/09/18 07:30 Basophils 0 % (0-3) 07/09/18 07:30 Metamyelocytes 0 % (0-0) 07/08/18 04:10 Myelocytes 2 % 07/15/18 04:15 Nucleated RBCs 2.0 % (0-0) H 07/20/18 04:50 Platelet Estimate DECREASED PLATELETS (NORMAL) 07/20/18 04:50 Anisocytosis 1+ 07/20/18 04:50 Tear Drop Cells 1+ 07/18/18 05:30 Ovalocytes 1+ 07/18/18 05:30 Schistocytes 1+ 07/13/18 04:38 PT 18.9 SECONDS (9.5-11.5) H 07/14/18 04:30 INR 1.88 (0.5-1.4) H 07/14/18 04:30 PTT (Actin FS) 27.3 SECONDS (26.0-38.0) 07/18/18 05:30 Specimen Source Arterial 07/20/18 08:23 Sample Site Right Radial 07/20/18 08:23 pH 7.38 (7.35-7.45) 07/20/18 08:23 pCO2 57.0 mmHg (35.0-45.0) H* 07/20/18 08:23 pO2 67.0 mmHg (80.0-100.0) L 07/20/18 08:23 HCO3 30.2 mEq/L (20.0-26.0) H 07/20/18 08:23 Base Excess 6.9 mEq/L (-3.0-3.0) H 07/20/18 08:23 O2 Saturation 93.0 % (92.0-100.0) 07/20/18 08:23 Kam Test Positive 07/20/18 08:23 Vent Rate NA 07/20/18 08:23 Inspired O2 32% 07/20/18 08:23 Tidal Volume NA 07/20/18 08:23 PEEP NA 07/20/18 08:23 Pressure (ins/psv/peep) NA 07/20/18 08:23 Critical Value HSTEHNO 07/20/18 08:23 Sodium 144 mEq/L (136-145) 07/20/18 04:50 Potassium 4.2 mEq/L (3.5-5.1) 07/20/18 04:50 Chloride 108 mEq/L (98-107) H 07/20/18 04:50 Carbon Dioxide 26.5 mEq/L (21.0-31.0) 07/20/18 04:50 Anion Gap 13.7 (7.0-16.0) 07/20/18 04:50 BUN 80 mg/dL (7-25) H 07/20/18 04:50 Creatinine 1.5 mg/dL (0.7-1.3) H 07/20/18 04:50 Est GFR ( Amer) > 60.0 ml/min (>90) 07/20/18 04:50 Est GFR (Non-Af Amer) 51.1 ml/min 07/20/18 04:50 BUN/Creatinine Ratio 53.3 07/20/18 04:50 Glucose 180 mg/dL (70-105) H 07/20/18 04:50 POC Glucose 193 MG/DL (70 - 105) H 07/20/18 15:14 Whole Bld Lactic Acid 1.96 mmol/L (0.60-1.99) 07/07/18 19:15 Calcium 8.0 mg/dL (8.6-10.3) L 07/20/18 04:50 Phosphorus 3.5 mg/dL (2.5-5.0) 07/20/18 04:50 Magnesium 3.3 mg/dL (1.9-2.7) H 07/20/18 04:50 Total Bilirubin 3.2 mg/dL (0.3-1.0) H 07/19/18 04:45 Direct Bilirubin 0.62 mg/dL (0.0-0.2) H 07/15/18 04:15 AST 346 U/L (13-39) H 07/19/18 04:45 ALT 118 U/L (7-52) H 07/19/18 04:45 Alkaline Phosphatase 109 U/L (34-104) H 07/19/18 04:45 Ammonia 133 umol/L (16-53) H 07/14/18 04:30 Troponin I 0.01 ng/mL (0.01-0.05) 07/09/18 07:30 B-Natriuretic Peptide 822.0 pg/mL (5.0-100.0) H 07/19/18 04:45 Total Protein 5.8 gm/dL (6.0-8.3) L 07/19/18 04:45 Albumin 3.1 gm/dL (4.2-5.5) L 07/19/18 04:45 Globulin 2.7 gm/dL 07/19/18 04:45 Albumin/Globulin Ratio 1.2 (1.0-1.8) 07/19/18 04:45 Prealbumin 5 mg/dL (10-36) L 07/14/18 13:13 Triglycerides 368 mg/dL (<150) H 07/19/18 04:45 Cholesterol 117 mg/dL (<200) 07/14/18 04:30 Lipase 29 U/L (11-82) 07/16/18 04:40 Tumor Marker AFP Diluted result ng/mL (0.0-8.3) H 07/14/18 13:13 Carcinoembryonic Ag 9.9 ng/mL (0.0-4.7) H 07/14/18 13:13 Vitamin B12 1241 pg/mL (232-1245) 07/08/18 04:10 Folic Acid 8.6 ng/mL (>3.0) 07/08/18 04:10 Free T4 1.04 ng/dL (0.82-1.77) 07/09/18 07:30 Free T3 1.1 pg/mL (2.0-4.4) L 07/09/18 07:30 TSH 4.06 uIU/ml (0.34-5.60) 07/08/18 04:10 Urine Source CLEAN C 07/07/18 17:15 Urine Color YELLOW 07/07/18 17:15 Urine Clarity CLEAR (CLEAR) 07/07/18 17:15 Urine pH 6.0 (4.6 - 8.0) 07/07/18 17:15 Ur Specific [place] 1.015 (1.005-1.030) 07/07/18 17:15 Urine Protein 30 mg/dL (NEGATIVE) H 07/07/18 17:15 Urine Glucose (UA) NEGATIVE mg/dL (NEGATIVE) 07/07/18 17:15 Urine Ketones NEGATIVE mg/dL (NEGATIVE) 07/07/18 17:15 Urine Blood NEGATIVE (NEGATIVE) 07/07/18 17:15 Urine Nitrate NEGATIVE (NEGATIVE) 07/07/18 17:15 Urine Bilirubin NEGATIVE (NEGATIVE) 07/07/18 17:15 Urine Urobilinogen 0.2 E.U./dL (0.2 - 1.0) 07/07/18 17:15 Ur Leukocyte Esterase NEGATIVE (NEGATIVE) 07/07/18 17:15 Urine RBC 0-2 /hpf (0-5) H 07/07/18 17:15 Urine WBC 2-5 /hpf (0-5) 07/07/18 17:15 Ur Epithelial Cells FEW /lpf (FEW) 07/07/18 17:15 Urine Bacteria FEW /hpf (NONE SEEN) 07/07/18 17:15 Fine Granular Casts 0-2 /lpf (NONE SEEN) H 07/07/18 17:15 Urine Mucus FEW /lpf (FEW) 07/07/18 17:15 Vancomycin Trough 34.9 ug/mL (5-10) H 07/14/18 13:13 Random Vancomycin 20.1 ug/mL (5.0-40.0) 07/20/18 04:50 Hepatitis A IgM Ab Negative (Negative) 07/14/18 04:30 Hep Bs Antigen Negative (Negative) 07/14/18 04:30 Hep B Core IgM Ab Negative (Negative) 07/14/18 04:30 Hepatitis C Antibody <0.1 s/co ratio (0.0-0.9) 07/14/18 04:30 - Physical Exam Vitals and I&O: Vital Signs Temp 97.2 F 07/20/18 14:58 Pulse 76 07/20/18 14:58 Resp 17 07/20/18 14:58 BP 129/76 07/20/18 14:58 Pulse Ox 96 07/20/18 14:58 Intake & Output 07/19/18 07/20/18 07/20/18 18:59 06:59 18:59 Intake Total 1968.901 526 8037.167 Output Total 700 950 Balance 1969.833 0 1193.167 Weight (lbs) 203 lb 198 lb Intake: Intake, IV Amount 1968.565 058 5644.167 Diltiazem 125 mg In 98 Dextrose 5% 100 ml @ 0 MG /HR IV TITR [facility] Rx#: [id number] Fluconazole 200mg/100mL 100 100 200 mg In 100 ml @ 100 mls/hr IV Q24HR [facility] Rx#: [id number] Multivitamin Inj 10 ml In 2342.371 1437.167 Dextrose 70% 240 ml In Amino Acids 10% 714 ml In Intralipids 20% 150 ml In Water, Sterile 566 ml @ 70 mls/hr IV .Q24H [facility] Rx#:[id number] Piperacillin Sodium/ 100 200 100 Tazobact 4.5 gm In Sodium Chloride 0.9% 100 ml @ 100 mls/hr IV Q8HR [facility] Rx #:[id number] Other 500 360 Output: Urine 700 950 Other: # Bowel Movements 1 0 Stool Characteristics Soft Weight Source Bedscale Bedscale Active Medications: Current Medications Acetaminophen (Tylenol) 650 mg PO Q4H PRN PRN Reason: Pain Or Fever above 101 Stop: 09/05/18 19:05 Last Admin: 07/18/18 17:25 Dose: 650 mg Albuterol/Ipratropium (Duoneb Neb) 3 ml HHN Q4HRT [facility] Stop: 09/06/18 14:59 Last Admin: 07/20/18 14:29 Dose: 3 ml Budesonide (Pulmicort) 0.5 mg HHN BIDRT [facility] Stop: 09/06/18 18:59 Last Admin: 07/20/18 06:40 Dose: 0.5 mg Calamine/Phenol (Calmoseptine) 1 appl TP QID PRN PRN Reason: Skin Irritation Stop: 09/09/18 11:33 Dextrose (D50w) 50 ml IVP Q4HR PRN PRN Reason: Hypersensitivity Stop: 09/06/18 00:58 Last Admin: 07/18/18 06:09 Dose: 50 ml Diltiazem HCl (Cardizem) 20 mg IVP Q4H PRN PRN Reason: Tachycardia Stop: 09/13/18 09:31 Norepinephrine Bitartrate 4 mg (/ Dextrose) 254 mls @ 7.62 mls/hr IV TITR PRN; Protocol PRN Reason: To Keep SBP Above 90 Stop: 09/06/18 00:56 Multivitamins/Minerals 10 ml/Dextrose/ Amino Acids/Electrolytes/ Fat Emulsion Intravenous/ Sterile Water 1,680 mls @ 70 mls/hr IV .Q24H [facility] Stop: 09/10/18 15:59 Last Admin: 07/20/18 15:11 Dose: 70 mls/hr Diltiazem HCl 125 mg/ Dextrose 125 mls @ 0 mls/hr IV TITR [facility]; Protocol Stop: 09/13/18 09:44 Last Admin: 07/19/18 17:17 Dose: 5 mg/hr, 5 mls/hr Fluconazole (Diflucan) 200 mg in 100 mls @ 100 mls/hr IV Q24HR [facility] Stop: 09/15/18 12:59 Last Infusion: 07/20/18 13:10 Dose: Infused Sodium Chloride (Nacl 0.9%) 1,000 mls @ 50 mls/hr IV .Q20H [facility] Stop: 09/16/18 08:59 Last Admin: 07/19/18 15:15 Dose: 50 mls/hr Dextrose (Dextrose 10%) 1,000 mls @ 70 mls/hr IV .[id number] [facility] Stop: 08/05/18 08:49 Last Infusion: 07/18/18 16:30 Dose: 0 mls/hr Piperacillin Sod/Tazobactam (Sod 4.5 gm/ Sodium Chloride) 100 mls @ 100 mls/hr IV Q8HR [facility] Stop: 09/16/18 20:59 Last Infusion: 07/20/18 13:50 Dose: Infused Vancomycin HCl 1 gm/ Sodium (Chloride) 250 mls @ 165 mls/hr IV X1 [facility] Stop: 07/20/18 15:30 Last Admin: 07/20/18 14:00 Dose: 165 mls/hr Insulin Aspart (Novolog) 0 units SUBQ Q4H [facility]; Protocol Stop: 09/06/18 17:59 Last Admin: 07/20/18 15:14 Dose: Not Given Levothyroxine Sodium (Synthroid) 0.025 mg PO QDAC [facility] Stop: 09/06/18 07:29 Last Admin: 07/20/18 06:48 Dose: 0.025 mg Lidocaine HCl (Xylocaine Viscous 2%) 5 ml PO Q4HR PRN PRN Reason: sore throat Stop: 09/16/18 16:06 Magnesium Hydroxide (Milk Of Magnesia) 30 ml NG BID [facility] Stop: 09/10/18 09:59 Last Admin: 07/20/18 08:24 Dose: 30 ml Methylprednisolone Sodium Succinate (Solu-Medrol) 40 mg IV Q12HR [facility] Stop: 09/08/18 20:59 Last Admin: 07/20/18 08:25 Dose: 40 mg Metoclopramide HCl (Reglan) 5 mg IVP Q8HR [facility] Stop: 09/08/18 20:59 Last Admin: 07/20/18 12:45 Dose: 5 mg Mineral Oil (Mineral Oil 30 Ml) 30 ml NG BID [facility] Stop: 09/10/18 09:14 Last Admin: 07/20/18 08:24 Dose: 30 ml Miscellaneous (Vancomycin Iv Per Pharmacy) 1 ea PRN [facility] Stop: 09/05/18 19:14 Miscellaneous (Tpn Per Pharmacy) 1 ea PRN PRN PRN Reason: PROTOCOL Stop: 09/10/18 09:13 Miscellaneous (Probiotic Screen) 1 [facility] PRN PRN PRN Reason: PROTOCOL Stop: 09/14/18 16:18 Miscellaneous (Clinical Monitoring) 1 ea PRN PRN PRN Reason: ZOSYN DOSING Stop: 09/16/18 16:37 Morphine Sulfate (Morphine) 1 mg IVP Q4HR PRN PRN Reason: Severe Pain Stop: 09/10/18 22:24 Last Admin: 07/20/18 08:36 Dose: 1 mg Ondansetron HCl (Zofran) 4 mg IV Q8H PRN PRN Reason: Nausea / Vomiting Stop: 09/05/18 19:05 Pantoprazole Sodium (Protonix) 40 mg IVP QDAC [facility] Stop: 09/10/18 07:29 Last Admin: 07/20/18 06:48 Dose: 40 mg General: weak, congested, obtunded HEENT: NC/AT, PERRLA Neck: Supple Lungs: rales, ronchi Cardiovascular: RRR, Normal S1, Normal S2, without murmur Abdomen: distended Extremities: excoriation Neurological: alert - Procedures Procedures: Procedures Procedure Code Date RESPIRATORY VENTILATION, GREATER THAN 96 CONSECUTIVE HOURS [id number] 07/07/18 Internal Medicine Assmt/Plan - Assessment Assessment: acute respiratory failure s/p extubation sepsis left lung pna anemia abdominal distention hyponatremia hypokalemia mild protein meg malnutrition episode of hypoglycemia down syndrome htn asthma hx liver ca - Plan Plan: aspiration precautions continue tpn for nutritional support continue ivabx in-line respiratory treatments to continue continue current plan of care Nutritional Asmnt/Malnutr-PDOC - Dietary Evaluation Malnutrition Findings (Please click <Entered> for more info): Nutritional Asmnt/Malnutrition Start: 07/08/18 16: 06 Text: Status: Complete Freq: Protocol: Document 07/08/18 16:06 LCHENG (Rec: 07/08/18 16:30 [id number] [id number]) Nutritional Asmnt/Malnutrition Patient General Information Nutritional Screening High Risk Diagnosis acute resp failure, spesis Pertinent Medical Hx/Surgical Hx HTN, asthma/COPD, downs, asthma, liver CA Subjective Information Pt seen intubated on vent. RN inserted NGtube and TF stated at lunch time as ordered. Current Diet Order/ Nutrition Support glucerna 1.2 at 20ml/hr continuous Pertinent Medications D50w, D5-0.9%ns, novolog, synthroid, protonix, piperacillin, vancomycin Pertinent Labs 07/08 Na 133, K 3.4, BUN 6, Cr 0.5, glucose 343, POC 101-293 07/07 Na 133, Cr 0.5, glucose 41, POC 17-135 Nutritional Hx/Data Height 4 ft 11 in Height (Calculated Centimeters) 149.9 Current Weight (lbs) 160 lb Weight (Calculated Kilograms) 72.6 Weight (Calculated Grams) 21620.8 [place] Body Weight 104 Body Mass Index (BMI) 32.3 Weight Status Overweight GI Symptoms GI Symptoms None Last BM not indicated Difficult in: None Usual diet at home regular high fiber at care facility per chart Skin Integrity/Comment: rash to sacrum Estimated Nutritional Goals BEE in Kcals: Adj wt of IBW Calories/Kcals/Kg 27-32 adj 54kg Kcals Calculated 6827-5560 Protein: Adj wt of IBW Protein g/k.2-1.5 Protein Calculated 62-81 Fluid: ml 1458-1728ml (1ml/kcal) Nutritional Problem 1. Problem Problem increased nutrition needs Etiology increased metabolic demand Signs/Symptoms: dx of sepsis Malnutrition Alert Is there a minimum of two criteria No selected? Query Text:Check all the applicable criteria. A minimum of two criteria are recommended for diagnosis of either severe or non-severe malnutrition. Intervention/Recommendation Comments 1. Start with Glucerna 1.2 at 20ml/hr continuous as ordered. It provides 576kcal, 29g protein, 386ml free water. 2. Recommend increase to goal rate of 55ml/hr continuous as tolerated, which providing 1584kcal and 79g protein to meet 100% of nutritioanl needs . 3. Monitor TF rate, tolerance, wt, skin integrity and labs 4. F/U as high risk in 2-3 days, 07/10-07/11 Expected Outcomes/Goals Expected Outcomes/Goals 1. Pt to meet at least 75% of nutritional needs via nutrition support with tolerance 2. Wt stability, skin to remain intact, labs to approach WNL.
--- NOTE | 2018-07-20 16:34 | GI Progress Note ---
Subjective - Review of Systems Service Date: 07/20/18 Events since last encounter: Already extubated On BiPap machine Subjective: Wants to eat Objective - Results Result Diagrams: 07/20/18 04:50 07/20/18 04:50 Recent Labs: Laboratory Last Values WBC 14.6 Th/cmm (4.8-10.8) H 07/20/18 04:50 Corrected WBC (auto) 31.9 Th/cmm 07/18/18 05:30 RBC 2.91 Mil/cmm (4.30-5.70) L 07/20/18 04:50 Hgb 8.9 gm/dL (12-16) L 07/20/18 04:50 Hct 27.3 % (41.0-60) L 07/20/18 04:50 MCV 93.8 fl (80-99) 07/20/18 04:50 MCH 30.7 pg (26.0-30.0) H 07/20/18 04:50 MCHC Differential 32.7 pg (28.0-36.0) 07/20/18 04:50 RDW 21.5 % (11.5-20.0) H 07/20/18 04:50 Plt Count 31 Th/cmm (150-400) L 07/20/18 04:50 MPV 9.6 fl 07/20/18 04:50 Add Manual Diff YES 07/20/18 04:50 Neutrophils % 96.6 % (40.0-80.0) H 07/11/18 04:40 Band Neutrophils % 6 % (0-10) 07/20/18 04:50 Lymphocytes % 2.2 % (20.0-50.0) L 07/11/18 04:40 Monocytes % 1.1 % (2.0-10.0) L 07/11/18 04:40 Eosinophils % 0.1 % (0.0-5.0) 07/11/18 04:40 Basophils % 0.0 % (0.0-2.0) 07/11/18 04:40 Neutrophils (Manual) 90 % (40-80) H 07/20/18 04:50 Lymphocytes 3 % (20-50) L 07/20/18 04:50 Monocytes 1 % (2-10) L 07/20/18 04:50 Eosinophils 0 % (0-5) 07/09/18 07:30 Basophils 0 % (0-3) 07/09/18 07:30 Metamyelocytes 0 % (0-0) 07/08/18 04:10 Myelocytes 2 % 07/15/18 04:15 Nucleated RBCs 2.0 % (0-0) H 07/20/18 04:50 Platelet Estimate DECREASED PLATELETS (NORMAL) 07/20/18 04:50 Anisocytosis 1+ 07/20/18 04:50 Tear Drop Cells 1+ 07/18/18 05:30 Ovalocytes 1+ 07/18/18 05:30 Schistocytes 1+ 07/13/18 04:38 PT 18.9 SECONDS (9.5-11.5) H 07/14/18 04:30 INR 1.88 (0.5-1.4) H 07/14/18 04:30 PTT (Actin FS) 27.3 SECONDS (26.0-38.0) 07/18/18 05:30 Specimen Source Arterial 07/20/18 08:23 Sample Site Right Radial 07/20/18 08:23 pH 7.38 (7.35-7.45) 07/20/18 08:23 pCO2 57.0 mmHg (35.0-45.0) H* 07/20/18 08:23 pO2 67.0 mmHg (80.0-100.0) L 07/20/18 08:23 HCO3 30.2 mEq/L (20.0-26.0) H 07/20/18 08:23 Base Excess 6.9 mEq/L (-3.0-3.0) H 07/20/18 08:23 O2 Saturation 93.0 % (92.0-100.0) 07/20/18 08:23 Kam Test Positive 07/20/18 08:23 Vent Rate NA 07/20/18 08:23 Inspired O2 32% 07/20/18 08:23 Tidal Volume NA 07/20/18 08:23 PEEP NA 07/20/18 08:23 Pressure (ins/psv/peep) NA 07/20/18 08:23 Critical Value HSTEHNO 07/20/18 08:23 Sodium 144 mEq/L (136-145) 07/20/18 04:50 Potassium 4.2 mEq/L (3.5-5.1) 07/20/18 04:50 Chloride 108 mEq/L (98-107) H 07/20/18 04:50 Carbon Dioxide 26.5 mEq/L (21.0-31.0) 07/20/18 04:50 Anion Gap 13.7 (7.0-16.0) 07/20/18 04:50 BUN 80 mg/dL (7-25) H 07/20/18 04:50 Creatinine 1.5 mg/dL (0.7-1.3) H 07/20/18 04:50 Est GFR ( Amer) > 60.0 ml/min (>90) 07/20/18 04:50 Est GFR (Non-Af Amer) 51.1 ml/min 07/20/18 04:50 BUN/Creatinine Ratio 53.3 07/20/18 04:50 Glucose 180 mg/dL (70-105) H 07/20/18 04:50 POC Glucose 193 MG/DL (70 - 105) H 07/20/18 15:14 Whole Bld Lactic Acid 1.96 mmol/L (0.60-1.99) 07/07/18 19:15 Calcium 8.0 mg/dL (8.6-10.3) L 07/20/18 04:50 Phosphorus 3.5 mg/dL (2.5-5.0) 07/20/18 04:50 Magnesium 3.3 mg/dL (1.9-2.7) H 07/20/18 04:50 Total Bilirubin 3.2 mg/dL (0.3-1.0) H 07/19/18 04:45 Direct Bilirubin 0.62 mg/dL (0.0-0.2) H 07/15/18 04:15 AST 346 U/L (13-39) H 07/19/18 04:45 ALT 118 U/L (7-52) H 07/19/18 04:45 Alkaline Phosphatase 109 U/L (34-104) H 07/19/18 04:45 Ammonia 133 umol/L (16-53) H 07/14/18 04:30 Troponin I 0.01 ng/mL (0.01-0.05) 07/09/18 07:30 B-Natriuretic Peptide 822.0 pg/mL (5.0-100.0) H 07/19/18 04:45 Total Protein 5.8 gm/dL (6.0-8.3) L 07/19/18 04:45 Albumin 3.1 gm/dL (4.2-5.5) L 07/19/18 04:45 Globulin 2.7 gm/dL 07/19/18 04:45 Albumin/Globulin Ratio 1.2 (1.0-1.8) 07/19/18 04:45 Prealbumin 5 mg/dL (10-36) L 07/14/18 13:13 Triglycerides 368 mg/dL (<150) H 07/19/18 04:45 Cholesterol 117 mg/dL (<200) 07/14/18 04:30 Lipase 29 U/L (11-82) 07/16/18 04:40 Tumor Marker AFP Diluted result ng/mL (0.0-8.3) H 07/14/18 13:13 Carcinoembryonic Ag 9.9 ng/mL (0.0-4.7) H 07/14/18 13:13 Vitamin B12 1241 pg/mL (232-1245) 07/08/18 04:10 Folic Acid 8.6 ng/mL (>3.0) 07/08/18 04:10 Free T4 1.04 ng/dL (0.82-1.77) 07/09/18 07:30 Free T3 1.1 pg/mL (2.0-4.4) L 07/09/18 07:30 TSH 4.06 uIU/ml (0.34-5.60) 07/08/18 04:10 Urine Source CLEAN C 07/07/18 17:15 Urine Color YELLOW 07/07/18 17:15 Urine Clarity CLEAR (CLEAR) 07/07/18 17:15 Urine pH 6.0 (4.6 - 8.0) 07/07/18 17:15 Ur Specific [place] 1.015 (1.005-1.030) 07/07/18 17:15 Urine Protein 30 mg/dL (NEGATIVE) H 07/07/18 17:15 Urine Glucose (UA) NEGATIVE mg/dL (NEGATIVE) 07/07/18 17:15 Urine Ketones NEGATIVE mg/dL (NEGATIVE) 07/07/18 17:15 Urine Blood NEGATIVE (NEGATIVE) 07/07/18 17:15 Urine Nitrate NEGATIVE (NEGATIVE) 07/07/18 17:15 Urine Bilirubin NEGATIVE (NEGATIVE) 07/07/18 17:15 Urine Urobilinogen 0.2 E.U./dL (0.2 - 1.0) 07/07/18 17:15 Ur Leukocyte Esterase NEGATIVE (NEGATIVE) 07/07/18 17:15 Urine RBC 0-2 /hpf (0-5) H 07/07/18 17:15 Urine WBC 2-5 /hpf (0-5) 07/07/18 17:15 Ur Epithelial Cells FEW /lpf (FEW) 07/07/18 17:15 Urine Bacteria FEW /hpf (NONE SEEN) 07/07/18 17:15 Fine Granular Casts 0-2 /lpf (NONE SEEN) H 07/07/18 17:15 Urine Mucus FEW /lpf (FEW) 07/07/18 17:15 Vancomycin Trough 34.9 ug/mL (5-10) H 07/14/18 13:13 Random Vancomycin 20.1 ug/mL (5.0-40.0) 07/20/18 04:50 Hepatitis A IgM Ab Negative (Negative) 07/14/18 04:30 Hep Bs Antigen Negative (Negative) 07/14/18 04:30 Hep B Core IgM Ab Negative (Negative) 07/14/18 04:30 Hepatitis C Antibody <0.1 s/co ratio (0.0-0.9) 07/14/18 04:30 - Physical Exam Vitals and I&O: Vital Signs Temp 97.2 F 07/20/18 14:58 Pulse 76 07/20/18 14:58 Resp 17 07/20/18 14:58 BP 129/76 07/20/18 14:58 Pulse Ox 96 07/20/18 14:58 Intake & Output 07/19/18 07/20/18 07/20/18 18:59 06:59 18:59 Intake Total 1968.272 118 1913.167 Output Total 700 950 Balance 1968.833 0 1193.167 Weight (lbs) 92.079 kg 89.811 kg Intake: Intake, IV Amount 1968.486 531 3671.167 Diltiazem 125 mg In 98 Dextrose 5% 100 ml @ 0 MG /HR IV TITR [facility] Rx#: [id number] Fluconazole 200mg/100mL 100 100 200 mg In 100 ml @ 100 mls/hr IV Q24HR [facility] Rx#: [id number] Multivitamin Inj 10 ml In 5668.589 1291.167 Dextrose 70% 240 ml In Amino Acids 10% 714 ml In Intralipids 20% 150 ml In Water, Sterile 566 ml @ 70 mls/hr IV .Q24H [facility] Rx#:[id number] Piperacillin Sodium/ 100 200 100 Tazobact 4.5 gm In Sodium Chloride 0.9% 100 ml @ 100 mls/hr IV Q8HR [facility] Rx #:[id number] Other 500 360 Output: Urine 700 950 Other: # Bowel Movements 1 0 Stool Characteristics Soft Weight Source Bedscale Bedscale Active Medications: Current Medications Acetaminophen (Tylenol) 650 mg PO Q4H PRN PRN Reason: Pain Or Fever above 101 Stop: 09/05/18 19:05 Last Admin: 07/18/18 17:25 Dose: 650 mg Albuterol/Ipratropium (Duoneb Neb) 3 ml HHN Q4HRT [facility] Stop: 09/06/18 14:59 Last Admin: 07/20/18 14:29 Dose: 3 ml Budesonide (Pulmicort) 0.5 mg HHN BIDRT [facility] Stop: 09/06/18 18:59 Last Admin: 07/20/18 06:40 Dose: 0.5 mg Calamine/Phenol (Calmoseptine) 1 appl TP QID PRN PRN Reason: Skin Irritation Stop: 09/09/18 11:33 Dextrose (D50w) 50 ml IVP Q4HR PRN PRN Reason: Hypersensitivity Stop: 09/06/18 00:58 Last Admin: 07/18/18 06:09 Dose: 50 ml Diltiazem HCl (Cardizem) 20 mg IVP Q4H PRN PRN Reason: Tachycardia Stop: 09/13/18 09:31 Norepinephrine Bitartrate 4 mg (/ Dextrose) 254 mls @ 7.62 mls/hr IV TITR PRN; Protocol PRN Reason: To Keep SBP Above 90 Stop: 09/06/18 00:56 Multivitamins/Minerals 10 ml/Dextrose/ Amino Acids/Electrolytes/ Fat Emulsion Intravenous/ Sterile Water 1,680 mls @ 70 mls/hr IV .Q24H [facility] Stop: 09/10/18 15:59 Last Admin: 07/20/18 15:11 Dose: 70 mls/hr Diltiazem HCl 125 mg/ Dextrose 125 mls @ 0 mls/hr IV TITR [facility]; Protocol Stop: 09/13/18 09:44 Last Admin: 07/19/18 17:17 Dose: 5 mg/hr, 5 mls/hr Fluconazole (Diflucan) 200 mg in 100 mls @ 100 mls/hr IV Q24HR [facility] Stop: 09/15/18 12:59 Last Infusion: 07/20/18 13:10 Dose: Infused Sodium Chloride (Nacl 0.9%) 1,000 mls @ 50 mls/hr IV .Q20H [facility] Stop: 09/16/18 08:59 Last Admin: 07/19/18 15:15 Dose: 50 mls/hr Dextrose (Dextrose 10%) 1,000 mls @ 70 mls/hr IV .[id number] [facility] Stop: 08/05/18 08:49 Last Infusion: 07/18/18 16:30 Dose: 0 mls/hr Piperacillin Sod/Tazobactam (Sod 4.5 gm/ Sodium Chloride) 100 mls @ 100 mls/hr IV Q8HR [facility] Stop: 09/16/18 20:59 Last Infusion: 07/20/18 13:50 Dose: Infused Insulin Aspart (Novolog) 0 units SUBQ Q4H [facility]; Protocol Stop: 09/06/18 17:59 Last Admin: 07/20/18 15:14 Dose: Not Given Levothyroxine Sodium (Synthroid) 0.025 mg PO QDAC [facility] Stop: 09/06/18 07:29 Last Admin: 07/20/18 06:48 Dose: 0.025 mg Lidocaine HCl (Xylocaine Viscous 2%) 5 ml PO Q4HR PRN PRN Reason: sore throat Stop: 09/16/18 16:06 Magnesium Hydroxide (Milk Of Magnesia) 30 ml NG BID [facility] Stop: 09/10/18 09:59 Last Admin: 07/20/18 08:24 Dose: 30 ml Methylprednisolone Sodium Succinate (Solu-Medrol) 40 mg IV Q12HR [facility] Stop: 09/08/18 20:59 Last Admin: 07/20/18 08:25 Dose: 40 mg Metoclopramide HCl (Reglan) 5 mg IVP Q8HR [facility] Stop: 09/08/18 20:59 Last Admin: 07/20/18 12:45 Dose: 5 mg Mineral Oil (Mineral Oil 30 Ml) 30 ml NG BID [facility] Stop: 09/10/18 09:14 Last Admin: 07/20/18 08:24 Dose: 30 ml Miscellaneous (Vancomycin Iv Per Pharmacy) 1 ea MC PRN [facility] Stop: 09/05/18 19:14 Miscellaneous (Tpn Per Pharmacy) 1 ea MC PRN PRN PRN Reason: PROTOCOL Stop: 09/10/18 09:13 Miscellaneous (Probiotic Screen) 1 ea MC PRN PRN PRN Reason: PROTOCOL Stop: 09/14/18 16:18 Miscellaneous (Clinical Monitoring) 1 ea MC PRN PRN PRN Reason: ZOSYN DOSING Stop: 09/16/18 16:37 Morphine Sulfate (Morphine) 1 mg IVP Q4HR PRN PRN Reason: Severe Pain Stop: 09/10/18 22:24 Last Admin: 07/20/18 08:36 Dose: 1 mg Ondansetron HCl (Zofran) 4 mg IV Q8H PRN PRN Reason: Nausea / Vomiting Stop: 09/05/18 19:05 Pantoprazole Sodium (Protonix) 40 mg IVP QDAC [facility] Stop: 09/10/18 07:29 Last Admin: 07/20/18 06:48 Dose: 40 mg General: Alert, Severe distress (respiratory) HEENT: Other (ETT/VENT/NGT) Cardiovascular: Regular rate, Normal S1, Normal S2 Lungs: Other (OCC RHONCHI) Abdomen: Bowel sounds (HYPOACTIVE), Distended (MODERATE TO SEVERE), Other (NGT ) - Procedures Procedures: Procedures Procedure Code Date RESPIRATORY VENTILATION, GREATER THAN 96 CONSECUTIVE HOURS [id number] 07/07/18 Assessment/Plan - Assessment Assessment: Abdominal distension Ileus Possible H/O colon cancer Anemia abnormal LFTs Elevated AFP more than 220 thousands - Plan Plan: 1. Abdominal distension possibly ileus NG DECOMPRESSION May stop suction if improving but will need the NG tube for meds and possibly feeding later MINERAL OIL/MOM. TPN FOR NOW. Too tachypnic to eat 2. Possible H/O colon cancer May need Colonoscopy if he improves possible mets 3. Anemia Stable Cont to monitor 4.abnormal LFTs R/O mets or combination of mets and sepsis 5. Significant elevation of AFP C/W HCC very poor prognosis
--- NOTE | 2018-07-20 18:58 | Progress Notes ---
DATE: 07/20/2018 PULMONARY/CRITICAL CARE PROGRESS NOTE PROBLEM LIST: 1. Respiratory failure. 2. Fleeting ____ pneumonia, though question left ventricular dysfunction. 3. Severe obstructive sleep apnea syndrome. 4. Chronic bronchial asthma. 5. Morbid obesity and also history of diabetes mellitus. 6. History of sleep apnea, CPAP compliant. SYMPTOMS: The patient is awake, alert. Occasionally restless. Following simple commands. Looks like he remembers me, back to his baseline mentally I believe, and no respiratory distress. OBJECTIVE: VITAL SIGNS: Currently getting oxymizer with saturation in the mid 90s. Heart rate is about 87. Blood pressure 130/70. NECK: Veins not visualized. CHEST: Shows occasional rhonchi with diminished air entry. HEART: Regular. ABDOMEN: Slightly distended. Slightly hypoactive bowel sounds. Did have some bowel movement this morning. PERTINENT LABORATORY STUDIES: White count is dropped to 14,000, hemoglobin 8.9, the patient has nucleated RBCs and monocyte 1 still is dense about 6%. ABG shows compensated respiratory acidemia on 32% of oxygen. Electrolytes, BUN is 80 and creatinine 1.5. RADIOLOGY: Chest x-ray shows slight interstitial changes bilaterally. ASSESSMENT: The patient is clinically optimally stabilized respiratory sneed, I believe. Still there are issues with fleeting infiltrates. PLANS AND SUGGESTIONS: We will discontinue NG tube. Start oral pureed diet. We will continue TPN for the next couple of days. We will start physical therapy. Care and plan discussed with Dr. Mazariegos earlier today. JOB# [id number]
[2018-07-21] MEDS: Albuterol/Ipratropium Neb 3 ML AERS HHN SCH ×5 (03:23→18:26)
[2018-07-21] MEDS: Metoclopramide 5 mg/mL 2mL Vial IVP SCH ×3 (05:19→21:22)
[2018-07-21] MEDS: INSULIN ASPART, RECOMBINANT 100 UNITS/ML SUBQ SCH ×4 (05:20→17:12)
[2018-07-21 05:32] LABS: HEMATOCRIT 28.1 % (41.0-60); HEMOGLOBIN 8.7 gm/dL (12-16); MEAN CELL VOLUME 101.7 fl (80-99); MEAN CORPUSCULAR HEMOGLOBIN 31.5 pg (26.0-30.0); MEAN PLATELET VOLUME 10.4 fl; PLATELET COUNT 39 Th/cmm (150-400); RED BLOOD COUNT 2.76 Mil/cmm (4.30-5.70); RED CELL DISTRIBUTION WIDTH 23.9 % (11.5-20.0); WHITE BLOOD COUNT 13.5 Th/cmm (4.8-10.8)
[2018-07-21 06:24] LABS: BAND NEUTROPHILE 2 % (0-10); LYMPHOCYTE 8 % (20-50); MONOCYTE 2 % (2-10); NEUTROPHILS 88 % (40-80); PLATELET ESTIMATE DECREASED PLATELETS (NORMAL)
[2018-07-21] MEDS: Budesonide 0.5 Mg/2 mL Ud HHN SCH ×2 (07:08→18:26)
[2018-07-21 07:13] LABS: BUN - UREA NITROGEN 74 mg/dL (7-25); CALCIUM SERUM 7.8 mg/dL (8.6-10.3); CARBON DIOXIDE 31.2 mEq/L (21.0-31.0); CHLORIDE 106 mEq/L (98-107); CREATININE - SERUM 1.4 mg/dL (0.7-1.3); GFR AFRICAN-AMERICAN > 60.0 ml/min (>90); GFR NON AFRICAN-AMERICAN 55.3 ml/min; GLUCOSE 260 mg/dL (70-105); POTASSIUM SERUM 4.2 mEq/L (3.5-5.1); SODIUM SERUM 144 mEq/L (136-145)
--- NOTE | 2018-07-21 08:08 | Diagnostic Imaging Report ---
Portable chest x-ray HISTORY: Shortness of breath Compared with prior exam of July 20, 2018, the heart remains enlarged. Slight decrease in hazy bilateral infiltrates. Evidence of small bilateral pleural effusions. Changes may reflect decreased edema associated with congestive heart failure. Underlying pneumonia cannot be excluded. Clinical correlation is needed. IMPRESSION: 1. Changes as described above that may reflect decreased pulmonary edema associated with congestive heart failure. Underlying pneumonia cannot be excluded. Clinical correlation is needed.
[2018-07-21] MEDS: Levothyroxine 0.025 Mg Tab PO SCH (08:30)
[2018-07-21 08:31] LABS: pH 7.34 (7.35-7.45)
[2018-07-21 08:32] LABS: ALLEN TEST Positive
[2018-07-21] MEDS: Magnesium Hydroxide (MOM) 30 mL UDC NG SCH ×2 (08:46→16:25)
[2018-07-21] MEDS: methylPREDNISolone SS 40 mg Vial IV SCH ×2 (08:46→21:21)
[2018-07-21 08:55] LABS: MAGNESIUM 3.6 mg/dL (1.9-2.7)
[2018-07-21] MEDS ORDERED: CALCIUM GLUCONATE IV ONE (09:00)
[2018-07-21] MEDS ORDERED: SODIUM CHLORIDE 0.9% IV ONE (09:00)
--- NOTE | 2018-07-21 10:54 | Internal Medicine Prog Note ---
Internal Medicine Subjective - Subjective Service Date: 07/21/18 Patient is:: awake, verbal, talking, denies any new complaints Patient Complaints of:: congestion, weight gain Per staff patient has:: tolerating meds Internal Medicine Objective - Results Result Diagrams: 07/21/18 06:30 07/21/18 05:02 Recent Labs: Laboratory Last Values WBC 13.5 Th/cmm (4.8-10.8) H 07/21/18 06:30 Corrected WBC (auto) 31.9 Th/cmm 07/18/18 05:30 RBC 2.76 Mil/cmm (4.30-5.70) L 07/21/18 06:30 Hgb 8.7 gm/dL (12-16) L 07/21/18 06:30 Hct 28.1 % (41.0-60) L 07/21/18 06:30 MCV 101.7 fl (80-99) H 07/21/18 06:30 MCH 31.5 pg (26.0-30.0) H 07/21/18 06:30 MCHC Differential 31.0 pg (28.0-36.0) 07/21/18 06:30 RDW 23.9 % (11.5-20.0) H 07/21/18 06:30 Plt Count 39 Th/cmm (150-400) L 07/21/18 06:30 MPV 10.4 fl 07/21/18 06:30 Add Manual Diff YES 07/21/18 06:30 Neutrophils % 96.6 % (40.0-80.0) H 07/11/18 04:40 Band Neutrophils % 2 % (0-10) 07/21/18 06:30 Lymphocytes % 2.2 % (20.0-50.0) L 07/11/18 04:40 Monocytes % 1.1 % (2.0-10.0) L 07/11/18 04:40 Eosinophils % 0.1 % (0.0-5.0) 07/11/18 04:40 Basophils % 0.0 % (0.0-2.0) 07/11/18 04:40 Neutrophils (Manual) 88 % (40-80) H 07/21/18 06:30 Lymphocytes 8 % (20-50) L 07/21/18 06:30 Monocytes 2 % (2-10) 07/21/18 06:30 Eosinophils 0 % (0-5) 07/09/18 07:30 Basophils 0 % (0-3) 07/09/18 07:30 Metamyelocytes 0 % (0-0) 07/08/18 04:10 Myelocytes 2 % 07/15/18 04:15 Nucleated RBCs 2.0 % (0-0) H 07/20/18 04:50 Platelet Estimate DECREASED PLATELETS (NORMAL) 07/21/18 06:30 Anisocytosis 1+ 07/20/18 04:50 Tear Drop Cells 1+ 07/18/18 05:30 Ovalocytes 1+ 07/18/18 05:30 Schistocytes 1+ 07/13/18 04:38 PT 18.9 SECONDS (9.5-11.5) H 07/14/18 04:30 INR 1.88 (0.5-1.4) H 07/14/18 04:30 PTT (Actin FS) 27.3 SECONDS (26.0-38.0) 07/18/18 05:30 Specimen Source Arterial 07/21/18 08:20 Sample Site Right Radial 07/21/18 08:20 pH 7.34 (7.35-7.45) L 07/21/18 08:20 pCO2 59.0 mmHg (35.0-45.0) H* 07/21/18 08:20 pO2 59.0 mmHg (80.0-100.0) L 07/21/18 08:20 HCO3 28.2 mEq/L (20.0-26.0) H 07/21/18 08:20 Base Excess 4.5 mEq/L (-3.0-3.0) H 07/21/18 08:20 O2 Saturation 88.0 % (92.0-100.0) L 07/21/18 08:20 Kam Test Positive 07/21/18 08:20 Vent Rate NA 07/21/18 08:20 Inspired O2 32 07/21/18 08:20 Tidal Volume NA 07/21/18 08:20 PEEP NA 07/21/18 08:20 Pressure (ins/psv/peep) NA 07/21/18 08:20 Critical Value SH 07/21/18 08:20 Sodium 144 mEq/L (136-145) 07/21/18 05:02 Potassium 4.2 mEq/L (3.5-5.1) 07/21/18 05:02 Chloride 106 mEq/L (98-107) 07/21/18 05:02 Carbon Dioxide 31.2 mEq/L (21.0-31.0) H 07/21/18 05:02 Anion Gap 11.0 (7.0-16.0) 07/21/18 05:02 BUN 74 mg/dL (7-25) H 07/21/18 05:02 Creatinine 1.4 mg/dL (0.7-1.3) H 07/21/18 05:02 Est GFR ( Amer) > 60.0 ml/min (>90) 07/21/18 05:02 Est GFR (Non-Af Amer) 55.3 ml/min 07/21/18 05:02 BUN/Creatinine Ratio 52.9 07/21/18 05:02 Glucose 260 mg/dL (70-105) H 07/21/18 05:02 POC Glucose 241 MG/DL (70 - 105) H 07/21/18 05:08 Whole Bld Lactic Acid 1.96 mmol/L (0.60-1.99) 07/07/18 19:15 Calcium 7.8 mg/dL (8.6-10.3) L 07/21/18 05:02 Phosphorus 3.0 mg/dL (2.5-5.0) 07/21/18 06:30 Magnesium 3.6 mg/dL (1.9-2.7) H 07/21/18 06:30 Total Bilirubin 3.2 mg/dL (0.3-1.0) H 07/19/18 04:45 Direct Bilirubin 0.62 mg/dL (0.0-0.2) H 07/15/18 04:15 AST 346 U/L (13-39) H 07/19/18 04:45 ALT 118 U/L (7-52) H 07/19/18 04:45 Alkaline Phosphatase 109 U/L (34-104) H 07/19/18 04:45 Ammonia 133 umol/L (16-53) H 07/14/18 04:30 Troponin I 0.01 ng/mL (0.01-0.05) 07/09/18 07:30 B-Natriuretic Peptide 822.0 pg/mL (5.0-100.0) H 07/19/18 04:45 Total Protein 5.8 gm/dL (6.0-8.3) L 07/19/18 04:45 Albumin 3.1 gm/dL (4.2-5.5) L 07/19/18 04:45 Globulin 2.7 gm/dL 07/19/18 04:45 Albumin/Globulin Ratio 1.2 (1.0-1.8) 07/19/18 04:45 Prealbumin 5 mg/dL (10-36) L 07/14/18 13:13 Triglycerides 368 mg/dL (<150) H 07/19/18 04:45 Cholesterol 117 mg/dL (<200) 07/14/18 04:30 Lipase 29 U/L (11-82) 07/16/18 04:40 Tumor Marker AFP Diluted result ng/mL (0.0-8.3) H 07/14/18 13:13 Carcinoembryonic Ag 9.9 ng/mL (0.0-4.7) H 07/14/18 13:13 Vitamin B12 1241 pg/mL (232-1245) 07/08/18 04:10 Folic Acid 8.6 ng/mL (>3.0) 07/08/18 04:10 Free T4 1.04 ng/dL (0.82-1.77) 07/09/18 07:30 Free T3 1.1 pg/mL (2.0-4.4) L 07/09/18 07:30 TSH 4.06 uIU/ml (0.34-5.60) 07/08/18 04:10 Urine Source CLEAN C 07/07/18 17:15 Urine Color YELLOW 07/07/18 17:15 Urine Clarity CLEAR (CLEAR) 07/07/18 17:15 Urine pH 6.0 (4.6 - 8.0) 07/07/18 17:15 Ur Specific [place] 1.015 (1.005-1.030) 07/07/18 17:15 Urine Protein 30 mg/dL (NEGATIVE) H 07/07/18 17:15 Urine Glucose (UA) NEGATIVE mg/dL (NEGATIVE) 07/07/18 17:15 Urine Ketones NEGATIVE mg/dL (NEGATIVE) 07/07/18 17:15 Urine Blood NEGATIVE (NEGATIVE) 07/07/18 17:15 Urine Nitrate NEGATIVE (NEGATIVE) 07/07/18 17:15 Urine Bilirubin NEGATIVE (NEGATIVE) 07/07/18 17:15 Urine Urobilinogen 0.2 E.U./dL (0.2 - 1.0) 07/07/18 17:15 Ur Leukocyte Esterase NEGATIVE (NEGATIVE) 07/07/18 17:15 Urine RBC 0-2 /hpf (0-5) H 07/07/18 17:15 Urine WBC 2-5 /hpf (0-5) 07/07/18 17:15 Ur Epithelial Cells FEW /lpf (FEW) 07/07/18 17:15 Urine Bacteria FEW /hpf (NONE SEEN) 07/07/18 17:15 Fine Granular Casts 0-2 /lpf (NONE SEEN) H 07/07/18 17:15 Urine Mucus FEW /lpf (FEW) 07/07/18 17:15 Vancomycin Trough 34.9 ug/mL (5-10) H 07/14/18 13:13 Random Vancomycin 20.1 ug/mL (5.0-40.0) 07/20/18 04:50 Hepatitis A IgM Ab Negative (Negative) 07/14/18 04:30 Hep Bs Antigen Negative (Negative) 07/14/18 04:30 Hep B Core IgM Ab Negative (Negative) 07/14/18 04:30 Hepatitis C Antibody <0.1 s/co ratio (0.0-0.9) 07/14/18 04:30 - Physical Exam Vitals and I&O: Vital Signs Temp 98.4 F 07/21/18 10:00 Pulse 78 07/21/18 10:00 Resp 11 07/21/18 10:00 BP 128/78 07/21/18 10:00 Pulse Ox 93 07/21/18 10:00 Intake & Output 07/20/18 07/21/18 07/21/18 18:59 06:59 18:59 Intake Total 2443.167 200 Output Total 1770 600 Balance 673.167 -400 Weight (lbs) 198 lb 7 oz 200 lb 1.6 oz Intake: Intake, IV Amount 1783.167 200 Fluconazole 200mg/100mL 100 200 mg In 100 ml @ 100 mls/hr IV Q24HR [facility] Rx#: [id number] Multivitamin Inj 10 ml In 1583.167 Dextrose 70% 240 ml In Amino Acids 10% 714 ml In Intralipids 20% 150 ml In Water, Sterile 566 ml @ 70 mls/hr IV .Q24H [facility] Rx#:[id number] Piperacillin Sodium/ 100 200 Tazobact 4.5 gm In Sodium Chloride 0.9% 100 ml @ 100 mls/hr IV Q8HR [facility] Rx #:[id number] Other 660 Output: Gastric Drainage 20 Urine 1750 600 Other: # Bowel Movements 0 1 Stool Characteristics Mucoid Green Weight Source Bedscale Bedscale Active Medications: Current Medications Acetaminophen (Tylenol) 650 mg PO Q4H PRN PRN Reason: Pain Or Fever above 101 Stop: 09/05/18 19:05 Last Admin: 07/18/18 17:25 Dose: 650 mg Albuterol/Ipratropium (Duoneb Neb) 3 ml HHN Q4HRT [facility] Stop: 09/06/18 14:59 Last Admin: 07/21/18 10:53 Dose: 3 ml Budesonide (Pulmicort) 0.5 mg HHN BIDRT [facility] Stop: 09/06/18 18:59 Last Admin: 07/21/18 07:08 Dose: 0.5 mg Calamine/Phenol (Calmoseptine) 1 appl TP QID PRN PRN Reason: Skin Irritation Stop: 09/09/18 11:33 Dextrose (D50w) 50 ml IVP Q4HR PRN PRN Reason: Hypersensitivity Stop: 09/06/18 00:58 Last Admin: 07/18/18 06:09 Dose: 50 ml Diltiazem HCl (Cardizem) 20 mg IVP Q4H PRN PRN Reason: Tachycardia Stop: 09/13/18 09:31 Norepinephrine Bitartrate 4 mg (/ Dextrose) 254 mls @ 7.62 mls/hr IV TITR PRN; Protocol PRN Reason: To Keep SBP Above 90 Stop: 09/06/18 00:56 Multivitamins/Minerals 10 ml/Dextrose/ Amino Acids/Electrolytes/ Fat Emulsion Intravenous/ Sterile Water 1,680 mls @ 70 mls/hr IV .Q24H [facility] Stop: 09/10/18 15:59 Last Admin: 07/20/18 15:11 Dose: 70 mls/hr Diltiazem HCl 125 mg/ Dextrose 125 mls @ 0 mls/hr IV TITR [facility]; Protocol Stop: 09/13/18 09:44 Last Admin: 07/19/18 17:17 Dose: 5 mg/hr, 5 mls/hr Fluconazole (Diflucan) 200 mg in 100 mls @ 100 mls/hr IV Q24HR [facility] Stop: 09/15/18 12:59 Last Infusion: 07/20/18 13:10 Dose: Infused Sodium Chloride (Nacl 0.9%) 1,000 mls @ 50 mls/hr IV .Q20H [facility] Stop: 09/16/18 08:59 Last Admin: 07/19/18 15:15 Dose: 50 mls/hr Dextrose (Dextrose 10%) 1,000 mls @ 70 mls/hr IV .[id number] [facility] Stop: 08/05/18 08:49 Last Infusion: 07/18/18 16:30 Dose: 0 mls/hr Piperacillin Sod/Tazobactam (Sod 4.5 gm/ Sodium Chloride) 100 mls @ 100 mls/hr IV Q8HR [facility] Stop: 09/16/18 20:59 Last Infusion: 07/21/18 06:20 Dose: Infused Insulin Aspart (Novolog) 0 units SUBQ Q6H [facility]; Protocol Stop: 09/19/18 00:00 Last Admin: 07/21/18 05:20 Dose: 2 unit Levothyroxine Sodium (Synthroid) 0.025 mg PO QDAC [facility] Stop: 09/06/18 07:29 Last Admin: 07/21/18 08:30 Dose: 0.025 mg Lidocaine HCl (Xylocaine Viscous 2%) 5 ml PO Q4HR PRN PRN Reason: sore throat Stop: 09/16/18 16:06 Magnesium Hydroxide (Milk Of Magnesia) 30 ml NG BID [facility] Stop: 09/10/18 09:59 Last Admin: 07/21/18 08:46 Dose: 30 ml Methylprednisolone Sodium Succinate (Solu-Medrol) 40 mg IV Q12HR [facility] Stop: 09/08/18 20:59 Last Admin: 07/21/18 08:46 Dose: 40 mg Metoclopramide HCl (Reglan) 5 mg IVP Q8HR [facility] Stop: 09/08/18 20:59 Last Admin: 07/21/18 05:19 Dose: 5 mg Mineral Oil (Mineral Oil 30 Ml) 30 ml NG BID [facility] Stop: 09/10/18 09:14 Last Admin: 07/21/18 08:46 Dose: 30 ml Miscellaneous (Vancomycin Iv Per Pharmacy) 1 ea MC PRN [facility] Stop: 09/05/18 19:14 Miscellaneous (Tpn Per Pharmacy) 1 ea MC PRN PRN PRN Reason: PROTOCOL Stop: 09/10/18 09:13 Miscellaneous (Probiotic Screen) 1 ea MC PRN PRN PRN Reason: PROTOCOL Stop: 09/14/18 16:18 Miscellaneous (Clinical Monitoring) 1 ea MC PRN PRN PRN Reason: ZOSYN DOSING Stop: 09/16/18 16:37 Morphine Sulfate (Morphine) 1 mg IVP Q4HR PRN PRN Reason: Severe Pain Stop: 09/10/18 22:24 Last Admin: 07/20/18 08:36 Dose: 1 mg Ondansetron HCl (Zofran) 4 mg IV Q8H PRN PRN Reason: Nausea / Vomiting Stop: 09/05/18 19:05 Pantoprazole Sodium (Protonix) 40 mg IVP QDAC [facility] Stop: 09/10/18 07:29 Last Admin: 07/21/18 08:30 Dose: 40 mg General: weak, congested, obtunded HEENT: NC/AT, PERRLA Neck: Supple Lungs: rales, ronchi Cardiovascular: RRR, Normal S1, Normal S2, without murmur Abdomen: distended Extremities: excoriation Neurological: alert - Procedures Procedures: Procedures Procedure Code Date RESPIRATORY VENTILATION, GREATER THAN 96 CONSECUTIVE HOURS [id number] 07/07/18 Internal Medicine Assmt/Plan - Assessment Assessment: acute respiratory failure s/p extubation sepsis left lung pna anemia abdominal distention hyponatremia hypokalemia mild protein meg malnutrition episode of hypoglycemia down syndrome htn asthma hx liver ca - Plan Plan: dc once bed available to Adrien[facility] aspiration precautions continue tpn for nutritional support continue ivabx in-line respiratory treatments to continue continue current plan of care Nutritional Asmnt/Malnutr-PDOC - Dietary Evaluation Malnutrition Findings (Please click <Entered> for more info): Nutritional Asmnt/Malnutrition Start: 07/08/18 16: 06 Text: Status: Complete Freq: Protocol: Document 07/08/18 16:06 MANUELITO (Rec: 07/08/18 16:30 [id number]) Nutritional Asmnt/Malnutrition Patient General Information Nutritional Screening High Risk Diagnosis acute resp failure, spesis Pertinent Medical Hx/Surgical Hx HTN, asthma/COPD, downs, asthma, liver CA Subjective Information Pt seen intubated on vent. RN inserted NGtube and TF stated at lunch time as ordered. Current Diet Order/ Nutrition Support glucerna 1.2 at 20ml/hr continuous Pertinent Medications D50w, D5-0.9%ns, novolog, synthroid, protonix, piperacillin, vancomycin Pertinent Labs 07/08 Na 133, K 3.4, BUN 6, Cr 0.5, glucose 343, POC 101-293 07/07 Na 133, Cr 0.5, glucose 41, POC 17-135 Nutritional Hx/Data Height 4 ft 11 in Height (Calculated Centimeters) 149.9 Current Weight (lbs) 160 lb Weight (Calculated Kilograms) 72.6 Weight (Calculated Grams) 66945.8 [place] Body Weight 104 Body Mass Index (BMI) 32.3 Weight Status Overweight GI Symptoms GI Symptoms None Last BM not indicated Difficult in: None Usual diet at home regular high fiber at care facility per chart Skin Integrity/Comment: rash to sacrum Estimated Nutritional Goals BEE in Kcals: Adj wt of IBW Calories/Kcals/Kg 27-32 adj 54kg Kcals Calculated 4367-4182 Protein: Adj wt of IBW Protein g/k.2-1.5 Protein Calculated 62-81 Fluid: ml 1458-1728ml (1ml/kcal) Nutritional Problem 1. Problem Problem increased nutrition needs Etiology increased metabolic demand Signs/Symptoms: dx of sepsis Malnutrition Alert Is there a minimum of two criteria No selected? Query Text:Check all the applicable criteria. A minimum of two criteria are recommended for diagnosis of either severe or non-severe malnutrition. Intervention/Recommendation Comments 1. Start with Glucerna 1.2 at 20ml/hr continuous as ordered. It provides 576kcal, 29g protein, 386ml free water. 2. Recommend increase to goal rate of 55ml/hr continuous as tolerated, which providing 1584kcal and 79g protein to meet 100% of nutritioanl needs . 3. Monitor TF rate, tolerance, wt, skin integrity and labs 4. F/U as high risk in 2-3 days, 07/10-07/11 Expected Outcomes/Goals Expected Outcomes/Goals 1. Pt to meet at least 75% of nutritional needs via nutrition support with tolerance 2. Wt stability, skin to remain intact, labs to approach WNL.
[2018-07-21] MEDS: Diltiazem 5 mg/mL 5mL Vial IVP PRN ×2 (12:06→19:34)
[2018-07-21] MEDS: Fluconazole 200mg/100mL 200 MG/100 ML BAG IV SCH (12:30)
--- NOTE | 2018-07-21 16:05 | GI Progress Note ---
Subjective - Review of Systems Service Date: 07/21/18 Events since last encounter: Failed swallow eval Subjective: Wants to eat Objective - Results Result Diagrams: 07/21/18 06:30 07/21/18 05:02 Recent Labs: Laboratory Last Values WBC 13.5 Th/cmm (4.8-10.8) H 07/21/18 06:30 Corrected WBC (auto) 31.9 Th/cmm 07/18/18 05:30 RBC 2.76 Mil/cmm (4.30-5.70) L 07/21/18 06:30 Hgb 8.7 gm/dL (12-16) L 07/21/18 06:30 Hct 28.1 % (41.0-60) L 07/21/18 06:30 MCV 101.7 fl (80-99) H 07/21/18 06:30 MCH 31.5 pg (26.0-30.0) H 07/21/18 06:30 MCHC Differential 31.0 pg (28.0-36.0) 07/21/18 06:30 RDW 23.9 % (11.5-20.0) H 07/21/18 06:30 Plt Count 39 Th/cmm (150-400) L 07/21/18 06:30 MPV 10.4 fl 07/21/18 06:30 Add Manual Diff YES 07/21/18 06:30 Neutrophils % 96.6 % (40.0-80.0) H 07/11/18 04:40 Band Neutrophils % 2 % (0-10) 07/21/18 06:30 Lymphocytes % 2.2 % (20.0-50.0) L 07/11/18 04:40 Monocytes % 1.1 % (2.0-10.0) L 07/11/18 04:40 Eosinophils % 0.1 % (0.0-5.0) 07/11/18 04:40 Basophils % 0.0 % (0.0-2.0) 07/11/18 04:40 Neutrophils (Manual) 88 % (40-80) H 07/21/18 06:30 Lymphocytes 8 % (20-50) L 07/21/18 06:30 Monocytes 2 % (2-10) 07/21/18 06:30 Eosinophils 0 % (0-5) 07/09/18 07:30 Basophils 0 % (0-3) 07/09/18 07:30 Metamyelocytes 0 % (0-0) 07/08/18 04:10 Myelocytes 2 % 07/15/18 04:15 Nucleated RBCs 2.0 % (0-0) H 07/20/18 04:50 Platelet Estimate DECREASED PLATELETS (NORMAL) 07/21/18 06:30 Anisocytosis 1+ 07/20/18 04:50 Tear Drop Cells 1+ 07/18/18 05:30 Ovalocytes 1+ 07/18/18 05:30 Schistocytes 1+ 07/13/18 04:38 PT 18.9 SECONDS (9.5-11.5) H 07/14/18 04:30 INR 1.88 (0.5-1.4) H 07/14/18 04:30 PTT (Actin FS) 27.3 SECONDS (26.0-38.0) 07/18/18 05:30 Specimen Source Arterial 07/21/18 08:20 Sample Site Right Radial 07/21/18 08:20 pH 7.34 (7.35-7.45) L 07/21/18 08:20 pCO2 59.0 mmHg (35.0-45.0) H* 07/21/18 08:20 pO2 59.0 mmHg (80.0-100.0) L 07/21/18 08:20 HCO3 28.2 mEq/L (20.0-26.0) H 07/21/18 08:20 Base Excess 4.5 mEq/L (-3.0-3.0) H 07/21/18 08:20 O2 Saturation 88.0 % (92.0-100.0) L 07/21/18 08:20 Kam Test Positive 07/21/18 08:20 Vent Rate NA 07/21/18 08:20 Inspired O2 32 07/21/18 08:20 Tidal Volume NA 07/21/18 08:20 PEEP NA 07/21/18 08:20 Pressure (ins/psv/peep) NA 07/21/18 08:20 Critical Value SH 07/21/18 08:20 Sodium 144 mEq/L (136-145) 07/21/18 05:02 Potassium 4.2 mEq/L (3.5-5.1) 07/21/18 05:02 Chloride 106 mEq/L (98-107) 07/21/18 05:02 Carbon Dioxide 31.2 mEq/L (21.0-31.0) H 07/21/18 05:02 Anion Gap 11.0 (7.0-16.0) 07/21/18 05:02 BUN 74 mg/dL (7-25) H 07/21/18 05:02 Creatinine 1.4 mg/dL (0.7-1.3) H 07/21/18 05:02 Est GFR ( Amer) > 60.0 ml/min (>90) 07/21/18 05:02 Est GFR (Non-Af Amer) 55.3 ml/min 07/21/18 05:02 BUN/Creatinine Ratio 52.9 07/21/18 05:02 Glucose 260 mg/dL (70-105) H 07/21/18 05:02 POC Glucose 224 MG/DL (70 - 105) H 07/21/18 11:36 Whole Bld Lactic Acid 1.96 mmol/L (0.60-1.99) 07/07/18 19:15 Calcium 7.8 mg/dL (8.6-10.3) L 07/21/18 05:02 Phosphorus 3.0 mg/dL (2.5-5.0) 07/21/18 06:30 Magnesium 3.6 mg/dL (1.9-2.7) H 07/21/18 06:30 Total Bilirubin 3.2 mg/dL (0.3-1.0) H 07/19/18 04:45 Direct Bilirubin 0.62 mg/dL (0.0-0.2) H 07/15/18 04:15 AST 346 U/L (13-39) H 07/19/18 04:45 ALT 118 U/L (7-52) H 07/19/18 04:45 Alkaline Phosphatase 109 U/L (34-104) H 07/19/18 04:45 Ammonia 133 umol/L (16-53) H 07/14/18 04:30 Troponin I 0.01 ng/mL (0.01-0.05) 07/09/18 07:30 B-Natriuretic Peptide 822.0 pg/mL (5.0-100.0) H 07/19/18 04:45 Total Protein 5.8 gm/dL (6.0-8.3) L 07/19/18 04:45 Albumin 3.1 gm/dL (4.2-5.5) L 07/19/18 04:45 Globulin 2.7 gm/dL 07/19/18 04:45 Albumin/Globulin Ratio 1.2 (1.0-1.8) 07/19/18 04:45 Prealbumin 5 mg/dL (10-36) L 07/14/18 13:13 Triglycerides 368 mg/dL (<150) H 07/19/18 04:45 Cholesterol 117 mg/dL (<200) 07/14/18 04:30 Lipase 29 U/L (11-82) 07/16/18 04:40 Tumor Marker AFP Diluted result ng/mL (0.0-8.3) H 07/14/18 13:13 Carcinoembryonic Ag 9.9 ng/mL (0.0-4.7) H 07/14/18 13:13 Vitamin B12 1241 pg/mL (232-1245) 07/08/18 04:10 Folic Acid 8.6 ng/mL (>3.0) 07/08/18 04:10 Free T4 1.04 ng/dL (0.82-1.77) 07/09/18 07:30 Free T3 1.1 pg/mL (2.0-4.4) L 07/09/18 07:30 TSH 4.06 uIU/ml (0.34-5.60) 07/08/18 04:10 Urine Source CLEAN C 07/07/18 17:15 Urine Color YELLOW 07/07/18 17:15 Urine Clarity CLEAR (CLEAR) 07/07/18 17:15 Urine pH 6.0 (4.6 - 8.0) 07/07/18 17:15 Ur Specific [place] 1.015 (1.005-1.030) 07/07/18 17:15 Urine Protein 30 mg/dL (NEGATIVE) H 07/07/18 17:15 Urine Glucose (UA) NEGATIVE mg/dL (NEGATIVE) 07/07/18 17:15 Urine Ketones NEGATIVE mg/dL (NEGATIVE) 07/07/18 17:15 Urine Blood NEGATIVE (NEGATIVE) 07/07/18 17:15 Urine Nitrate NEGATIVE (NEGATIVE) 07/07/18 17:15 Urine Bilirubin NEGATIVE (NEGATIVE) 07/07/18 17:15 Urine Urobilinogen 0.2 E.U./dL (0.2 - 1.0) 07/07/18 17:15 Ur Leukocyte Esterase NEGATIVE (NEGATIVE) 07/07/18 17:15 Urine RBC 0-2 /hpf (0-5) H 07/07/18 17:15 Urine WBC 2-5 /hpf (0-5) 07/07/18 17:15 Ur Epithelial Cells FEW /lpf (FEW) 07/07/18 17:15 Urine Bacteria FEW /hpf (NONE SEEN) 07/07/18 17:15 Fine Granular Casts 0-2 /lpf (NONE SEEN) H 07/07/18 17:15 Urine Mucus FEW /lpf (FEW) 07/07/18 17:15 Vancomycin Trough 34.9 ug/mL (5-10) H 07/14/18 13:13 Random Vancomycin 20.1 ug/mL (5.0-40.0) 07/20/18 04:50 Hepatitis A IgM Ab Negative (Negative) 07/14/18 04:30 Hep Bs Antigen Negative (Negative) 07/14/18 04:30 Hep B Core IgM Ab Negative (Negative) 07/14/18 04:30 Hepatitis C Antibody <0.1 s/co ratio (0.0-0.9) 07/14/18 04:30 - Physical Exam Vitals and I&O: Vital Signs Temp 97.8 F 07/21/18 14:00 Pulse 101 07/21/18 15:30 Resp 15 07/21/18 15:30 BP 143/83 07/21/18 14:00 Pulse Ox 92 07/21/18 15:30 Intake & Output 07/20/18 07/21/18 07/21/18 18:59 06:59 18:59 Intake Total 2443.167 200 200 Output Total 1770 600 Balance 673.167 -400 200 Weight (lbs) 90.01 kg 90.764 kg Intake: Intake, IV Amount 1783.167 200 200 Fluconazole 200mg/100mL 100 100 200 mg In 100 ml @ 100 mls/hr IV Q24HR [facility] Rx#: [id number] Multivitamin Inj 10 ml In 1583.167 Dextrose 70% 240 ml In Amino Acids 10% 714 ml In Intralipids 20% 150 ml In Water, Sterile 566 ml @ 70 mls/hr IV .Q24H [facility] Rx#:[id number] Piperacillin Sodium/ 100 200 100 Tazobact 4.5 gm In Sodium Chloride 0.9% 100 ml @ 100 mls/hr IV Q8HR [facility] Rx #:[id number] Other 660 Output: Gastric Drainage 20 Urine 1750 600 Other: # Bowel Movements 0 1 Stool Characteristics Soft Liquid Green Weight Source Bedscale Bedscale Active Medications: Current Medications Acetaminophen (Tylenol) 650 mg PO Q4H PRN PRN Reason: Pain Or Fever above 101 Stop: 09/05/18 19:05 Last Admin: 07/18/18 17:25 Dose: 650 mg Albuterol/Ipratropium (Duoneb Neb) 3 ml HHN Q4HRT [facility] Stop: 09/06/18 14:59 Last Admin: 07/21/18 15:29 Dose: 3 ml Budesonide (Pulmicort) 0.5 mg HHN BIDRT [facility] Stop: 09/06/18 18:59 Last Admin: 07/21/18 07:08 Dose: 0.5 mg Calamine/Phenol (Calmoseptine) 1 appl TP QID PRN PRN Reason: Skin Irritation Stop: 09/09/18 11:33 Dextrose (D50w) 50 ml IVP Q4HR PRN PRN Reason: Hypersensitivity Stop: 09/06/18 00:58 Last Admin: 07/18/18 06:09 Dose: 50 ml Diltiazem HCl (Cardizem) 20 mg IVP Q4H PRN PRN Reason: Tachycardia Stop: 09/13/18 09:31 Last Admin: 07/21/18 12:06 Dose: 20 mg Norepinephrine Bitartrate 4 mg (/ Dextrose) 254 mls @ 7.62 mls/hr IV TITR PRN; Protocol PRN Reason: To Keep SBP Above 90 Stop: 09/06/18 00:56 Multivitamins/Minerals 10 ml/Dextrose/ Amino Acids/Electrolytes/ Fat Emulsion Intravenous/ Sterile Water 1,680 mls @ 70 mls/hr IV .Q24H [facility] Stop: 09/10/18 15:59 Last Admin: 07/20/18 15:11 Dose: 70 mls/hr Fluconazole (Diflucan) 200 mg in 100 mls @ 100 mls/hr IV Q24HR [facility] Stop: 09/15/18 12:59 Last Infusion: 07/21/18 13:30 Dose: Infused Sodium Chloride (Nacl 0.9%) 1,000 mls @ 50 mls/hr IV .Q20H [facility] Stop: 09/16/18 08:59 Last Admin: 07/19/18 15:15 Dose: 50 mls/hr Dextrose (Dextrose 10%) 1,000 mls @ 70 mls/hr IV .[id number] [facility] Stop: 08/05/18 08:49 Last Infusion: 07/18/18 16:30 Dose: 0 mls/hr Piperacillin Sod/Tazobactam (Sod 4.5 gm/ Sodium Chloride) 100 mls @ 100 mls/hr IV Q8HR [facility] Stop: 09/16/18 20:59 Last Infusion: 07/21/18 13:05 Dose: Infused Insulin Aspart (Novolog) 0 units SUBQ Q6H [facility]; Protocol Stop: 09/19/18 00:00 Last Admin: 07/21/18 11:37 Dose: 2 unit Levothyroxine Sodium (Synthroid) 0.025 mg PO QDAC [facility] Stop: 09/06/18 07:29 Last Admin: 07/21/18 08:30 Dose: 0.025 mg Lidocaine HCl (Xylocaine Viscous 2%) 5 ml PO Q4HR PRN PRN Reason: sore throat Stop: 09/16/18 16:06 Magnesium Hydroxide (Milk Of Magnesia) 30 ml NG BID [facility] Stop: 09/10/18 09:59 Last Admin: 07/21/18 08:46 Dose: 30 ml Methylprednisolone Sodium Succinate (Solu-Medrol) 40 mg IV Q12HR [facility] Stop: 09/08/18 20:59 Last Admin: 07/21/18 08:46 Dose: 40 mg Metoclopramide HCl (Reglan) 5 mg IVP Q8HR [facility] Stop: 09/08/18 20:59 Last Admin: 07/21/18 12:03 Dose: 5 mg Mineral Oil (Mineral Oil 30 Ml) 30 ml NG BID [facility] Stop: 09/10/18 09:14 Last Admin: 07/21/18 08:46 Dose: 30 ml Miscellaneous (Vancomycin Iv Per Pharmacy) 1 ea MC PRN [facility] Stop: 09/05/18 19:14 Miscellaneous (Tpn Per Pharmacy) 1 ea MC PRN PRN PRN Reason: PROTOCOL Stop: 09/10/18 09:13 Miscellaneous (Probiotic Screen) 1 ea MC PRN PRN PRN Reason: PROTOCOL Stop: 09/14/18 16:18 Miscellaneous (Clinical Monitoring) 1 ea MC PRN PRN PRN Reason: ZOSYN DOSING Stop: 09/16/18 16:37 Morphine Sulfate (Morphine) 1 mg IVP Q4HR PRN PRN Reason: Severe Pain Stop: 09/10/18 22:24 Last Admin: 07/20/18 08:36 Dose: 1 mg Ondansetron HCl (Zofran) 4 mg IV Q8H PRN PRN Reason: Nausea / Vomiting Stop: 09/05/18 19:05 Pantoprazole Sodium (Protonix) 40 mg IVP QDAC [facility] Stop: 09/10/18 07:29 Last Admin: 07/21/18 08:30 Dose: 40 mg General: Alert, Severe distress (respiratory) HEENT: Other (ETT/VENT/NGT) Cardiovascular: Regular rate, Normal S1, Normal S2 Lungs: Other (OCC RHONCHI) Abdomen: Bowel sounds (HYPOACTIVE), Distended (MODERATE TO SEVERE), Other (NGT ) - Procedures Procedures: Procedures Procedure Code Date RESPIRATORY VENTILATION, GREATER THAN 96 CONSECUTIVE HOURS [id number] 07/07/18 Assessment/Plan - Assessment Assessment: Abdominal distension Ileus Possible H/O colon cancer Anemia abnormal LFTs Elevated AFP more than 220 thousands - Plan Plan: 1. Abdominal distension possibly ileus NG DECOMPRESSION May stop suction if improving but will need the NG tube for meds and possibly feeding later especially that he failed swallow study MINERAL OIL/MOM. TPN FOR NOW. 2. H/O colon cancer Old many years ago May need Colonoscopy if he improves possible mets 3. Anemia Stable Cont to monitor 4.abnormal LFTs R/O mets or combination of mets and sepsis 5. Significant elevation of AFP C/W HCC very poor prognosis
[2018-07-21] MEDS: AMINO ACIDS IV SCH (16:25)
[2018-07-21] MEDS: DEXTROSE IV SCH (16:25)
[2018-07-21] MEDS: MULTIVITAMIN IV SCH (16:25)
[2018-07-21] MEDS: [UNRECOGNIZED DRUG - OTHER] IV SCH (16:25)
--- NOTE | 2018-07-21 22:03 | Progress Notes ---
DATE: 07/21/2018 PULMONARY PROGRESS NOTE PROBLEM LIST: 1. Acute respiratory failure, improved. 2. Mechanical ventilation. 3. Underlying mental and physical development delay issues, stable. 4. Chronic bronchial asthma, unremarkable. 5. Sleep apnea syndrome, CPAP compliant. 6. Fleeting infiltrate, stable. SYMPTOMS: Nil, feeling okay, offers no specific new symptoms. PHYSICAL EXAMINATION: VITAL SIGNS: Temperature is 98.8, blood pressure 139/83. NECK: Veins not visualized. CHEST: Shows occasional rhonchi with diminished air entry. HEART: Regular. ABDOMEN: Soft, nontender. LABORATORY DATA: White count is 13,000, hemoglobin 8.7, pCO2 is 59, pO2 is 59 on 32% of oxygen. Electrolytes: BUN is 674. ASSESSMENT: The patient clinically overall seemingly doing better. PLANS AND SUGGESTIONS: We will continue current treatment. Discussed with wrapping checker to [facility] today. JOB# [id number]
== END 2018-07-21 22:33 | DRG 870 ==
LOC: ER 15:47 → ICU 19:14
PROVIDERS: ADMIT Internal Medicine; ATTEND Internal Medicine
PROC: 5A1955Z Respiratory Ventilation, Greater than 96 Consecutive Hours (ICD-10-PCS; principal; 2018-07-07)
PROC: 0BH17EZ Insertion of Endotracheal Airway into Trachea, Via Natural or Artificial Opening (ICD-10-PCS; 2018-07-07)
PROC: 0D9670Z Drainage of Stomach with Drainage Device, Via Natural or Artificial Opening (ICD-10-PCS; 2018-07-07)
PROC: 02HV33Z Insertion of Infusion Device into Superior Vena Cava, Percutaneous Approach (ICD-10-PCS; 2018-07-07)
PROC: 3E0436Z Introduction of Nutritional Substance into Central Vein, Percutaneous Approach (ICD-10-PCS; 2018-07-13)
PROC: 5A09357 Assistance with Respiratory Ventilation, Less than 24 Consecutive Hours, Continuous Positive Airway Pressure (ICD-10-PCS; 2018-07-18)
PROC: 5A09357 Assistance with Respiratory Ventilation, Less than 24 Consecutive Hours, Continuous Positive Airway Pressure (ICD-10-PCS; 2018-07-19)
PROC: 5A09357 Assistance with Respiratory Ventilation, Less than 24 Consecutive Hours, Continuous Positive Airway Pressure (ICD-10-PCS; 2018-07-20)
PROC: 5A09357 Assistance with Respiratory Ventilation, Less than 24 Consecutive Hours, Continuous Positive Airway Pressure (ICD-10-PCS; 2018-07-21)
DX: A41.9 Sepsis, unspecified organism (principal); J96.00 Acute respiratory failure, unspecified whether with hypoxia or hypercapnia; J18.9 Pneumonia, unspecified organism; Z99.11 Dependence on respirator [ventilator] status; E87.1 Hypo-osmolality and hyponatremia; E44.1 Mild protein-calorie malnutrition; Z68.41 Body mass index [BMI] 40.0-44.9, adult; I50.30 Unspecified diastolic (congestive) heart failure; J45.901 Unspecified asthma with (acute) exacerbation; K56.7 Ileus, unspecified; D64.9 Anemia, unspecified; Q90.9 Down syndrome, unspecified; E87.6 Hypokalemia; J44.9 Chronic obstructive pulmonary disease, unspecified; G47.33 Obstructive sleep apnea (adult) (pediatric); E11.649 Type 2 diabetes mellitus with hypoglycemia without coma; I11.0 Hypertensive heart disease with heart failure; Z85.038 Personal history of other malignant neoplasm of large intestine; Z85.05 Personal history of malignant neoplasm of liver
CPT/HCPCS: 36415-UA; 36600-90; 71045-TC; 71250-TC; 74000-TC; 76700-TC; 80048-TC; 80053-TC; 80074-90; 80202-TC; 81001-TC; 82105-90; 82140-TC; 82248-TC; 82378-90; 82465-TC; 82607-90; 82746-90; 82803-TC; 82948-90; 83036-90; 83605; 83690-TC; 83735-TC; 83880-TC; 84100-TC; 84134-90; 84439-90; 84443-TC; 84478-TC; 84479-90; 84484-TC; 85007-TC; 85025-TC; 85610-TC; 85730-TC; 87070; 90779; 90799; 93005; 94002; 94003; 94660; 94760; 96375; 96379; 99201; C9113; J0610; J0696; J1450; J1644; J1815; J1940; J2060; J2185; J2250; J2270; J2543; J2765; J2920; J2930; J3370; J3475; J3480; J7030; J7040; J7613; J7799; P9047; X3401; X6598; X6672; Z7502; Z7610